=== PATIENT | male | born 1950 | race Caucasian/White ===

== ENCOUNTER 2020-08-31 12:43 | Outpatient (RCR) | payer MEDICARE, SELFPAY ==
[2020-08-31] MEDS: COVID-19 VACC, MRNA(PFIZER)/PF 30 MCG/0.3 ML SYRINGE IM (10:48)
[2020-09-21] MEDS: COVID-19 VACC, MRNA(PFIZER)/PF 30 MCG/0.3 ML SYRINGE IM (10:29)
== END 2020-11-30 23:59 ==
LOC: IMMUN 12:43
PROVIDERS: Visit Provider Family Medicine
DX: Z23 Encounter for immunization (principal)
CPT/HCPCS: 0001A; 0002A; 91300

== ENCOUNTER → 2020-12-10 09:59 | Outpatient (CLI) | payer MEDICARE, SELFPAY ==
[2020-12-10 10:38] LABS: PSA,Total- Diagnostic 8.35 ng/mL (0.0-4.0)
== END ==
PROVIDERS: Visit Provider Nurse Practitioner Adult Health
DX: R97.20 Elevated prostate specific antigen [PSA] (principal)
CPT/HCPCS: 36415; 84153

== ENCOUNTER → 2021-05-30 14:35 | Outpatient (CLI) | payer MEDICARE, SELFPAY ==
--- NOTE | 2021-05-30 14:38 | US_ITS ---
STUDY: RENAL ULTRASOUND - COMPLETE REASON FOR EXAM: Male, 71 years old. ARF TECHNIQUE: Ultrasound evaluation of the kidneys was performed with real-time and static montague-scale imaging. COMPARISON: None. FINDINGS: RIGHT KIDNEY: Normal location of the right kidney, which is normal in size. The right kidney measures 9 cm x 4.2 cm x 4.7 cm. There is a normal cortex of the right kidney. The renal cortex measures 1.5 cm. There is no right renal mass or cyst. There are no right renal calculi. There is no right hydronephrosis. DISTAL RIGHT URETER: There is non-visualization of the distal right ureter. There is no demonstrated right ureterovesical junction calculus. There is a visualized right ureteral jet. LEFT KIDNEY: Normal location of the left kidney, which is normal in size. The left kidney measures 9.6 cm x 4.9 cm x 4.9 cm. There is a normal cortex of the left kidney. The renal cortex measures 1.7 cm. There is no left renal mass or cyst. There are no left renal calculi. There is no left hydronephrosis. DISTAL LEFT URETER: There is non-visualization of the distal left ureter. There is no demonstrated left ureterovesical junction calculus. There is a visualized left ureteral jet. BLADDER: The distended urinary bladder has a volume of 174 ml. There is a normal wall thickness of the distended urinary bladder. There is no demonstrated mass within the urinary bladder. There are no demonstrated bladder calculi. There is enlargement of the prostate. It measures 6.1 cm x 5.5 cm x 4.4 cm. This causes indentation at the bladder base. US/Kidney and Bladder IMPRESSION: Normal ultrasound of the kidneys and urinary bladder. Prostatic enlargement with indentation at the bladder base. Electronically Signed: Roni Murillo MD at 10:01 EST , Service support ,
== END ==
PROVIDERS: Referring Provider Internal Medicine; Visit Provider Internal Medicine
DX: N17.9 Acute kidney failure, unspecified (principal)
CPT/HCPCS: 76770

== ENCOUNTER 2021-11-20 07:38 | Emergency (ER) | payer MEDICARE, SELFPAY ==
[2021-11-20 07:39] VITALS: BP 176/80; PULSE 80; RESP 18; TEMP 36.6; O2SAT 99; BMI 24.6
--- NOTE | 2021-11-20 07:56 | EDS_ITS ---
HPI History of Present Illness Chief Complaint: Lower Extremity Injury Detail of Chief Complaint: Right foot pain Informant: patient Onset/Context/Timing Onset: Weeks Timing: Waxes and wanes Current Severity: Mild Maximum Severity: Moderate Narrative Narrative: Patient presents due to concerns for recurrent gout. He has been fighting gout in his right MTP joint since July. He was recently on medication approximately 2 weeks ago. He states symptoms get better when he is on the medication but then recur when the medication is stopped. No fever or chills. [facility] Medical History (Updated 11/20/21 @ 09:[address] Sobeida Romero MD) Gout Hypertension Home Medications prednisone 40 mg PO DAILY #8 tab 11/20/21 [Rx Last Taken Unknown] Allergy/AdvReac Type Severity Reaction Status Date / Time No Known Allergies Allergy Verified 11/20/21 07:41 Family History no significant family his Surgical History no surgical history Social History Smoking Status: Never smoker ROS ROS ED Constitutional Constitutional ED: Denies chills or fever(s) Eyes Eyes: Denies change in vision ENT ENT ED: Denies ear pain Cardiovascular Cardiovascular: Denies chest pain or palpitations Respiratory/Chest Respiratory/Chest: Denies cough or dyspnea Gastrointestinal Gastrointestinal: Denies abdominal pain, diarrhea or vomiting Musculoskeletal Musculoskeletal: Reports arthralgias; Denies back pain or neck pain Neurologic Neurologic: Denies paresthesias Hematologic/Lymphatic Hematologic/Lymphatic: Denies easy bruising Allergic/Immunologic Allergic/Immunologic ED: Denies mouth swelling or urticaria EXAM Physical Exam Const Vital Signs: 11/20/21 07:39 Temperature 98 F Temperature Source Temporal Pulse Rate 80 Respiratory Rate 18 Blood Pressure 176/80 H Blood Pressure Mean 112 Pulse Ox 99 Oxygen Delivery Method Room Air Positive well nourished and well developed General Appearance ED: well developed HEENT normocephalic Eyes PERRL Neck full ROM Chest Wall inspection of chest normal and palpation of chest normal Resp normal respiratory effort and clear to auscultation bilaterally Cardio regular rate and regular rhythm GI non-tender and non-distended Palpation: soft Extremity Extremity Narrative: Erythema, mild edema, tenderness palpation of the right first MTP joint. No open skin wounds. Neuro oriented x3 Sensorium / Orientation: alert MDM MDM MDM Narrative Medical decision making narrative: Right foot x-rays obtained. Radiography Diagnostic Testing: Clinical Impression(s) from Imaging Studies Foot X-Ray 11/20/21 08:10 IMPRESSION: Suspect mild gout at the first metatarsophalangeal joint. Electronically Signed: Lyle Hong MD at 9:40 EDT , Treatment and Re-Evaluation Narrative: Right foot x-ray per my interpretation does reveal inflammation of the right first MTP joint. Radiology interpretation also reviewed. I did call the pharmacy. Patient was on prednisone 10 mg 3 times a day for 5 days earlier this month. He will be treated with another prednisone burst. I did encourage him to call his doctor to be started on a maintenance medication for gout once this acute flare is calm down. Discharge Plan Triage Chief Complaint: Lower Extremity Injury ED Provider: Sobeida Romero Dx/Rx/DC Orders Clinical Impression: Gout Instructions: ED Gout Prescriptions: New prednisone 20 mg tablet 40 mg PO DAILY Qty: 8 RF: 0 Primary Care Provider: Francesca Lopez Referrals: Francesca Lopez DO [Primary Care Provider] - 5-7 Days Disposition Disposition: Home, Self Care
--- NOTE | 2021-11-20 08:10 | RAD_ITS ---
STUDY: X-RAY - RIGHT FOOT CLINICAL: Male, 71 years old. pain TECHNIQUE: 3 view(s) of the foot. COMPARISON: None. FINDINGS: Normal talus, calcaneus, and tarsal bones. Tiny plantar calcaneal enthesophyte. Normal visualized subtalar, talonavicular, calcaneocuboid, tarsal and tarsometatarsal articulations. Normal metatarsi. Tiny erosions of the tibial aspect of the head of the first metatarsal bone with dense soft tissue swelling medial to the head of the first metatarsal bone. Findings may represent gout. Normal tibial and fibular sesamoid bones. Normal interphalangeal joint of the great toe. Normal phalanges of the great toe. Normal second through fifth metatarsophalangeal joints. Normal interphalangeal joints and phalanges of the lesser toes. The soft tissue structures are unremarkable. RAD/Foot min 3 Views IMPRESSION: Suspect mild gout at the first metatarsophalangeal joint. Electronically Signed: Lyle Hong MD at 9:40 EDT ,
[2021-11-20] MEDS: predniSONE 20 MG Tablet 40 MG PO (10:03)
== END 2021-11-20 10:04 | disposition home or self-care (01) ==
PROVIDERS: Emergency Provider Emergency Medicine; PCP Internal Medicine; Visit Provider Emergency Medicine
DX: M10.9 Gout, unspecified (principal)
CPT/HCPCS: 73630; 99283

== ENCOUNTER → 2022-01-12 | Outpatient (CLI) | payer MEDICARE, SELFPAY ==
--- NOTE | 2022-01-12 | IMM_PTH ---
PATIENT: RIRI MARTIN Jr. LOC: [facility] U#:[id number] AGE/SX: 71/M ROOM: RE01/12/[address]: Dr. Asael Pardo MD : 1950 BED: DIS: 01/12/2022 SPEC #: [id number] RECD: 01/16/22 12:27 STATUS: SHARON REQ #: [id number] PATITO: 01/12/22 00:[address]: Asael Pardo DEPT: IMMUNOHISTOCHEMISTRY RECD BY: Meg Joya ENTERED: 01/16/22 12:28 SP TYPE: IMMUNO OTHR DR: Dr. Francesca Lopez, DO Tissues: D - PROSTATE LEFT Procedures: P40 (add) 34BE12 (initial) PHYSICIAN & INSTITUTION [place] [id number] SPECIMEN INFORMATION: Tissue Source: Clinical Info: Elevated PSA Specimen Number: [id number] CPT code: 35595, 30159 METHODOLOGY: Deparaffinized sections of prefer/formalin-fixed tissue or PAP/DQ stained slides are incubated with monoclonal/polyclonal antibodies/oligonucleotide probes. Localization is made via biotin free immunoperoxidase method. Appropriate controls are performed and reacted as expected. Results on target cell population are indicated in the following table: RESULTS: ANTIBODY / CLONE RESULT Block D P40 (BC28) negative 34BE12 (34BE12) negative These tests were developed and their performance characteristics determined by [facility]. They may not have been cleared or approved by the U.S. Food and Drug Administration. The FDA has determined that such clearance or approval is not necessary. The above immunohistochemical/dualISH markers are ordered and reviewed by the Pathologist. INTERPRETATION: D. Left prostate, apex, core biopsy: A minute focus of adenocarcinoma. This case has been reviewed in consultation with Dr. Butt who concurs with the above diagnosis. SJ:angélica 01/17/2022
--- NOTE | 2022-01-12 08:00 | PROSBIL_PTH ---
PATIENT: RIRI MARTIN Jr. LOC: [facility] U#:[id number] AGE/SX: 71/M ROOM: RE01/12/[address]: Dr. Asael Pardo MD : 1950 BED: DIS: 01/12/2022 SPEC #: [id number] RECD: 01/12/22 17:39 STATUS: SHARON REQ #: [id number] PATITO: 01/12/22 08:[address]: Asael Pardo DEPT: SURGICAL PATHOLOGY RECD BY: Trish Kaplan ENTERED: 01/13/22 08:06 SP TYPE: PROST BX DINA DR: Dr. Francesca Lopez DO Tissues: A - PROSTATE RIGHT B - PROSTATE RIGHT C - PROSTATE RIGHT D - PROSTATE LEFT E - PROSTATE LEFT F - PROSTATE LEFT Procedures: PROSTATE BX HEADER OPERATION: Prostate biopsies PRE-OP DIAGNOSIS: Elevated PSA TISSUE SUBMITTED: A - Right apex, B - Right mid, C - Right base, D - Left apex, E - Left mid, F - Left base MICROSCOPIC DIAGNOSIS A. Right prostate, apex, core biopsy: Prostatic tissue, negative for malignancy. B. Right prostate, mid, core biopsy: Focal high-grade prostatic intraepithelial neoplasia (HGPIN). Focal atrophy. C. Right prostate, base, core biopsy: Prostatic adenocarcinoma. Jay grade: 3+3=6 Number of cores involved: 1/2 Proportion of tissue involved: ~15% Perineural invasion: Not identified. Greatest tumor length: 0.3 cm Focal high-grade prostatic intraepithelial neoplasia (HGPIN). D. Left prostate, apex, core biopsy: A minute focus of prostatic adenocarcinoma. Ananda grade: 3+3=6 Number of cores involved: 1/2 Proportion of tissue involved: <5% Perineural invasion: Not identified. Greatest tumor length: <0.1 cm See comment. E. Left prostate, mid, core biopsy: Focal high-grade prostatic intraepithelial neoplasia (HGPIN). F. Left prostate, base, core biopsy: Focal high-grade prostatic intraepithelial neoplasia (HGPIN). SJ:angélica 01/16/2022 COMMENT D. Immunohistochemistry ([id number]) supports the above diagnosis. Case has been reviewed in consultation with Dr. Butt who concurs with the above diagnosis. IDC:AM MICROSCOPIC DESCRIPTION Slides are reviewed. GROSS DESCRIPTION A - Received is one container designated prostate, right apex. The specimen consists of two elongated fragments of light kerns-white soft tissue each measuring 1.5 cm in length and 0.1 cm in diameter. The specimen is totally submitted in one cassette. B - Received is one container designated prostate, right mid. The specimen consists of two elongated fragments of light kerns-white soft tissue each measuring 2 cm in length and 0.1 cm in diameter. The specimen is totally submitted in one cassette. C - Received is one container designated prostate, right base. The specimen consists of two elongated fragments of light kerns-white soft tissue each measuring 1.5 cm in length and 0.1 cm in diameter. The specimen is totally submitted in one cassette. D - Received is one container designated prostate, left apex. The specimen consists of two elongated fragments of light kerns-white soft tissue each measuring 1.5 cm in length and 0.1 cm in diameter. The specimen is totally submitted in one cassette. E - Received is one container designated prostate, left mid. The specimen consists of two elongated fragments of light kerns-white soft tissue each measuring 2 cm in length and 0.1 cm in diameter. The specimen is totally submitted in one cassette. F - Received is one container designated prostate, left base. The specimen consists of one elongated fragment of light kerns-white soft tissue measuring 2 cm in length and 0.1 cm in diameter. The specimen is totally submitted in one cassette. / AM:angélica 01/13/2022 TC:0 CPT: G0146 ADDENDUM ADDENDUM ADDENDUM ADDENDUM ADDENDUM ADDENDUM ADDENDUM ADDENDUM 02/15/2022 09:21 ADDENDUM 02/15/2022 09:21 ADDENDUM 02/15/2022 09:21 ADDENDUM 02/15/2022 09:21 ADDENDUM 02/15/2022 09:21 An order for Oncotype testing was received from Dr. Pardo. This necessitated case review, block and slide selection by pathologist at [facility]. Genomic Prostate Score = 56 Results of the complete Oncotype testing ([employer] report) are viewable in EMR under: Reports - Pathology - Lab Pathology Report, Scanned.
== END | disposition home or self-care (01) ==
LOC: LABSPEC 14:42
PROVIDERS: PCP Internal Medicine; Visit Provider Urology
DX: C61 Malignant neoplasm of prostate (principal)
CPT/HCPCS: 88305; 88341; 88342; G0416

== ENCOUNTER 2022-06-26 06:41 | Emergency (ER) | payer MEDICARE, SELFPAY ==
[2022-06-26 06:43] VITALS: BP 162/77; PULSE 101; RESP 22; TEMP 36.5; O2SAT 96; BMI 22.6
--- NOTE | 2022-06-26 07:08 | RAD_ITS ---
HISTORY: cough. TECHNIQUE: XR Chest 2 Views. COMPARISON: 05/25/2020. FINDINGS: CARDIOMEDIASTINAL BORDERS: Cardiac silhouette within normal limits in size. Mediastinal contour unchanged with tortuosity of the aorta. LUNGS: Radiographically clear. Chronic elevation of the right hemidiaphragm. PLEURA: No pleural effusion or pneumothorax seen. OSSEOUS STRUCTURES: Degenerative changes. OTHER: Dilated air fluid levels in the small bowel of the upper abdomen. RAD/Chest PA and Lateral IMPRESSION: No acute cardiopulmonary process identified. Dilated small bowel in the upper abdomen, which may represent ileus or bowel obstruction. Electronically Signed: Hailee Paiz MD at 8:11 EST ,
--- NOTE | 2022-06-26 07:08 | EKG12_ITS ---
Test Reason : Blood Pressure : / mmHG Vent. Rate : 089 BPM Atrial Rate : 089 BPM P-R Int : 164 ms QRS Dur : 096 ms QT Int : 362 ms P-R-T Axes : 033 -29 026 degrees QTc Int : 440 ms Normal sinus rhythm Moderate voltage criteria for LVH, may be normal variant ( R in aVL , Bruno product ) Poor R wave progression Nonspecific ST and T wave abnormality Confirmed by KAY HOYOS, RAMONA ([id number]), continuity editor PAWEL RM ([id number]) on 06/27/2022 1:06:52 PM Referred By: Confirmed By:RAMONA VILLANUEVA MD
--- NOTE | 2022-06-26 07:10 | EDS_ITS ---
HPI History of Present Illness Chief Complaint: Cold Sx Informant: patient and spouse/S.O. Narrative Narrative: Patient presents with a cold. He states his symptoms started almost a week ago. He is not sure what day. He has had some coughing but that seems to be almost gone. He has never been short of breath. He never had sputum production. He had some runny nose off and on throughout this. No sore throat. No real headache. He does have myalgias. No chest pain or palpitations. He has had some mild abdominal cramping but this is just before vomiting. He had nausea vomiting early on. He had a couple soft bowel movements but no watery diarrhea. He has not vomited since yesterday morning or the day before. He ate yesterday and did not vomit. His states he just does not feel like eating or drinking and she is afraid he is dehydrated. Nothing really makes his symptoms better or worse. He has been trying NyQuil and Tylenol which does help for his subjective fevers. He has not checked his temperature. No known sick contacts. [facility] Medical History Gout Hypertension Home Medications amlodipine 5 mg tablet 5 mg PO DAILY 06/26/22 [History Last Taken Unknown] metoprolol tartrate 50 mg-hydrochlorothiazide 25 mg tablet 1 tab PO DAILY 06/26/22 [History Last Taken Unknown] ondansetron 4 mg disintegrating tablet 4 mg PO Q8H PRN nausea and vomiting #10 tabs 06/26/22 [Rx Last Taken Unknown] Allergy/AdvReac Type Severity Reaction Status Date / Time No Known Allergies Allergy Verified 11/20/21 07:41 Social History Smoking Status: Never smoker ROS [facility] ED Constitutional Constitutional ED: Reports subjective Eyes Eyes: Denies change in vision ENT ENT ED: Reports rhinorrhea; Denies sore throat Cardiovascular Cardiovascular: Denies chest pain, palpitations or racing heartbeat Respiratory/Chest Respiratory/Chest: Reports cough; Denies dyspnea Gastrointestinal Gastrointestinal: Reports diarrhea, nausea and vomiting Genitourinary Genitourinary ED: Denies dysuria Musculoskeletal Musculoskeletal: Reports myalgias Integumentary Denies rash Neurologic Neurologic: Denies headache(s) Endocrine Endocrinology: Denies polydipsia or polyuria Hematologic/Lymphatic Hematologic/Lymphatic: Denies easy bleeding or easy bruising Allergic/Immunologic Allergic/Immunologic ED: Denies urticaria EXAM Physical Exam Const Vital Signs: 06/26/22 06:43 06/26/22 06:51 Temperature 97.7 F L Temperature Source Oral Pulse Rate 101 H Respiratory Rate 22 H Respiratory Effort Normal Respiratory Pattern Normal Blood Pressure 162/77 H Blood Pressure Mean 105 Pulse Ox 96 Oxygen Delivery Method Room Air Positive well nourished and well developed General Appearance ED: well developed and NAD; Negative for cyanotic, diaphoretic or pallor HEENT Reports dry mucous membranes Mouth ED: Yes dry mucous membranes Mouth: dry mucous membranes Eyes General Eye ED: Negative for scleral icterus Neck no lymphadenopathy Chest Wall inspection of chest normal Resp normal respiratory effort and clear to auscultation bilaterally Cardio regular rate and regular rhythm Rate: Negative for tachycardic GI normal to inspection, nondistended, normoactive bowel sounds, non-tender and non-distended Auscultation: normoactive bowel sounds; Negative for hyperactive bowel sounds or hypoactive bowel sounds Palpation: soft; Negative for tender, guarding or mass Back/Spine no CVA tenderness Extremity normal to inspection Neuro Sensorium / Orientation: alert Psych mental status grossly normal Skin no rashes or lesions noted General Skin Exam: Negative for jaundice or pallor MDM MDM MDM Narrative Medical decision making narrative: X-ray showed some dilated bowel loops but no intrathoracic process. But the patient has normal bowel sounds. He is not distended. He is not having pain. He has no nausea now. He took potassium without difficulty. He drank water. I do not think this represents obstruction or ileus clinically. I do not think he needs CAT scan of the abdomen. Blood work showed mildly low hemoglobin 11.8. But he also has low indices that show this is likely chronic. Electrolytes showed mild dehydration with elevated BUN to creatinine. I do not have old labs to compare. His potassium was a bit low at 3.0. The was replaced orally. Patient will go home. He is feeling well. COVID and influenza are negative. I will write for some Zofran if he needs it. We discussed reasons to return. Both myself and his family encouraged him to eat or drink even though he does not have a great appetite. Lab Data Attestation: I reviewed the patient's lab results. Labs: Laboratory Results - last 24 hr 06/26/22 06/26/22 07:45 07:45 WBC 10.7 RBC 4.47 L Hgb 11.8 L Hct 38.4 L MCV 85.9 MCH 26.4 L MCHC 30.7 L RDW Std Deviation 49.8 H RDW Coeff of [place] 15.9 H Plt Count 376 MPV 9.7 Immature Gran % (Auto) 0.300 Neut % (Auto) 75.3 H Lymph % (Auto) 9.2 L [place]ack[place] % (Auto) 15.0 H Eos % (Auto) 0.1 Baso % (Auto) 0.1 Absolute Neuts (auto) 8.1 H Absolute Lymphs (auto) 0.98 Nucleated RBC % 0 Differential Comment SCANNED Sodium 137 Potassium 3.0 L Chloride 98 Carbon Dioxide 28.0 Anion Gap 11 BUN 42 H Creatinine 1.40 H Estim Creat Clear Calc 41.49 Est GFR (MDRD) Af Amer 64 Est GFR (MDRD) Non-Af 53 L BUN/Creatinine Ratio 30.0 H Glucose 118 H Calcium 8.9 Radiography Diagnostic Testing: Clinical Impression(s) from Imaging Studies Chest X-Ray 06/26/22 07:08 IMPRESSION: No acute cardiopulmonary process identified. Dilated small bowel in the upper abdomen, which may represent ileus or bowel obstruction. Electronically Signed: Hailee Paiz MD at 8:11 EST Reading Location ID and State: [address] [place] [address] Tel , Service support , 2 view chest x-ray looked at by me and read by radiology shows no acute pulmonary process. There were some dilated bowel loops. EKG Initial EKG: Comments: EKG done for cough and generalized ill feeling in an elderly. EKG read by me shows normal sinus rhythm with overall rate of 89. No ectopy. Suspicion of mild LVH. Nonspecific ST and T wave changes. No convincing evidence of infarct or ischemia. ND interval, QRS duration and QTc normal. No old for comparison. Discharge Plan Triage Chief Complaint: Cold Sx ED Provider: Binh Dunn Dx/Rx/DC Orders Clinical Impression: Influenza-like illness, Dehydration Instructions: Dehydration Prescriptions: New ondansetron 4 mg tablet,disintegrating 4 mg PO Q8H PRN (Reason: nausea and vomiting) Qty: 10 0RF No Action amlodipine 5 mg Tablet 5 mg PO DAILY metoprolol ta-hydrochlorothiaz 50-25 mg tablet 1 tab PO DAILY Label Comments: Take 1 tablet by mouth as directed Primary Care Provider: Francesca Lopez Referrals: Francesca Lopez DO [Primary Care Provider] - 3-5 Days if not improving Disposition Disposition: Home, Self Care
--- NOTE | 2022-06-26 07:27 | NURSING ---
NO OLD EKGS
[2022-06-26] MEDS: 0.9% Normal Saline 1,000 ML 999 ML IV (07:51)
[2022-06-26] MEDS: Ondansetron 4 MG/2 ML Vial IV (07:52)
[2022-06-26 07:55] LABS: Absolute Lymphocyte Count 0.98 X10^3/uL (0.83-4.51); Absolute Neutrophil Count 8.1 X10^3/uL (2.0-7.7); Basophil# 0.01 X10^3/uL; Basophil% 0.1 % (0-1); Eosinophil# 0.01 X10^3/uL; Eosinophils% 0.1 % (0-5); Hematocrit 38.4 % (40-54); Hemoglobin 11.8 g/dL (13.0-16.5); Lymphocyte # 0.98 X10^3/ul (0.83-4.51); Lymphocyte % 9.2 % (19-41); Mean Corp Hgb Conc 30.7 g/dL (32-36); Mean Corpuscular Hgb 26.4 pg (27.0-32.0); Mean Corpuscular Volume 85.9 fL (80-94); Mean Platelet Vol. 9.7 fl (6.2-12.0); Monocyte# 1.61 X10^3/uL; NRBC Flagged by Analyzer 0 % (0-5); Neutrophil # 8.06 X10^3/uL (2.7-7.7); Neutrophil % 75.3 % (47-70); POSITIVE DIFFERENTIAL YES; Platelet Count 376 K/mm3 (150-450); RBC Distribution Width CV 15.9 % (11.6-14.6); RBC Distribution Width SD 49.8 fl (35.1-43.9); Red Blood Count 4.47 M/mm3 (4.6-6.2); White Blood Count 10.7 K/mm3 (4.4-11.0)
[2022-06-26 07:57] LABS: Differential Indicated SCAN CRITERIA MET
[2022-06-26 08:13] LABS: Anion Gap 11 (5-15); BUN 42 mg/dL (7-18); Calcium,Total 8.9 mg/dL (8.5-10.1); Chloride 98 mmol/L (98-107); EST Glomerular Filtration Rate 53 mL/min (>60); Est Glom Filt Rate - Afr Amer 64 mL/min (>60); Estimated Creatinine Clearance 41.49 ml/min; Glucose 118 mg/dL (74-106); Sodium Level 137 mmol/L (136-145)
[2022-06-26 08:25] LABS: Differential Comment SCANNED
[2022-06-26] MEDS: Potassium Chloride Oral Tablet 20 MEQ PO (08:34)
[2022-06-26 09:56] VITALS: BP 136/60; PULSE 80; RESP 16; O2SAT 100
== END 2022-06-26 09:58 | disposition home or self-care (01) ==
LOC: ED 07:21
PROVIDERS: Emergency Provider Emergency Medicine; PCP Internal Medicine; Visit Provider Emergency Medicine
DX: E86.0 Dehydration (principal); I10 Essential (primary) hypertension; Z79.899 Other long term (current) drug therapy
CPT/HCPCS: 71046; 80048; 85025; 87428; 93005; 96361; 96374; 99284; J7030; A4216; J2405

== ENCOUNTER 2022-07-04 18:56 | Inpatient (IN) | payer MEDICARE, SELFPAY ==
[2022-07-04 18:57] VITALS: BP 127/71; PULSE 80; RESP 16; TEMP 36.8; O2SAT 98; BMI 23.2
[2022-07-04] MEDS: 0.9% Normal Saline 1,000 ML 999 ML IV ×2 (19:38→21:09)
[2022-07-04 19:46] LABS: Absolute Lymphocyte Count 2.58 X10^3/uL (0.83-4.51); Absolute Neutrophil Count 7.2 X10^3/uL (2.0-7.7); Basophil# 0.03 X10^3/uL; Basophil% 0.3 % (0-1); Eosinophil# 0.11 X10^3/uL; Hematocrit 36.4 % (40-54); Hemoglobin 11.4 g/dL (13.0-16.5); Lymphocyte # 2.58 X10^3/ul (0.83-4.51); Mean Corp Hgb Conc 31.3 g/dL (32-36); Mean Corpuscular Hgb 26.4 pg (27.0-32.0); Mean Corpuscular Volume 84.3 fL (80-94); Mean Platelet Vol. 9.2 fl (6.2-12.0); Monocyte# 1.26 X10^3/uL; Monocyte% 11.2 % (0-10); NRBC Flagged by Analyzer 0 % (0-5); Neutrophil # 7.21 X10^3/uL (2.7-7.7); Neutrophil % 64.1 % (47-70); Platelet Count 437 K/mm3 (150-450); RBC Distribution Width CV 15.5 % (11.6-14.6); RBC Distribution Width SD 47.9 fl (35.1-43.9); Red Blood Count 4.32 M/mm3 (4.6-6.2); White Blood Count 11.2 K/mm3 (4.4-11.0)
[2022-07-04 20:17] LABS: ALB/GLOB Ratio 0.8 RATIO (0.9-2.4); AST(SGOT) 20 U/L (15-37); Alanine Aminotransfer ALT/SGPT 27 U/L (16-61); Alkaline Phosphatase 65 U/L (45-117); Anion Gap 10 (5-15); BUN 23 mg/dL (7-18); BUN/Creat Ratio 14.9 RATIO (10-20); Calcium,Total 8.4 mg/dL (8.5-10.1); Chloride 91 mmol/L (98-107); Creatinine, Serum 1.54 mg/dL (0.70-1.30); EST Glomerular Filtration Rate 47 mL/min (>60); Est Glom Filt Rate - Afr Amer 57 mL/min (>60); Estimated Creatinine Clearance 39.13 ml/min; Globulin 3.9 g/dL (2.2-4.2); Glucose 94 mg/dL (74-106); Lipase 142 U/L (73-393); Potassium 2.7 mmol/L (3.5-5.1); Protein, Total 6.9 g/dL (6.4-8.2); Sodium Level 132 mmol/L (136-145)
[2022-07-04 20:17] LABS: Bacteria 0 SEEN /hpf (None Seen); Mucous, Urine 0 SEEN /hpf (<or=2+); Red Blood Cells-Urine 0 SEEN /hpf (0-5); Squamous Epithelial Cells - UA 0 SEEN /hpf (0-5)
[2022-07-04 20:20] LABS: Color, Urine Yellow (Yellow); Glucose, Dipstick Normal (Normal); Ketone-Dipstick 5 mg/dl (Negative); Leukocyte Esterase-Dipstick 25 /ul (Negative); Nitrite-Dipstick Negative (Negative); Occult Blood-Urine Negative /ul (Negative); Protein-Dipstick Negative (Negative); Specific Gravity, Urine 1.005 (1.002-1.030); Urine Bilirubin Dipstick Negative (Negative); Urine Clarity Clear (Clear); Urine Urobilinogen Normal (Normal)
[2022-07-04 20:26] VITALS: BP 116/78; PULSE 77; RESP 16; TEMP 36.6; O2SAT 97
[2022-07-04 20:36] LABS: White Blood Cells 0-5 SEEN /hpf (0-5)
--- NOTE | 2022-07-04 20:41 | ED.RN ---
[facility] NOTIFIED OF HOSPITAL ADMISSION.
[2022-07-04 20:49] LABS: Magnesium 1.4 mg/dL (1.6-2.6)
[2022-07-04] MEDS: Potassium Chloride 10mEq/100mL 10 MEQ/100 ML IV.SOLN. 100 MEQ IV BOLUS ×2 (20:55→22:53)
--- NOTE | 2022-07-04 20:55 | EDS_ITS ---
HPI HPI - GI History of Present Illness Chief Complaint: Abd Pain Narrative Narrative: 72-year-old male presenting with large bowel obstruction found on outpatient CT today. He does report that he has had nausea and vomiting but it is resolved. He states he still having loose stools that are black or bloody. He describes his pain as not very bad. He does not have any urinary complaints. He states he has no history of cancer that looks like the cause of this may be malignancy. He is not had a fever at home. Apparently the pain has been ongoing for about 3 weeks. He followed up with his PCP to have this CT performed. He previously had blood work in the emergency room. [facility] Medical History Gout Hypertension Home Medications amlodipine 5 mg tablet 5 mg PO DAILY 06/26/22 [History Last Taken Unknown] metoprolol tartrate 50 mg-hydrochlorothiazide 25 mg tablet 1 tab PO DAILY 06/26/22 [History Last Taken Unknown] ondansetron 4 mg disintegrating tablet 4 mg PO Q8H PRN nausea and vomiting #10 tabs 06/26/22 [Rx Last Taken Unknown] Allergy/AdvReac Type Severity Reaction Status Date / Time No Known Allergies Allergy Verified 07/04/22 19:00 Social History Smoking Status: Never smoker ROS ROS ED Constitutional Constitutional ED: Denies chills or fever(s) ENT ENT ED: Denies rhinorrhea or sore throat Cardiovascular Cardiovascular: Denies chest pain or palpitations Respiratory/Chest Respiratory/Chest: Denies cough or dyspnea Gastrointestinal Gastrointestinal: Reports abdominal pain, diarrhea, nausea and vomiting Genitourinary Genitourinary ED: Denies dysuria or hematuria Musculoskeletal Musculoskeletal: Denies arthralgias or back pain Integumentary Denies abscess Neurologic Neurologic: Denies headache(s) or paresthesias Psychiatric Psychiatric: Denies anxiety or depression Endocrine Endocrinology: Denies polydipsia or polyphagia EXAM Physical Exam Const Vital Signs: 07/04/22 18:57 07/04/22 20:26 Temperature 98.2 F 97.8 F Temperature Source Temporal Temporal Pulse Rate 80 77 Respiratory Rate 16 16 Blood Pressure 127/71 H 116/78 Blood Pressure Mean 89 90 Pulse Ox 98 97 Oxygen Delivery Method Room Air Room Air Positive well nourished General Appearance ED: NAD; Negative for pallor HEENT Reports TM's clear and moist mucous membranes normocephalic and atraumatic Tympanic Membrane ED: Yes TM's clear Eyes PERRL and EOMs intact bilaterally General Eye ED: Negative for pale conjunctiva or scleral icterus Neck no lymphadenopathy Resp normal respiratory effort and clear to auscultation bilaterally Auscultation: Negative for rales, rhonchi or wheezes Cardio regular rate and regular rhythm GI GI Narrative: Slightly distended. Minimal tenderness to palpation. No rebound or guarding Back/Spine no CVA tenderness Neuro CN's II-XII intact bilaterally, moves all extremities and no sensory deficits noted Sensorium / Orientation: alert Motor Exam: strength 5/5 throughout Psych mental status grossly normal Skin General Skin Exam: Negative for jaundice or pallor MDM MDM MDM Narrative Medical decision making narrative: Patient presenting with outpatient CT which showed a large bowel at the splenic flexure likely malignancy. Patient presented with no known history of any cancer but has documentation showing he has prostate cancer in the medical record. Patient reporting minimal pain. He states he had loose stools. Has not had a fever. His vomiting is resolved. He reports that he can eat. He has no family in the room. Since I had the CT read already I spoke with Dr. Wesley and she stated that if he still having bowel movements that are loose to talk to Dr. Burk about possibly getting a stent placed so we can optimize his renal function and electrolytes and planning for surgery. I spoke with Dr. Burk who stated that he would give in an attempt and was amenable to being on consult. Patient had blood work done today which shows slight leukocytosis at 11.2. Hemoglobin and hematocrit are stable. Platelets are normal. Creatinine slightly elevated at 1.54 so I did order him some IV fluids. His potassium is 2.7 today and his magnesium was checked because of this it is 1.4. So I did order 4 rounds of IV magnesium. Dr. Wesley ordered him 40 of p.o. potassium and [address] Burk did request an INR be drawn and this was performed and is 2.0. urinalysis was negative for infection today. Patient was admitted to surgery in stable condition. Impression: 1. Partial large bowel obstruction 2. Hypokalemia 3. Hypomagnesemia 4. Dehydration Lab Data Attestation: I reviewed the patient's lab results. Labs: Laboratory Results - last 24 hr 07/04/22 07/04/22 07/04/22 19:35 19:35 19:35 WBC 11.2 H RBC 4.32 L Hgb 11.4 L Hct 36.4 L MCV 84.3 MCH 26.4 L MCHC 31.3 L RDW Std Deviation 47.9 H RDW Coeff of [place] 15.5 H Plt Count 437 MPV 9.2 Immature Gran % (Auto) 0.400 Neut % (Auto) 64.1 Lymph % (Auto) 23.0 [place] % (Auto) 11.2 H Eos % (Auto) 1.0 Baso % (Auto) 0.3 Absolute Neuts (auto) 7.2 Absolute Lymphs (auto) 2.58 Nucleated RBC % 0 PT INR Sodium 132 L Potassium 2.7 L* Chloride 91 L Carbon Dioxide 31.0 Anion Gap 10 BUN 23 H Creatinine 1.54 H Estim Creat Clear Calc 39.13 Est GFR (MDRD) Af Amer 57 L Est GFR (MDRD) Non-Af 47 L BUN/Creatinine Ratio 14.9 Glucose 94 Calcium 8.4 L Magnesium 1.4 L Total Bilirubin 0.30 AST 20 ALT 27 Alkaline Phosphatase 65 Total Protein 6.9 Albumin 3.0 L Globulin 3.9 Albumin/Globulin Ratio 0.8 L Lipase 142 Urine Color Urine Clarity Urine pH Ur Specific [place] Urine Protein Urine Glucose (UA) Urine Ketones Urine Occult Blood Urine Nitrite Urine Bilirubin Urine Urobilinogen Ur Leukocyte Esterase Urine RBC Urine WBC Ur Squamous Epith Cells Urine Bacteria Urine Mucus 07/04/22 07/04/22 20:10 20:20 WBC RBC Hgb Hct MCV MCH MCHC RDW Std Deviation RDW Coeff of [place] Plt Count MPV Immature Gran % (Auto) Neut % (Auto) Lymph % (Auto) [place] % (Auto) Eos % (Auto) Baso % (Auto) Absolute Neuts (auto) Absolute Lymphs (auto) Nucleated RBC % PT 22.0 H INR 2.0 Sodium Potassium Chloride Carbon Dioxide Anion Gap BUN Creatinine Estim Creat Clear Calc Est GFR (MDRD) Af Amer Est GFR (MDRD) Non-Af BUN/Creatinine Ratio Glucose Calcium Magnesium Total Bilirubin AST ALT Alkaline Phosphatase Total Protein Albumin Globulin Albumin/Globulin Ratio Lipase Urine Color Yellow Urine Clarity Clear Urine pH 5.0 Ur Specific [place] 1.005 Urine Protein Negative Urine Glucose (UA) Normal Urine Ketones 5 H Urine Occult Blood Negative Urine Nitrite Negative Urine Bilirubin Negative Urine Urobilinogen Normal Ur Leukocyte Esterase 25 H Urine RBC 0 SEEN Urine WBC 0-5 SEEN Ur Squamous Epith Cells 0 SEEN Urine Bacteria 0 SEEN Urine Mucus 0 SEEN Discharge Plan Disposition Disposition: Acute Care Hospital [facility] Discharge Date/Time: 07/04/22 21:59
--- NOTE | 2022-07-04 21:08 | PCM.HP.STD ---
HPI - General General Date of Admission: 07/04/22 HPI Narrative RIRI MARTIN, is a 72 M who presents due to the ER due to abnormal CT abdomen pelvis done as an outpatient. Patient states he has been having some abdominal pain points to the epigastric/right upper quadrant area. Patient states since June 21 it seems to have gotten worse. Patient states he has been taking less p.o. during this time however patient did state he had a normal [employer] breakfast yesterday but only had a cup of chili for dinner. patient may not be the best historian; however, patient's does confirm he has not really been eating much since Terrie and also not drinking as much. Patient states that he has been having liquid bowel movements and still continues to have those. Rates the pain about a 5/10. Patient never had a previous colonoscopy and denies any family history of colon cancer. Patient never had any previous abdominal surgery states he did have a bladder tumor removed from a cystoscopy in the . [facility] Medical History Gout Hypertension Home Medications amlodipine 5 mg tablet 5 mg PO DAILY 06/26/22 [History Last Taken Unknown] metoprolol tartrate 50 mg-hydrochlorothiazide 25 mg tablet 1 tab PO DAILY 06/26/22 [History Last Taken Unknown] ondansetron 4 mg disintegrating tablet 4 mg PO Q8H PRN nausea and vomiting #10 tabs 06/26/22 [Rx Last Taken Unknown] Allergy/AdvReac Type Severity Reaction Status Date / Time No Known Allergies Allergy Verified 07/04/22 19:00 Social History Smoking Status: Never smoker ROS Constitutional Constitutional: Reports anorexia Eyes Eyes: Denies blurry vision ENT HEENT: Denies dysphagia Cardiovascular Cardiovascular: Denies chest pain Respiratory/Chest Respiratory/Chest: Denies cough Gastrointestinal Gastrointestinal: Reports abdominal pain and diarrhea; Denies constipation or vomiting Integumentary Integumentary: Denies jaundice Neurologic Neurologic: Denies dizziness Psychiatric Psychiatric: Denies depression Hematologic/Lymphatic Hematologic/Lymphatic: Denies easy bruising Vital Signs Vital Signs Vital Signs: 07/04/22 18:57 07/04/22 20:26 Temperature 98.2 F 97.8 F Temperature Source Temporal Temporal Pulse Rate 80 77 Respiratory Rate 16 16 Blood Pressure 127/71 H 116/78 Blood Pressure Mean 89 90 Pulse Ox 98 97 Oxygen Delivery Method Room Air Room Air Weight Weight: 144 lb Body Mass Index (BMI) 23.2 Physical Exam Const alert, oriented x3 and no apparent distress HEENT normocephalic and head/scalp atraumatic Resp normal respiratory effort Cardio regular rate GI soft to palpation; Negative for non-distended Palpation: tender epigastric and RUQ; Negative for guarding Extremity no clubbing, cyanosis or edema Neuro CN's II-XII intact bilaterally Psych mental status grossly normal Results Lab / Micro Data Result Diagrams: 07/05/22 04:17 07/05/22 04:17 Labs: Laboratory Results - last 24 hr 07/04/22 19:35: WBC 11.2 H, RBC 4.32 L, Hgb 11.4 L, Hct 36.4 L, MCV 84.3, MCH 26.4 L, MCHC 31.3 L, RDW Std Deviation 47.9 H, RDW Coeff of [place] 15.5 H, Plt Count 437, MPV 9.2, Immature Gran % (Auto) 0.400, Neut % (Auto) 64.1, Lymph % (Auto) 23.0, [place] % (Auto) 11.2 H, Eos % (Auto) 1.0, Baso % (Auto) 0.3, Absolute Neuts (auto) 7.2, Absolute Lymphs (auto) 2.58, Nucleated RBC % 0 07/04/22 19:35: Sodium 132 L, Potassium 2.7 L*, Chloride 91 L, Carbon Dioxide 31.0, Anion Gap 10, BUN 23 H, Creatinine 1.54 H, Estim Creat Clear Calc 39.13, Est GFR (MDRD) Af Amer 57 L, Est GFR (MDRD) Non-Af 47 L, BUN/Creatinine Ratio 14.9, Glucose 94, Calcium 8.4 L, Total Bilirubin 0.30, AST 20, ALT 27, Alkaline Phosphatase 65, Total Protein 6.9, Albumin 3.0 L, Globulin 3.9, Albumin/Globulin Ratio 0.8 L, Lipase 142 07/04/22 19:35: Magnesium 1.4 L 07/04/22 20:10: Urine Color Yellow, Urine Clarity Clear, Urine pH 5.0, Ur Specific [place] 1.005, Urine Protein Negative, Urine Glucose (UA) Normal, Urine Ketones 5 H, Urine Occult Blood Negative, Urine Nitrite Negative, Urine Bilirubin Negative, Urine Urobilinogen Normal, Ur Leukocyte Esterase 25 H, Urine RBC 0 SEEN, Urine WBC 0-5 SEEN, Ur Squamous Epith Cells 0 SEEN, Urine Bacteria 0 SEEN, Urine Mucus 0 SEEN Assessment & Plan Assessment/Plan (1) Partial obstruction of colon: (2) Hypokalemia: (3) Acute kidney injury: (4) Hyponatremia: PLAN: Plan We will keep patient n.p.o. except for meds hydrate with normal saline due to the hyponatremia Hypokalemia replace, hypomagnesemia also replace prior to potassium. Acute kidney injury hydrate and recheck in the morning. Question whether a stent would help depending on when we would be able to do a colectomy. Discussed the procedure left colectomy likely laparoscopic converted to open due to the obstruction and visualization. Did discuss with the patient as well as his the plan. Both had no further questions this time. We will plan for 3 tap water enemas tonight in case a stent may be beneficial. Yoli Wesley M.D. Pager: [phone] [facility] [address] [place] [address], [address] [place] [address] Office: [phone]
[2022-07-04] MEDS: Magnesium Sulfate 4gm/100mL 4 GM/100 ML IV.SOLN. IV (21:16)
[2022-07-04 21:30] VITALS: BP 141/81; PULSE 79; RESP 14; O2SAT 96
[2022-07-04 22:11] VITALS: BMI 21.9
[2022-07-04 22:13] VITALS: BP 116/52; PULSE 69; RESP 18; TEMP 36.9; O2SAT 96
[2022-07-04] MEDS: 0.9% Normal Saline 1,000 ML 150 ML IV (22:53)
[2022-07-04 23:27] LABS: Prothrombin Time (Protime)PT. 13.6 SECONDS (11.7-14.9)
[2022-07-04 23:28] LABS: International Normalized Ratio 1.1
[2022-07-05] MEDS: Potassium Chloride Oral Tablet 20 MEQ 40 MEQ PO ×2 (00:13→23:11)
[2022-07-05] MEDS: Potassium Chloride 10mEq/100mL 10 MEQ/100 ML IV.SOLN. 100 MEQ IV BOLUS ×6 (00:14→10:58)
[2022-07-05] MEDS: 0.9% Normal Saline 1,000 ML 150 ML IV ×3 (01:27→17:23)
[2022-07-05 05:32] VITALS: BP 117/60; PULSE 72; RESP 16; TEMP 36.6; O2SAT 97
[2022-07-05 06:05] LABS: Absolute Lymphocyte Count 1.97 X10^3/uL (0.83-4.51); Absolute Neutrophil Count 8.7 X10^3/uL (2.0-7.7); Basophil# 0.03 X10^3/uL; Basophil% 0.3 % (0-1); Eosinophil# 0.11 X10^3/uL; Eosinophils% 0.9 % (0-5); Hematocrit 34.5 % (40-54); Hemoglobin 11.3 g/dL (13.0-16.5); Lymphocyte # 1.97 X10^3/ul (0.83-4.51); Lymphocyte % 16.7 % (19-41); Mean Corp Hgb Conc 32.8 g/dL (32-36); Mean Corpuscular Hgb 27.8 pg (27.0-32.0); Mean Corpuscular Volume 84.8 fL (80-94); Mean Platelet Vol. 9.8 fl (6.2-12.0); Monocyte# 0.95 X10^3/uL; Monocyte% 8.1 % (0-10); NRBC Flagged by Analyzer 0 % (0-5); Neutrophil # 8.68 X10^3/uL (2.7-7.7); Neutrophil % 73.7 % (47-70); Platelet Count 425 K/mm3 (150-450); RBC Distribution Width CV 15.8 % (11.6-14.6); RBC Distribution Width SD 48.8 fl (35.1-43.9); Red Blood Count 4.07 M/mm3 (4.6-6.2); White Blood Count 11.8 K/mm3 (4.4-11.0)
[2022-07-05 06:15] LABS: International Normalized Ratio 1.1; Prothrombin Time (Protime)PT. 14.2 SECONDS (11.7-14.9)
[2022-07-05 06:47] LABS: AST(SGOT) 20 U/L (15-37); Alanine Aminotransfer ALT/SGPT 27 U/L (16-61); Albumin, Serum 2.7 g/dL (3.2-5.0); Alkaline Phosphatase 59 U/L (45-117); Anion Gap 16 (5-15); BUN 23 mg/dL (7-18); BUN/Creat Ratio 19.3 RATIO (10-20); Bilirubin, Direct 0.13 mg/dL (0.00-0.30); Calcium,Total 7.9 mg/dL (8.5-10.1); Chloride 96 mmol/L (98-107); Creatinine, Serum 1.19 mg/dL (0.70-1.30); EST Glomerular Filtration Rate 64 mL/min (>60); Est Glom Filt Rate - Afr Amer 77 mL/min (>60); Estimated Creatinine Clearance 48.97 ml/min; Globulin 3.5 g/dL (2.2-4.2); Glucose 74 mg/dL (74-106); Magnesium 2.8 mg/dL (1.6-2.6); Potassium 3.3 mmol/L (3.5-5.1); Protein, Total 6.2 g/dL (6.4-8.2); Sodium Level 134 mmol/L (136-145)
--- NOTE | 2022-07-05 07:22 | RAD_ITS ---
INDICATION: bowel obstruction -- portable EXAMINATION/TECHNIQUE: X-RAY - XR Abdomen 2 View COMPARISON: July 04, 2022 CT of the abdomen and pelvis FINDINGS: BOWEL GAS PATTERN: There are dilated loops of small bowel associated with circumferential wall thickening. There is gas visualized within the colon. No bowel or stomach distention. FREE AIR: Not assessed on a single supine view. LOWER CHEST: No acute pathology. BONES AND SOFT TISSUES: There are degenerative changes of the visualized thoracic and lumbar spine and hips. RAD/Abdomen Single View (Portable) IMPRESSION: Findings concerning for a partial small bowel obstruction or ileus associated bowel wall thickening, may be secondary to enteritis. Electronically Signed: Lina Renee MD at 8:03 EST ,
[2022-07-05 08:08] VITALS: BP 128/68; PULSE 73; RESP 16; TEMP 36.4; O2SAT 98
--- NOTE | 2022-07-05 09:15 | PN.SURG_ITS ---
Documented by User: Maria C ANDERSON PA-C 07/05/22 14:29 Subjective Subjective Patient evaluated during morning rounds. Patient notes he has had multiple enemas with success of liquidy bowel movements. Patient notes his abdominal pain has improved since admission. He denies nausea, vomiting. Objective Data Objective Data Vital Signs: Vital Signs Temp Pulse Resp BP Pulse Ox O2 Del Method 97.5 F L 73 16 128/68 H 98 Room Air 07/05/22 08:08 07/05/22 08:08 07/05/22 08:08 07/05/22 08:08 07/05/22 08:08 07/05/22 08:08 Oxygen Delivery Method Room Air Weight: 136 lb 0.403 oz Body Mass Index (BMI) 21.9 Intake & Output: Intake and Output for Last 24 Hours 07/03/22 07/04/22 07/05/22 23:59 23:59 23:59 Intake Total 2200 / 2200 1680 / 1680 Balance 2200 / 2200 1680 / 1680 Lab / Micro Data Result Diagrams: 07/05/22 04:17 07/05/22 04:17 Labs: Laboratory Results - last 24 hr 07/04/22 19:35: WBC 11.2 H, RBC 4.32 L, Hgb 11.4 L, Hct 36.4 L, MCV 84.3, MCH 26.4 L, MCHC 31.3 L, RDW Std Deviation 47.9 H, RDW Coeff of [place] 15.5 H, Plt Co unt 437, MPV 9.2, Immature Gran % (Auto) 0.400, Neut % (Auto) 64.1, Lymph % (Auto) 23.0, [place] % (Auto) 11.2 H, Eos % (Auto) 1.0, Baso % (Auto) 0.3, Absolute Neuts (auto) 7.2, Absolute Lymphs (auto) 2.58, Nucleated RBC % 0 07/04/22 19:35: Sodium 132 L, Potassium 2.7 L*, Chloride 91 L, Carbon Dioxide 31.0, Anion Gap 10, BUN 23 H, Creatinine 1.54 H, Estim Creat Clear Calc 39.13, Est GFR (MDRD) Af Amer 57 L, Est GFR (MDRD) Non-Af 47 L, BUN/Creatinine Ratio 14.9, Glucose 94, Calcium 8.4 L, Total Bilirubin 0.30, AST 20, ALT 27, Alkaline Phosphatase 65, Total Protein 6.9, Albumin 3.0 L, Globulin 3.9, Albumin/Globulin Ratio 0.8 L, Lipase 142 07/04/22 19:35: Magnesium 1.4 L 07/04/22 20:10: Urine Color Yellow, Urine Clarity Clear, Urine pH 5.0, Ur Specific [place] 1.005, Urine Protein Negative, Urine Glucose (UA) Normal, Urine Ketones 5 H, Urine Occult Blood Negative, Urine Nitrite Negative, Urine Bilirubin Negative, Urine Urobilinogen Normal, Ur Leukocyte Esterase 25 H, Urine RBC 0 SEEN, Urine WBC 0-5 SEEN, Ur Squamous Epith Cells 0 SEEN, Urine Bacteria 0 SEEN, Urine Mucus 0 SEEN 07/04/22 20:20: PT 13.6, INR 1.1 07/05/22 04:17: WBC 11.8 H, RBC 4.07 L, Hgb 11.3 L, Hct 34.5 L, MCV 84.8, MCH 27.8, MCHC 32.8, RDW Std Deviation 48.8 H, RDW Coeff of [place] 15.8 H, Plt Count 425, MPV 9.8, Immature Gran % (Auto) 0.300, Neut % (Auto) 73.7 H, Lymph % (Auto) 16.7 L, [place] % (Auto) 8.1, Eos % (Auto) 0.9, Baso % (Auto) 0.3, Absolute Neuts (auto) 8.7 H, Absolute Lymphs (auto) 1.97, Nucleated RBC % 0 07/05/22 04:17: PT 14.2, INR 1.1 07/05/22 04:17: Sodium 134 L, Potassium 3.3 L, Chloride 96 L, Carbon Dioxide 22.0, Anion Gap 16 H, BUN 23 H, Creatinine 1.19, Estim Creat Clear Calc 48.97, Est GFR (MDRD) Af Amer 77, Est GFR (MDRD) Non-Af 64, BUN/Creatinine Ratio 19.3, Glucose 74, Calcium 7.9 L, Magnesium 2.8 H, Total Bilirubin 0.30, Direct Bilirubin 0.13, AST 20, ALT 27, Alkaline Phosphatase 59, Total Protein 6.2 L, Albumin 2.7 L, Globulin 3.5 Radiography Diagnostic Testing: Radiology Impression KUB X-Ray 07/05/22 07:22 IMPRESSION: Findings concerning for a partial small bowel obstruction or ileus associated bowel wall thickening, may be secondary to enteritis. Electronically Signed: Lina Renee MD at 8:03 EST Reading Location ID and State: [facility] / [place] Tel , Service support , Physical Exam GI soft to palpation and non-tender Auscultation: hypoactive bowel sounds Assessment & Plan Assessment/Plan (1) Partial obstruction of colon: PLAN: Discussed patient with Dr. Wesley. Patient is scheduled for a laparoscopic left colectomy, possible open tomorrow morning. Patient denies any questions or concerns at this time. No bowel prep will be completed. We will continue to monitor this patient. Charges/Coding Visit Charges Inpatient E&M: 48451 Subs Hosp L1 Documented by User: Dr. Yoli Wesley MD 07/05/22 12:15 Objective Data Lab / Micro Data Result Diagrams: 07/05/22 04:17 07/05/22 04:17 Physical Exam Resp normal respiratory effort Cardio regular rate Assessment & Plan Assessment/Plan (1) Partial obstruction of colon: PLAN: Plan Patient seen and examined. Discussed with the patient and her laparoscopic left colectomy, possible open including risk but not limited to injury to another organ, bleeding, infection, possible need for further colon surgery depending on the future colonoscopy and anesthesia. Patient and his expressed understanding had no further questions this time. Did review CT abdomen pelvis with both of them. Yoli Wesley M.D. Pager: [phone] [facility] [address] [place] [address], [facility], [address] [place] [address] Office: [phone]
--- NOTE | 2022-07-05 09:55 | CASEMGMT ---
JOSÉ VERAS Assessment: Face to Face with pt for initial transition planning/care coordination assessment. RN EDA introduced self and role at [facility], pt voices understanding and consents to assessment. Pt is A/O x4 and answers all questions appropriately at this time. Pt lying in bed in no distress. Care providers, pharmacy, and demographics verified/updated. Admitting Dx: colon obstruction/mass PCP:Jessica Specialists:Pt denies. Preferred [facility]acy: [facility] Insurance: [facility] Prescription Benefit: yes LNOK: [place], Living Arrangements: Pt lives with in a single story house with 1-2 steps to enter. Pt reports he is I in ADL's and denies concerns at home. Transportation: Pt drives self and denies concerns with transportation. DME/HHC/SNF: Pt has DME at home but does not use. Pt denies hx of HHC or SNF stays. Pt states no concerns with going home at time of dc. Pt states no further concerns/needs. CM to follow. Advised pt to ask CM if any further question/concerns/needs arise, voices understanding. Pt Goal: Home Plan: Home
[2022-07-05 15:30] VITALS: BP 137/55; PULSE 81; RESP 17; TEMP 36.6; O2SAT 98
[2022-07-05 20:45] VITALS: BP 138/67; PULSE 82; RESP 16; TEMP 36.6; O2SAT 98
[2022-07-05 22:21] LABS: Potassium 3.3 mmol/L (3.5-5.1)
--- NOTE | 2022-07-05 22:44 | NURSING ---
spoke to dr. Wesley states she ordered potassium lab draw tonight. states to give 40 meq po potassium if pts potassium level is less than 3.4.
[2022-07-06] VITALS (17 sets, daily range): BP systolic 101–136; BP diastolic 51–71; PULSE 70–106; RESP 16–18; TEMP 36.2–37.4; O2SAT 92–98; BMI 21.9
--- NOTE | 2022-07-06 | IMM_PTH ---
PATIENT: RIRI MARTIN Jr. LOC: MS3 U#:[id number] AGE/SX: 72/M RO[facility] [place]04/[address]: Dr. Yoli Wesley MD : [id number] BED: 1 DIS: 07/21/2022 SPEC #: [id number] RECD: 07/10/22 14:17 STATUS: SOUT REQ #: [id number] PATITO: 07/06/22 00:[address]: Yoli Wesley DEPT: IMMUNOHISTOCHEMISTRY RECD BY: Meg Joya ENTERED: 07/10/22 14:18 SP TYPE: IMMUNO OTHR DR: MD Dr. Francesca George DO Dr. Nana Yaa Koram, MD Dr. Nicholas F Kotsonis, MD Tissues: Left colon Procedures: MLH-1 (add) MSH6 (add) Anti-PMS2 (add) MSH2 (initial) PHYSICIAN & [address] [address] SPECIMEN INFORMATION: Tissue Source: Splenic flexure of colon Clinical Info: Partial obstruction of colon Specimen Number: [id number] #4 CPT code: 25802, 48962 x3 METHODOLOGY: Deparaffinized sections of prefer/formalin-fixed tissue or PAP/DQ stained slides are incubated with monoclonal/polyclonal antibodies/oligonucleotide probes. Localization is made via biotin free immunoperoxidase method. Appropriate controls are performed and reacted as expected. Results on target cell population are indicated in the following table: RESULTS: ANTIBODY / CLONE RESULT Block 4 MLH-1 (M1) positive MSH2 (25D12) positive MSH6 (44) positive PMS2 ([id number]) positive These tests were developed and their performance characteristics determined by [facility]. They may not have been cleared or approved by the U.S. Food and Drug Administration. The FDA has determined that such clearance or approval is not necessary. The above immunohistochemical/dualISH markers are ordered and reviewed by the Pathologist. INTERPRETATION: Left colon, colectomy: Invasive adenocarcinoma. Result of Microsatellite Instability Study: Negative (no loss of mismatch protein; no microsatellite instability detected). AM:angélica 07/11/2022
[2022-07-06] MEDS: 0.9% Normal Saline 1,000 ML 150 ML IV ×3 (00:11→14:26)
--- NOTE | 2022-07-06 05:00 | EKG12_ITS ---
Test Reason : TACHYCARDIA Blood Pressure : / mmHG Vent. Rate : 156 BPM Atrial Rate : 156 BPM P-R Int : 130 ms QRS Dur : 086 ms QT Int : 250 ms P-R-T Axes : 035 -09 047 degrees QTc Int : 402 ms Sinus tachycardia Poor R wave progression Confirmed by KAY HOYOS, RAMONA ([id number]), newspaper photo editor PAWEL RM ([id number]) on 07/12/2022 10:06:14 AM Referred By: MARCOS Confirmed By:RAMONA VILLANUEVA MD
--- NOTE | 2022-07-06 05:38 | EKG12_ITS ---
Test Reason : TACHYCARDIA Blood Pressure : / mmHG Vent. Rate : 169 BPM Atrial Rate : 170 BPM P-R Int : 000 ms QRS Dur : 082 ms QT Int : 242 ms P-R-T Axes : 000 -01 051 degrees QTc Int : 405 ms Somatic/Motion Artifact Supraventricular tachycardia Poor R wave progression Abnormal ECG Confirmed by KAY HOYOS, RAMONA ([id number]), offline editor PAWEL RM ([id number]) on 07/12/2022 10:12:02 AM Referred By: Colleen Ferrer Confirmed By:RAMONA VILLANUEVA MD
[2022-07-06] MEDS: Lactated Ringers 1,000 ML 15 ML IV (05:55)
--- NOTE | 2022-07-06 07:30 | COL_PTH ---
PATIENT: RIRI MARTIN Jr. LOC: MS3 U#:[id number] AGE/SX: 72/M ROOM: [facility] RE07/04/[address]: Dr. Yoli Wesley MD : 1950 BED: 1 DIS: 07/21/2022 SPEC #: [id number] RECD: 07/06/22 11:25 STATUS: SHARON REQ #: [id number] PATITO: 07/06/22 07:[address]: Yoli Wesley DEPT: SURGICAL PATHOLOGY RECD BY: Trish Kaplan ENTERED: 07/06/22 13:18 SP TYPE: COLON OTHR DR: Dr. Francesca Lopez, DO Tissues: Colon, NOS Procedures: Surgery Specimen Level HEADER OPERATION: Laparoscopic converted to open left colectomy PRE-OP DIAGNOSIS: Partial obstruction of colon TISSUE SUBMITTED: Splenic flexure of colon, stitch light distal descending colon MICROSCOPIC DIAGNOSIS Left colon, colectomy: Invasive adenocarcinoma. See cancer synoptic report below. AM:angélica 07/10/2022 COMMENT COLON CANCER SUMMARY Procedure: Left colectomy Tumor site: Left colon Tumor size: 5 x 4 x 1 cm Macroscopic tumor perforation: Not identified Histologic type: Adenocarcinoma Histologic grade: G2 (moderately differentiated) Tumor extension: Tumor invades pericolic fatty tissue. Margins: All margins are uninvolved by invasive carcinoma, high grade dysplasia/carcinoma in situ or adenoma. Margins examined: Proximal, distal and serosal Treatment effect: Unknown Lymphvascular invasion: Not identified Perineural invasion: Present Tumor deposits: Not identified Regional lymph nodes: 2 out of 17 lymph nodes positive for metastatic carcinoma. Ancillary studies: See microsatellite instability study by IHC ([id number]) for complete details. Negative (no loss of mismatch protein; no microsatellite instability detected). Additional pathologic findings: None PATHOLOGIC STAGE: T3 N1 Mx The above summary is in compliance with [employer] [place] [employer] (CAP) Cancer Protocols Checklist and [place] Joint Committee on Cancer (AJCC), Staging Manual, 8th Ed. Case has been reviewed in consultation with Dr. Omalley who concurs with the above diagnosis. IDC:[email or web address] MICROSCOPIC DESCRIPTION Slides are reviewed. GROSS DESCRIPTION Received in fixative is one container labeled with the patient's name and designated splenic flexure colon. The specimen consists of a 27 cm segment of oriented bowel surrounded by kerns-yellow fibrofatty tissue and attached fragment of omentum measuring 60 x 15 x 2 cm. No gross perforation is identified. Present free in the container are two irregular fragments of kerns mucosal tissue ranging in size from 1 to 5 cm. These mucosal fragments do not contain mass lesions. The omentum does not reveal mass lesions. Located 7.2 cm from the distal margin of resection and 21 cm from the proximal margin of resection is a kerns-white apple core lesion measuring 5 x 4 x 1 cm. The lesion totally occludes the bowel at this juncture. The remainder of the bowel mucosa is pink-kerns and free of mass lesions. More dictation to follow after additional fixation. Senior Engineer sections are submitted as follows: 1 - fragments of mucosa free in container, 2 - proximal and distal mucosal margins (distal inked in black). / AM:angélica 07/06/2022 Sections of the tumor reveal it involves full thickness of the bowel wall. Sections of pericolonic adipose tissue reveal multiple lymph nodes. The largest lymph node measures 1.5 cm. More sections are submitted as follows: 3-7 - tumor, 8 - insurance verification representative sections of uninvolved bowel, 9 - omentum and one bisected lymph node, 10 - one bisected lymph node, 11 - one serially sectioned lymph node, 12 - one bisected lymph node, 13 - one bisected lymph node, 14 - one serially sectioned lymph node, 15 - one bisected lymph node, 16 & 17 - each cassette containing multiple lymph nodes. / SJ:angélica 07/07/2022 TC:0 CPT: 71095
[2022-07-06] MEDS: BUPIVACAINE LIPOSOME/PF 20 ML VIAL OPERA.SITE (07:58)
[2022-07-06] MEDS: 0.9% Normal Saline (Pres. free 10 ML Vial (07:58)
--- NOTE | 2022-07-06 10:59 | PCM.OPRPT ---
Report of Operation Date of Procedure: 07/06/22 Surgery/Procedure Performed:: laparoscopic left colectomy converted to open Surgeon: Yoli Wesley Type of Anesthesia: General/Supplemental Anesthesiologist: Saurav Short Special Medications: cefotetan 2 grams IV x 1 Specimen's removed: 1. Splenic flexure Estimated Blood Loss (mL): 50 cc Description of Procedure: Element Response Options Operation performed with curative intent. Yes Tumor location splenic flexure Extent of colon and vascular resection Splenic flexure resection -left branch middle and ascending left colic Description of procedure The patient was brought into the operating placed spine on the operating table. Timeout was completed verifying correct patient, procedure, site, positioning, special equipment prior to procedure. General anesthesia was induced and Vazquez catheter was placed. Abdomen was prepped draped usual sterile fashion with chlorhexidine. General anesthesia was induced. Vazquez catheter was placed. After was prepped draped in usual sterile fashion with chlorhexidine. Supraumbilical incision was made with a 15 blade scalpel the fascia was elevated and incised under direct visualization. Entry of the abdomen was confirmed visually. Meza trocar was placed. Abdomen was insufflated with air to 12 to 15 mmHg. Patient tolerated insufflation well. There is no injury upon entering the abdomen. Additional 5 mm trocar was placed in the epigastric midline, and 1 more in the left mid abdomen under direct visualization. The transverse colon was noted to be distended with air along with diffuse small bowel dilatation. The descending colon was decompressed. No lesions were noted on the liver. Enseal was used to the right lateral to medial the white line of Toldt of the left colon. Continue up to the splenic flexure with good mobilization. Due to the diffuse distended small bowel midline incision was made connecting the 2 previous port sites. Large wound protector was placed. Additional mobilization of the proximal transverse colon is also done and there is adhesions to the gallbladder/liver. Once we had adequate mobilization. The BISI 75 cm stapler was used to divide the distal descending colon as well as the mid transverse colon. The left colic artery and vein were identified and taken at the takeoff with hemoclips x2. The left branch of the middle colic artery was also divided using the Enseal. Remaining mesentery was divided using the Enseal. The transverse colon and sigmoid were brought together without tension. Tinea was aligned with the antimesenteric border ensuring there is no twisting. Enterotomies were made to accommodate the stapler. 75 BISI stapler was used to create the anastomosis. A TX 60 was used to close the enterotomy. 3-0 silk was used for crotch stitch. Good blood supply to the anastomosis was confirmed. The suture line was oversewn partially with sutures of 3-0 silk. The anastomosis was palpated and felt to be patent. Abdomen was irrigated with saline and suction. Wound protector was removed gowns and gloves were changed. The midline incision was closed with a running 1 PDS. Skin was closed with running 4-0 Monocryl and Steri-Strips. OpSite was placed. Patient was extubated and tolerated procedure well and taken to the postanesthesia care unit in stable condition. Complications none
[2022-07-06 13:28] LABS: Anion Gap 15 (5-15); BUN 12 mg/dL (7-18); BUN/Creat Ratio 8.8 RATIO (10-20); Calcium,Total 7.9 mg/dL (8.5-10.1); Chloride 110 mmol/L (98-107); Creatinine, Serum 1.36 mg/dL (0.70-1.30); EST Glomerular Filtration Rate 55 mL/min (>60); Est Glom Filt Rate - Afr Amer 66 mL/min (>60); Estimated Creatinine Clearance 42.84 ml/min; Glucose 91 mg/dL (74-106); Potassium 4.4 mmol/L (3.5-5.1); Sodium Level 142 mmol/L (136-145)
[2022-07-06] MEDS: 0.9% Saline Lock 10 ML Syringe IV (15:55)
[2022-07-06] MEDS: Morphine 4 MG/ML Syringe IV ×2 (15:55→20:55)
[2022-07-06] MEDS: Lactated Ringers 1,000 ML 100 ML IV (16:24)
[2022-07-07] VITALS (8 sets, daily range): BP systolic 103–148; BP diastolic 52–73; PULSE 84–112; RESP 16–18; TEMP 36.7–37.1; O2SAT 93–95
[2022-07-07] MEDS: Morphine 4 MG/ML Syringe IV (00:46)
[2022-07-07] MEDS: 0.9% Saline Lock 10 ML Syringe IV (00:47)
[2022-07-07] MEDS: oxyCODONE 5 MG Tablet PO ×4 (04:37→23:39)
[2022-07-07] MEDS: Lactated Ringers 1,000 ML 100 ML IV ×3 (04:37→23:41)
[2022-07-07] MEDS: Morphine 2 MG/ML Syringe IV (06:24)
[2022-07-07 06:29] LABS: Absolute Lymphocyte Count 1.41 X10^3/uL (0.83-4.51); Absolute Neutrophil Count 14.8 X10^3/uL (2.0-7.7); Basophil# 0.03 X10^3/uL; Basophil% 0.2 % (0-1); Hematocrit 36.8 % (40-54); Hemoglobin 11.5 g/dL (13.0-16.5); Lymphocyte # 1.41 X10^3/ul (0.83-4.51); Lymphocyte % 7.9 % (19-41); Mean Corp Hgb Conc 31.3 g/dL (32-36); Mean Corpuscular Hgb 27.2 pg (27.0-32.0); Mean Platelet Vol. 9.2 fl (6.2-12.0); Monocyte# 1.51 X10^3/uL; Monocyte% 8.5 % (0-10); NRBC Flagged by Analyzer 0 % (0-5); Neutrophil % 83.1 % (47-70); POSITIVE DIFFERENTIAL YES; Platelet Count 373 K/mm3 (150-450); RBC Distribution Width CV 17.2 % (11.6-14.6); RBC Distribution Width SD 54.6 fl (35.1-43.9); Red Blood Count 4.23 M/mm3 (4.6-6.2); White Blood Count 17.8 K/mm3 (4.4-11.0)
[2022-07-07 06:31] LABS: Differential Indicated SCAN CRITERIA MET
[2022-07-07 06:52] LABS: Anisocytosis 1+
[2022-07-07 06:57] LABS: Anion Gap 15 (5-15); BUN 10 mg/dL (7-18); BUN/Creat Ratio 7.8 RATIO (10-20); Calcium,Total 8.3 mg/dL (8.5-10.1); Chloride 107 mmol/L (98-107); Creatinine, Serum 1.28 mg/dL (0.70-1.30); EST Glomerular Filtration Rate 59 mL/min (>60); Est Glom Filt Rate - Afr Amer 71 mL/min (>60); Estimated Creatinine Clearance 45.52 ml/min; Glucose 93 mg/dL (74-106); Potassium 4.1 mmol/L (3.5-5.1); Sodium Level 141 mmol/L (136-145)
--- NOTE | 2022-07-07 08:26 | PCM.PN.SRG ---
Subjective Subjective Patient has had some pain meds for abdominal pain yesterday/overnight. Patient's pain mostly near incision. Patient denies any flatus has had some burping. Denies any nausea or vomiting. Objective Data Objective Data Vital Signs: Vital Signs Temp Pulse Resp BP Pulse Ox O2 Del Method O2 Flow Rate 98.8 F 108 H 18 128/71 H 95 Room Air 4 07/07/22 05:53 07/07/22 05:53 07/07/22 05:53 07/07/22 05:53 07/07/22 05:53 07/07/22 05:53 07/06/22 13:45 Oxygen Flow Rate (L/min) 4 Oxygen Delivery Method Room Air Weight: 136 lb Body Mass Index (BMI) 21.9 Intake & Output: Intake and Output for Last 24 Hours 07/05/22 07/06/22 07/07/22 23:59 23:59 23:59 Intake Total 3048.33 / 3048.33 3682.5 / 3682.5 1000 / 1000 Output Total 1350 / 1350 1125 / 1125 Balance 3048.33 / 3048.33 2332.5 / 2332.5 -125 / -125 Lab / Micro Data Result Diagrams: 07/07/22 06:10 07/07/22 06:10 Labs: Laboratory Results - last 24 hr 07/06/22 12:45: Sodium 142, Potassium 4.4, Chloride 110 H, Carbon Dioxide 17.0 L, Anion Gap 15, BUN 12, Creatinine 1.36 H, Estim Creat Clear Calc 42.84, Est GFR (MDRD) Af Amer 66, Est GFR (MDRD) Non-Af 55 L, BUN/Creatinine Ratio 8.8 L, Glucose 91, Calcium 7.9 L 07/07/22 06:10: WBC 17.8 H, RBC 4.23 L, Hgb 11.5 L, Hct 36.8 L, MCV 87.0, MCH 27.2, MCHC 31.3 L, RDW Std Deviation 54.6 H, RDW Coeff of [place] 17.2 H, Plt Count 373, MPV 9.2, Immature Gran % (Auto) 0.300, Neut % (Auto) 83.1 H, Lymph % (Auto) 7.9 L, [place] % (Auto) 8.5, Eos % (Auto) 0.0, Baso % (Auto) 0.2, Absolute Neuts (auto) 14.8 H, Absolute Lymphs (auto) 1.41, Nucleated RBC % 0, Diff Path Review May foll, Anisocytosis 1+ 07/07/22 06:10: Sodium 141, Potassium 4.1, Chloride 107, Carbon Dioxide 19.0 L, Anion Gap 15, BUN 10, Creatinine 1.28, Estim Creat Clear Calc 45.52, Est GFR (MDRD) Af Amer 71, Est GFR (MDRD) Non-Af 59 L, BUN/Creatinine Ratio 7.8 L, Glucose 93, Calcium 8.3 L Physical Exam Resp normal respiratory effort Cardio regular rate GI GI Narrative: Abdomen: Soft, nondistended, tender near incision's dressed clean dry and intact, no peritoneal signs Assessment & Plan Assessment/Plan (1) S/P left colectomy: PLAN: Plan Continue for mouth swabs/sips only until positive flatus. Encourage ambulation/up to chair. Continue pain control Lovenox for DVT prophylaxis. Yoli Wesley M.D. Pager: [phone] [facility] [address] [place] [address], [facility], [address] [place] [address] Office: [phone]
[2022-07-07] MEDS: Enoxaparin 40 MG/0.4 ML Syringe SC (09:07)
[2022-07-07] MEDS: hydroCHLOROthiazide 25 MG Tablet PO (09:07)
[2022-07-07] MEDS: amLODIPine 5 MG Tablet PO (09:08)
[2022-07-07] MEDS: Metoprolol Tartrate 50 MG Tablet PO (09:08)
[2022-07-07] MEDS: Acetaminophen 325 MG Tablet 650 MG PO ×3 (09:14→23:39)
[2022-07-07 16:12] LABS: Carcinoembryonic Antigen 1.8 ng/mL (0.0-4.7)
[2022-07-08 05:45] VITALS: BP 126/56; PULSE 80; RESP 16; TEMP 36.8; O2SAT 97
[2022-07-08] MEDS: Acetaminophen 325 MG Tablet 650 MG PO (06:23)
[2022-07-08] MEDS: oxyCODONE 5 MG Tablet PO ×2 (06:23→10:20)
--- NOTE | 2022-07-08 07:15 | DS.PCM_ITS ---
Providers Date of Admission: 07/04/22 Primary Care Physician: Dr. Francesca Loepz, Consultations 07/04/22 21:26 Consult: Gastroenterology Routine Consulting Provider: Bob Gastroenterology Reason for Consult: eval for possible stent--contacted by ER doc EMERGENT Consult: No MD Notified: Yes Date Notified: 07/04/22 Time Notified: 21:27 Method of Notification: Verbal Reason For Visit: COLON OBSTRUCTION/MASS Diagnosis Discharge Diagnosis (1) S/P left colectomy: Status: Acute Code(s): Z90.49 - Acquired absence of other specified parts of digestive tract (2) Partial obstruction of colon: Status: Acute Code(s): K56.600 - Partial intestinal obstruction, unspecified as to cause Plan await pathology +BM will advance diet Continue pain control on home BP meds lovenox DVT prophy. Yoli Wesley M.D. Pager: [phone] [facility] [address] [place] [address], [facility], [address] [place] [address] Office: [phone] Medications at Discharge Home Medications amlodipine 5 mg tablet 5 mg PO DAILY 06/26/22 metoprolol tartrate 50 mg-hydrochlorothiazide 25 mg tablet 1 tab PO DAILY 06/26/22 ondansetron 4 mg disintegrating tablet 4 mg PO Q8H PRN nausea and vomiting #10 tabs 06/26/22 oxycodone-acetaminophen 5 mg-325 mg tablet 1 - 2 tab PO Q6H PRN pain 3 days #16 tabs 07/08/22 Hospital Course Operations colectomy (left (splenic flexure) colectomy 07/06/2022) Procedures None Summary of Care Provided Minutes Spent on Discharge: 15 Hospital Course: Pt came for outpt CT a/p which showed a partial obstructing colon mass in area of the splenic flexure and he was sent to ER. Pt hadn't been really eatting wel l since Terrie and did have nausea and abd pain in RUQ/epigastric mostly. Pt was hydrated and electrolytes were replaced and on 07/06/2022 pt underwent lap to open left colectomy due to the obstruction. Post op pt was able to advance diet once he had a flatus/BM. Weight / BMI Weight Weight: 136 lb Body Mass Index (BMI) 21.9 ABG / Lab / Microbiology Data Result Diagrams: 07/08/22 06:47 07/07/22 06:10 Laboratory: Laboratory Results - last 24 hr 07/06/22 12:45: Carcinoembryonic Ag 1.8 D/C Instructions Discharge Diet: - (transitional diet/low fiber --avoid raw fruits and vegetable (& remove skin peels)) Discharge Activity: May Not Drive (if taking pain meds or too much pain and can't slam on the brakes if needed) and May Shower Lifting Restricted to (Lbs): 20 Lifting Restrictions: no lifting >20 lb x 2 weeks then up to 40 and no strenuous exercise 4 wks Additional Activity Instructions: no riding in any bumpy machinery for 4 weeks--towmotor etc, as it will cause you to contract your abdomen the whole time which would be the same as exercise. Call your doctor if your incision/area has: Continuous Slow Oozing, Sudden Increased Bleeding, Increased Pain/ Swelling and Increased Redness Call your doctor if you observe: Fever of 101 or Higher Remove Dressing in: 1 day (steri strips will fall off around 7 days if not OK to remove after 10 days.) Cleanse incision/area with: Soap & Water (water can run over- do not scrub) Please Follow Up With: Yoli Wesley MD When: call office for f/u appt in 1-2 weeks; call [phone] if any concerns after 5PM and on weekends. Meaningful Use Info Meaningful Use Diagnoses (Choose all that apply): None applicable Discharge Plan Admission Admit Date/Time: 07/04/22 20:28 Attending Provider: Yoli Wesley Primary Care Provider: rFancesca Lopez Instructions Additional Instructions / Restrictions: OK to take ibuprofen 400-600mg PO q6h PRN for pain along with the percocet--caution with tylenol as there is already tylenol in the percocet. Discharge Orders/Prescriptions Prescriptions: New oxycodone-acetaminophen 5-325 mg tablet 1 - 2 tab PO Q6H PRN (Reason: pain) 3 Days Qty: 16 0RF Continued amlodipine 5 mg Tablet 5 mg PO DAILY metoprolol ta-hydrochlorothiaz 50-25 mg tablet 1 tab PO DAILY Label Comments: Take 1 tablet by mouth as directed ondansetron 4 mg tablet,disintegrating 4 mg PO Q8H PRN (Reason: nausea and vomiting) Qty: 10 0RF Referrals / Follow Up: Francesca Lopez DO [Primary Care Provider] -
[2022-07-08 07:20] LABS: Absolute Lymphocyte Count 1.75 X10^3/uL (0.83-4.51); Absolute Neutrophil Count 12.4 X10^3/uL (2.0-7.7); Basophil# 0.03 X10^3/uL; Basophil% 0.2 % (0-1); Eosinophil# 0.13 X10^3/uL; Eosinophils% 0.8 % (0-5); Hematocrit 31.6 % (40-54); Hemoglobin 9.9 g/dL (13.0-16.5); Lymphocyte # 1.75 X10^3/ul (0.83-4.51); Lymphocyte % 11.3 % (19-41); Mean Corp Hgb Conc 31.3 g/dL (32-36); Mean Corpuscular Volume 86.3 fL (80-94); Mean Platelet Vol. 9.4 fl (6.2-12.0); Monocyte# 1.05 X10^3/uL; Monocyte% 6.8 % (0-10); NRBC Flagged by Analyzer 0 % (0-5); Neutrophil # 12.42 X10^3/uL (2.7-7.7); Neutrophil % 80.4 % (47-70); Platelet Count 313 K/mm3 (150-450); RBC Distribution Width CV 17.2 % (11.6-14.6); RBC Distribution Width SD 54.3 fl (35.1-43.9); Red Blood Count 3.66 M/mm3 (4.6-6.2); White Blood Count 15.5 K/mm3 (4.4-11.0)
--- NOTE | 2022-07-08 07:27 | DCINST_ITS ---
Discharge Instructions Diet Discharge Diet: Light diet - advance as tolerated Activity Discharge Activity: May Not Drive (while taking narcotic pain medications.) May shower in (days): 1 Lifting Restrictions: no lifting >20 lbs x 2 wks, no strenuous exercise for 4 wks Dressing / Incision Call your doctor if your incision/area has: Continuous Slow Oozing, Sudden Increased Bleeding, Increased Pain/ Swelling, Increased Redness, Foul Smelling Discharge and Swelling at the incision site Call your doctor if you observe: Fever of 101 or Higher Remove Dressing in: 2 days Cleanse incision/area with: Soap & Water Additional Dressing/Incision Instructions:: Steri-Strips will fall off in 7 to 10 days, if they do not fall off okay to remove after 10 days. Follow Up Care Please Follow Up With: Yoli Wesley MD When: Call the office for a follow-up appointment 2 weeks; after 5 PM and on the weekends call [phone] with any concerns. Test Results: Test results from this visit will be discussed in further detail at your follow- up appointment, if applicable. Discharge Plan Admission Admit Date/Time: 07/04/22 20:28 Attending Provider: Yoli Wesley Primary Care Provider: Francesca Loepz Instructions Additional Instructions / Restrictions: OK to take ibuprofen 400-600mg PO q6h PRN for pain along with the percocet--caution with tylenol as there is already tylenol in the percocet. Discharge Orders/Prescriptions Prescriptions: New oxycodone-acetaminophen 5-325 mg tablet 1 - 2 tab PO Q6H PRN (Reason: pain) 3 Days Qty: 16 0RF Continued amlodipine 5 mg Tablet 5 mg PO DAILY metoprolol ta-hydrochlorothiaz 50-25 mg tablet 1 tab PO DAILY Label Comments: Take 1 tablet by mouth as directed ondansetron 4 mg tablet,disintegrating 4 mg PO Q8H PRN (Reason: nausea and vomiting) Qty: 10 0RF Referrals / Follow Up: Francesca Lopez DO [Primary Care Provider] -
[2022-07-08 08:41] LABS: Anion Gap 8 (5-15); BUN 13 mg/dL (7-18); BUN/Creat Ratio 12.1 RATIO (10-20); Calcium,Total 7.8 mg/dL (8.5-10.1); Chloride 103 mmol/L (98-107); Creatinine, Serum 1.07 mg/dL (0.70-1.30); EST Glomerular Filtration Rate 72 mL/min (>60); Est Glom Filt Rate - Afr Amer 87 mL/min (>60); Estimated Creatinine Clearance 54.45 ml/min; Glucose 86 mg/dL (74-106); Potassium 3.6 mmol/L (3.5-5.1); Sodium Level 139 mmol/L (136-145)
[2022-07-08 08:46] VITALS: BP 127/55; PULSE 85; RESP 16; TEMP 36.6; O2SAT 98
[2022-07-08 09:07] VITALS: PULSE 85
[2022-07-08] MEDS: Metoprolol Tartrate 50 MG Tablet PO (09:07)
[2022-07-08] MEDS: Enoxaparin 40 MG/0.4 ML Syringe SC (09:07)
[2022-07-08] MEDS: amLODIPine 5 MG Tablet PO (09:07)
[2022-07-08] MEDS: hydroCHLOROthiazide 25 MG Tablet PO (09:07)
[2022-07-08] MEDS: Lactated Ringers 1,000 ML 100 ML IV ×2 (09:39→19:49)
--- NOTE | 2022-07-08 10:09 | PN.SURG_ITS ---
Subjective Subjective patient with some upper left quadrant abdominal pain, but otherwise feels well, tolerating liquids Objective Data Objective Data Vital Signs: Vital Signs Temp Pulse Resp BP Pulse Ox O2 Del Method O2 Flow Rate 97.9 F 85 16 127/55 H 98 Room Air 2 07/08/22 08:46 07/08/22 09:07 07/08/22 08:46 07/08/22 08:46 07/08/22 08:46 07/08/22 08:46 07/07/22 18:11 Oxygen Flow Rate (L/min) 2 Oxygen Delivery Method Room Air Weight: 61.689 kg Body Mass Index (BMI) 21.9 Intake & Output: Intake and Output for Last 24 Hours 07/06/22 07/07/22 07/08/22 23:59 23:59 23:59 Intake Total 3682.5 / 3682.5 2906.67 / 2906.67 996.67 / 996.67 Output Total 1350 / 1350 1650 / 1650 700 / 700 Balance 2332.5 / 2332.5 1256.67 / 1256.67 296.67 / 296.67 Lab / Micro Data Attestation: I reviewed the patient's lab results. Result Diagrams: 07/08/22 06:47 07/08/22 06:47 Labs: Laboratory Results - last 24 hr 07/06/22 12:45: Carcinoembryonic Ag 1.8 07/08/22 06:47: WBC 15.5 H, RBC 3.66 L, Hgb 9.9 L, Hct 31.6 L, MCV 86.3, MCH 27.0, MCHC 31.3 L, RDW Std Deviation 54.3 H, RDW Coeff of [place] 17.2 H, Plt Count 313, MPV 9.4, Immature Gran % (Auto) 0.500, Neut % (Auto) 80.4 H, Lymph % (Auto) 11.3 L, [place] % (Auto) 6.8, Eos % (Auto) 0.8, Baso % (Auto) 0.2, Absolute Neuts (auto) 12.4 H, Absolute Lymphs (auto) 1.75, Nucleated RBC % 0 07/08/22 06:47: Sodium 139, Potassium 3.6, Chloride 103, Carbon Dioxide 28.0, Anion Gap 8, BUN 13, Creatinine 1.07, Estim Creat Clear Calc 54.45, Est GFR (MDRD) Af Amer 87, Est GFR (MDRD) Non-Af 72, BUN/Creatinine Ratio 12.1, Glucose 86, Calcium 7.8 L Physical Exam Const alert and oriented x3 General Appearance: cooperative Neck supple Resp normal respiratory effort Effort and Inspection: able to speak in complete sentences GI GI Narrative: abdomen is soft, incisional tenderness is appropriate, dressings intact Assessment & Plan Assessment/Plan (1) S/P left colectomy: PLAN: continue present therapy ambulation encouraged
[2022-07-08 14:58] VITALS: BP 158/64; PULSE 89; RESP 16; TEMP 37.2; O2SAT 95
[2022-07-08 19:44] VITALS: BP 134/64; PULSE 82; RESP 18; TEMP 37.2; O2SAT 94
[2022-07-08] MEDS: Ondansetron 4 MG/2 ML Vial IV (19:49)
[2022-07-08] MEDS: Ketorolac 15 MG/ML Vial IM (19:50)
[2022-07-08] MEDS: Tamsulosin HCl 0.4 MG Capsule PO (21:18)
[2022-07-08] MEDS: Morphine 4 MG/ML Syringe IV (23:51)
[2022-07-09] VITALS (26 sets, daily range): BP systolic 87–151; BP diastolic 42–92; PULSE 79–158; RESP 14–96; TEMP 37–39; O2SAT 89–99
[2022-07-09] MEDS: LORazepam 2 MG/ML Syringe 0.5 MG IV (00:11)
--- NOTE | 2022-07-09 00:30 | EKG12_ITS ---
Test Reason : AM Blood Pressure : / mmHG Vent. Rate : 086 BPM Atrial Rate : 086 BPM P-R Int : 166 ms QRS Dur : 084 ms QT Int : 366 ms P-R-T Axes : 044 -27 021 degrees QTc Int : 437 ms Normal sinus rhythm Poor R wave progression Confirmed by KAY HOYOS, RAMONA ([id number]), electronic news gathering editor PAWEL RM ([id number]) on 07/12/2022 10:09:22 AM Referred By: MARCOS Confirmed By:RAMONA VILLANUEVA MD
--- NOTE | 2022-07-09 00:45 | CT_ITS ---
STUDY: CTA CHEST REASON FOR EXAM: Male, 72 years old with shortness of breath, tachycardia, postop hemicolectomy 07/06/2022. TECHNIQUE: CT angiogram of chest was performed with the intravenous administration of 100 ml Isovue-370. Post-processing of the angiographic images was performed, with MIP and MPR reconstructions. Individualized dose optimization techniques were used for this CT. COMPARISON: CT abdomen and pelvis from 07/04/2022 FINDINGS: PULMONARY ARTERIES: No pulmonary arterial filling defects identified. AORTA AND VISUALIZED GREAT VESSELS: No thoracic aortic aneurysm or dissection. Great vessels are patent. Mild atherosclerosis. HEART AND PERICARDIUM: Heart size within normal limits. Coronary arterial calcifications noted. No significant pericardial effusion. MEDIASTINUM AND AYDEN: No mediastinal or hilar adenopathy. Esophagus is unremarkable. LUNGS, PLEURA AND LARGE AIRWAYS: Low lung volumes with partial consolidation and volume loss bilateral lower lobes and anterior lung bases. Small bilateral pleural effusions. No pneumothorax. BONES: Intact with no suspicious osseous lesion. CHEST WALL: No chest wall mass or acute findings. VISUALIZED ABDOMEN: Abdominal free air and free fluid demonstrated. CT/CTA Chest W/WO Contrast IMPRESSION: 1. Abdominal free air and free fluid likely secondary to recent abdominal surgery. Follow-up as clinically warranted. 2. Hypoventilatory changes with bibasilar atelectatic changes and small bilateral pleural effusions. 3. No pulmonary embolus identified. Electronically Signed: Rhys Maldonado MD at 3:38 EST ,
--- NOTE | 2022-07-09 00:58 | CON.PCM.HO_ITS ---
Assessment & Plan Assessment/Plan (1) SVT (supraventricular tachycardia): PLAN: Plan #Supraventricular tachycardia * transfer patient from med surg to ICU * Herat rate was in the 150s at time of my review. * HR didnt respond to IV adenosine 6mg x 1 or a repeat 12mg x 1 dose * EKG showed SVT * transfer patient to ICU emergently * IV cardizem 25mg x 1 bolus; then continue with cardizem drip * CTA chest to be done to rule out a PE once patient is more stable * check BMp and magnesium * consult cardiology * check TSH * 2D echo ordered for Sunday * #Left splenic flexure colonic mass * s/p laparoscopic converted to open laparotomy and hemicolectomy * management as per general surgery * #Hypertension; on metoprolol and HCTZ as well as amlodipine. Hold amlodipine as he is being started on cardizem drip #DVT prophylaxis: lovenox Code status; reported to be full code Plan discussed with Dr Wesley primary attending HPI Consult Data Date of Consult: 07/09/22 HPI Narrative Reason for Consultation: tachycardia, altered mental status HPI Narrative: RIRI MARTIN, is a 72 M with a PMH as outlined who was admitted to the general surgery service on account of abnormal CT of the abdomen pelvis done on outpatient basis. He had been having abdominal pain mainly in the epigastric and right upper quadrant area which had worsened since June 21. He had had decreased oral intake as well. CT abdomen and pelvis showed a partial obstructing colonic mass in the area of the splenic flexure and he was sent to the ER. He had a laparoscopic to open left colectomy done on 07/06/2022. Hospitalist service Was consulted in the early hours of 07/09/2022 after patient was noted to be tachycardic and confused. He had been given a dose of IV Ativan as there was concern he was having a panic attack but patient still remains very tachycardic. At time of my review, patient was alert but not really talking and just kept on moaning and clutching his head. Unable to do review of systems. At the time of my review heart rate was up in the 150s. EKG done has shown SVT with a repeat EKG showed questionable sinus tachycardia. Patient was given a dose of IV adenosine 6 mg x 1 but still remained tachycardic. He was given a second dose of IV adenosine 12 mg x 1 but still remained tachycardic even though he came down briefly into the 40s and 50s. His heart rate subsequently went right back up into the 150s and 160s. Decision made to emergently transfer patient to the ICU. Upon further inquiry, patient has been receiving Lovenox for DVT pro phylaxis. According to his nurse he had not complained of any chest pain but rather complained of some abdominal pain while he was noted to be clutching both his chest and his abdomen. He does not have any history of PE. [facility]LY [facility] Medical History Gout Hypertension Home Medications amlodipine 5 mg tablet 5 mg PO DAILY 06/26/22 [History Last Taken Unknown] metoprolol tartrate 50 mg-hydrochlorothiazide 25 mg tablet 1 tab PO DAILY 06/26/22 [History Last Taken Unknown] ondansetron 4 mg disintegrating tablet 4 mg PO Q8H PRN nausea and vomiting #10 tabs 06/26/22 [Rx Last Taken Unknown] oxycodone-acetaminophen 5 mg-325 mg tablet 1 - 2 tab PO Q6H PRN pain 3 days #16 tabs 07/08/22 [Rx Last Taken Unknown] Allergy/AdvReac Type Severity Reaction Status Date / Time No Known Allergies Allergy Verified 07/04/22 19:00 Social History Smoking Status: Never smoker ROS Review of Systems ROS Unobtainable: due to encephalopathy Physical Exam Const Constitutional Narrative: confused, agitated Orientation / Consciousness: confused HEENT normocephalic, head/scalp atraumatic, hearing grossly normal bilaterally and moist oral mucous membranes Mouth: oral and palatal mucosa normal Eyes PERRL, EOMs intact bilaterally and conjunctivae normal Neck no lymphadenopathy and supple Resp normal respiratory effort, no retractions and no use of accessory muscles Cardio S1 normal heart sound, S2 normal heart sound and no murmurs Cardio Narrative: sinus tachycardia, GI normal to inspection, nondistended, normoactive bowel sounds GI Narrative: intact dressing over laparotomy site Extremity normal to inspection, full ROM and no clubbing, cyanosis or edema Neuro moves all extremities Neuro Narrative: confused, agitated Lab / Micro Data Result Diagrams: 07/08/22 06:47 07/08/22 06:47 Labs: Laboratory Results - last 24 hr 07/08/22 06:47: WBC 15.5 H, RBC 3.66 L, Hgb 9.9 L, Hct 31.6 L, MCV 86.3, MCH 27.0, MCHC 31.3 L, RDW Std Deviation 54.3 H, RDW Coeff of [place] 17.2 H, Plt Count 313, MPV 9.4, Immature Gran % (Auto) 0.500, Neut % (Auto) 80.4 H, Lymph % (Auto) 11.3 L, [place] % (Auto) 6.8, Eos % (Auto) 0.8, Baso % (Auto) 0.2, Absolute Neuts ( auto) 12.4 H, Absolute Lymphs (auto) 1.75, Nucleated RBC % 0 07/08/22 06:47: Sodium 139, Potassium 3.6, Chloride 103, Carbon Dioxide 28.0, Anion Gap 8, BUN 13, Creatinine 1.07, Estim Creat Clear Calc 54.45, Est GFR (MDRD) Af Amer 87, Est GFR (MDRD) Non-Af 72, BUN/Creatinine Ratio 12.1, Glucose 86, Calcium 7.8 L Charges/Coding Visit Charges Office Visits / Consults: 17912 IP Consult L5
[2022-07-09] MEDS: Adenosine 6 MG/2 ML Syringe IV (01:02)
[2022-07-09] MEDS: Adenosine 6 MG/2 ML Syringe 12 MG IV (01:12)
[2022-07-09] MEDS: dilTIAZem 25 MG/5 ML Vial IV BOLUS (01:15)
--- NOTE | 2022-07-09 01:23 | NURSING ---
Attempted to notify pt's of transfer to ICU. No answer, message left.
[2022-07-09 02:02] LABS: Absolute Lymphocyte Count 0.64 X10^3/uL (0.83-4.51); Absolute Neutrophil Count 1.4 X10^3/uL (2.0-7.7); Hematocrit 33.7 % (40-54); Hemoglobin 10.4 g/dL (13.0-16.5); Lymphocyte # 0.64 X10^3/ul (0.83-4.51); Lymphocyte % 29.6 % (19-41); Mean Corp Hgb Conc 30.9 g/dL (32-36); Mean Corpuscular Hgb 26.5 pg (27.0-32.0); Monocyte# 0.14 X10^3/uL; Monocyte% 6.5 % (0-10); NRBC Flagged by Analyzer 0 % (0-5); Neutrophil # 1.36 X10^3/uL (2.7-7.7); POSITIVE MORPHOLOGY YES; Platelet Count 365 K/mm3 (150-450); RBC Distribution Width CV 17.2 % (11.6-14.6); RBC Distribution Width SD 54.1 fl (35.1-43.9); Red Blood Count 3.92 M/mm3 (4.6-6.2); White Blood Count 2.2 K/mm3 (4.4-11.0)
[2022-07-09 02:03] LABS: Anion Gap 12 (5-15); BUN 12 mg/dL (7-18); BUN/Creat Ratio 10.2 RATIO (10-20); Calcium,Total 7.7 mg/dL (8.5-10.1); Chloride 101 mmol/L (98-107); Creatinine, Serum 1.18 mg/dL (0.70-1.30); EST Glomerular Filtration Rate 65 mL/min (>60); Est Glom Filt Rate - Afr Amer 78 mL/min (>60); Estimated Creatinine Clearance 49.37 ml/min; Glucose 103 mg/dL (74-106); Magnesium 1.1 mg/dL (1.6-2.6); Potassium 3.4 mmol/L (3.5-5.1); Sodium Level 138 mmol/L (136-145); Thyroid Stim Hormone (TSH) 0.77 uIU/mL (0.358-3.74)
[2022-07-09 02:08] LABS: International Normalized Ratio 1.6; Prothrombin Time (Protime)PT. 18.7 SECONDS (11.7-14.9)
[2022-07-09 02:11] LABS: Partial Thromboplast Time 33.4 Seconds (24.1-36.2)
[2022-07-09 02:13] LABS: Differential Indicated SCAN CRITERIA MET
[2022-07-09 02:16] LABS: Anisocytosis 1+
[2022-07-09] MEDS: Haloperidol Lactate 5 MG/ML Vial 1 MG IV (02:38)
[2022-07-09 04:04] LABS: Color, Urine Yellow (Yellow); Glucose, Dipstick Normal (Normal); Ketone-Dipstick 50 mg/dl (Negative); Leukocyte Esterase-Dipstick 25 /ul (Negative); Nitrite-Dipstick Negative (Negative); Occult Blood-Urine 150 /ul (Negative); Protein-Dipstick 30 mg/dl (Negative); Specific Gravity, Urine 1.015 (1.002-1.030); Urine Bilirubin Dipstick Negative (Negative); Urine Clarity Clear (Clear); Urine Urobilinogen Normal (Normal)
--- NOTE | 2022-07-09 04:18 | CT_ITS ---
INDICATION: fever, acute MS change EXAMINATION: CT ABDOMEN AND PELVIS WITHOUT CONTRAST - CT Abdomen And Pelvis W/O Contrast Injection TECHNIQUE: Helically acquired images were obtained of the abdomen and pelvis without oral or IV contrast. A radiation dose optimization technique was used for this scan. IV Contrast dosage and agent: None. Oral contrast: None. COMPARISON: CT chest 2 hours earlier, [address] abdomen and pelvis 07/04/2022. FINDINGS: LOWER CHEST: Small bilateral pleural effusions and consolidation in the lower lobes. Coronary artery calcifications. LIVER: Grossly unremarkable. GALLBLADDER AND BILIARY TREE: Grossly unremarkable. PANCREAS: Grossly unremarkable. SPLEEN: Grossly unremarkable. ADRENAL GLANDS: Grossly unremarkable. KIDNEYS AND URETERS: There is contrast in renal collecting systems from earlier IV contrast. No hydronephrosis. PERITONEUM: Free air and moderate amount throughout the upper abdomen and lower abdomen. Moderate free fluid in the abdomen and pelvis. BOWEL: Surgical clips in the upper abdomen region of the transverse colon, new compared to the recent CT abdomen and pelvis. Mild stranding in the adjacent mesentery is likely postsurgical. There is colonic wall thickening from the ascending through transverse colon, to the suture line with moderate luminal narrowing possibly exaggerated by suboptimal distention. The small bowel is moderately dilated. Distal small bowel is relatively decreased caliber. No definite transition zone identified. The stomach is moderately distended with large amount of air and fluid.. APPENDIX: Visualized and unremarkable. No evidence of acute appendicitis. VESSELS: Abdominal aorta is normal caliber. REPRODUCTIVE ORGANS: Prostate mildly enlarged URINARY BLADDER: Decompressed with Vazquez catheter in place. Air in the bladder presumably related to the catheter. Contrast in the bladder from earlier contrast administration. ABDOMINAL WALL: Mild stranding subcutaneous anterior abdominal wall with small foci of air likely related to incision site. BONES: No acute abnormalities. CT/Abdomen/Pelvis without Cont IMPRESSION: 1. Pneumoperitoneum likely postsurgical with recent surgery since prior CT 07/04/2022. Acute bowel perforation however cannot be completely excluded. 2. Moderate free fluid also likely postsurgical. 3. Colonic wall thickening ascending through transverse colon to the surgical anastomotic site, may be related to recent surgery, postsurgical change versus colitis and/or nondistention. 4. Moderately dilated small bowel likely ileus. Early or partial small bowel obstruction less likely. 5. Small bilateral pleural effusions and consolidation in the lower lobes atelectasis versus pneumonia. Electronically Signed: Mansi Rich MD at 5:43 EST ,
[2022-07-09 04:31] LABS: Lactic Acid 1.5 mmol/L (0.4-1.9)
--- NOTE | 2022-07-09 04:46 | PN.SURG_ITS ---
Subjective Subjective Patient was at a last night did give 0.5 of Ativan however that may have made him more agitated-hospitalist was consulted got adenosine, now on cardizem gtt and hadol- [id number] now 101.5-got when pt was going down for CTA chest (neg for PE), wbc 2.2 pt not alert enough to give much answers- ask if abd has pain he sa ys I don't know. Objective Data Objective Data Vital Signs: Vital Signs Temp Pulse Resp BP Pulse Ox O2 Del Method O2 Flow Rate 99.0 F 82 18 134/64 H 94 Nasal Cannula 3 07/08/22 19:44 07/08/22 19:44 07/08/22 19:44 07/08/22 19:44 07/08/22 19:44 07/08/22 20:00 07/08/22 20:00 Oxygen Flow Rate (L/min) 3 Oxygen Delivery Method Nasal Cannula Weight: 136 lb Body Mass Index (BMI) 21.9 Intake & Output: Intake and Output for Last 24 Hours 07/07/22 07/08/22 07/09/22 23:59 23:59 23:59 Intake Total 2906.67 / 2906.67 1996.67 / 2296.67 818.33 / 818.33 Output Total 1650 / 1650 1175 / 1175 Balance 1256.67 / 1256.67 821.67 / 1121.67 818.33 / 818.33 Lab / Micro Data Result Diagrams: 07/09/22 01:30 07/09/22 01:30 Labs: Laboratory Results - last 24 hr 07/08/22 06:47: WBC 15.5 H, RBC 3.66 L, Hgb 9.9 L, Hct 31.6 L, MCV 86.3, MCH 27.0, MCHC 31.3 L, RDW Std Deviation 54.3 H, RDW Coeff of [place] 17.2 H, Plt Count 313, MPV 9.4, Immature Gran % (Auto) 0.500, Neut % (Auto) 80.4 H, Lymph % (Auto) 11.3 L, [place] % (Auto) 6.8, Eos % (Auto) 0.8, Baso % (Auto) 0.2, Absolute Neuts (auto) 12.4 H, Absolute Lymphs (auto) 1.75, Nucleated RBC % 0 07/08/22 06:47: Sodium 139, Potassium 3.6, Chloride 103, Carbon Dioxide 28.0, Anion Gap 8, BUN 13, Creatinine 1.07, Estim Creat Clear Calc 54.45, Est GFR (MDRD) Af Amer 87, Est GFR (MDRD) Non-Af 72, BUN/Creatinine Ratio 12.1, Glucose 86, Calcium 7.8 L 07/09/22 01:30: WBC 2.2 L, RBC 3.92 L, Hgb 10.4 L, Hct 33.7 L, MCV 86.0, MCH 26.5 L, MCHC 30.9 L, RDW Std Deviation 54.1 H, RDW Coeff of [place] 17.2 H, Plt Count 365, MPV 10.0, Immature Gran % (Auto) 0.900, Neut % (Auto) 63.0, Lymph % (Auto) 29.6, [place] % (Auto) 6.5, Eos % (Auto) 0.0, Baso % (Auto) 0.0, Absolute Neuts (auto) 1.4 L, Absolute Lymphs (auto) 0.64 L, Nucleated RBC % 0, Anisocytosis 1+ 07/09/22 01:30: Sodium Cancelled, Potassium Cancelled, Chloride Cancelled, Carbon Dioxide Cancelled, Anion Gap Cancelled, BUN Cancelled, Creatinine Cancelled, Estim Creat Clear Calc Cancelled, Est GFR (MDRD) Af Amer Cancelled, Est GFR (MDRD) Non-Af Cancelled, BUN/Creatinine Ratio Cancelled, Glucose Cancelled, Calcium Cancelled 07/09/22 01:30: Sodium 138, Potassium 3.4 L, Chloride 101, Carbon Dioxide 25.0, Anion Gap 12, BUN 12, Creatinine 1.18, Estim Creat Clear Calc 49.37, Est GFR (MDRD) Af Amer 78, Est GFR (MDRD) Non-Af 65, BUN/Creatinine Ratio 10.2, Glucose 103, Calcium 7.7 L, Magnesium 1.1 L, TSH 0.77 07/09/22 01:30: PT 18.7 H, INR 1.6, APTT 33.4 07/09/22 03:45: Lactic Acid 1.5 07/09/22 03:45: Urine Color Yellow, Urine Clarity Clear, Urine pH 5.0, Ur Specific [place] 1.015, Urine Protein 30 H, Urine Glucose (UA) Normal, Urine Ketones 50 H, Urine Occult Blood 150 H, Urine Nitrite Negative, Urine Bilirubin Negative, Urine Urobilinogen Normal, Ur Leukocyte Esterase 25 H Micro: Microbiology 07/09/22 03:45 Urine Catheter - Montgomery Legionella Antigen - Final 07/09/22 03:45 Urine Catheter - Montgomery Streptococcus pneumoniae Antigen (M - Final Radiography Diagnostic Testing: Radiology Impression Chest CTA 07/09/22 00:45 IMPRESSION: 1. Abdominal free air and free fluid likely secondary to recent abdominal surgery. Follow-up as clinically warranted. 2. Hypoventilatory changes with bibasilar atelectatic changes and small bilateral pleural effusions. 3. No pulmonary embolus identified. Electronically Signed: Rhys Maldonado MD at 3:38 EST , Physical Exam Const Constitutional Narrative: Agitated Cardio Rate: tachycardic GI GI Narrative: Incision clean dry and intact with Steri-Strips, abdomen soft tender palpation near incision Assessment & Plan Assessment/Plan (1) S/P left colectomy: (2) SVT (supraventricular tachycardia): (3) Febrile: PLAN: Plan CT abdomen pelvis as patient has been febrile also white blood cell count down to 2.2 --concern for a possible leak. CT of the chest was negative for PE. hypomagnesemia-- 1.1 mag-- ordered Addendum: My read of CT abdomen pelvis shows contrast within the lumen at the a nastomosis from previous rest of the contrast is in the descending colon and rectum- patient had bowel movements yesterday. No extravasation of the contrast is seen-- does have free air in the abdomen as well as some fluid which can both be postoperatively. Patient's free air is near anastomosis and right upper quadrant; however anastomosis is anteriorly placed in the abdomen and there is contained air within. Continue to monitor closely. discussed with , Karina on the phone. Pt montgomery core temp is 101 but temporal was 97 will have them recheck temp/oral and maybe discontinue the montgomery temp if it doesn't correlate. Patient seems more alert, denies abdominal pain but does go right back to sleep. Pt got morphine at 12am and belly breathing and not acting painful--pt has a difficult exam at baseline due to baseline mental status, which is somewhat delayed on my previous exams. Yoli Wesley M.D. Pager: [phone] [facility] [address] [place] [address], [facility], [address] [place] [address] Office: [phone]
--- NOTE | 2022-07-09 05:35 | RAD_ITS ---
STUDY: X-RAY - ABDOMEN/PELVIS REASON FOR EXAM: Male, 72 years old. NG PLACEMENT TECHNIQUE: Single AP view of the abdomen / pelvis. COMPARISON: 07/05/2022 FINDINGS: Nasogastric tube with the tip in the left upper quadrant likely in the fundus the stomach. A single moderately dilated air-filled loop of the bowel in the middle the abdomen. Structures The visualized liver, spleen and kidneys are grossly normal in size and morphology. Normal soft tissue structures. Normal visualized osseous structures. RAD/Abdomen Single View IMPRESSION: Nasogastric tube with the tip in the left upper quadrant, likely in the fundus of the stomach. Electronically Signed: Lyle Hong MD at 15:05 EST ,
[2022-07-09] MEDS: Lactated Ringers 1,000 ML 100 ML IV ×3 (06:07→20:08)
[2022-07-09] MEDS: Magnesium Sulfate 4gm/100mL 4 GM/100 ML IV.SOLN. IV (06:07)
[2022-07-09] MEDS: 0.9% Normal Saline 1,000 ML 100 ML IV (06:30)
[2022-07-09] MEDS: Potassium Chloride Oral Soln 20 MEQ/15 ML UDC 40 MEQ NG (07:08)
--- NOTE | 2022-07-09 07:16 | PN.HOSP_ITS ---
Subjective Subjective Follow-up for atrial dysrhythmia Objective Data Objective Data Vital Signs: Vital Signs Temp Pulse Resp BP Pulse Ox O2 Del Method O2 Flow Rate 99.0 F 82 18 134/64 H 94 Nasal Cannula 3 07/08/22 19:44 07/08/22 19:44 07/08/22 19:44 07/08/22 19:44 07/08/22 19:44 07/08/22 20:00 07/08/22 20:00 Oxygen Flow Rate (L/min) 3 Oxygen Delivery Method Nasal Cannula Weight: 136 lb Body Mass Index (BMI) 21.9 Intake & Output: Intake and Output for Last 24 Hours 07/07/22 07/08/22 07/09/22 23:59 23:59 23:59 Intake Total 2906.67 / 2906.67 1996.67 / 2296.67 856.66 / 856.66 Output Total 1650 / 1650 1175 / 1175 Balance 1256.67 / 1256.67 821.67 / 1121.67 856.66 / 856.66 Lab / Micro Data Result Diagrams: 07/09/22 08:05 07/09/22 01:30 Labs: Laboratory Results - last 24 hr 07/08/22 06:47: WBC 15.5 H, RBC 3.66 L, Hgb 9.9 L, Hct 31.6 L, MCV 86.3, MCH 27.0, MCHC 31.3 L, RDW Std Deviation 54.3 H, RDW Coeff of [place] 17.2 H, Plt Count 313, MPV 9.4, Immature Gran % (Auto) 0.500, Neut % (Auto) 80.4 H, Lymph % (Auto) 11.3 L, [place] % (Auto) 6.8, Eos % (Auto) 0.8, Baso % (Auto) 0.2, Absolute Neuts (auto) 12.4 H, Absolute Lymphs (auto) 1.75, Nucleated RBC % 0 07/08/22 06:47: Sodium 139, Potassium 3.6, Chloride 103, Carbon Dioxide 28.0, Anion Gap 8, BUN 13, Creatinine 1.07, Estim Creat Clear Calc 54.45, Est GFR (MDRD) Af Amer 87, Est GFR (MDRD) Non-Af 72, BUN/Creatinine Ratio 12.1, Glucose 86, Calcium 7.8 L 07/09/22 01:30: WBC 2.2 L, RBC 3.92 L, Hgb 10.4 L, Hct 33.7 L, MCV 86.0, MCH 26.5 L, MCHC 30.9 L, RDW Std Deviation 54.1 H, RDW Coeff of [place] 17.2 H, Plt Count 365, MPV 10.0, Immature Gran % (Auto) 0.900, Neut % (Auto) 63.0, Lymph % (Auto) 29.6, [place] % (Auto) 6.5, Eos % (Auto) 0.0, Baso % (Auto) 0.0, Absolute Neuts (auto) 1.4 L, Absolute Lymphs (auto) 0.64 L, Nucleated RBC % 0, Anisocytosis 1+ 07/09/22 01:30: Sodium Cancelled, Potassium Cancelled, Chloride Cancelled, Carbon Dioxide Cancelled, Anion Gap Cancelled, BUN Cancelled, Creatinine Cancelled, Estim Creat Clear Calc Cancelled, Est GFR (MDRD) Af Amer Cancelled, Est GFR (MDRD) Non-Af Cancelled, BUN/Creatinine Ratio Cancelled, Glucose Cancelled, Calcium Cancelled 07/09/22 01:30: Sodium 138, Potassium 3.4 L, Chloride 101, Carbon Dioxide 25.0, Anion Gap 12, BUN 12, Creatinine 1.18, Estim Creat Clear Calc 49.37, Est GFR (MDRD) Af Amer 78, Est GFR (MDRD) Non-Af 65, BUN/Creatinine Ratio 10.2, Glucose 103, Calcium 7.7 L, Magnesium 1.1 L, TSH 0.77 07/09/22 01:30: PT 18.7 H, INR 1.6, APTT 33.4 07/09/22 03:45: Lactic Acid 1.5 07/09/22 03:45: Urine Color Yellow, Urine Clarity Clear, Urine pH 5.0, Ur Specific [place] 1.015, Urine Protein 30 H, Urine Glucose (UA) Normal, Urine Ketones 50 H, Urine Occult Blood 150 H, Urine Nitrite Negative, Urine Bilirubin Negative, Urine Urobilinogen Normal, Ur Leukocyte Esterase 25 H Micro: Microbiology 07/09/22 03:45 Urine Catheter - Vazquez Legionella Antigen - Final 07/09/22 03:45 Urine Catheter - Vazquez Streptococcus pneumoniae Antigen (M - Final Radiography Diagnostic Testing: Radiology Impression Chest CTA 07/09/22 00:45 IMPRESSION: 1. Abdominal free air and free fluid likely secondary to recent abdominal surgery. Follow-up as clinically warranted. 2. Hypoventilatory changes with bibasilar atelectatic changes and small bilateral pleural effusions. 3. No pulmonary embolus identified. Electronically Signed: Rhys Maldonado MD at 3:38 EST , Abdomen/Pelvis CT 07/09/22 04:18 IMPRESSION: 1. Pneumoperitoneum likely postsurgical with recent surgery since prior CT 07/04/2022. Acute bowel perforation however cannot be completely excluded. 2. Moderate free fluid also likely postsurgical. 3. Colonic wall thickening ascending through transverse colon to the surgical anastomotic site, may be related to recent surgery, postsurgical change versus colitis and/or nondistention. 4. Moderately dilated small bowel likely ileus. Early or partial small bowel obstruction less likely. 5. Small bilateral pleural effusions and consolidation in the lower lobes atelectasis versus pneumonia. Electronically Signed: Mansi Rich MD at 5:43 EST , Physical Exam Narrative Physical exam Patient is confused, disoriented. Low pitched voice General: Confused, disoriented, irritable HEENT: Atraumatic, PERRLA, EOMI, Normocephalic Oral: Oral mucosa dry. No Gingival or Mucosal Lesions/ Ulcerations Neck: Supple, No JVD, Negative Carotid Bruits Lungs: Air entry diminished in bilateral lung bases. No crepitation/rhonchi Cardiovascular: Sinus tachycardia, normal S1, Normal S2, No murmurs Abdomen: Surgical dressing is dry. Bowel sounds sluggish to absent. Soft, Non Tender, Non-Distended : No renal angle tenderness. No suprapubic tenderness. Extremities: No edema, Capillary Refill Less than 3 Seconds Skin: No rashes, No breakdown Musculoskeletal: No Tenderness to Palpation of Joints or Extremities, ROM muscle strength could not be checked as patient does not follow commands Neurological: Cranial nerves II-XII grossly intact, DTR 2+/4 Psych/Mental Status: Flat affect, confused Assessment & Plan Assessment/Plan (1) SVT (supraventricular tachycardia): PLAN: Plan 72-year-old gentleman being admitted to general surgery service for CT abdomen finding of partial obstructing colonic mass in the area of his splenic flexure with abdominal pain since June 21. Had laparoscopic converted to open left colectomy on 07/06/2022. Hospital service was consulted for tachycardia and confusion. #Supraventricular tachycardia: Patient was transferred to ICU. * transfer patient from med surg to ICU * Twelve-lead EKG shows SVT. transient response to IV adenosine 12 mg but back to 150s to 160s. After that patient had Cardizem 25 mg IV bolus and then started on Cardizem drip. CTA chest once patient is more hemodynamically stable to rule out PE. Most recent heart rate is 82/min, pulse ox 94 on 3-4 oxygen no tachypnea. * Mild hypokalemia K3.4, hypomagnesemia magnesium 1.1. Serum phosphorus ordered. Magnesium and phosphorus getting replaced. TSH normal 0.07 although seems in low normal * Discussed with the integration aide Dr. Tran. Since patient had sinus tachycardia. IV Cardizem drip is getting discontinued. Twelve-lead EKG reviewed myself. First EKG seems SVT [address] Vásquez thinks it might be artifact with sinus tachycardia. Second EKG sinus tachycardia 156 and 31 normal sinus. Sinus tachycardia, reactive due to electrolyte abnormality/abdominal surgery and pain. Management of underlying condition. Replacement of electrolytes. #Left splenic flexure colonic mass * s/p laparoscopic converted to open laparotomy and hemicolectomy * management as per general surgery Acute encephalopathy probably metabolic due to surgery: Treat underlying disorder. #Hypertension; on metoprolol and HCTZ as well as amlodipine. Hold amlodipine as he is being started on cardizem drip #DVT prophylaxis: lovenox Code status; reported to be full code Plan discussed with Dr Wesley primary attending Charges/Coding Visit Charges Inpatient E&M: 97949 Subs Hosp L2
[2022-07-09 08:18] LABS: Absolute Lymphocyte Count 0.55 X10^3/uL (0.83-4.51); Absolute Neutrophil Count 6.4 X10^3/uL (2.0-7.7); Basophil# 0.05 X10^3/uL; Basophil% 0.6 % (0-1); Hematocrit 33.3 % (40-54); Hemoglobin 10.1 g/dL (13.0-16.5); Lymphocyte # 0.55 X10^3/ul (0.83-4.51); Lymphocyte % 7.1 % (19-41); Mean Corp Hgb Conc 30.3 g/dL (32-36); Mean Corpuscular Hgb 26.3 pg (27.0-32.0); Mean Corpuscular Volume 86.7 fL (80-94); Mean Platelet Vol. 9.6 fl (6.2-12.0); Monocyte# 0.75 X10^3/uL; Monocyte% 9.7 % (0-10); NRBC Flagged by Analyzer 0 % (0-5); Neutrophil # 6.37 X10^3/uL (2.7-7.7); Neutrophil % 82.3 % (47-70); POSITIVE DIFFERENTIAL YES; POSITIVE MORPHOLOGY YES; Platelet Count 344 K/mm3 (150-450); RBC Distribution Width CV 17.2 % (11.6-14.6); RBC Distribution Width SD 54.9 fl (35.1-43.9); Red Blood Count 3.84 M/mm3 (4.6-6.2); White Blood Count 7.7 K/mm3 (4.4-11.0)
[2022-07-09 08:20] LABS: Differential Indicated SCAN CRITERIA MET
[2022-07-09 09:00] LABS: Phosphorus 1.9 mg/dL (2.5-4.9)
--- NOTE | 2022-07-09 09:00 | PCM.PN.BLA ---
Progress Note Repeat white blood count 7.7 with a slight shift which he has had. Patient is much more awake and alert currently. Patient has minimal out of the NG currently. Montgomery catheter in place-- patient still does have his soft restraints on and the NG. Patient's heart rate still in the 120s-130s patient denies pain in his abdomen, states it is still sore when palpating. Abdomen: Soft, nondistended, tender near incision no peritoneal signs. We will continue to monitor patient closely. Continue NG for now. Lower suspicion for leak as patient is not having any fevers currently did not receive any medication that would mask fevers?unsure source of initial fever-- agitation/drug reaction/false montgomery temp read. Patient's fever had resolved prior to starting any antibiotics-zosyn started due to concern for leak initially. Patient's abdominal exam is also soft appropriately tender no obvious guarding that I would expect with a leak. Appreciate hospitalist/cardiology assistance with heart rate. Hypomagnesemia and hypokalemia replaced. Yoli Wesley M.D. Pager: [phone] [facility] [address] [place] [address], [facility], [address] [place] [address] Office: [phone]
--- NOTE | 2022-07-09 09:04 | CON.PCM.CA_ITS ---
Assessment & Plan Assessment/Plan (1) Sinus tachycardia by electrocardiogram: PLAN: The patient appears to have sinus tachycardia by electrocardiography. I do not see distinct evidence of supraventricular tachyarrhythmia and I think the above is reactive. I would recommend that we discontinue the diltiazem at this point and treat his underlying issues. * Echocardiogram should be performed to assess his ventricular function * Fluid resuscitation is encouraged * Will continue to follow. HPI Consult Data Date of Consult: 07/09/22 HPI Narrative HPI Narrative: RIRI MARTIN, is a 72 M who was admitted to the general surgery service on account of abnormal CT of the abdomen pelvis done on outpatient basis.? He had been having abdominal pain mainly in the epigastric and right upper quadrant area which had worsened since June 21.? He had had decreased oral intake as well.? CT abdomen and pelvis showed a partial obstructing colonic mass in the area of the splenic flexure and he was sent to the ER.? He had a laparoscopic to open left colectomy done on 07/06/2022.? Hospitalist service Was consulted in the early hours of 07/09/2022 after patient was noted to be tachycardic and conf used.? He was given some Ativan and then it was thought that he may have supraventricular tachyarrhythmia so he was given adenosine 6 mg and 12 mg with brief response with a heart rate down into the 40s and 50s. Patient was transferred to the intensive care unit cardiology was called for further ev aluation and management. At this particular time he appears to be mildly confused he is on intravenous diltiazem at 5 mg per/hour [facility] Medical History Gout Hypertension Home Medications amlodipine 5 mg tablet 5 mg PO DAILY 06/26/22 [History Last Taken Unknown] metoprolol tartrate 50 mg-hydrochlorothiazide 25 mg tablet 1 tab PO DAILY [History Last Taken Unknown] ondansetron 4 mg disintegrating tablet 4 mg PO Q8H PRN nausea and vomiting #10 tabs 06/26/22 [Rx Last Taken Unknown] oxycodone-acetaminophen 5 mg-325 mg tablet 1 - 2 tab PO Q6H PRN pain 3 days #16 tabs 07/08/22 [Rx Last Taken Unknown] Allergy/AdvReac Type Severity Reaction Status Date / Time No Known Allergies Allergy Verified 07/04/22 19:00 Social History Smoking Status: Never smoker ROS ROS Narrative Difficult to obtain history as patient appears to be mildly confused Constitutional Constitutional: Denies fever(s) or weight loss Eyes Eyes: Reports systems reviewed and no addt'l complaints, except as documented ENT HEENT: Reports systems reviewed and no addt'l complaints, except as documented Cardiovascular Cardiovascular: Denies chest pain at rest, chest pain with activity, dyspnea at rest, dyspnea on exertion, edema, palpitations or paroxysmal nocturnal dyspnea Respiratory/Chest Respiratory/Chest: Denies dyspnea on exertion, productive cough, shortness of breath at rest or shortness of breath with exertion Gastrointestinal Gastrointestinal: Denies change in bowel habits, nausea, vomiting or weight changes Genitourinary Genitourinary: Denies difficulty urinating Musculoskeletal Musculoskeletal: Denies joint stiffness or muscle weakness Integumentary Integumentary: Denies lesions Neurologic Neurologic: Denies dizziness or syncope Psychiatric Psychiatric: Denies anxiety Endocrine Endocrinology: Denies excessive sweating or fatigue Hematologic/Lymphatic Hematologic/Lymphatic: Denies anemia Allergic/Immunologic Allergic/Immunologic: Denies seasonal rhinorrhea Physical Exam Const alert, oriented x3 and no apparent distress General Appearance: cooperative HEENT hearing grossly normal bilaterally Head and Scalp: atraumatic Eyes EOMs intact bilaterally Neck General: normal visual inspection Chest inspection of chest normal and palpation of chest normal Resp normal respiratory effort Auscultation: clear to auscultation bilaterally Cardio regular rate, regular rhythm, S1 normal heart sound and S2 normal heart sound Jugular Venous Distention: JVD GI normal to inspection, nondistended, normoactive bowel sounds Extremity normal capillary refill and no pedal edema Peripheral Pulses: Yes pulses 2+ throughout and femoral pulses present Skin no rashes or lesions noted Neuro oriented x3 and CN's II-XII intact bilaterally Psych Appearance: grossly normal and appropriate Risk Stratification Risk Stratification Applicable: No Objective Data Vital Signs: Vital Signs Temp Pulse Resp BP Pulse Ox O2 Del Method O2 Flow Rate 98.9 F 115 H 17 98/63 97 Nasal Cannula 2 07/09/22 08:00 07/09/22 08:00 07/09/22 08:00 07/09/22 08:00 07/09/22 08:00 07/09/22 08:00 07/09/22 08:00 Oxygen Flow Rate (L/min) 2 Oxygen Delivery Method Nasal Cannula Weight: 136 lb 8 oz Body Mass Index (BMI) 21.9 Intake & Output: Intake and Output for Last 24 Hours 07/07/22 07/08/22 07/09/22 23:59 23:59 23:59 Intake Total 2906.67 / 2906.67 1996.67 / 2296.67 949.41 / 949.41 Output Total 1650 / 1650 1175 / 1175 Balance 1256.67 / 1256.67 821.67 / 1121.67 949.41 / 949.41 Lab / Micro Data Result Diagrams: 07/09/22 08:05 07/09/22 01:30 Labs: Laboratory Results - last 24 hr 07/09/22 01:30: WBC 2.2 L, RBC 3.92 L, Hgb 10.4 L, Hct 33.7 L, MCV 86.0, MCH 26.5 L, MCHC 30.9 L, RDW Std Deviation 54.1 H, RDW Coeff of [place] 17.2 H, Plt Count 365, MPV 10.0, Immature Gran % (Auto) 0.900, Neut % (Auto) 63.0, Lymph % (Auto) 29.6, [place] % (Auto) 6.5, Eos % (Auto) 0.0, Baso % (Auto) 0.0, Absolute Neuts (auto) 1.4 L, Absolute Lymphs (auto) 0.64 L, Nucleated RBC % 0, Anisocytosis 1+ 07/09/22 01:30: Sodium Cancelled, Potassium Cancelled, Chloride Cancelled, Carbon Dioxide Cancelled, Anion Gap Cancelled, BUN Cancelled, Creatinine Cancelled, Estim Creat Clear Calc Cancelled, Est GFR (MDRD) Af Amer Cancelled, Est GFR (MDRD) Non-Af Cancelled, BUN/Creatinine Ratio Cancelled, Glucose Cancelled, Calcium Cancelled 07/09/22 01:30: Sodium 138, Potassium 3.4 L, Chloride 101, Carbon Dioxide 25.0, Anion Gap 12, BUN 12, Creatinine 1.18, Estim Creat Clear Calc 49.37, Est GFR (MDRD) Af Amer 78, Est GFR (MDRD) Non-Af 65, BUN/Creatinine Ratio 10.2, Glucose 103, Calcium 7.7 L, Magnesium 1.1 L, TSH 0.77 07/09/22 01:30: PT 18.7 H, INR 1.6, APTT 33.4 07/09/22 01:30: Phosphorus 1.9 L 07/09/22 03:45: Lactic Acid 1.5 07/09/22 03:45: Urine Color Yellow, Urine Clarity Clear, Urine pH 5.0, Ur Specific [place] 1.015, Urine Protein 30 H, Urine Glucose (UA) Normal, Urine Ketones 50 H, Urine Occult Blood 150 H, Urine Nitrite Negative, Urine Bilirubin Negative, Urine Urobilinogen Normal, Ur Leukocyte Esterase 25 H 07/09/22 08:05: WBC 7.7, RBC 3.84 L, Hgb 10.1 L, Hct 33.3 L, MCV 86.7, MCH 26.3 L, MCHC 30.3 L, RDW Std Deviation 54.9 H, RDW Coeff of [place] 17.2 H, Plt Count 344, MPV 9.6, Immature Gran % (Auto) 0.300, Neut % (Auto) 82.3 H, Lymph % (Auto) 7.1 L, [place] % (Auto) 9.7, Eos % (Auto) 0.0, Baso % (Auto) 0.6, Absolute Neuts (auto) 6.4, Absolute Lymphs (auto) 0.55 L, Nucleated RBC % 0 Micro: Microbiology 07/09/22 03:45 Urine Catheter - Vazquez Legionella Antigen - Final 07/09/22 03:45 Urine Catheter - Vazquez Streptococcus pneumoniae Antigen (M - Final Cardiology Labs/Tests 07/09/22 01:30: WBC 2.2 L, RBC 3.92 L, Hgb 10.4 L, Hct 33.7 L, MCV 86.0, MCH 26.5 L, MCHC 30.9 L, Plt Count 365, MPV 10.0, Immature Gran % (Auto) 0.900, Neut % (Auto) 63.0, Lymph % (Auto) 29.6, [place] % (Auto) 6.5, Eos % (Auto) 0.0, Baso % (Auto) 0.0, Absolute Neuts (auto) 1.4 L, Nucleated RBC % 0 07/09/22 01:30: Sodium Cancelled, Potassium Cancelled, Chloride Cancelled, Carbon Dioxide Cancelled, Anion Gap Cancelled, BUN Cancelled, Creatinine Cancelled, Est GFR (MDRD) Af Amer Cancelled, Est GFR (MDRD) Non-Af Cancelled, BUN/Creatinine Ratio Cancelled, Glucose Cancelled, Calcium Cancelled 07/09/22 01:30: Sodium 138, Potassium 3.4 L, Chloride 101, Carbon Dioxide 25.0, Anion Gap 12, BUN 12, Creatinine 1.18, Est GFR (MDRD) Af Amer 78, Est GFR (MDRD) Non-Af 65, BUN/Creatinine Ratio 10.2, Glucose 103, Calcium 7.7 L, Magnesium 1.1 L 07/09/22 01:30: PT 18.7 H, INR 1.6, APTT 33.4 07/09/22 01:30: Phosphorus 1.9 L 07/09/22 03:45: Lactic Acid 1.5 07/09/22 03:45: Urine Color Yellow, Urine Clarity Clear, Urine pH 5.0, Ur Specific [place] 1.015, Urine Protein 30 H, Urine Glucose (UA) Normal, Urine Ketones 50 H, Urine Occult Blood 150 H, Urine Nitrite Negative, Urine Bilirubin Negative, Urine Urobilinogen Normal, Ur Leukocyte Esterase 25 H 07/09/22 08:05: WBC 7.7, RBC 3.84 L, Hgb 10.1 L, Hct 33.3 L, MCV 86.7, MCH 26.3 L, MCHC 30.3 L, Plt Count 344, MPV 9.6, Immature Gran % (Auto) 0.300, Neut % (Auto) 82.3 H, Lymph % (Auto) 7.1 L, [place] % (Auto) 9.7, Eos % (Auto) 0.0, Baso % (Auto) 0.6, Absolute Neuts (auto) 6.4, Nucleated RBC % 0 Rhythm: EKG: ECHO: Stress Test: Cardiac Cath: PCI: CT Surgery: Holter monitor: EPS: PPM: CXR: Chest CT Scan: Radiography Diagnostic Testing: Radiology Impression Chest CTA 07/09/22 00:45 IMPRESSION: 1. Abdominal free air and free fluid likely secondary to recent abdominal surgery. Follow-up as clinically warranted. 2. Hypoventilatory changes with bibasilar atelectatic changes and small bilateral pleural effusions. 3. No pulmonary embolus identified. Electronically Signed: Rhys Maldonado MD at 3:38 EST , Abdomen/Pelvis CT 07/09/22 04:18 IMPRESSION: 1. Pneumoperitoneum likely postsurgical with recent surgery since prior CT 07/04/2022. Acute bowel perforation however cannot be completely excluded. 2. Moderate free fluid also likely postsurgical. 3. Colonic wall thickening ascending through transverse colon to the surgical anastomotic site, may be related to recent surgery, postsurgical change versus colitis and/or nondistention. 4. Moderately dilated small bowel likely ileus. Early or partial small bowel obstruction less likely. 5. Small bilateral pleural effusions and consolidation in the lower lobes atelectasis versus pneumonia. Electronically Signed: Mansi Rich MD at 5:43 EST ,
[2022-07-09 09:08] LABS: Differential Comment SCANNED; Toxic Granulation 1+
[2022-07-09] MEDS: Enoxaparin 40 MG/0.4 ML Syringe SC (10:26)
[2022-07-09] MEDS: Acetaminophen 325 MG Tablet 650 MG PO ×2 (12:29→21:33)
[2022-07-09] MEDS: Metoprolol Tartrate 25 MG Tablet GT (12:35)
[2022-07-09 13:30] LABS: Anion Gap 9 (5-15); BUN 16 mg/dL (7-18); BUN/Creat Ratio 14.2 RATIO (10-20); Calcium,Total 7.6 mg/dL (8.5-10.1); Chloride 105 mmol/L (98-107); Creatinine, Serum 1.13 mg/dL (0.70-1.30); EST Glomerular Filtration Rate 68 mL/min (>60); Est Glom Filt Rate - Afr Amer 82 mL/min (>60); Estimated Creatinine Clearance 51.75 ml/min; Glucose 86 mg/dL (74-106); Magnesium 2.5 mg/dL (1.6-2.6); Potassium 3.8 mmol/L (3.5-5.1); Sodium Level 140 mmol/L (136-145)
[2022-07-10] VITALS (25 sets, daily range): BP systolic 96–155; BP diastolic 49–95; PULSE 106–140; RESP 12–28; TEMP 37.5–39.1; O2SAT 90–98; BMI 21.9
[2022-07-10] MEDS: oxyCODONE 5 MG Tablet PO (03:01)
[2022-07-10 03:24] LABS: Absolute Lymphocyte Count 1.03 X10^3/uL (0.83-4.51); Absolute Neutrophil Count 12.7 X10^3/uL (2.0-7.7); Basophil# 0.06 X10^3/uL; Basophil% 0.4 % (0-1); Hematocrit 31.3 % (40-54); Hemoglobin 9.9 g/dL (13.0-16.5); Lymphocyte # 1.03 X10^3/ul (0.83-4.51); Mean Corp Hgb Conc 31.6 g/dL (32-36); Mean Corpuscular Hgb 26.9 pg (27.0-32.0); Mean Corpuscular Volume 85.1 fL (80-94); Mean Platelet Vol. 9.5 fl (6.2-12.0); Monocyte# 0.88 X10^3/uL; NRBC Flagged by Analyzer 0 % (0-5); Neutrophil # 12.67 X10^3/uL (2.7-7.7); Neutrophil % 86.3 % (47-70); POSITIVE MORPHOLOGY YES; Platelet Count 363 K/mm3 (150-450); RBC Distribution Width CV 17.6 % (11.6-14.6); RBC Distribution Width SD 55.1 fl (35.1-43.9); Red Blood Count 3.68 M/mm3 (4.6-6.2); White Blood Count 14.7 K/mm3 (4.4-11.0)
[2022-07-10 04:14] LABS: Anion Gap 14 (5-15); BUN 19 mg/dL (7-18); BUN/Creat Ratio 16.2 RATIO (10-20); Calcium,Total 7.5 mg/dL (8.5-10.1); Chloride 104 mmol/L (98-107); Creatinine, Serum 1.17 mg/dL (0.70-1.30); EST Glomerular Filtration Rate 65 mL/min (>60); Est Glom Filt Rate - Afr Amer 79 mL/min (>60); Estimated Creatinine Clearance 49.98 ml/min; Glucose 88 mg/dL (74-106); Magnesium 2.2 mg/dL (1.6-2.6); Phosphorus 4.5 mg/dL (2.5-4.9); Potassium 3.7 mmol/L (3.5-5.1); Sodium Level 143 mmol/L (136-145)
[2022-07-10 04:28] LABS: Differential Indicated SCAN CRITERIA MET
[2022-07-10 05:20] LABS: Anisocytosis 1+
--- NOTE | 2022-07-10 07:00 | ECHOD_ITS ---
Reason For Study: ARRHYTHMIA Procedure This was a 2D Doppler, Color Flow transthoracic echocardiogram. The study was technically difficult. Exam performed portable in ICU/CCU. Left Ventricle Normal LV size. Left ventricular systolic function is normal. The estimated ejection fraction is 60 %. Stage 1 diastolic dysfunction. No regional wall motion abnormalities noted. Right Ventricle Normal RV size. Normal systolic function. Atria Normal left atrium. Normal right atrium. Mitral Valve Normal mitral valve. Tricuspid Valve Normal tricuspid valve. Mild (1+) tricuspid valve insufficiency. Pulmonary artery systolic pressure is 34 mmHg. Aortic Valve Trisinus/trileaflet aortic valve. Pulmonic Valve Normal pulmonic valve. Great Vessels Normal aortic root. The pulmonary artery is normal size. Normal inferior vena cava. Pericardium/Pleural Trivial pericardial effusion. MMode/2D Measurements & Calculations LVIDd: 4.1 cm IVSd: 1.0 cm Ao root diam: 3.3 cm LVIDs: 2.8 cm LVPWd: 0.93 cm RVDd: 2.6 cm FS: 32.8 % LAV(MOD-bp): 17.5 ml LVAd ap4: 27.6 cm2 SV(MOD-sp4): 51.3 ml LAV(MOD-bp) Indexed: 10.3 ml/m2 LVLd ap4: 7.7 cm LAV(MOD-sp2): 21.8 ml EDV(MOD-sp4): 83.6 ml LAV(MOD-sp4): 14.2 ml EDV(sp4-el): 84.1 ml LVAs ap4: 15.6 cm2 LVLs ap4: 6.4 cm ESV(MOD-sp4): 32.3 ml ESV(sp4-el): 32.4 ml EF(MOD-sp4): 61.3 % EF(sp4-el): 61.5 % SV(sp4-el): 51.7 ml LA A4 area: 8.6 cm2 LA dimension(2D): 2.9 cm RA A4 area: 6.2 cm2 Time Measurements MV dec time: 0.14 sec Doppler Measurements & Calculations MV E max flako: 66.6 cm/sec Lat Peak E' Flako: 13.1 cm/sec Med Peak E' Flako: 8.0 cm/sec MV A max flako: 109.5 cm/sec E/E' lat: 5.1 E/E' med: 8.4 MV E/A: 0.61 Ao V2 max: 119.3 cm/sec LV V1 max: 109.9 cm/sec PA V2 max: 111.6 cm/sec Ao max P.7 mmHg LV V1 max P.8 mmHg TR max flako: 266.6 cm/sec TR max P.4 mmHg ECHO/Echo Complete Interpretation Summary Normal LV size. Left ventricular systolic function is normal. The estimated ejection fraction is 60 %. Stage 1 diastolic dysfunction. Pulmonary artery systolic pressure is 34 mmHg. Trivial pericardial effusion. Ordering Physician: Yulia Navarro Referring Physician: DARIAN ZELAYA Performed By: Mihaela Alexander RDCS
--- NOTE | 2022-07-10 07:30 | PN.SURG_ITS ---
Subjective Subjective Patient white blood count is 14.7 on Zosyn, temp is 100.5, NG did put out about 950cc patient also had a bowel movement. Blood pressure has been stable pulse is in the 110s currently. Patient denies abdominal pain and states he thinks it is getting a little bit better rates it, a 5/10. Objective Data Objective Data Vital Signs: Vital Signs Temp Pulse Resp BP Pulse Ox O2 Del Method O2 Flow Rate 100.5 F H 113 H 22 H 135/77 H 92 Nasal Cannula 1 07/10/22 07:00 07/10/22 07:00 07/10/22 07:00 07/10/22 07:00 07/10/22 07:00 07/10/22 07:00 07/10/22 07:00 Oxygen Flow Rate (L/min) 1 Oxygen Delivery Method Nasal Cannula Weight: 134 lb 11.239 oz Body Mass Index (BMI) 21.9 Intake & Output: Intake and Output for Last 24 Hours 07/08/22 07/09/22 07/10/22 23:59 23:59 23:59 Intake Total 1996.67 / 2296.67 3108.2433 / 3218.2433 1266.67 / 1266.67 Output Total 1175 / 1175 1650 / 2000 1600 / 1600 Balance 821.67 / 1121.67 1458.2433 / 1218.2433 -333.33 / -333.33 Lab / Micro Data Result Diagrams: 07/10/22 03:10 07/10/22 03:10 Labs: Laboratory Results - last 24 hr 07/09/22 01:30: Phosphorus 1.9 L 07/09/22 08:05: WBC 7.7, RBC 3.84 L, Hgb 10.1 L, Hct 33.3 L, MCV 86.7, MCH 26.3 L, MCHC 30.3 L, RDW Std Deviation 54.9 H, RDW Coeff of [place] 17.2 H, Plt Count 344, MPV 9.6, Immature Gran % (Auto) 0.300, Neut % (Auto) 82.3 H, Lymph % (Auto) 7.1 L, [place] % (Auto) 9.7, Eos % (Auto) 0.0, Baso % (Auto) 0.6, Absolute Neuts (auto) 6.4, Absolute Lymphs (auto) 0.55 L, Nucleated RBC % 0, Differential Comment SCANNED, Toxic Granulation 1+ 07/09/22 13:10: Sodium 140, Potassium 3.8, Chloride 105, Carbon Dioxide 26.0, A nion Gap 9, BUN 16, Creatinine 1.13, Estim Creat Clear Calc 51.75, Est GFR (MDRD) Af Amer 82, Est GFR (MDRD) Non-Af 68, BUN/Creatinine Ratio 14.2, Glucose 86, Calcium 7.6 L, Magnesium 2.5 07/10/22 03:10: WBC 14.7 H, RBC 3.68 L, Hgb 9.9 L, Hct 31.3 L, MCV 85.1, MCH 26.9 L, MCHC 31.6 L, RDW Std Deviation 55.1 H, RDW Coeff of [place] 17.6 H, Plt Count 363, MPV 9.5, Immature Gran % (Auto) 0.300, Neut % (Auto) 86.3 H, Lymph % (Auto) 7.0 L, [place] % (Auto) 6.0, Eos % (Auto) 0.0, Baso % (Auto) 0.4, Absolute Neuts (auto) 12.7 H, Absolute Lymphs (auto) 1.03, Nucleated RBC % 0, Anisocytosis 1+ 07/10/22 03:10: Sodium 143, Potassium 3.7, Chloride 104, Carbon Dioxide 25.0, Anion Gap 14, BUN 19 H, Creatinine 1.17, Estim Creat Clear Calc 49.98, Est GFR (MDRD) Af Amer 79, Est GFR (MDRD) Non-Af 65, BUN/Creatinine Ratio 16.2, Glucose 88, Calcium 7.5 L, Phosphorus 4.5, Magnesium 2.2 Micro: Microbiology 07/09/22 03:45 Urine Catheter - Vazquez Legionella Antigen - Final 07/09/22 03:45 Urine Catheter - Vazquez Streptococcus pneumoniae Antigen (M - Final Radiography Diagnostic Testing: Radiology Impression KUB X-Ray 07/09/22 05:35 IMPRESSION: Nasogastric tube with the tip in the left upper quadrant, likely in the fundus of the stomach. Electronically Signed: Lyle Hong MD at 15:05 EST , Physical Exam Const oriented x3 and no apparent distress Constitutional Narrative: Patient appears comfortable Resp normal respiratory effort Cardio Rate: tachycardic GI GI Narrative: Incision clean dry and intact with Steri-Strips, abdomen soft tender palpation near incision no guarding Assessment & Plan Assessment/Plan (1) S/P left colectomy: (2) SVT (supraventricular tachycardia): (3) Febrile: PLAN: Plan Patient only requested pain meds once yesterday does only have mild pain near incision. Pain meds once yesterday due to pressure. Patient does have a high amount of his NG is concerning. Patient also has a white blood cell count of 14.7 he is on Zosyn. Patient's vital signs have been stable. But still does have a low-grade temp. Patient has been unable to be weaned off of 1 L nasal cannula. We will continue to monitor closely. Addendum: Patient still does not complain of much pain on recheck. We will plan to check white blood cell count if it seems to be going up we will plan to take him back surgery for exploratory laparotomy, possible bowel resection, possible ostomy. Did discuss this over the phone with the patient's as well as his niece. Patient has enough signs on exam to make me concerned that there more going on that will be taken care of with antibiotics. Even though he did just have 2 large bowel movements. Yoli Wesley M.D. Pager: [phone] [facility] [address] [place] [address], [facility], [address] [place] [address] Office: [phone]
--- NOTE | 2022-07-10 07:48 | PCM.PN.CARD ---
Subjective Subjective The patient was seen and evaluated. Appears to be doing better than yesterday. Objective Data Vital Signs: Vital Signs Temp Pulse Resp BP Pulse Ox O2 Del Method O2 Flow Rate 100.5 F H 113 H 22 H 135/77 H 92 Nasal Cannula 1 07/10/22 07:00 07/10/22 07:00 07/10/22 07:00 07/10/22 07:00 07/10/22 07:00 07/10/22 07:00 07/10/22 07:00 Oxygen Flow Rate (L/min) 1 Oxygen Delivery Method Nasal Cannula Weight: 134 lb 11.239 oz Body Mass Index (BMI) 21.9 Intake & Output: Intake and Output for Last 24 Hours 07/08/22 07/09/22 07/10/22 23:59 23:59 23:59 Intake Total 1996.67 / 2296.67 3108.2433 / 3218.2433 1266.67 / 1266.67 Output Total 1175 / 1175 1650 / 2000 1600 / 1600 Balance 821.67 / 1121.67 1458.2433 / 1218.2433 -333.33 / -333.33 Lab / Micro Data Result Diagrams: 07/10/22 03:10 07/10/22 03:10 Labs: Laboratory Results - last 24 hr 07/09/22 01:30: Phosphorus 1.9 L 07/09/22 08:05: WBC 7.7, RBC 3.84 L, Hgb 10.1 L, Hct 33.3 L, MCV 86.7, MCH 26.3 L, MCHC 30.3 L, RDW Std Deviation 54.9 H, RDW Coeff of [place] 17.2 H, Plt Count 344, MPV 9.6, Immature Gran % (Auto) 0.300, Neut % (Auto) 82.3 H, Lymph % (Auto) 7.1 L, [place] % (Auto) 9.7, Eos % (Auto) 0.0, Baso % (Auto) 0.6, Absolute Neuts (auto) 6.4, Absolute Lymphs (auto) 0.55 L, Nucleated RBC % 0, Differential Comment SCANNED, Toxic Granulation 1+ 07/09/22 13:10: Sodium 140, Potassium 3.8, Chloride 105, Carbon Dioxide 26.0, Anion Gap 9, BUN 16, Creatinine 1.13, Estim Creat Clear Calc 51.75, Est GFR (MDRD) Af Amer 82, Est GFR (MDRD) Non-Af 68, BUN/Creatinine Ratio 14.2, Glucose 86, Calcium 7.6 L, Magnesium 2.5 07/10/22 03:10: WBC 14.7 H, RBC 3.68 L, Hgb 9.9 L, Hct 31.3 L, MCV 85.1, MCH 26.9 L, MCHC 31.6 L, RDW Std Deviation 55.1 H, RDW Coeff of [place] 17.6 H, Plt Count 363, MPV 9.5, Immature Gran % (Auto) 0.300, Neut % (Auto) 86.3 H, Lymph % (Auto) 7.0 L, [place] % (Auto) 6.0, Eos % (Auto) 0.0, Baso % (Auto) 0.4, Absolute Neuts (auto) 12.7 H, Absolute Lymphs (auto) 1.03, Nucleated RBC % 0, Anisocytosis 1+ 07/10/22 03:10: Sodium 143, Potassium 3.7, Chloride 104, Carbon Dioxide 25.0, Anion Gap 14, BUN 19 H, Creatinine 1.17, Estim Creat Clear Calc 49.98, Est GFR (MDRD) Af Amer 79, Est GFR (MDRD) Non-Af 65, BUN/Creatinine Ratio 16.2, Glucose 88, Calcium 7.5 L, Phosphorus 4.5, Magnesium 2.2 Micro: Microbiology 07/09/22 03:45 Urine Catheter - Vazquez Legionella Antigen - Final 07/09/22 03:45 Urine Catheter - Vazquez Streptococcus pneumoniae Antigen (M - Final Cardiology Labs/Tests 07/09/22 01:30: Phosphorus 1.9 L 07/09/22 08:05: WBC 7.7, RBC 3.84 L, Hgb 10.1 L, Hct 33.3 L, MCV 86.7, MCH 26.3 L, MCHC 30.3 L, Plt Count 344, MPV 9.6, Immature Gran % (Auto) 0.300, Neut % (Auto) 82.3 H, Lymph % (Auto) 7.1 L, [place] % (Auto) 9.7, Eos % (Auto) 0.0, Baso % (Auto) 0.6, Absolute Neuts (auto) 6.4, Nucleated RBC % 0 07/09/22 13:10: Sodium 140, Potassium 3.8, Chloride 105, Carbon Dioxide 26.0, Anion Gap 9, BUN 16, Creatinine 1.13, Est GFR (MDRD) Af Amer 82, Est GFR (MDRD) Non-Af 68, BUN/Creatinine Ratio 14.2, Glucose 86, Calcium 7.6 L, Magnesium 2.5 07/10/22 03:10: WBC 14.7 H, RBC 3.68 L, Hgb 9.9 L, Hct 31.3 L, MCV 85.1, MCH 26.9 L, MCHC 31.6 L, Plt Count 363, MPV 9.5, Immature Gran % (Auto) 0.300, Neut % (Auto) 86.3 H, Lymph % (Auto) 7.0 L, [place] % (Auto) 6.0, Eos % (Auto) 0.0, Baso % (Auto) 0.4, Absolute Neuts (auto) 12.7 H, Nucleated RBC % 0 07/10/22 03:10: Sodium 143, Potassium 3.7, Chloride 104, Carbon Dioxide 25.0, Anion Gap 14, BUN 19 H, Creatinine 1.17, Est GFR (MDRD) Af Amer 79, Est GFR (MDRD) Non-Af 65, BUN/Creatinine Ratio 16.2, Glucose 88, Calcium 7.5 L, Phosphorus 4.5, Magnesium 2.2 Rhythm: EKG: ECHO: Stress Test: Cardiac Cath: PCI: CT Surgery: Holter monitor: EPS: PPM: CXR: Chest CT Scan: Radiography Diagnostic Testing: Radiology Impression KUB X-Ray 07/09/22 05:35 IMPRESSION: Nasogastric tube with the tip in the left upper quadrant, likely in the fundus of the stomach. Electronically Signed: Lyle Hong MD at 15:05 EST , Physical Exam Const alert, oriented x3 and no apparent distress General Appearance: cooperative HEENT hearing grossly normal bilaterally Head and Scalp: atraumatic Eyes EOMs intact bilaterally Neck General: normal visual inspection Chest inspection of chest normal and palpation of chest normal Resp normal respiratory effort Auscultation: clear to auscultation bilaterally Cardio regular rate, regular rhythm, S1 normal heart sound and S2 normal heart sound Jugular Venous Distention: JVD GI normal to inspection, nondistended, normoactive bowel sounds Extremity normal capillary refill and no pedal edema Peripheral Pulses: Yes pulses 2+ throughout and femoral pulses present Skin no rashes or lesions noted Neuro oriented x3 and CN's II-XII intact bilaterally Psych Appearance: grossly normal and appropriate Assessment & Plan Assessment/Plan (1) Sinus tachycardia by electrocardiogram: PLAN: The patient appears to have sinus tachycardia by electrocardiography. I do not see distinct evidence of supraventricular tachyarrhythmia and I think the above is reactive. Continue current dose of low-dose beta-lele Echocardiogram should be performed to assess his ventricular function Fluid resuscitation is encouraged Will continue to follow.
[2022-07-10] MEDS: 0.9% Normal Saline 1,000 ML 75 ML IV (08:28)
[2022-07-10] MEDS: Metoprolol Tartrate 25 MG Tablet GT (10:01)
[2022-07-10] MEDS: Enoxaparin 40 MG/0.4 ML Syringe SC (10:01)
[2022-07-10 12:15] LABS: Absolute Neutrophil Count 12.6 X10^3/uL (2.0-7.7); Basophil# 0.03 X10^3/uL; Basophil% 0.2 % (0-1); Hemoglobin 9.2 g/dL (13.0-16.5); Lymphocyte % 4.2 % (19-41); Mean Corp Hgb Conc 31.7 g/dL (32-36); Mean Corpuscular Hgb 27.1 pg (27.0-32.0); Mean Corpuscular Volume 85.3 fL (80-94); Mean Platelet Vol. 9.1 fl (6.2-12.0); Monocyte# 0.98 X10^3/uL; Monocyte% 6.9 % (0-10); NRBC Flagged by Analyzer 0 % (0-5); Neutrophil # 12.58 X10^3/uL (2.7-7.7); Neutrophil % 88.3 % (47-70); POSITIVE DIFFERENTIAL YES; POSITIVE MORPHOLOGY YES; Platelet Count 351 K/mm3 (150-450); RBC Distribution Width CV 17.6 % (11.6-14.6); RBC Distribution Width SD 54.4 fl (35.1-43.9); White Blood Count 14.2 K/mm3 (4.4-11.0)
[2022-07-10 12:20] LABS: Differential Indicated SCAN CRITERIA MET
[2022-07-10] MEDS: Morphine 2 MG/ML Syringe IV (13:18)
[2022-07-10 13:34] LABS: Pathologist Review Reviewed
[2022-07-10] MEDS: Acetaminophen 650 MG/20 ML UDC PO (15:05)
--- NOTE | 2022-07-10 15:27 | PCM.PN.BLA ---
Progress Note Patient did get up to the chair with therapy did have more pain and got morphine. Patient's core temperature from his Vazquez is reading 101 currently. Discussed with patient and his at bedside as well as their niece via the phone pathology was consistent with cancer with 2 out of 15 nodes were positive on preliminary pathology. Also would plan to take patient back for exploratory laparotomy, possible bowel resection, possible ostomy as there is concern for anastomotic leak as I would expect his pain to be improving and not getting worse currently along with the continued fevers. Will be scheduled for the OR tonight. Patient and family had no further questions at this time. Yoli Wesley M.D. Pager: [phone] [facility] [address] [place] [address], [facility], [address] [place] [address] Office: [phone]
[2022-07-10 16:18] LABS: Prealbumin 3.4 mg/dL (20.0-40.0)
--- NOTE | 2022-07-10 16:30 | COL_PTH ---
PATIENT: IRRI MARTIN Jr. LOC: MS3 U#:[id number] AGE/SX: 72/M [place] [facility] [place] [facility] [place]: Dr. Yoli Wesley MD : 1950 BED: 1 DIS: 07/21/2022 SPEC #: [id number] RECD: 07/10/22 19:53 STATUS: SHARON REQ #: [id number] PATITO: 07/10/22 16:[address]: Yoli Wesley DEPT: SURGICAL PATHOLOGY RECD BY: Trish Kaplan ENTERED: 07/11/22 10:09 SP TYPE: COLON OTHR DR: MD Dr. Francesca George DO Dr. Nana Yaa Koram, MD Dr. Nicholas F Kotsonis, MD Tissues: Colon, NOS Procedures: Surgery Specimen Level V HEADER OPERATION: Exploratory laparotomy, excision of previous anastomosis PRE-OP DIAGNOSIS: Colon obstruction/mass TISSUE SUBMITTED: Anastomosis (suture light proximal anastomosis) MICROSCOPIC DIAGNOSIS Colon, segmental resection: Colonic perforation at site of previous anastomosis with associated microabscess formation and acute serositis. Diverticular disease of colon. Proximal margin with no significant pathologic change. Distal mucosal margin with tubular adenoma. One out of one benign lymph node. AM:angélica 07/13/2022 COMMENT Case has been reviewed in consultation with Dr. Omalley who concurs with the above diagnosis. IDC:LEE MICROSCOPIC DESCRIPTION Slides are reviewed. GROSS DESCRIPTION Received in fixative is one container labeled with the patient's name and designated anastomosis, suture light proximal anastomosis. The specimen consists of segment of colon with attached pericolonic adipose tissue measuring 11 cm in length. The serosal surface is covered with yoon, purulent exudate. The proximal margin is identified by a suture. Both resection margins are stapled. 5 cm away from the distal margin and 5.5 cm away from the proximal margin an anastomotic area is noted and adjacent to the anastomosis, a focal area of defect is also noted. The serosal surface on this area is covered with yoon, purulent exudate. The mucosa is edematous. No mass lesion is identified. The lumen is filled with fecal material. Sections will be submitted after fixation. / LEE:angélica 07/11/2022 Section of the area adjacent to the anastomosis also shows multiple diverticula. No obviously ruptured diverticula are noted. Warehouse Delivery Driver sections are submitted in eight cassettes as follows: 1 ? proximal and distal resection margins, proximal resection marked inked black, 2-4 ? area adjacent to the anastomosis and area of defect, 5 & 6 ? diverticular, 7 ? more sections of uninvolved colon and pericolonic adipose tissue, 8 - pericolonic adipose tissue. / LEE:angélica 07/12/2022 TC:2 CPT: 90092
--- NOTE | 2022-07-10 16:54 | NURSING ---
Patient taken to Surgery at 16:39.
--- NOTE | 2022-07-10 16:56 | PN.HOSP_ITS ---
Subjective Subjective No issues overnight, he does remain tachycardic but states that pain is improving Objective Data Objective Data Vital Signs: Vital Signs Temp Pulse Resp BP Pulse Ox O2 Del Method O2 Flow Rate 102.4 F H 130 H 27 H 153/94 H 96 Nasal Cannula 2 07/10/22 16:00 07/10/22 16:00 07/10/22 16:00 07/10/22 16:00 07/10/22 16:00 07/10/22 16:00 07/10/22 16:00 Oxygen Flow Rate (L/min) 2 Oxygen Delivery Method Nasal Cannula Weight: 134 lb 11.239 oz Body Mass Index (BMI) 21.9 Intake & Output: Intake and Output for Last 24 Hours 07/09/22 07/10/22 07/11/22 03:59 03:59 03:59 Intake Total 2822.75 / 2887.75 2442.1633 / 2502.1633 1999. / 1999.00 Output Total 775 / 775 1999 1800 / 1800 Balance 2047.75 / 2112.75 442.1633 / 502.1633 200.00 / 200.00 Medical Nutrition Assessment Dietitian: Malnutrition Criteria Met Start: 07/10/22 09:43 Freq: Status: Active Protocol: Document 07/10/22 09:43 ISELA (Rec: 07/10/22 09:43 SLA [id number]) Nutrition Malnutrition Evidence of Malnutrition Exists Yes Malnutrition (moderate): Acute Illness/Injury Evidenced By Suboptimal Energy Intake ( Severe),Physical Changes (Mild ) Intake Problem Inadequate Oral Intake Status Inactive Problem Clinical Problem Acute Disease or Injury Related Malnutrition Etiology related to recent surgery and inability to consume adequate nutrition to meet est nutritional needs Signs/Symptoms as evidenced by pt meeting <75 % of est nutritional needs x past 6-10 days and mild fat/ muscle loss to pt orbitals/ temporals. Status Active Problem Recommendation Dietitian Recommendations/Changes Rec transitional diet w/ goal of regular no added salt when medically able. Rec 120mL Ensure Clear TID on Clear Liquid diet, then 120mL EPHP TID when diet advances to manage medical conditions. Lab / Micro Data Result Diagrams: 07/11/22 04:13 07/11/22 04:13 Labs: Laboratory Results - last 24 hr 07/07/22 06:10: Diff Path Review Reviewed 07/10/22 03:10: WBC 14.7 H, RBC 3.68 L, Hgb 9.9 L, Hct 31.3 L, MCV 85.1, MCH 26.9 L, MCHC 31.6 L, RDW Std Deviation 55.1 H, RDW Coeff of [place] 17.6 H, Plt Count 363, MPV 9.5, Immature Gran % (Auto) 0.300, Neut % (Auto) 86.3 H, Lymph % (Auto) 7.0 L, [place] % (Auto) 6.0, Eos % (Auto) 0.0, Baso % (Auto) 0.4, Absolute Neuts (auto) 12.7 H, Absolute Lymphs (auto) 1.03, Nucleated RBC % 0, Anisocytosis 1+ 07/10/22 03:10: Sodium 143, Potassium 3.7, Chloride 104, Carbon Dioxide 25.0, Anion Gap 14, BUN 19 H, Creatinine 1.17, Estim Creat Clear Calc 49.98, Est GFR (MDRD) Af Amer 79, Est GFR (MDRD) Non-Af 65, BUN/Creatinine Ratio 16.2, Glucose 88, Calcium 7.5 L, Phosphorus 4.5, Magnesium 2.2 07/10/22 03:10: Prealbumin 3.4 L 07/10/22 12:07: WBC 14.2 H, RBC 3.40 L, Hgb 9.2 L, Hct 29.0 L, MCV 85.3, MCH 27.1, MCHC 31.7 L, RDW Std Deviation 54.4 H, RDW Coeff of [place] 17.6 H, Plt Count 351, MPV 9.1, Immature Gran % (Auto) 0.400, Neut % (Auto) 88.3 H, Lymph % (Auto) 4.2 L, [place] % (Auto) 6.9, Eos % (Auto) 0.0, Baso % (Auto) 0.2, Absolute Neuts (auto) 12.6 H, Absolute Lymphs (auto) 0.60 L, Nucleated RBC % 0, Differential Comment COMMENT Micro: Microbiology 07/09/22 03:45 Urine Catheter - Vazquez Urine Culture - Final Culture exhibits no growth. 07/09/22 03:45 Urine Catheter - Vazquez Legionella Antigen - Final 07/09/22 03:45 Urine Catheter - Vazquez Streptococcus pneumoniae Antigen (M - Final Radiography Diagnostic Testing: Radiology Impression Echocardiogram 07/10/22 07:00 Interpretation Summary Normal LV size. Left ventricular systolic function is normal. The estimated ejection fraction is 60 %. Stage 1 diastolic dysfunction. Pulmonary artery systolic pressure is 34 mmHg. Trivial pericardial effusion. Ordering Physician: Yulia Navarro Referring Physician: DARIAN ZELAYA Performed By: Mihaela Alexander RDCS Physical Exam Narrative General: Alert, Oriented x3, Cooperative, No apparent distress HEENT: Atraumatic, PERRLA, EOMI, Normocephalic Oral: Moist Mucosa Neck: Supple, No JVD Lungs: Diminished, Normal air movement, No rhonchi, No wheeze, No rales Cardiovascular: Tachycardic, Regular Rhythm, Normal S1, Normal S2, No murmurs Abdomen: Soft, tender around the abdominal incisions, Non-Distended, No Hepato- splenomegaly Extremities: No edema, Capillary Refill Less than 3 Seconds Skin: No rashes, No breakdown Musculoskeletal: No Tenderness to Palpation of Joints or Extremities Neurological: Cranial nerves II-XII grossly intact, Motor Exam 5/5 strength throughout, Sensory exam intact to light touch and pain Psych/Mental Status: Normal Affect, Appropriate Assessment & Plan Assessment/Plan (1) SVT (supraventricular tachycardia): PLAN: Plan #Sinus versus supraventricular tachycardia: Patient was transferred to ICU. * Twelve-lead EKG shows SVT. transient response to IV adenosine 12 mg but back to 150s to 160s. After that patient had Cardizem 25 mg IV bolus and then started on Cardizem drip. CTA chest once patient is more hemodynamically stable to rule out PE. Most recent heart rate is 82/min, pulse ox 94 on 3-4 oxygen no tachypnea. * His electrolytes have all normalized, we will start him on some IV fluids as he may be a little bit dry * Per cardiology is likely sinus tach versus a supraventricular tachycardia, cardiology does recommend an echo for further evaluation #Left splenic flexure colonic mass * s/p laparoscopic converted to open laparotomy and hemicolectomy * management as per general surgery * Has been having continued fevers periodically and his white count is worse today though this could just be reactive * We will continue with Zosyn #Hypertension; on metoprolol and HCTZ as well as amlodipine. Will hold Norvasc and HCTZ DVT: lovenox Charges/Coding Visit Charges Inpatient E&M: 07593 Subs Hosp L2
[2022-07-10] MEDS: Lactated Ringers 1,000 ML 50 ML IV (17:36)
[2022-07-10] MEDS: Bupivacaine Mpf 0.5% 30 ML VIAL (19:00)
--- NOTE | 2022-07-10 19:21 | PCM.OPRPT ---
Report of Operation Date of Procedure: 07/10/22 Pre-Operative Diagnosis: Pneumoperitoneum, leukocytosis, febrile Post-Operative Diagnosis: Same, postoperative anastomotic leak Surgery/Procedure Performed:: Exploratory laparotomy excision of anastomosis and reanastomosis of transverse colon to sigmoid colon, placement of DEBBIE and retention sutures. Surgeon: Yoli Wesley marketing sales consultant: Rivera Pitts marketing sales consultant: Karyn Magdaleno Type of Anesthesia: General/Supplemental Anesthesiologist: Saurav Short Special Medications: Zosyn 3.375 g IV every 8 hours on the floor Specimen's removed: Previous anastomosis, suture light proximal colon Drains: Left lower quadrant DEBBIE drain 15 Haitian round placed Estimated Blood Loss (mL): 50 cc Fluids Replaced: Per anesthesia Description of Procedure: Patient was brought to the operating placed spine on operating table. Timeout was completed verifying correct patient, procedure, site and positioning, special, prior to beginning procedure. General see anesthesia was induced. The abdomen was prepped and draped in usual sterile fashion with Betadine. Previous midline incision was reincised with a 10 blade scalpel and fascial sutures removed with scissors. Extra-large wound protector was placed. There is noted to be gross contamination throughout the abdomen this was suctioned. The anastomosis had a necrotic hole. Hepatic flexure and right colon were further mobilized along the white line of [place]. 75 BISI stapler was used to excise that previous anastomosis site. 75 BISI stapler was used for a side to side colorectal anastomosis along the tinea of the sigmoid colon and transverse colon after enterotomies were made. 3-0 silk sutures used as a crotch stitch. [place] 60 was used to close the enterotomy. This was oversewed with Lembert sutures of 3-0 silk sutures. The anastomosis was patent and free from tension. Abdomen was copiously irrigated with 4 L of warm saline. This was suctioned. 15 Haitian round DEBBIE was placed in the left lower quadrant along the left paracolic gutter. Wound protector was removed and gloves were changed. 2 Ethibond sutures with bumpers were used for retention sutures along the midline incision. The fascia of the midline incision was closed with 1 PDS suture. Local anesthesia of 0.25% Marcaine 3 cc were used. The skin was left open and a Betadine soaked Kerlix was placed. Patient was extubated. Patient tolerated procedure well was taken to the ICU in stable condition. Complications none
--- NOTE | 2022-07-10 21:00 | NURSING ---
Pt came back from surgery around 1999. was in room with him until around 2029. After left, this RN checked on pt and finished initial assessment as well as getting the pt settled. Pt was then seen moving around, and when this RN went back into room, pt had removed his surgical dressings and pulled out DEBBIE drain. Dr. Carmona notified and orders were given to leave drain out and redress site with 4x4 and abd dressings. Dr. Carmona also wanted pt restrained for safety, so restraint orders were signed by Dr. Lopez after notifying him of Dr. Carmona's orders.
[2022-07-11] VITALS (28 sets, daily range): BP systolic 88–145; BP diastolic 56–88; PULSE 97–138; RESP 16–28; TEMP 37.6–38.4; O2SAT 90–100
[2022-07-11] MEDS: 0.9% Normal Saline 1,000 ML 75 ML IV (01:04)
[2022-07-11] MEDS: Acetaminophen 650 MG/20 ML UDC PO ×2 (01:45→10:17)
[2022-07-11] MEDS: Morphine 2 MG/ML Syringe IV (01:45)
[2022-07-11 04:23] LABS: Absolute Lymphocyte Count 0.52 X10^3/uL (0.83-4.51); Basophil# 0.08 X10^3/uL; Basophil% 1.2 % (0-1); Differential Indicated SCAN CRITERIA MET; Eosinophil# 0.06 X10^3/uL; Eosinophils% 0.9 % (0-5); Hematocrit 35.4 % (40-54); Hemoglobin 10.7 g/dL (13.0-16.5); Lymphocyte # 0.52 X10^3/ul (0.83-4.51); Lymphocyte % 8.1 % (19-41); Mean Corp Hgb Conc 30.2 g/dL (32-36); Mean Corpuscular Hgb 26.4 pg (27.0-32.0); Mean Corpuscular Volume 87.2 fL (80-94); Mean Platelet Vol. 10.1 fl (6.2-12.0); Monocyte# 0.71 X10^3/uL; Monocyte% 11.1 % (0-10); NRBC Flagged by Analyzer 0 % (0-5); Neutrophil # 5.02 X10^3/uL (2.7-7.7); Neutrophil % 78.4 % (47-70); POSITIVE COUNT YES; POSITIVE DIFFERENTIAL YES; POSITIVE MORPHOLOGY YES; Platelet Count 296 K/mm3 (150-450); RBC Distribution Width CV 17.7 % (11.6-14.6); RBC Distribution Width SD 56.7 fl (35.1-43.9); Red Blood Count 4.06 M/mm3 (4.6-6.2); White Blood Count 6.4 K/mm3 (4.4-11.0)
[2022-07-11 04:37] LABS: Anion Gap 11 (5-15); BUN 23 mg/dL (7-18); BUN/Creat Ratio 20.5 RATIO (10-20); Calcium,Total 7.3 mg/dL (8.5-10.1); Chloride 108 mmol/L (98-107); Creatinine, Serum 1.12 mg/dL (0.70-1.30); Differential Comment SCANNED; EST Glomerular Filtration Rate 69 mL/min (>60); Est Glom Filt Rate - Afr Amer 83 mL/min (>60); Estimated Creatinine Clearance 51.52 ml/min; Glucose 152 mg/dL (74-106); Magnesium 2.2 mg/dL (1.6-2.6); Phosphorus 3.1 mg/dL (2.5-4.9); Platelet Estimate ADEQUATE (ADEQ); Potassium 4.1 mmol/L (3.5-5.1); Sodium Level 143 mmol/L (136-145)
--- NOTE | 2022-07-11 08:16 | PCM.PN.CARD ---
Subjective Subjective Patient seen and evaluated. Events of yesterday noted. Objective Data Vital Signs: Vital Signs Temp Pulse Resp BP Pulse Ox O2 Del Method O2 Flow Rate 99.6 F H 115 H 16 106/73 98 Nasal Cannula 2 07/11/22 08:00 07/11/22 08:00 07/11/22 08:00 07/11/22 08:00 07/11/22 08:00 07/11/22 08:00 07/11/22 08:00 Oxygen Flow Rate (L/min) 2 Oxygen Delivery Method Nasal Cannula Weight: 136 lb 10.986 oz Body Mass Index (BMI) 21.9 Intake & Output: Intake and Output for Last 24 Hours 07/09/22 07/10/22 07/11/22 23:59 23:59 23:59 Intake Total 3108.2433 / 3218.2433 2160.00 / 2160.00 355 / 355 Output Total 1650 / 1999 2395 / 2445 200 / 200 Balance 1458.2433 / 1218.2433 -235.00 / -285.00 155 / 155 Lab / Micro Data Result Diagrams: 07/11/22 04:13 07/11/22 04:13 Labs: Laboratory Results - last 24 hr 07/07/22 06:10: Diff Path Review Reviewed 07/10/22 03:10: Prealbumin 3.4 L 07/10/22 12:07: WBC 14.2 H, RBC 3.40 L, Hgb 9.2 L, Hct 29.0 L, MCV 85.3, MCH 27.1, MCHC 31.7 L, RDW Std Deviation 54.4 H, RDW Coeff of [place] 17.6 H, Plt Count 351, MPV 9.1, Immature Gran % (Auto) 0.400, Neut % (Auto) 88.3 H, Lymph % (Auto) 4.2 L, [place] % (Auto) 6.9, Eos % (Auto) 0.0, Baso % (Auto) 0.2, Absolute Neuts (auto) 12.6 H, Absolute Lymphs (auto) 0.60 L, Nucleated RBC % 0, Differential Comment COMMENT 07/11/22 04:13: WBC 6.4, RBC 4.06 L, Hgb 10.7 L, Hct 35.4 L, MCV 87.2, MCH 26.4 L, MCHC 30.2 L, RDW Std Deviation 56.7 H, RDW Coeff of [place] 17.7 H, Plt Count 296, MPV 10.1, Immature Gran % (Auto) 0.300, Neut % (Auto) 78.4 H, Lymph % (Auto) 8.1 L, [place] % (Auto) 11.1 H, Eos % (Auto) 0.9, Baso % (Auto) 1.2 H, Absolute Neuts (auto) 5.0, Absolute Lymphs (auto) 0.52 L, Nucleated RBC % 0, Differential Comment SCANNED, Platelet Estimate ADEQUATE 07/11/22 04:13: Sodium 143, Potassium 4.1, Chloride 108 H, Carbon Dioxide 24.0, Anion Gap 11, BUN 23 H, Creatinine 1.12, Estim Creat Clear Calc 51.52, Est GFR (MDRD) Af Amer 83, Est GFR (MDRD) Non-Af 69, BUN/Creatinine Ratio 20.5 H, Glucose 152 H, Calcium 7.3 L, Phosphorus 3.1, Magnesium 2.2 Micro: Microbiology 07/09/22 04:11 Blood Culture (Wb) - Anticubital Right Blood Culture - Preliminary No growth in 48 hours. 07/09/22 03:50 Blood Culture (Wb) - Anticubital Right Blood Culture - Preliminary No growth in 48 hours. 07/09/22 03:45 Urine Catheter - Vazquez Urine Culture - Final Culture exhibits no growth. 07/09/22 03:45 Urine Catheter - Vazquez Legionella Antigen - Final 07/09/22 03:45 Urine Catheter - Vazquez Streptococcus pneumoniae Antigen (M - Final Cardiology Labs/Tests 07/10/22 12:07: WBC 14.2 H, RBC 3.40 L, Hgb 9.2 L, Hct 29.0 L, MCV 85.3, MCH 27.1, MCHC 31.7 L, Plt Count 351, MPV 9.1, Immature Gran % (Auto) 0.400, Neut % (Auto) 88.3 H, Lymph % (Auto) 4.2 L, [place] % (Auto) 6.9, Eos % (Auto) 0.0, Baso % (Auto) 0.2, Absolute Neuts (auto) 12.6 H, Nucleated RBC % 0 07/11/22 04:13: WBC 6.4, RBC 4.06 L, Hgb 10.7 L, Hct 35.4 L, MCV 87.2, MCH 26.4 L, MCHC 30.2 L, Plt Count 296, MPV 10.1, Immature Gran % (Auto) 0.300, Neut % (Auto) 78.4 H, Lymph % (Auto) 8.1 L, [place] % (Auto) 11.1 H, Eos % (Auto) 0.9, Baso % (Auto) 1.2 H, Absolute Neuts (auto) 5.0, Nucleated RBC % 0 07/11/22 04:13: Sodium 143, Potassium 4.1, Chloride 108 H, Carbon Dioxide 24.0, Anion Gap 11, BUN 23 H, Creatinine 1.12, Est GFR (MDRD) Af Amer 83, Est GFR (MDRD) Non-Af 69, BUN/Creatinine Ratio 20.5 H, Glucose 152 H, Calcium 7.3 L, Phosphorus 3.1, Magnesium 2.2 Rhythm: EKG: ECHO: Stress Test: Cardiac Cath: PCI: CT Surgery: Holter monitor: EPS: PPM: CXR: Chest CT Scan: Radiography Diagnostic Testing: Radiology Impression Echocardiogram 07/10/22 07:00 Interpretation Summary Normal LV size. Left ventricular systolic function is normal. The estimated ejection fraction is 60 %. Stage 1 diastolic dysfunction. Pulmonary artery systolic pressure is 34 mmHg. Trivial pericardial effusion. Ordering Physician: Yulia Navarro Referring Physician: DARIAN ZELAYA Performed By: Mihaela Alexander RDCS Physical Exam Const alert, oriented x3 and no apparent distress General Appearance: cooperative HEENT hearing grossly normal bilaterally Head and Scalp: atraumatic Eyes EOMs intact bilaterally Neck General: normal visual inspection Chest inspection of chest normal and palpation of chest normal Resp normal respiratory effort Auscultation: clear to auscultation bilaterally Cardio regular rate, regular rhythm, S1 normal heart sound and S2 normal heart sound Jugular Venous Distention: JVD GI normal to inspection, nondistended, normoactive bowel sounds Extremity normal capillary refill and no pedal edema Peripheral Pulses: Yes pulses 2+ throughout and femoral pulses present Skin no rashes or lesions noted Neuro oriented x3 and CN's II-XII intact bilaterally Psych Appearance: grossly normal and appropriate Assessment & Plan Assessment/Plan (1) Sinus tachycardia by electrocardiogram: PLAN: The patient appears to have sinus tachycardia by electrocardiography. Echocardiogram demonstrated preserved left ventricular systolic function. Resume oral medications as tolerated but will continue low-dose beta-lele through G-tube Continued fluid resuscitation. Thank you for allowing me to participate in the care of your patient. Please don't hesitate to call if any issues arise.
--- NOTE | 2022-07-11 08:36 | PN.SURG_ITS ---
Subjective Subjective Patient does state abdomen is sore. Patient did accidentally pull out his DEBBIE last night after surgery once he got to the ICU. Objective Data Objective Data Vital Signs: Vital Signs Temp Pulse Resp BP Pulse Ox O2 Del Method O2 Flow Rate 99.6 F H 115 H 16 106/73 98 Nasal Cannula 2 07/11/22 08:00 07/11/22 08:00 07/11/22 08:00 07/11/22 08:00 07/11/22 08:00 07/11/22 08:00 07/11/22 08:00 Oxygen Flow Rate (L/min) 2 Oxygen Delivery Method Nasal Cannula Weight: 136 lb 10.986 oz Body Mass Index (BMI) 21.9 Intake & Output: Intake and Output for Last 24 Hours 07/09/22 07/10/22 07/11/22 23:59 23:59 23:59 Intake Total 3108.2433 / 3218.2433 2160.00 / 2160.00 1096.67 / 1096.67 Output Total 1650 / 2000 2395 / 2445 200 / 200 Balance 1458.2433 / 1218.2433 -235.00 / -285.00 896.67 / 896.67 Medical Nutrition Assessment Dietitian: Malnutrition Criteria Met Start: 07/10/22 09:43 Freq: Status: Active Protocol: Document 07/10/22 09:43 ISELA (Rec: 07/10/22 09:43 ISELA [id number]) Nutrition Malnutrition Evidence of Malnutrition Exists Yes Malnutrition (moderate): Acute Illness/Injury Evidenced By Suboptimal Energy Intake ( Severe),Physical Changes (Mild ) Intake Problem Inadequate Oral Intake Status Inactive Problem Clinical Problem Acute Disease or Injury Related Malnutrition Etiology related to recent surgery and inability to consume adequate nutrition to meet est nutritional needs Signs/Symptoms as evidenced by pt meeting <75 % of est nutritional needs x past 6-10 days and mild fat/ muscle loss to pt orbitals/ temporals. Status Active Problem Recommendation Dietitian Recommendations/Changes Rec transitional diet w/ goal of regular no added salt when medically able. Rec 120mL Ensure Clear TID on Clear Liquid diet, then 120mL EPHP TID when diet advances to manage medical conditions. Lab / Micro Data Result Diagrams: 07/11/22 04:13 07/11/22 04:13 Labs: Laboratory Results - last 24 hr 07/07/22 06:10: Diff Path Review Reviewed 07/10/22 03:10: Prealbumin 3.4 L 07/10/22 12:07: WBC 14.2 H, RBC 3.40 L, Hgb 9.2 L, Hct 29.0 L, MCV 85.3, MCH 27.1, MCHC 31.7 L, RDW Std Deviation 54.4 H, RDW Coeff of [place] 17.6 H, Plt Count 351, MPV 9.1, Immature Gran % (Auto) 0.400, Neut % (Auto) 88.3 H, Lymph % (Auto) 4.2 L, [place] % (Auto) 6.9, Eos % (Auto) 0.0, Baso % (Auto) 0.2, Absolute Neuts (auto) 12.6 H, Absolute Lymphs (auto) 0.60 L, Nucleated RBC % 0, Differential Comment COMMENT 07/11/22 04:13: WBC 6.4, RBC 4.06 L, Hgb 10.7 L, Hct 35.4 L, MCV 87.2, MCH 26.4 L, MCHC 30.2 L, RDW Std Deviation 56.7 H, RDW Coeff of [place] 17.7 H, Plt Count 296, MPV 10.1, Immature Gran % (Auto) 0.300, Neut % (Auto) 78.4 H, Lymph % (Auto) 8.1 L, [place] % (Auto) 11.1 H, Eos % (Auto) 0.9, Baso % (Auto) 1.2 H, Absolute Neuts (auto) 5.0, Absolute Lymphs (auto) 0.52 L, Nucleated RBC % 0, Differential Comment SCANNED, Platelet Estimate ADEQUATE 07/11/22 04:13: Sodium 143, Potassium 4.1, Chloride 108 H, Carbon Dioxide 24.0, Anion Gap 11, BUN 23 H, Creatinine 1.12, Estim Creat Clear Calc 51.52, Est GFR (MDRD) Af Amer 83, Est GFR (MDRD) Non-Af 69, BUN/Creatinine Ratio 20.5 H, Glu cose 152 H, Calcium 7.3 L, Phosphorus 3.1, Magnesium 2.2 Micro: Microbiology 07/09/22 04:11 Blood Culture (Wb) - Anticubital Right Blood Culture - Preliminary No growth in 48 hours. 07/09/22 03:50 Blood Culture (Wb) - Anticubital Right Blood Culture - Preliminary No growth in 48 hours. 07/09/22 03:45 Urine Catheter - Vazquez Urine Culture - Final Culture exhibits no growth. 07/09/22 03:45 Urine Catheter - Vazquez Legionella Antigen - Final 07/09/22 03:45 Urine Catheter - Vazquez Streptococcus pneumoniae Antigen (M - Final Radiography Diagnostic Testing: Radiology Impression Echocardiogram 07/10/22 07:00 Interpretation Summary Normal LV size. Left ventricular systolic function is normal. The estimated ejection fraction is 60 %. Stage 1 diastolic dysfunction. Pulmonary artery systolic pressure is 34 mmHg. Trivial pericardial effusion. Ordering Physician: Yulia Navarro Referring Physician: DARIAN ZELAYA Performed By: Mihaela Alexander RDCS Physical Exam Const oriented x3 and no apparent distress Cardio Rate: tachycardic GI GI Narrative: Appropriately tender. Incision dressed clean dry and intact. With abdominal binder in place Assessment & Plan Assessment/Plan (1) Anastomotic leak of intestine: (2) S/P left colectomy: PLAN: Plan We will continue NG/n.p.o./IV fluids until patient has bowel function. Continue IV Zosyn Continue Lovenox IV and PPI Patient's tachycardia?reactive?continue pain control Yoli Wesley M.D. Pager: [phone] [facility] [address] [place] [address], [address] [place] [address] Office: [phone]
[2022-07-11] MEDS: BENZOCAINE/MENTHOL 1 LOZENGE MUCOUS MEM (08:53)
[2022-07-11] MEDS: Enoxaparin 40 MG/0.4 ML Syringe SC (10:17)
[2022-07-11] MEDS: Metoprolol Tartrate 25 MG Tablet GT (10:17)
--- NOTE | 2022-07-11 11:29 | CASEMGMT ---
Social Work As per initial nursing assessment, pt has living will but cannot bring it in. Pt does not have HCPOA. SAMANTHA Duvall
--- NOTE | 2022-07-11 11:56 | PN.HOSP_ITS ---
Subjective Subjective With his elevated white count and his temperature spiking yesterday he also developed increasing abdominal pain she was taken back to the OR. He had to have the anastomosis redone he did have abdominal contamination with a necrotic anastomosis. Unfortunately overnight he accidentally pulled out his DEBBIE drain Objective Data Objective Data Vital Signs: Vital Signs Temp Pulse Resp BP Pulse Ox O2 Del Method O2 Flow Rate 99.9 F H 112 H 24 H 122/71 H 99 Nasal Cannula 2 07/11/22 11:00 07/11/22 11:00 07/11/22 11:00 07/11/22 11:00 07/11/22 11:00 07/11/22 11:00 07/11/22 11:00 Oxygen Flow Rate (L/min) 2 Oxygen Delivery Method Nasal Cannula Weight: 136 lb 10.986 oz Body Mass Index (BMI) 21.9 Intake & Output: Intake and Output for Last 24 Hours 07/10/22 07/11/22 07/12/22 03:59 03:59 03:59 Intake Total 2442.1633 / 2502.1633 2355.00 / 2355.00 791.67 / 791.67 Output Total 1999 / 2094 150 / 150 Balance 442.1633 / 502.1633 260.00 / 260.00 641.67 / 641.67 Medical Nutrition Assessment Dietitian: Malnutrition Criteria Met Start: 07/10/22 09:43 Freq: Status: Active Protocol: Document 07/11/22 11:05 (Rec: 07/11/22 11:05 [id number]) Nutrition Malnutrition Evidence of Malnutrition Exists Yes Malnutrition (severe): Acute Illness/Injury Evidenced By Suboptimal Energy Intake ( Severe),Weight Loss (Severe) Intake Problem Inadequate Oral Intake Etiology related to suboptimal appetite and colon obstruction Signs/Symptoms as evidenced by pt report of < 50% PO intake of meals for 1 week 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 If unable to advance PO diet in next 24-48 hours, recommend TPN. Consult RDN for TPN management as indicated. Lab / Micro Data Result Diagrams: 07/11/22 04:13 07/11/22 04:13 Labs: Laboratory Results - last 24 hr 07/07/22 06:10: Diff Path Review Reviewed 07/10/22 03:10: Prealbumin 3.4 L 07/10/22 12:07: WBC 14.2 H, RBC 3.40 L, Hgb 9.2 L, Hct 29.0 L, MCV 85.3, MCH 27.1, MCHC 31.7 L, RDW Std Deviation 54.4 H, RDW Coeff of [place] 17.6 H, Plt Count 351, MPV 9.1, Immature Gran % (Auto) 0.400, Neut % (Auto) 88.3 H, Lymph % (Auto) 4.2 L, [place] % (Auto) 6.9, Eos % (Auto) 0.0, Baso % (Auto) 0.2, Absolute Neuts (auto) 12.6 H, Absolute Lymphs (auto) 0.60 L, Nucleated RBC % 0, Differential Comment COMMENT 07/11/22 04:13: WBC 6.4, RBC 4.06 L, Hgb 10.7 L, Hct 35.4 L, MCV 87.2, MCH 26.4 L, MCHC 30.2 L, RDW Std Deviation 56.7 H, RDW Coeff of [place] 17.7 H, Plt Count 296, MPV 10.1, Immature Gran % (Auto) 0.300, Neut % (Auto) 78.4 H, Lymph % (Auto) 8.1 L, [place] % (Auto) 11.1 H, Eos % (Auto) 0.9, Baso % (Auto) 1.2 H, Absolute Neuts (auto) 5.0, Absolute Lymphs (auto) 0.52 L, Nucleated RBC % 0, Differential Comment SCANNED, Platelet Estimate ADEQUATE 07/11/22 04:13: Sodium 143, Potassium 4.1, Chloride 108 H, Carbon Dioxide 24.0, Anion Gap 11, BUN 23 H, Creatinine 1.12, Estim Creat Clear Calc 51.52, Est GFR (MDRD) Af Amer 83, Est GFR (MDRD) Non-Af 69, BUN/Creatinine Ratio 20.5 H, Glucose 152 H, Calcium 7.3 L, Phosphorus 3.1, Magnesium 2.2 Micro: Microbiology 07/09/22 04:11 Blood Culture (Wb) - Anticubital Right Blood Culture - Preliminary No growth in 48 hours. 07/09/22 03:50 Blood Culture (Wb) - Anticubital Right Blood Culture - Preliminary No growth in 48 hours. 07/09/22 03:45 Urine Catheter - Vazquez Urine Culture - Final Culture exhibits no growth. 07/09/22 03:45 Urine Catheter - Vazquez Legionella Antigen - Final 07/09/22 03:45 Urine Catheter - Vazquez Streptococcus pneumoniae Antigen (M - Final Radiography Diagnostic Testing: Radiology Impression Echocardiogram 07/10/22 07:00 Interpretation Summary Normal LV size. Left ventricular systolic function is normal. The estimated ejection fraction is 60 %. Stage 1 diastolic dysfunction. Pulmonary artery systolic pressure is 34 mmHg. Trivial pericardial effusion. Ordering Physician: Yulia Navarro Referring Physician: DARIAN ZELAYA Performed By: Mihaela [place] RDCS Physical Exam Narrative General: Alert, Oriented x3, Cooperative, No apparent distress HEENT: Atraumatic, PERRLA, EOMI, Normocephalic, NG tube in place Oral: Moist Mucosa Neck: Supple, No JVD Lungs: Diminished, Normal air movement, No rhonchi, No wheeze, No rales Cardiovascular: Tachycardic, Regular Rhythm, Normal S1, Normal S2, No murmurs Abdomen: Soft, tender around the abdominal incisions, Non-Distended, No Hepato- splenomegaly Extremities: No edema, Capillary Refill Less than 3 Seconds Skin: Dressing intact Musculoskeletal: No Tenderness to Palpation of Joints or Extremities Neurological: Cranial nerves II-XII grossly intact, Motor Exam 5/5 strength throughout, Sensory exam intact to light touch and pain Psych/Mental Status: Normal Affect, Appropriate Assessment & Plan Assessment/Plan (1) SVT (supraventricular tachycardia): PLAN: Plan #Sinus versus supraventricular tachycardia: Patient was transferred to ICU. * Twelve-lead EKG shows SVT. transient response to IV adenosine 12 mg but back to 150s to 160s. After that patient had Cardizem 25 mg IV bolus and then started on Cardizem drip. CTA chest once patient is more hemodynamically stable to rule out PE. Most recent heart rate is 82/min, pulse ox 94 on 3-4 oxygen no tachypnea. 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 Will hold Norvasc and HCTZ DVT: lovenox Charges/Coding Visit Charges Inpatient E&M: 84624 Subs Hosp L2
[2022-07-11] MEDS: 0.9% Normal Saline 1,000 ML 100 ML IV ×2 (13:15→22:02)
--- NOTE | 2022-07-11 18:57 | NURSING ---
Patient dropped his O2 saturation down to 85% was increased from 2L to 4L NC and is doing better at this time.
[2022-07-12] VITALS (28 sets, daily range): BP systolic 105–141; BP diastolic 49–100; PULSE 85–122; RESP 16–26; TEMP 37.2–37.7; O2SAT 90–100
[2022-07-12 05:49] LABS: Absolute Lymphocyte Count 0.77 X10^3/uL (0.83-4.51); Absolute Neutrophil Count 9.9 X10^3/uL (2.0-7.7); Basophil# 0.04 X10^3/uL; Basophil% 0.3 % (0-1); Eosinophil# 0.01 X10^3/uL; Eosinophils% 0.1 % (0-5); Hematocrit 28.7 % (40-54); Hemoglobin 8.7 g/dL (13.0-16.5); Lymphocyte # 0.77 X10^3/ul (0.83-4.51); Lymphocyte % 6.4 % (19-41); Mean Corp Hgb Conc 30.3 g/dL (32-36); Mean Corpuscular Hgb 26.3 pg (27.0-32.0); Mean Corpuscular Volume 86.7 fL (80-94); Mean Platelet Vol. 9.8 fl (6.2-12.0); Monocyte# 1.18 X10^3/uL; Monocyte% 9.8 % (0-10); NRBC Flagged by Analyzer 0.6 % (0-5); Neutrophil # 9.91 X10^3/uL (2.7-7.7); Neutrophil % 82.7 % (47-70); POSITIVE MORPHOLOGY YES; Platelet Count 348 K/mm3 (150-450); RBC Distribution Width CV 17.7 % (11.6-14.6); RBC Distribution Width SD 56.8 fl (35.1-43.9); Red Blood Count 3.31 M/mm3 (4.6-6.2)
[2022-07-12 06:04] LABS: Anion Gap 9 (5-15); BUN 23 mg/dL (7-18); BUN/Creat Ratio 22.1 RATIO (10-20); Calcium,Total 7.4 mg/dL (8.5-10.1); Chloride 112 mmol/L (98-107); Creatinine, Serum 1.04 mg/dL (0.70-1.30); EST Glomerular Filtration Rate 75 mL/min (>60); Est Glom Filt Rate - Afr Amer 90 mL/min (>60); Estimated Creatinine Clearance 57.76 ml/min; Glucose 101 mg/dL (74-106); Potassium 3.7 mmol/L (3.5-5.1); Sodium Level 148 mmol/L (136-145)
[2022-07-12 06:18] LABS: Differential Indicated SCAN CRITERIA MET
[2022-07-12 06:38] LABS: Differential Comment SCANNED
[2022-07-12] MEDS: 0.9% Normal Saline 1,000 ML 100 ML IV (07:54)
--- NOTE | 2022-07-12 08:22 | PN.SURG_ITS ---
Subjective Subjective Patient denies any flatus NG still put out 500 overnight. Patient only really complains of pain with movement. Objective Data Objective Data Vital Signs: Vital Signs Temp Pulse Resp BP Pulse Ox O2 Del Method O2 Flow Rate 99.3 F H 105 H 19 H 123/100 H 99 Nasal Cannula 1 07/12/22 08:00 07/12/22 08:00 07/12/22 08:00 07/12/22 08:00 07/12/22 08:00 07/12/22 08:00 07/12/22 08:00 FiO2 4 07/11/22 19:00 Oxygen Flow Rate (L/min) 1 Oxygen Delivery Method Nasal Cannula Weight: 140 lb 3.424 oz Body Mass Index (BMI) 21.9 Intake & Output: Intake and Output for Last 24 Hours 07/10/22 07/11/22 07/12/22 23:59 23:59 23:59 Intake Total 2160.00 / 2160.00 3513.75 / 3513.75 1036.67 / 1036.67 Output Total 2395 / 2445 940 / 940 200 / 200 Balance -235.00 / -285.00 2573.75 / 2573.75 836.67 / 836.67 Medical Nutrition Assessment Dietitian: Malnutrition Criteria Met Start: 07/10/22 09:43 Freq: Status: Active Protocol: Document 07/11/22 11:05 (Rec: 07/11/22 11:05 [id number]) Nutrition Malnutrition Evidence of Malnutrition Exists Yes Malnutrition (severe): Acute Illness/Injury Evidenced By Suboptimal Energy Intake ( Severe),Weight Loss (Severe) Intake Problem Inadequate Oral Intake Etiology related to suboptimal appetite and colon obstruction Signs/Symptoms as evidenced by pt report of < 50% PO intake of meals for 1 week 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 If unable to advance PO diet in next 24-48 hours, recommend TPN. Consult RDN for TPN management as indicated. Lab / Micro Data Result Diagrams: 07/12/22 05:25 07/12/22 05:25 Labs: Laboratory Results - last 24 hr 07/12/22 05:25: WBC 12.0 H, RBC 3.31 L, Hgb 8.7 L, Hct 28.7 L, MCV 86.7, MCH 26.3 L, MCHC 30.3 L, RDW Std Deviation 56.8 H, RDW Coeff of [place] 17.7 H, Plt Count 348, MPV 9.8, Immature Gran % (Auto) 0.700, Neut % (Auto) 82.7 H, Lymph % (Auto) 6.4 L, [place] % (Auto) 9.8, Eos % (Auto) 0.1, Baso % (Auto) 0.3, Absolute Neuts (auto) 9.9 H, Absolute Lymphs (auto) 0.77 L, Nucleated RBC % 0.6, Differential Comment SCANNED 07/12/22 05:25: Sodium 148 H, Potassium 3.7, Chloride 112 H, Carbon Dioxide 27.0, Anion Gap 9, BUN 23 H, Creatinine 1.04, Estim Creat Clear Calc 57.76, Est GFR (MDRD) Af Amer 90, Est GFR (MDRD) Non-Af 75, BUN/Creatinine Ratio 22.1 H, Glucose 101, Calcium 7.4 L Micro: Microbiology 07/09/22 04:11 Blood Culture (Wb) - Anticubital Right Blood Culture - Preliminary No growth in 48 hours. 07/09/22 03:50 Blood Culture (Wb) - Anticubital Right Blood Culture - Preliminary No growth in 48 hours. 07/09/22 03:45 Urine Catheter - Vazquez Urine Culture - Final Culture exhibits no growth. 07/09/22 03:45 Urine Catheter - Vazquez Legionella Antigen - Final 07/09/22 03:45 Urine Catheter - Vazquez Streptococcus pneumoniae Antigen (M - Final Physical Exam Const oriented x3 and no apparent distress Resp normal respiratory effort Cardio Rate: tachycardic GI GI Narrative: Soft, appropriately tender, retention sutures in place Betadine soaked Kerlix and wound, previous DEBBIE site no issues Extremity normal to inspection Assessment & Plan Assessment/Plan (1) Anastomotic leak of intestine: (2) S/P left colectomy: PLAN: Plan We will continue NG/n.p.o./IV fluids until patient has bowel function. Continue IV Zosyn, white blood cell count 12 continue to monitor Severe malnutrition patient prealbumin was 3 had been eating less than 50% of meals probably since Ter[place] prior to coming in along with weight loss. Considering TPN however usually it is beneficial for TPN to be on for 5 days unsure if patient would need 5 days of TPN. We will continue to monitor closely and look at this daily. Holding off on TPN today. Continue Lovenox IV and PPI Patient's tachycardia?reactive?continue pain control Yoli Wesley M.D. Pager: [phone] [facility] [address] [place] [address], [facility], [address] [place] [address] Office: [phone]
--- NOTE | 2022-07-12 08:43 | PN.HOSP_ITS ---
Subjective Subjective Has little bit of a sore throat from the NG tube, but he is feeling better no significant abdominal pain Objective Data Objective Data Vital Signs: Vital Signs Temp Pulse Resp BP Pulse Ox O2 Del Method O2 Flow Rate 99.3 F H 105 H 19 H 123/100 H 99 Nasal Cannula 1 07/12/22 08:00 07/12/22 08:00 07/12/22 08:00 07/12/22 08:00 07/12/22 08:00 07/12/22 08:00 07/12/22 08:00 FiO2 4 07/11/22 19:00 Oxygen Flow Rate (L/min) 1 Oxygen Delivery Method Nasal Cannula Weight: 140 lb 3.424 oz Body Mass Index (BMI) 21.9 Intake & Output: Intake and Output for Last 24 Hours 07/11/22 07/12/22 07/13/22 03:59 03:59 03:59 Intake Total 2355.00 / 2355.00 3208.75 / 3208.75 986.67 / 986.67 Output Total 2095 / 2095 890 / 890 200 / 200 Balance 260.00 / 260.00 2318.75 / 2318.75 786.67 / 786.67 Medical Nutrition Assessment Dietitian: Malnutrition Criteria Met Start: 07/10/22 09:43 Freq: Status: Active Protocol: Document 07/11/22 11:05 (Rec: 07/11/22 11:05 [id number]) Nutrition Malnutrition Evidence of Malnutrition Exists Yes Malnutrition (severe): Acute Illness/Injury Evidenced By Suboptimal Energy Intake ( Severe),Weight Loss (Severe) Intake Problem Inadequate Oral Intake Etiology related to suboptimal appetite and colon obstruction Signs/Symptoms as evidenced by pt report of < 50% PO intake of meals for 1 week 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 If unable to advance PO diet in next 24-48 hours, recommend TPN. Consult RDN for TPN management as indicated. Lab / Micro Data Result Diagrams: 07/12/22 05:25 07/12/22 05:25 Labs: Laboratory Results - last 24 hr 07/12/22 05:25: WBC 12.0 H, RBC 3.31 L, Hgb 8.7 L, Hct 28.7 L, MCV 86.7, MCH 26.3 L, MCHC 30.3 L, RDW Std Deviation 56.8 H, RDW Coeff of [place] 17.7 H, Plt Count 348, MPV 9.8, Immature Gran % (Auto) 0.700, Neut % (Auto) 82.7 H, Lymph % (Auto) 6.4 L, [place] % (Auto) 9.8, Eos % (Auto) 0.1, Baso % (Auto) 0.3, Absolute Neuts (auto) 9.9 H, Absolute Lymphs (auto) 0.77 L, Nucleated RBC % 0.6, Differential Comment SCANNED 07/12/22 05:25: Sodium 148 H, Potassium 3.7, Chloride 112 H, Carbon Dioxide 27.0, Anion Gap 9, BUN 23 H, Creatinine 1.04, Estim Creat Clear Calc 57.76, Est GFR (MDRD) Af Amer 90, Est GFR (MDRD) Non-Af 75, BUN/Creatinine Ratio 22.1 H, Glucose 101, Calcium 7.4 L Micro: Microbiology 07/09/22 04:11 Blood Culture (Wb) - Anticubital Right Blood Culture - Preliminary No growth in 48 hours. 07/09/22 03:50 Blood Culture (Wb) - Anticubital Right Blood Culture - Preliminary No growth in 48 hours. 07/09/22 03:45 Urine Catheter - Vazquez Urine Culture - Final Culture exhibits no growth. 07/09/22 03:45 Urine Catheter - Vazquez Legionella Antigen - Final 07/09/22 03:45 Urine Catheter - Vazquez Streptococcus pneumoniae Antigen (M - Final Physical Exam Narrative General: Alert, Oriented x3, Cooperative, No apparent distress HEENT: Atraumatic, PERRLA, EOMI, Normocephalic, NG tube in place Oral: Moist Mucosa Neck: Supple, No JVD Lungs: Diminished, Normal air movement, No rhonchi, No wheeze, No rales Cardiovascular: Tachycardic, Regular Rhythm, Normal S1, Normal S2, No murmurs Abdomen: Soft, tender around the abdominal incisions, Non-Distended, No Hepato- splenomegaly Extremities: No edema, Capillary Refill Less than 3 Seconds Skin: Dressing intact Musculoskeletal: No Tenderness to Palpation of Joints or Extremities Neurological: Cranial nerves II-XII grossly intact, Motor Exam 5/5 strength throughout, Sensory exam intact to light touch and pain Psych/Mental Status: Normal Affect, Appropriate Assessment & Plan Assessment/Plan (1) SVT (supraventricular tachycardia): PLAN: Plan #Sinus versus supraventricular tachycardia: Patient was transferred to ICU. * Twelve-lead EKG shows SVT. transient response to IV adenosine 12 mg but back to 150s to 160s. After that patient had Cardizem 25 mg IV bolus and then started on Cardizem drip. CTA chest once patient is more hemodynamically stable to rule out PE. Most recent heart rate is 82/min, pulse ox 94 on 3-4 oxygen no tachypnea. 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 Will hold Norvasc and HCTZ Will sign off please call with questions DVT: lovenox Charges/Coding Visit Charges Inpatient E&M: 72527 Subs Hosp L2
[2022-07-12] MEDS: Metoprolol Tartrate 25 MG Tablet GT (09:38)
[2022-07-12] MEDS: Enoxaparin 40 MG/0.4 ML Syringe SC (09:39)
[2022-07-12] MEDS: BENZOCAINE/MENTHOL 1 LOZENGE MUCOUS MEM ×3 (10:01→18:52)
--- NOTE | 2022-07-12 11:30 | WOUNDNOTE ---
wound photo: abdomen
[2022-07-12] MEDS: KCL 20MEQ in 0.45%NS 20 MEQ/1,000 ML IV.SOLN. 100 MEQ IV (16:11)
[2022-07-12] MEDS: Tamsulosin HCl 0.4 MG Capsule PO (16:11)
[2022-07-12] MEDS: Acetaminophen 650 MG/20 ML UDC PO (19:57)
[2022-07-12] MEDS: Haloperidol Lactate 5 MG/ML Vial 1 MG IV (19:57)
[2022-07-13] VITALS (17 sets, daily range): BP systolic 108–151; BP diastolic 48–77; PULSE 80–118; RESP 16–26; TEMP 36.6–37.6; O2SAT 91–98
[2022-07-13] MEDS: KCL 20MEQ in 0.45%NS 20 MEQ/1,000 ML IV.SOLN. 100 MEQ IV (02:45)
[2022-07-13 08:41] LABS: Absolute Lymphocyte Count 1.46 X10^3/uL (0.83-4.51); Absolute Neutrophil Count 13.5 X10^3/uL (2.0-7.7); Basophil# 0.04 X10^3/uL; Basophil% 0.2 % (0-1); Eosinophil# 0.02 X10^3/uL; Eosinophils% 0.1 % (0-5); Hematocrit 29.8 % (40-54); Hemoglobin 8.6 g/dL (13.0-16.5); Lymphocyte # 1.46 X10^3/ul (0.83-4.51); Mean Corp Hgb Conc 28.9 g/dL (32-36); Mean Corpuscular Hgb 26.1 pg (27.0-32.0); Mean Corpuscular Volume 90.3 fL (80-94); Mean Platelet Vol. 9.7 fl (6.2-12.0); Monocyte# 1.13 X10^3/uL; NRBC Flagged by Analyzer 0.1 % (0-5); Neutrophil # 13.48 X10^3/uL (2.7-7.7); Neutrophil % 83.2 % (47-70); POSITIVE MORPHOLOGY YES; Platelet Count 398 K/mm3 (150-450); RBC Distribution Width CV 18.5 % (11.6-14.6); White Blood Count 16.2 K/mm3 (4.4-11.0)
[2022-07-13 08:52] LABS: Anion Gap 10 (5-15); BUN 22 mg/dL (7-18); BUN/Creat Ratio 22.1 RATIO (10-20); Calcium,Total 7.9 mg/dL (8.5-10.1); Chloride 114 mmol/L (98-107); Creatinine, Serum 0.99 mg/dL (0.70-1.30); EST Glomerular Filtration Rate 79 mL/min (>60); Est Glom Filt Rate - Afr Amer 95 mL/min (>60); Estimated Creatinine Clearance 60.86 ml/min; Glucose 111 mg/dL (74-106); Potassium 3.6 mmol/L (3.5-5.1); Sodium Level 148 mmol/L (136-145)
--- NOTE | 2022-07-13 08:59 | PN.SURG_ITS ---
Subjective Subjective Heart rate improved to the 80s currently. Patient denies any flatus. Did have some liquid bowel movement yesterday per nursing. Clamping trial of NG last night still had quite a bit in. We will continue to monitor and NG output. Vazquez was able to be removed yesterday and patient is voiding well. Objective Data Objective Data Vital Signs: Vital Signs Temp Pulse Resp BP Pulse Ox O2 Del Method O2 Flow Rate 99.6 F H 95 20 H 134/73 H 95 Nasal Cannula 2 07/13/22 04:00 07/13/22 07:00 07/13/22 07:00 07/13/22 07:00 07/13/22 07:00 07/13/22 07:00 07/13/22 07:00 FiO2 4 07/11/22 19:00 Oxygen Flow Rate (L/min) 2 Oxygen Delivery Method Nasal Cannula Weight: 142 lb 3.17 oz Body Mass Index (BMI) 21.9 Intake & Output: Intake and Output for Last 24 Hours 07/11/22 07/12/22 07/13/22 23:59 23:59 23:59 Intake Total 3513.75 / 3513.75 2331.67 / 2361.67 1060 / 1060 Output Total 940 / 940 1000 / 1000 350 / 350 Balance 2573.75 / 2573.75 1331.67 / 1361.67 710 / 710 Medical Nutrition Assessment Dietitian: Malnutrition Criteria Met Start: 07/10/22 09:43 Freq: Status: Active Protocol: Document 07/11/22 11:05 (Rec: 07/11/22 11:05 [id number]) Nutrition Malnutrition Evidence of Malnutrition Exists Yes Malnutrition (severe): Acute Illness/Injury Evidenced By Suboptimal Energy Intake ( Severe),Weight Loss (Severe) Intake Problem Inadequate Oral Intake Etiology related to suboptimal appetite and colon obstruction Signs/Symptoms as evidenced by pt report of < 50% PO intake of meals for 1 week 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 If unable to advance PO diet in next 24-48 hours, recommend TPN. Consult RDN for TPN management as indicated. Lab / Micro Data Result Diagrams: 07/14/22 03:32 07/14/22 03:32 Labs: Laboratory Results - last 24 hr 07/13/22 06:45: Sodium 148 H, Potassium 3.6, Chloride 114 H, Carbon Dioxide 24.0, Anion Gap 10, BUN 22 H, Creatinine 0.99, Estim Creat Clear Calc 60.86, Est GFR (MDRD) Af Amer 95, Est GFR (MDRD) Non-Af 79, BUN/Creatinine Ratio 22.1 H, Glucose 111 H, Calcium 7.9 L Micro: Microbiology 07/09/22 04:11 Blood Culture (Wb) - Anticubital Right Blood Culture - Preliminary No growth in 48 hours. 07/09/22 03:50 Blood Culture (Wb) - Anticubital Right Blood Culture - Preliminary No growth in 48 hours. 07/09/22 03:45 Urine Catheter - Vazquez Urine Culture - Final Culture exhibits no growth. 07/09/22 03:45 Urine Catheter - Vazquez Legionella Antigen - Final 07/09/22 03:45 Urine Catheter - Vazquez Streptococcus pneumoniae Antigen (M - Final Physical Exam Const oriented x3 and no apparent distress Resp normal respiratory effort Cardio regular rate GI GI Narrative: Soft, nondistended, incision dressed?wet-to-dry's and retention sutures x2 in place Assessment & Plan Assessment/Plan (1) Anastomotic leak of intestine: (2) S/P left colectomy: PLAN: Plan We will continue NG/n.p.o./IV fluids until patient has regular bowel function. Continue out of bed to chair and PT Continue IV Zosyn, labs pending Will decide about TPN today see how much the NG put out as I think he is fairly close to being able to have NG out and start clears. Continue Lovenox IV and PPI Addendum: White blood count up to [address] abdomen pelvis no contrast did show some postoperative fluid no obvious signs of any abscess. Patient did have an additional bowel movement and did have a clamp trial for 3 hours of the NG and only had 50 cc. Did discuss and update patient's niece Rosalva over the phone. Yoli Wesley M.D. Pager: [phone] [facility] [address] [place] [address], [address] [place] [address] Office: [phone]
[2022-07-13 09:00] LABS: Differential Indicated SCAN CRITERIA MET
--- NOTE | 2022-07-13 09:15 | RAD_ITS ---
STUDY: X-RAY - ABDOMEN/PELVIS REASON FOR EXAM: Male, 72 years old. Ileus -- portable TECHNIQUE: Single AP view of the abdomen / pelvis. COMPARISON: Comparison is made with prior study dated 07/09/2022. FINDINGS: A nasogastric tube is seen within the body of the stomach. Mucosal thickening of the transverse colon. No evidence of bowel obstruction. The visualized liver, spleen and kidneys are grossly normal in size and morphology. Normal soft tissue structures. There are diffuse degenerative changes of the visualized lumbar spine. RAD/Abdomen Single View (Portable) IMPRESSION: Mucosal thickening of the transverse colon. Electronically Signed: Roni Murillo MD at 14:32 EST ,
--- NOTE | 2022-07-13 09:29 | CT_ITS ---
STUDY: CT ABDOMEN AND PELVIS WITH CONTRAST REASON FOR EXAM: Male, 72 years old. Abdominal pain. Recent abdominal surgery. RADIATION DOSAGE (If Supplied By Facility): CTDIvol = ( 15.28 ) mGy, DLP = ( 936.54 ) mGycm TECHNIQUE: Transaxial images were obtained from the dome of the diaphragm to the symphysis pubis without oral contrast. IV 100mL Isovue-300 was administered. Sagittal and coronal images were reconstructed. Individualized dose optimization techniques were used for this CT. COMPARISON: Comparison is made with prior study dated 07/09/2022. FINDINGS: Persistent small bilateral pleural effusions with bibasilar infiltrates. The visualized portions of the heart are within normal limits. Diffuse ascites. Fluid is seen in the paracolic gutters. Persistent free intraperitoneal air. Normal gallbladder and extrahepatic biliary system. Normal spleen. Normal pancreas. Normal bilateral adrenal glands. Normal right kidney. Normal left kidney. A nasogastric tube is seen within the stomach. The gastric wall is diffusely thickened. There is evidence of a fluid surrounding the stomach. Diffuse mural thickening of the distal ileum and terminal ileum with increased markings in the surrounding peritoneal fat. There is diffuse thickening of the region of the hepatic flexure with the thumb printing. Anastomosis is seen in the proximal transverse colon. The appendix is visualized and appears normal. Normal abdominal aorta. Normal inferior vena cava. Normal retroperitoneum. Air is seen within the urinary bladder most likely secondary to FU catheter. Prostatic enlargement. This is stable. Midline incision in the anterior abdomen. There are degenerative changes of the visualized lumbar spine. Loss of the normal lumbar lordosis. CT/Abdomen/Pelvis W IV Cont ONLY IMPRESSION: Diffuse thickening and thumbprinting of the hepatic flexure to the level of the proximal transverse colon at the level of the anastomosis. Diffuse edematous thickening of the distal ileum. Abnormal appearance of the stomach with diffuse gastric wall thickening and air-fluid surrounding the stomach. An orogastric tube is seen within the body of the stomach. Ascites. Small amount of free intraperitoneal air most likely secondary to prior surgical procedure. Persistent small bilateral pleural effusions with bibasilar atelectasis and/or infiltrate. Electronically Signed: Roni Murillo MD at 12:17 EST ,
[2022-07-13 09:49] LABS: Atypical Lymphocyte RARE %; Differential Comment SCANNED
[2022-07-13] MEDS: Metoprolol Tartrate 25 MG Tablet GT (10:23)
[2022-07-13] MEDS: Enoxaparin 40 MG/0.4 ML Syringe SC (10:23)
[2022-07-13] MEDS: Potassium Chloride 20 MEQ in Dext 5%-0.45% NS 1,000 ML 80 MEQ IV (15:35)
[2022-07-13] MEDS: Tamsulosin HCl 0.4 MG Capsule PO (17:25)
[2022-07-13] MEDS: QUEtiapine 25 MG Tablet GT (18:32)
--- NOTE | 2022-07-13 20:32 | NURSING ---
Pt 85% on room air, placed on 2 L NC.
[2022-07-13] MEDS: QUEtiapine 25 MG Tablet 50 MG PO (22:30)
[2022-07-14] VITALS (14 sets, daily range): BP systolic 120–156; BP diastolic 59–104; PULSE 99–127; RESP 18–26; TEMP 36.5–37.8; O2SAT 92–100
[2022-07-14] MEDS: Haloperidol Lactate 5 MG/ML Vial 4 MG IV (02:54)
[2022-07-14 03:39] LABS: Absolute Lymphocyte Count 1.12 X10^3/uL (0.83-4.51); Absolute Neutrophil Count 9.2 X10^3/uL (2.0-7.7); Basophil# 0.01 X10^3/uL; Basophil% 0.1 % (0-1); Eosinophil# 0.01 X10^3/uL; Eosinophils% 0.1 % (0-5); Hematocrit 27.5 % (40-54); Hemoglobin 8.1 g/dL (13.0-16.5); Lymphocyte # 1.12 X10^3/ul (0.83-4.51); Lymphocyte % 9.9 % (19-41); Mean Corp Hgb Conc 29.5 g/dL (32-36); Mean Corpuscular Hgb 25.9 pg (27.0-32.0); Mean Corpuscular Volume 87.9 fL (80-94); Mean Platelet Vol. 9.6 fl (6.2-12.0); Monocyte# 0.86 X10^3/uL; Monocyte% 7.6 % (0-10); NRBC Flagged by Analyzer 0 % (0-5); Neutrophil # 9.15 X10^3/uL (2.7-7.7); Neutrophil % 80.8 % (47-70); POSITIVE MORPHOLOGY YES; Platelet Count 376 K/mm3 (150-450); RBC Distribution Width SD 58.5 fl (35.1-43.9); Red Blood Count 3.13 M/mm3 (4.6-6.2); White Blood Count 11.3 K/mm3 (4.4-11.0)
[2022-07-14 03:42] LABS: Differential Indicated SCAN CRITERIA MET
[2022-07-14 03:56] LABS: Anion Gap 8 (5-15); BUN 15 mg/dL (7-18); BUN/Creat Ratio 15.1 RATIO (10-20); Calcium,Total 7.5 mg/dL (8.5-10.1); Chloride 113 mmol/L (98-107); Creatinine, Serum 0.99 mg/dL (0.70-1.30); EST Glomerular Filtration Rate 79 mL/min (>60); Est Glom Filt Rate - Afr Amer 95 mL/min (>60); Estimated Creatinine Clearance 60.86 ml/min; Glucose 141 mg/dL (74-106); Magnesium 1.8 mg/dL (1.6-2.6); Phosphorus 1.3 mg/dL (2.5-4.9); Potassium 2.8 mmol/L (3.5-5.1); Sodium Level 148 mmol/L (136-145)
[2022-07-14 04:03] LABS: Atypical Lymphocyte RARE %; Differential Comment SCANNED; Hypochromasia 2+
--- NOTE | 2022-07-14 04:30 | NURSING ---
Pt extremely restless and attempting to pull at abdominal binder, montgomery catheter, IV tubings, and wires. IV meds given with no success. Bilateral soft wrist restraints applied.
[2022-07-14] MEDS: Potassium Chloride 40 MEQ in Dext 5%-0.45% NS 1,000 ML 80 MEQ IV ×2 (05:36→18:49)
[2022-07-14] MEDS: 0.9% Saline Lock 10 ML Syringe IV ×2 (05:36→18:21)
--- NOTE | 2022-07-14 07:59 | PN.SURG_ITS ---
Subjective Subjective Patient was more agitated overnight. Heart rate has been elevated likely due to agitation currently is 109. Patient did have urinary retention and Vazquez catheter was replaced. NG put out about 250 out overnight. Objective Data Objective Data Vital Signs: Vital Signs Temp Pulse Resp BP Pulse Ox O2 Del Method O2 Flow Rate 99.2 F H 109 H 24 H 144/68 H 92 Nasal Cannula 2 07/14/22 07:00 07/14/22 07:00 07/14/22 07:00 07/14/22 07:00 07/14/22 07:00 07/14/22 07:00 07/14/22 07:00 FiO2 4 07/11/22 19:00 Oxygen Flow Rate (L/min) 2 Oxygen Delivery Method Nasal Cannula Weight: 139 lb 15.896 oz Body Mass Index (BMI) 21.9 Intake & Output: Intake and Output for Last 24 Hours 07/12/22 07/13/22 07/14/22 23:59 23:59 23:59 Intake Total 2331.67 / 2361.67 2570 / 2600 1040 / 1040 Output Total 1000 / 1000 1200 / 1550 1050 / 1050 Balance 1331.67 / 1361.67 1370 / 1050 -10 / -10 Medical Nutrition Assessment Dietitian: Malnutrition Criteria Met Start: 07/10/22 09:43 Freq: Status: Active Protocol: Document 07/11/22 11:05 (Rec: 07/11/22 11:05 [id number]) Nutrition Malnutrition Evidence of Malnutrition Exists Yes Malnutrition (severe): Acute Illness/Injury Evidenced By Suboptimal Energy Intake ( Severe),Weight Loss (Severe) Intake Problem Inadequate Oral Intake Etiology related to suboptimal appetite and colon obstruction Signs/Symptoms as evidenced by pt report of < 50% PO intake of 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 If unable to advance PO diet in next 24-48 hours, recommend TPN. Consult RDN for TPN management as indicated. Lab / Micro Data Result Diagrams: 07/14/22 03:32 07/14/22 03:32 Labs: Laboratory Results - last 24 hr 07/13/22 06:45: WBC 16.2 H, RBC 3.30 L, Hgb 8.6 L, Hct 29.8 L, MCV 90.3, MCH 26.1 L, MCHC 28.9 L, RDW Std Deviation 61.0 H, RDW Coeff of [place] 18.5 H, Plt Count 398, MPV 9.7, Immature Gran % (Auto) 0.500, Neut % (Auto) 83.2 H, Lymph % (Auto) 9.0 L, [place] % (Auto) 7.0, Eos % (Auto) 0.1, Baso % (Auto) 0.2, Absolute Neuts (auto) 13.5 H, Absolute Lymphs (auto) 1.46, Nucleated RBC % 0.1, Differential Comment SCANNED, Atypical Lymphocytes RARE 07/13/22 06:45: Sodium 148 H, Potassium 3.6, Chloride 114 H, Carbon Dioxide 24.0, Anion Gap 10, BUN 22 H, Creatinine 0.99, Estim Creat Clear Calc 60.86, Est GFR (MDRD) Af Amer 95, Est GFR (MDRD) Non-Af 79, BUN/Creatinine Ratio 22.1 H, Glucose 111 H, Calcium 7.9 L 07/14/22 03:32: WBC 11.3 H, RBC 3.13 L, Hgb 8.1 L, Hct 27.5 L, MCV 87.9, MCH 25.9 L, MCHC 29.5 L, RDW Std Deviation 58.5 H, RDW Coeff of [place] 18.0 H, Plt Count 376, MPV 9.6, Immature Gran % (Auto) 1.500 H, Neut % (Auto) 80.8 H, Lymph % (Auto) 9.9 L, [place] % (Auto) 7.6, Eos % (Auto) 0.1, Baso % (Auto) 0.1, Absolute Neuts (auto) 9.2 H, Absolute Lymphs (auto) 1.12, Nucleated RBC % 0, Differential Comment SCANNED, Atypical Lymphocytes RARE, Hypochromasia 2+ 07/14/22 03:32: Sodium 148 H, Potassium 2.8 L, Chloride 113 H, Carbon Dioxide 27.0, Anion Gap 8, BUN 15, Creatinine 0.99, Estim Creat Clear Calc 60.86, Est GFR (MDRD) Af Amer 95, Est GFR (MDRD) Non-Af 79, BUN/Creatinine Ratio 15.1, Glucose 141 H, Calcium 7.5 L, Phosphorus 1.3 L, Magnesium 1.8 Micro: Microbiology 07/09/22 04:11 Blood Culture (Wb) - Anticubital Right Blood Culture - Final No growth in 5 days. 07/09/22 03:50 Blood Culture (Wb) - Anticubital Right Blood Culture - Final No growth in 5 days. 07/09/22 03:45 Urine Catheter - Vazquez Urine Culture - Final Culture exhibits no growth. 07/09/22 03:45 Urine Catheter - Vazquez Legionella Antigen - Final 07/09/22 03:45 Urine Catheter - Vazquez Streptococcus pneumoniae Antigen (M - Final Radiography Diagnostic Testing: Radiology Impression KUB X-Ray 07/13/22 09:15 IMPRESSION: Mucosal thickening of the transverse colon. Electronically Signed: Roni Murillo MD at 14:32 EST , Abdomen/Pelvis CT 07/13/22 09:29 IMPRESSION: Diffuse thickening and thumbprinting of the hepatic flexure to the level of the proximal transverse colon at the level of the anastomosis. Diffuse edematous thickening of the distal ileum. Abnormal appearance of the stomach with diffuse gastric wall thickening and air-fluid surrounding the stomach. An orogastric tube is seen within the body of the stomach. Ascites. Small amount of free intraperitoneal air most likely secondary to prior surgical procedure. Persistent small bilateral pleural effusions with bibasilar atelectasis and/or infiltrate. Electronically Signed: Roni Murillo MD at 12:17 EST , Physical Exam Const Constitutional Narrative: Agitated Resp normal respiratory effort Cardio Rate: tachycardic GI GI Narrative: Soft, nondistended, incision dressed?wet-to-dry's and retention sutures x2 in place Assessment & Plan Assessment/Plan (1) Anastomotic leak of intestine: (2) S/P left colectomy: PLAN: Plan Due to patient's agitation and also NG output Patient we will start diet today. Will place PICC line and start TPN. Also keep patient in ICU was planned to possibly transfer yesterday evening. Continue out of bed to chair and PT Continue IV meropenem, white blood cell count improving down to 11 from 16 Continue Lovenox IV and PPI Did discuss and update patient's niece Rosalva over the phone. Yoli Wesley M.D. Pager: [phone] [facility] [address] [place] [address], [address] [place] [id number] Office: [phone]
[2022-07-14] MEDS: Metoprolol Tartrate 25 MG Tablet GT (10:42)
[2022-07-14] MEDS: Enoxaparin 40 MG/0.4 ML Syringe SC (10:42)
[2022-07-14 11:26] LABS: Triglycerides 196 mg/dL
--- NOTE | 2022-07-14 16:38 | PN.HOSP_ITS ---
Subjective Subjective Agitated overnight and had to be started on Seroquel and was also given a dose of Haldol Objective Data Objective Data Vital Signs: Vital Signs Temp Pulse Resp BP Pulse Ox O2 Del Method O2 Flow Rate 97.8 F 104 H 18 156/81 H 93 Room Air 2 07/14/22 16:25 07/14/22 16:25 07/14/22 16:25 07/14/22 16:25 07/14/22 16:25 07/14/22 16:25 07/14/22 13:00 FiO2 4 07/11/22 19:00 Oxygen Flow Rate (L/min) 2 Oxygen Delivery Method Room Air Weight: 139 lb 15.896 oz Body Mass Index (BMI) 21.9 Intake & Output: Intake and Output for Last 24 Hours 07/13/22 07/14/22 07/15/22 03:59 03:59 03:59 Intake Total 3311.67 / 3341.67 1570 / 1570 2118.6633 / 2118.6633 Output Total 1000 / 1000 1550 / 1550 1400 / 1400 Balance 2311.67 / 2341.67 718.6633 / 718.6633 Medical Nutrition Assessment Dietitian: Malnutrition Criteria Met Start: 07/10/22 09:43 Freq: Status: Active Protocol: Document 07/14/22 11:24 AG (Rec: 07/14/22 11:24 AG [id number]) Nutrition Malnutrition Evidence of Malnutrition Exists Yes Malnutrition (severe): Acute Illness/Injury Evidenced By Suboptimal Energy Intake ( Severe),Weight Loss (Severe) Intake Problem Inadequate Oral Intake Etiology related to suboptimal appetite and colon obstruction Signs/Symptoms as evidenced by pt report of < 50% PO intake of meals for 1 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 No insulin or famotidine per provider order. 2) NPO per Dr. Wesley, recommend advance diet as tolerated to transitional; ensure w/ medpass when diet advanced. 3) Daily wts. Close monitoring of electrolytes given length of NPO. Lab / Micro Data Result Diagrams: 07/15/22 09:19 07/15/22 07:17 Labs: Laboratory Results - last 24 hr 07/14/22 03:32: WBC 11.3 H, RBC 3.13 L, Hgb 8.1 L, Hct 27.5 L, MCV 87.9, MCH 25.9 L, MCHC 29.5 L, RDW Std Deviation 58.5 H, RDW Coeff of [place] 18.0 H, Plt Count 376, MPV 9.6, Immature Gran % (Auto) 1.500 H, Neut % (Auto) 80.8 H, Lymph % (Auto) 9.9 L, [place] % (Auto) 7.6, Eos % (Auto) 0.1, Baso % (Auto) 0.1, Absolute Neuts (auto) 9.2 H, Absolute Lymphs (auto) 1.12, Nucleated RBC % 0, Differential Comment SCANNED, Atypical Lymphocytes RARE, Hypochromasia 2+ 07/14/22 03:32: Sodium 148 H, Potassium 2.8 L, Chloride 113 H, Carbon Dioxide 27.0, Anion Gap 8, BUN 15, Creatinine 0.99, Estim Creat Clear Calc 60.86, Est GFR (MDRD) Af Amer 95, Est GFR (MDRD) Non-Af 79, BUN/Creatinine Ratio 15.1, Glucose 141 H, Calcium 7.5 L, Phosphorus 1.3 L, Magnesium 1.8 07/14/22 03:32: Triglycerides 196 Micro: Microbiology 07/09/22 04:11 Blood Culture (Wb) - Anticubital Right Blood Culture - Final No growth in 5 days. 07/09/22 03:50 Blood Culture (Wb) - Anticubital Right Blood Culture - Final No growth in 5 days. 07/09/22 03:45 Urine Catheter - Vazquez Urine Culture - Final Culture exhibits no growth. 07/09/22 03:45 Urine Catheter - Vazquez Legionella Antigen - Final 07/09/22 03:45 Urine Catheter - Vazquez Streptococcus pneumoniae Antigen (M - Final Physical Exam Narrative General: Alert, confused and disoriented, No apparent distress HEENT: Atraumatic, PERRLA, EOMI, Normocephalic, NG tube in place Oral: Moist Mucosa Neck: Supple, No JVD Lungs: Diminished, Normal air movement, No rhonchi, No wheeze, No rales Cardiovascular: Tachycardic, Regular Rhythm, Normal S1, Normal S2, No murmurs Abdomen: Soft, tender around the abdominal incisions, Non-Distended, No Hepato- splenomegaly Extremities: No edema, Capillary Refill Less than 3 Seconds Skin: Dressing intact with abdominal binder Musculoskeletal: No Tenderness to Palpation of Joints or Extremities Neurological: Moves all 4 extremities but cannot cooperate with more intensive exam Psych/Mental Status: Agitated and restless Assessment & Plan Assessment/Plan (1) SVT (supraventricular tachycardia): PLAN: Plan #Sinus versus supraventricular tachycardia: Patient was transferred to ICU. * Twelve-lead EKG shows SVT. transient response to IV adenosine 12 mg but back to 150s to 160s. After that patient had Cardizem 25 mg IV bolus and then started on Cardizem drip. CTA chest once patient is more hemodynamically stable to rule out PE. Most recent heart rate is 82/min, pulse ox 94 on 3-4 oxygen no tachypnea. 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 We will get LFTs and an ammonia * Will continue with Seroquel #Hypertension; on metoprolol and HCTZ as well as amlodipine. Will hold Norvasc and HCTZ DVT: lovenox Charges/Coding Visit Charges Inpatient E&M: 37638 Subs Hosp L2
[2022-07-14] MEDS: QUEtiapine 25 MG Tablet 50 MG PO (17:58)
[2022-07-14] MEDS: Tamsulosin HCl 0.4 MG Capsule PO (17:58)
[2022-07-14 18:20] LABS: Bedside Glucose 122 mg/dL (74-106)
[2022-07-14] MEDS: TPN - Clinimix E 8%-14% Soln 2,000 ML with Multivitamins 10 ML, Trace Elements 1 ML, Fo... 42 ML IV (18:22)
[2022-07-14 23:31] LABS: Bedside Glucose 148 mg/dL (74-106)
[2022-07-14] MEDS: Morphine 2 MG/ML Syringe IV (23:33)
[2022-07-15] VITALS (11 sets, daily range): BP systolic 99–147; BP diastolic 56–75; PULSE 75–99; RESP 14–18; TEMP 36.4–37.2; O2SAT 93–99
[2022-07-15] MEDS: Potassium Chloride 40 MEQ in Dext 5%-0.45% NS 1,000 ML 80 MEQ IV (05:56)
[2022-07-15 06:26] LABS: Bedside Glucose 152 mg/dL (74-106)
[2022-07-15 07:28] LABS: Absolute Lymphocyte Count 1.47 X10^3/uL (0.83-4.51); Absolute Neutrophil Count 8.4 X10^3/uL (2.0-7.7); Basophil# 0.02 X10^3/uL; Basophil% 0.2 % (0-1); Eosinophils% 0.9 % (0-5); Hematocrit 24.4 % (40-54); Hemoglobin 7.2 g/dL (13.0-16.5); Lymphocyte # 1.47 X10^3/ul (0.83-4.51); Lymphocyte % 13.2 % (19-41); Mean Corp Hgb Conc 29.5 g/dL (32-36); Mean Corpuscular Hgb 26.2 pg (27.0-32.0); Mean Corpuscular Volume 88.7 fL (80-94); Mean Platelet Vol. 10.1 fl (6.2-12.0); Monocyte# 0.94 X10^3/uL; Monocyte% 8.5 % (0-10); NRBC Flagged by Analyzer 0.2 % (0-5); Neutrophil # 8.35 X10^3/uL (2.7-7.7); Neutrophil % 75.2 % (47-70); POSITIVE MORPHOLOGY YES; Platelet Count 295 K/mm3 (150-450); RBC Distribution Width CV 17.9 % (11.6-14.6); RBC Distribution Width SD 58.2 fl (35.1-43.9); Red Blood Count 2.75 M/mm3 (4.6-6.2); White Blood Count 11.1 K/mm3 (4.4-11.0)
[2022-07-15 07:33] LABS: Differential Indicated SCAN CRITERIA MET
--- NOTE | 2022-07-15 08:03 | PN.SURG_ITS ---
Subjective Subjective Patient alert this morning, denies any abdominal pain and denies flatus. Had 200 out of the NG overnight. Patient's heart rate is improved. Objective Data Objective Data Vital Signs: Vital Signs Temp Pulse Resp BP Pulse Ox O2 Del Method O2 Flow Rate 98.6 F 75 18 125/58 H 99 Nasal Cannula 2 07/15/22 06:03 07/15/22 06:03 07/15/22 06:03 07/15/22 06:03 07/15/22 06:03 07/15/22 06:03 07/15/22 05:03 FiO2 4 07/11/22 19:00 Oxygen Flow Rate (L/min) 2 Oxygen Delivery Method Nasal Cannula Weight: 139 lb 12.369 oz Body Mass Index (BMI) 21.9 Intake & Output: Intake and Output for Last 24 Hours 07/13/22 07/14/22 07/15/22 23:59 23:59 23:59 Intake Total 2570 / 2600 3087.3333 / 3087.3333 1049.33 / 1049.33 Output Total 1200 / 1550 1750 / 2800 1600 / 1600 Balance 1370 / 1050 1337.3333 / 287.3333 -550.67 / -550.67 Medical Nutrition Assessment Dietitian: Malnutrition Criteria Met Start: 07/10/22 09:43 Freq: Status: Active Protocol: Document 07/14/22 11:24 AG (Rec: 07/14/22 11:24 AG [id number]) Nutrition Malnutrition Evidence of Malnutrition Exists Yes Malnutrition (severe): Acute Illness/Injury Evidenced By Suboptimal Energy Intake ( Severe),Weight Loss (Severe) Intake Problem Inadequate Oral Intake Etiology related to suboptimal appetite and colon obstruction Signs/Symptoms as evidenced by pt report of < 50% PO intake of meals for 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 No insulin or famotidine per provider order. 2) NPO per Dr. Weslye, recommend advance diet as tolerated to transitional; ensure w/ medpass when diet advanced. 3) Daily wts. Close monitoring of electrolytes given length of NPO. Lab / Micro Data Result Diagrams: 07/15/22 07:17 07/14/22 03:32 Labs: Laboratory Results - last 24 hr 07/14/22 03:32: Triglycerides 196 07/14/22 17:57: POC Glucose 122 H 07/14/22 18:00: Ammonia 18.0 07/14/22 23:10: POC Glucose 148 H 07/15/22 06:00: POC Glucose 152 H 07/15/22 07:17: WBC 11.1 H, RBC 2.75 L, Hgb 7.2 L, Hct 24.4 L, MCV 88.7, MCH 26.2 L, MCHC 29.5 L, RDW Std Deviation 58.2 H, RDW Coeff of [place] 17.9 H, Plt Count 295, MPV 10.1, Immature Gran % (Auto) 2.000 H, Neut % (Auto) 75.2 H, Lymph % (Auto) 13.2 L, [place] % (Auto) 8.5, Eos % (Auto) 0.9, Baso % (Auto) 0.2, Absolute Neuts (auto) 8.4 H, Absolute Lymphs (auto) 1.47, Nucleated RBC % 0.2 Micro: Microbiology 07/14/22 09:30 Stool C. difficile DNA Amplification - Final 07/09/22 04:11 Blood Culture (Wb) - Anticubital Right Blood Culture - Final No growth in 5 days. 07/09/22 03:50 Blood Culture (Wb) - Anticubital Right Blood Culture - Final No growth in 5 days. 07/09/22 03:45 Urine Catheter - Vazquez Urine Culture - Final Culture exhibits no growth. 07/09/22 03:45 Urine Catheter - Vazquez Legionella Antigen - Final 07/09/22 03:45 Urine Catheter - Vazquez Streptococcus pneumoniae Antigen (M - Final Physical Exam Const oriented x3 and no apparent distress Resp normal respiratory effort Cardio Rate: tachycardic GI GI Narrative: Soft, nondistended, incision dressed?wet-to-dry's and retention sutures x2 in place Assessment & Plan Assessment/Plan (1) Anastomotic leak of intestine: (2) S/P left colectomy: PLAN: Plan NG/sips/TPN. Await for increased bowel function/decrease NG output. We will clamp NG tube for 6 hours and see what the output is. Continue out of bed to chair/PT. Continue IV meropenem, labs pending Continue Lovenox IV and PPI Yoli Wesley M.D. Pager: [phone] [facility] [address] [place] [address], [facility], [address] [place] [address] Office: [phone]
[2022-07-15 08:05] LABS: ALB/GLOB Ratio 0.4 RATIO (0.9-2.4); AST(SGOT) 20 U/L (15-37); Alanine Aminotransfer ALT/SGPT 18 U/L (16-61); Albumin, Serum 1.2 g/dL (3.2-5.0); Alkaline Phosphatase 51 U/L (45-117); Anion Gap 3 (5-15); BUN 13 mg/dL (7-18); BUN/Creat Ratio 16.2 RATIO (10-20); Calcium,Total 7.2 mg/dL (8.5-10.1); Chloride 116 mmol/L (98-107); EST Glomerular Filtration Rate 100 mL/min (>60); Est Glom Filt Rate - Afr Amer 121 mL/min (>60); Estimated Creatinine Clearance 74.85 ml/min; Globulin 3.4 g/dL (2.2-4.2); Glucose 164 mg/dL (74-106); Magnesium 2.1 mg/dL (1.6-2.6); Phosphorus 1.8 mg/dL (2.5-4.9); Potassium 3.2 mmol/L (3.5-5.1); Protein, Total 4.6 g/dL (6.4-8.2); Sodium Level 147 mmol/L (136-145)
[2022-07-15 08:38] LABS: Atypical Lymphocyte 1+ %
[2022-07-15 09:26] LABS: Hemoglobin 7.6 g/dL (13.0-16.5)
--- NOTE | 2022-07-15 10:02 | PN.HOSP_ITS ---
Subjective Subjective Calmer this morning and his Eliquis was given earlier in the evening yesterday which seems to have helped overnight with agitation Objective Data Objective Data Vital Signs: Vital Signs Temp Pulse Resp BP Pulse Ox O2 Del Method O2 Flow Rate 98.5 F 80 18 129/61 H 99 Nasal Cannula 2 07/15/22 08:00 07/15/22 08:00 07/15/22 08:00 07/15/22 08:00 07/15/22 08:00 07/15/22 09:12 07/15/22 09:12 FiO2 4 07/11/22 19:00 Oxygen Flow Rate (L/min) 2 Oxygen Delivery Method Nasal Cannula Weight: 139 lb 12.369 oz Body Mass Index (BMI) 21.9 Intake & Output: Intake and Output for Last 24 Hours 07/14/22 07/15/22 07/16/22 03:59 03:59 03:59 Intake Total 1570 / 1570 3217.3333 / 3217.3333 989.33 / 989.33 Output Total 1550 / 1550 2450 / 2450 550 / 550 Balance 767.3333 / 767.3333 439.33 / 439.33 Medical Nutrition Assessment Dietitian: Malnutrition Criteria Met Start: 07/10/22 09:43 Freq: Status: Active Protocol: Document 07/14/22 11:24 AG (Rec: 07/14/22 11:24 [id number]) Nutrition Malnutrition Evidence of Malnutrition Exists Yes Malnutrition (severe): Acute Illness/Injury Evidenced By Suboptimal Energy Intake ( Severe),Weight Loss (Severe) Intake Problem Inadequate Oral Intake Etiology related to suboptimal appetite and colon obstruction Signs/Symptoms as evidenced by pt report of < 50% PO intake of meals for 1 week 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 No insulin or famotidine per provider order. 2) NPO per Dr. Wesley, recommend advance diet as tolerated to transitional; ensure w/ medpass when diet advanced. 3) Daily wts. Close monitoring of electrolytes given length of NPO. Lab / Micro Data Result Diagrams: 07/15/22 09:19 07/15/22 07:17 Labs: Laboratory Results - last 24 hr 07/14/22 03:32: Triglycerides 196 07/14/22 17:57: POC Glucose 122 H 07/14/22 18:00: Ammonia 18.0 07/14/22 23:10: POC Glucose 148 H 07/15/22 06:00: POC Glucose 152 H 07/15/22 07:17: Sodium 147 H, Potassium 3.2 L, Chloride 116 H, Carbon Dioxide 28.0, Anion Gap 3 L, BUN 13, Creatinine 0.80, Estim Creat Clear Calc 74.85, Est GFR (MDRD) Af Amer 121, Est GFR (MDRD) Non-Af 100, BUN/Creatinine Ratio 16.2, Glucose 164 H, Calcium 7.2 L, Magnesium 2.1, Total Bilirubin 0.40, AST 20, ALT 18, Alkaline Phosphatase 51, Total Protein 4.6 L, Albumin 1.2 L, Globulin 3.4, Albumin/Globulin Ratio 0.4 L 07/15/22 07:17: WBC 11.1 H, RBC 2.75 L, Hgb 7.2 L, Hct 24.4 L, MCV 88.7, MCH 26.2 L, MCHC 29.5 L, RDW Std Deviation 58.2 H, RDW Coeff of [place] 17.9 H, Plt Count 295, MPV 10.1, Immature Gran % (Auto) 2.000 H, Neut % (Auto) 75.2 H, Lymph % (Auto) 13.2 L, [place] % (Auto) 8.5, Eos % (Auto) 0.9, Baso % (Auto) 0.2, Absolute Neuts (auto) 8.4 H, Absolute Lymphs (auto) 1.47, Nucleated RBC % 0.2, Atypical Lymphocytes 1+ 07/15/22 07:17: Phosphorus 1.8 L 07/15/22 09:19: Hgb 7.6 L, Hct 25.0 L Micro: Microbiology 07/14/22 09:30 Stool C. difficile DNA Amplification - Final 07/09/22 04:11 Blood Culture (Wb) - Anticubital Right Blood Culture - Final No growth in 5 days. 07/09/22 03:50 Blood Culture (Wb) - Anticubital Right Blood Culture - Final No growth in 5 days. 07/09/22 03:45 Urine Catheter - Vazquez Urine Culture - Final Culture exhibits no growth. 07/09/22 03:45 Urine Catheter - Vazquez Legionella Antigen - Final 07/09/22 03:45 Urine Catheter - Vazquez Streptococcus pneumoniae Antigen (M - Final Physical Exam Narrative General: Alert, confused and disoriented, No apparent distress HEENT: Atraumatic, PERRLA, EOMI, Normocephalic, NG tube in place Oral: Moist Mucosa Neck: Supple, No JVD Lungs: Diminished, Normal air movement, No rhonchi, No wheeze, No rales Cardiovascular: Regular rate, Regular Rhythm, Normal S1, Normal S2, No murmurs Abdomen: Soft, tender around the abdominal incisions, Non-Distended, No Hepato-splenomegaly Extremities: No edema, Capillary Refill Less than 3 Seconds Skin: Dressing intact with abdominal binder Musculoskeletal: No Tenderness to Palpation of Joints or Extremities Neurological: Moves all 4 extremities but cannot cooperate with more intensive exam Psych/Mental Status: Flat affect Assessment & Plan Assessment/Plan (1) SVT (supraventricular tachycardia): PLAN: Plan #Sinus versus supraventricular tachycardia: Patient was transferred to ICU. * Twelve-lead EKG shows SVT. transient response to IV adenosine 12 mg but back to 150s to 160s. After that patient had Cardizem 25 mg IV bolus and then started on Cardizem drip. CTA chest once patient is more hemodynamically stable to rule out PE. Most recent heart rate is 82/min, pulse ox 94 on 3-4 oxygen no tachypnea. 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 with hemicolectomy on 07/06/2022, anastomotic leak with repair on 07/10/2022/metabolic encephalopathy * s/p laparoscopic converted to open laparotomy and hemicolectomy * management as per general surgery * White count does appear improved and he is currently afebrile * We will continue with meropenem * Will need to follow-up with oncology as an outpatient based on pathology results * Ammonia is normal and LFTs are unremarkable continue with replacing his phosphorus * Will continue with Seroquel, will recommend to nursing to give his Seroquel between 5 and 6 PM every night to try to help with any ing that may be going on * Continue with TPN his albumin is low #Hypertension; on metoprolol and HCTZ as well as amlodipine. Will hold Norvasc and HCTZ DVT: lovenox Charges/Coding Visit Charges Inpatient E&M: 97660 Subs Hosp L2
[2022-07-15] MEDS: Metoprolol Tartrate 25 MG Tablet GT (10:12)
[2022-07-15] MEDS: Enoxaparin 40 MG/0.4 ML Syringe SC (10:12)
[2022-07-15] MEDS: Acetaminophen 650 MG/20 ML UDC PO (10:12)
--- NOTE | 2022-07-15 10:19 | NURSING ---
iv protonix missing
--- NOTE | 2022-07-15 11:35 | NURSING ---
pt given 1 small pill with a sip of water and tolerated well (after oral care), family here and updated-pt is more alert today and cooperative but is [place]
[2022-07-15 12:15] LABS: Bedside Glucose 144 mg/dL (74-106)
--- NOTE | 2022-07-15 13:10 | CASEMGMT ---
Social Work Note SW met with patient and patient's and introduced herself and role as [facility] Contact Acid Plant Operator. Patient was seated in the chair sleeping. Patient's was agreeable to speak with SW. SW provided patient with a list of local in network SNFs and assisted patient's in reviewing the list. Patient's selected [facility]CU as first choice, [facility] as second choice and [facility] as third choice. SW provided patient's with emotional support. SW also explored referral process. Patient's also reported being interested in patient completing AD paperwork. SW explained if patient was alert and oriented today, SW could assist patient in completing it, otherwise SW would follow up on Sunday. Patient's voiced an understanding and voiced no other concerns or needs at this time. SW contacted Amanda via email to have her review patient for TCU. Plan: SNF pending acceptance and precert Dia Cowart MSW, CHARLY
[2022-07-15] MEDS: TPN - Clinimix E 8%-14% Soln 2,000 ML with Multivitamins 10 ML, Trace Elements 1 ML, Fo... 63 ML IV (15:59)
[2022-07-15] MEDS: QUEtiapine 25 MG Tablet 50 MG PO (16:02)
--- NOTE | 2022-07-15 16:19 | NURSING ---
abdominal dressing changed-surgical bumpers in place and there is open and closing areas in between bumpers-old drsg has minimal amount of serous drainage mixed w/some dark red/brown pt spent numerous hours in chair today and tolerated well while napping periodically but would waken to touch pt has had n/g clamped entire day and tolerated well-with one 5 minute period to drain at LIWS for scant amount of green mouth care given numerous times and has swallowed pills w/ sips of water after mouth care and tolerated well without no visible coughing
[2022-07-15 17:56] LABS: Bedside Glucose 142 mg/dL (74-106)
[2022-07-15] MEDS: Tamsulosin HCl 0.4 MG Capsule PO (18:49)
[2022-07-15] MEDS: 0.9% Saline Lock 10 ML Syringe IV (21:09)
[2022-07-15] MEDS: Morphine 2 MG/ML Syringe IV (21:09)
[2022-07-16] MEDS: Menthol/Lanolin/Calamine/Znox 113 GM Tube 1 APPLIC TOPICAL ×3 (00:11→19:58)
[2022-07-16] MEDS: 0.9% Saline Lock 10 ML Syringe IV ×3 (00:12→11:50)
[2022-07-16] MEDS: Morphine 2 MG/ML Syringe IV ×2 (00:12→04:58)
[2022-07-16 00:15] LABS: Bedside Glucose 152 mg/dL (74-106)
[2022-07-16] MEDS: Potassium Chloride 40 MEQ in Dext 5%-0.45% NS 1,000 ML 80 MEQ IV ×2 (01:54→09:56)
[2022-07-16 01:59] VITALS: BP 127/83; PULSE 94; RESP 18; TEMP 36.9; O2SAT 95
[2022-07-16 06:16] LABS: Absolute Lymphocyte Count 1.99 X10^3/uL (0.83-4.51); Absolute Neutrophil Count 10.9 X10^3/uL (2.0-7.7); Basophil# 0.02 X10^3/uL; Basophil% 0.1 % (0-1); Eosinophil# 0.11 X10^3/uL; Eosinophils% 0.8 % (0-5); Hematocrit 25.6 % (40-54); Hemoglobin 7.6 g/dL (13.0-16.5); Lymphocyte # 1.99 X10^3/ul (0.83-4.51); Lymphocyte % 13.8 % (19-41); Mean Corp Hgb Conc 29.7 g/dL (32-36); Mean Corpuscular Hgb 26.4 pg (27.0-32.0); Mean Corpuscular Volume 88.9 fL (80-94); Mean Platelet Vol. 10.9 fl (6.2-12.0); Monocyte% 8.3 % (0-10); NRBC Flagged by Analyzer 0.1 % (0-5); Neutrophil % 75.3 % (47-70); POSITIVE MORPHOLOGY YES; Platelet Count 384 K/mm3 (150-450); RBC Distribution Width CV 18.1 % (11.6-14.6); RBC Distribution Width SD 58.7 fl (35.1-43.9); Red Blood Count 2.88 M/mm3 (4.6-6.2); White Blood Count 14.5 K/mm3 (4.4-11.0)
[2022-07-16 06:35] LABS: Differential Indicated SCAN CRITERIA MET
[2022-07-16 06:40] LABS: Bedside Glucose 144 mg/dL (74-106)
[2022-07-16 06:53] LABS: ALB/GLOB Ratio 0.3 RATIO (0.9-2.4); AST(SGOT) 26 U/L (15-37); Alanine Aminotransfer ALT/SGPT 23 U/L (16-61); Albumin, Serum 1.2 g/dL (3.2-5.0); Alkaline Phosphatase 62 U/L (45-117); Anion Gap 7 (5-15); BUN 23 mg/dL (7-18); BUN/Creat Ratio 27.3 RATIO (10-20); Calcium,Total 7.4 mg/dL (8.5-10.1); Chloride 114 mmol/L (98-107); Creatinine, Serum 0.84 mg/dL (0.70-1.30); EST Glomerular Filtration Rate 95 mL/min (>60); Est Glom Filt Rate - Afr Amer 115 mL/min (>60); Estimated Creatinine Clearance 71.73 ml/min; Glucose 138 mg/dL (74-106); Magnesium 1.8 mg/dL (1.6-2.6); Phosphorus 2.3 mg/dL (2.5-4.9); Potassium 3.6 mmol/L (3.5-5.1); Protein, Total 5.2 g/dL (6.4-8.2); Sodium Level 144 mmol/L (136-145)
[2022-07-16 07:00] LABS: Differential Comment SCANNED
[2022-07-16 08:00] VITALS: BP 138/81; PULSE 98; RESP 18; TEMP 37.1; O2SAT 95
--- NOTE | 2022-07-16 08:26 | NURSING ---
supplemental bag not on unit for adminstration
[2022-07-16] MEDS: Ensure Plus High Protein 120 ML LIQUID PO ×4 (08:27→19:58)
--- NOTE | 2022-07-16 09:20 | PCM.PN.SRG ---
Subjective Subjective Pt had NG removed yesterday and ibrahima clears, on fulls now and took ensure high protein, Pt still having issues with agitation/disorientation in evenings/night and better during the day. Objective Data Objective Data Vital Signs: Vital Signs Temp Pulse Resp BP Pulse Ox O2 Del Method O2 Flow Rate 98.8 F 98 18 138/81 H 95 Room Air 2 07/16/22 08:00 07/16/22 08:00 07/16/22 08:00 07/16/22 08:00 07/16/22 08:00 07/16/22 08:00 07/15/22 09:12 FiO2 4 07/11/22 19:00 Oxygen Flow Rate (L/min) 2 Oxygen Delivery Method Room Air Weight: 144 lb 2.917 oz Body Mass Index (BMI) 21.9 Intake & Output: Intake and Output for Last 24 Hours 07/14/22 07/15/22 07/16/22 23:59 23:59 23:59 Intake Total 3087.3333 / 3087.3333 4552.8633 / 4602.8633 150 / 150 Output Total 1750 / 2800 2300 / 2750 950 / 950 Balance 1337.3333 / 287.3333 2252.8633 / 1852.8633 -800 / -800 Medical Nutrition Assessment Dietitian: Malnutrition Criteria Met Start: 07/10/22 09:43 Freq: Status: Active Protocol: Document 07/15/22 10:56 (Rec: 07/15/22 10:56 [id number]) Nutrition Malnutrition Evidence of Malnutrition Exists Yes Malnutrition (severe): Acute Illness/Injury Evidenced By Suboptimal Energy Intake ( Severe),Weight Loss (Severe) Intake Problem Inadequate Oral Intake Etiology related to suboptimal appetite and colon obstruction Signs/Symptoms as evidenced by pt report of < 50% PO intake of meals for 1 week 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 No insulin or famotidine per provider order. 2) NPO per Dr. Wesley, recommend advance diet as tolerated to transitional; ensure w/ medpass when diet advanced. 3) Daily wts. Close monitoring of electrolytes given length of NPO. Lab / Micro Data Result Diagrams: 07/16/22 03:20 07/16/22 03:20 Labs: Laboratory Results - last 24 hr 07/15/22 09:19: Hgb 7.6 L, Hct 25.0 L 07/15/22 11:50: POC Glucose 144 H 07/15/22 17:31: POC Glucose 142 H 07/15/22 23:56: POC Glucose 152 H 07/16/22 03:20: Sodium 144, Potassium 3.6, Chloride 114 H, Carbon Dioxide 23.0, Anion Gap 7, BUN 23 H, Creatinine 0.84, Estim Creat Clear Calc 71.73, Est GFR (MDRD) Af Amer 115, Est GFR (MDRD) Non-Af 95, BUN/Creatinine Ratio 27.3 H, Glucose 138 H, Calcium 7.4 L, Phosphorus 2.3 L, Magnesium 1.8, Total Bilirubin 0.30, AST 26, ALT 23, Alkaline Phosphatase 62, Total Protein 5.2 L, Albumin 1.2 L, Globulin 4.0, Albumin/Globulin Ratio 0.3 L 07/16/22 03:20: WBC 14.5 H, RBC 2.88 L, Hgb 7.6 L, Hct 25.6 L, MCV 88.9, MCH 26.4 L, MCHC 29.7 L, RDW Std Deviation 58.7 H, RDW Coeff of [place] 18.1 H, Plt Count 384, MPV 10.9, Immature Gran % (Auto) 1.700 H, Neut % (Auto) 75.3 H, Lymph % (Auto) 13.8 L, [place] % (Auto) 8.3, Eos % (Auto) 0.8, Baso % (Auto) 0.1, Absolute Neuts (auto) 10.9 H, Absolute Lymphs (auto) 1.99, Nucleated RBC % 0.1, Differential Comment SCANNED 07/16/22 06:23: POC Glucose 144 H Micro: Microbiology 07/14/22 09:30 Stool C. difficile DNA Amplification - Final 07/09/22 04:11 Blood Culture (Wb) - Anticubital Right Blood Culture - Final No growth in 5 days. 07/09/22 03:50 Blood Culture (Wb) - Anticubital Right Blood Culture - Final No growth in 5 days. 07/09/22 03:45 Urine Catheter - Vazquez Urine Culture - Final Culture exhibits no growth. 07/09/22 03:45 Urine Catheter - Vazquez Legionella Antigen - Final 07/09/22 03:45 Urine Catheter - Vazquez Streptococcus pneumoniae Antigen (M - Final Physical Exam Const oriented x3 and no apparent distress Resp normal respiratory effort Cardio Rate: tachycardic GI GI Narrative: Soft, nondistended, incision dressed?wet-to-dry's and retention sutures x2 in place Assessment & Plan Assessment/Plan (1) Anastomotic leak of intestine: (2) S/P left colectomy: PLAN: Plan on fulls if ibrahima will advance, will stop TPN after this bag. continue wound care--may close the skin at beside in 1-2 days if wbc improves. Continue out of bed to chair/PT. Continue IV meropenem, wbc 14.5 unsure of cause will continue to monitor- afebrile Anemia- chronic and acute blood loss with 2 surgeries--7.6 will continue to monitor. Continue Lovenox IV and PPI discussed with Pt and neice via phone as well. Yoli Wesley M.D. Pager: [phone] [facility] [address] [place] [address], [facility], [address] [place] [address] Office: [phone]
--- NOTE | 2022-07-16 09:46 | PN.HOSP_ITS ---
Subjective Subjective No issues overnight, he did have a little bit of agitation. NG has been removed Objective Data Objective Data Vital Signs: Vital Signs Temp Pulse Resp BP Pulse Ox O2 Del Method O2 Flow Rate 98.8 F 98 18 138/81 H 95 Room Air 2 07/16/22 08:00 07/16/22 08:00 07/16/22 08:00 07/16/22 08:00 07/16/22 08:00 07/16/22 08:00 07/15/22 09:12 FiO2 4 07/11/22 19:00 Oxygen Flow Rate (L/min) 2 Oxygen Delivery Method Room Air Weight: 144 lb 2.917 oz Body Mass Index (BMI) 21.9 Intake & Output: Intake and Output for Last 24 Hours 07/15/22 07/16/22 07/17/22 03:59 03:59 03:59 Intake Total 3217.3333 / 3217.3333 4542.8633 / 4542.8633 0 / 0 Output Total 2450 / 2450 1700 / 1700 500 / 500 Balance 767.3333 / 767.3333 2842.8633 / 2842.8633 -500 / -500 Medical Nutrition Assessment Dietitian: Malnutrition Criteria Met Start: 07/10/22 09:43 Freq: Status: Active Protocol: Document 07/15/22 10:56 (Rec: 07/15/22 10:56 [id number]) Nutrition Malnutrition Evidence of Malnutrition Exists Yes Malnutrition (severe): Acute Illness/Injury Evidenced By Suboptimal Energy Intake ( Severe),Weight Loss (Severe) Intake Problem Inadequate Oral Intake Etiology related to suboptimal appetite and colon obstruction Signs/Symptoms as evidenced by pt report of < 50% PO intake of meals for 1 week 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 No insulin or famotidine per provider order. 2) NPO per Dr. Wesley, recommend advance diet as tolerated to transitional; ensure w/ medpass when diet advanced. 3) Daily wts. Close monitoring of electrolytes given length of NPO. Lab / Micro Data Result Diagrams: 07/16/22 03:20 07/16/22 03:20 Labs: Laboratory Results - last 24 hr 07/15/22 11:50: POC Glucose 144 H 07/15/22 17:31: POC Glucose 142 H 07/15/22 23:56: POC Glucose 152 H 07/16/22 03:20: Sodium 144, Potassium 3.6, Chloride 114 H, Carbon Dioxide 23.0, Anion Gap 7, BUN 23 H, Creatinine 0.84, Estim Creat Clear Calc 71.73, Est GFR (MDRD) Af Amer 115, Est GFR (MDRD) Non-Af 95, BUN/Creatinine Ratio 27.3 H, Glucose 138 H, Calcium 7.4 L, Phosphorus 2.3 L, Magnesium 1.8, Total Bilirubin 0.30, AST 26, ALT 23, Alkaline Phosphatase 62, Total Protein 5.2 L, Albumin 1.2 L, Globulin 4.0, Albumin/Globulin Ratio 0.3 L 07/16/22 03:20: WBC 14.5 H, RBC 2.88 L, Hgb 7.6 L, Hct 25.6 L, MCV 88.9, MCH 26.4 L, MCHC 29.7 L, RDW Std Deviation 58.7 H, RDW Coeff of [place] 18.1 H, Plt Count 384, MPV 10.9, Immature Gran % (Auto) 1.700 H, Neut % (Auto) 75.3 H, Lymph % (Auto) 13.8 L, [place] % (Auto) 8.3, Eos % (Auto) 0.8, Baso % (Auto) 0.1, Absolute Neuts (auto) 10.9 H, Absolute Lymphs (auto) 1.99, Nucleated RBC % 0.1, Differential Comment SCANNED 07/16/22 06:23: POC Glucose 144 H Micro: Microbiology 07/14/22 09:30 Stool C. difficile DNA Amplification - Final 07/09/22 04:11 Blood Culture (Wb) - Anticubital Right Blood Culture - Final No growth in 5 days. 07/09/22 03:50 Blood Culture (Wb) - Anticubital Right Blood Culture - Final No growth in 5 days. 07/09/22 03:45 Urine Catheter - Vazquez Urine Culture - Final Culture exhibits no growth. 07/09/22 03:45 Urine Catheter - Vazquez Legionella Antigen - Final 07/09/22 03:45 Urine Catheter - Vazquez Streptococcus pneumoniae Antigen (M - Final Physical Exam Narrative General: Alert, confused and disoriented, No apparent distress HEENT: Atraumatic, PERRLA, EOMI, Normocephalic Oral: Moist Mucosa Neck: Supple, No JVD Lungs: Diminished, Normal air movement, No rhonchi, No wheeze, No rales Cardiovascular: Regular rate, Regular Rhythm, Normal S1, Normal S2, No murmurs Abdomen: Soft, tender around the abdominal incisions, Non-Distended, No Hepato- splenomegaly Extremities: No edema, Capillary Refill Less than 3 Seconds Skin: Dressing intact with abdominal binder Musculoskeletal: No Tenderness to Palpation of Joints or Extremities Neurological: Moves all 4 extremities but cannot cooperate with more intensive exam Psych/Mental Status: Flat affect Assessment & Plan Assessment/Plan (1) SVT (supraventricular tachycardia): PLAN: Plan #Sinus versus supraventricular tachycardia: Patient was transferred to ICU. * Twelve-lead EKG shows SVT. transient response to IV adenosine 12 mg but back to 150s to 160s. After that patient had Cardizem 25 mg IV bolus and then started on Cardizem drip. CTA chest once patient is more hemodynamically stable to rule out PE. Most recent heart rate is 82/min, pulse ox 94 on 3-4 oxygen no tachypnea. 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 with hemicolectomy on 07/06/2022, anastomotic leak with repair on 07/10/2022/metabolic encephalopathy * s/p laparoscopic converted to open laparotomy and hemicolectomy * management as per general surgery * White count does appear improved and he is currently afebrile * We will continue with meropenem * Will need to follow-up with oncology as an outpatient based on pathology results * Ammonia is normal and LFTs are unremarkable continue with replacing his phosphorus * Will continue with Seroquel, will recommend to nursing to give his Seroquel between 5 and 6 PM every night to try to help with any owning that may be going on * There is some question as to whether or not he does have a baseline history of dementia, hopefully with the NG tube out he will be able to start eating soon and will be able to come out of his encephalopathy * Continue with TPN his albumin is low #Hypertension; on metoprolol and HCTZ as well as amlodipine. Will hold Norvasc and HCTZ DVT: lovenox Charges/Coding Visit Charges Inpatient E&M: 31886 Subs Hosp L2
[2022-07-16 09:57] VITALS: PULSE 80
[2022-07-16] MEDS: Metoprolol Tartrate 25 MG Tablet GT (09:57)
[2022-07-16] MEDS: Enoxaparin 40 MG/0.4 ML Syringe SC (09:57)
[2022-07-16] MEDS: Tamsulosin HCl 0.4 MG Capsule PO (11:50)
[2022-07-16] MEDS: Acetaminophen 650 MG/20 ML UDC PO ×2 (11:50→17:56)
[2022-07-16] MEDS: oxyCODONE 5 MG Tablet PO ×2 (11:51→17:56)
[2022-07-16 14:00] VITALS: BP 127/64; PULSE 88; RESP 18; TEMP 36.7; O2SAT 96
[2022-07-16 15:39] VITALS: PULSE 88
[2022-07-16 19:57] VITALS: BP 128/49; PULSE 95; RESP 17; TEMP 37.8; O2SAT 95
[2022-07-16] MEDS: QUEtiapine 25 MG Tablet 50 MG PO (20:00)
[2022-07-17] VITALS (14 sets, daily range): BP systolic 95–149; BP diastolic 47–81; PULSE 80–116; RESP 14–20; TEMP 36.4–37.2; O2SAT 93–100
[2022-07-17] MEDS: Acetaminophen 650 MG/20 ML UDC PO (03:59)
[2022-07-17] MEDS: oxyCODONE 5 MG Tablet PO (04:00)
[2022-07-17 05:34] LABS: Absolute Lymphocyte Count 1.82 X10^3/uL (0.83-4.51); Absolute Neutrophil Count 11.7 X10^3/uL (2.0-7.7); Basophil# 0.03 X10^3/uL; Basophil% 0.2 % (0-1); Eosinophil# 0.14 X10^3/uL; Eosinophils% 0.9 % (0-5); Hematocrit 28.6 % (40-54); Hemoglobin 8.6 g/dL (13.0-16.5); Lymphocyte # 1.82 X10^3/ul (0.83-4.51); Mean Corp Hgb Conc 30.1 g/dL (32-36); Mean Corpuscular Hgb 26.4 pg (27.0-32.0); Mean Corpuscular Volume 87.7 fL (80-94); Mean Platelet Vol. 10.6 fl (6.2-12.0); Monocyte# 1.37 X10^3/uL; NRBC Flagged by Analyzer 0 % (0-5); Neutrophil # 11.66 X10^3/uL (2.7-7.7); Neutrophil % 76.9 % (47-70); Platelet Count 461 K/mm3 (150-450); RBC Distribution Width CV 18.4 % (11.6-14.6); RBC Distribution Width SD 58.7 fl (35.1-43.9); Red Blood Count 3.26 M/mm3 (4.6-6.2); White Blood Count 15.2 K/mm3 (4.4-11.0)
[2022-07-17 06:07] LABS: ALB/GLOB Ratio 0.3 RATIO (0.9-2.4); AST(SGOT) 81 U/L (15-37); Alanine Aminotransfer ALT/SGPT 67 U/L (16-61); Albumin, Serum 1.4 g/dL (3.2-5.0); Alkaline Phosphatase 118 U/L (45-117); Anion Gap 7 (5-15); BUN 22 mg/dL (7-18); Calcium,Total 7.7 mg/dL (8.5-10.1); Chloride 112 mmol/L (98-107); Creatinine, Serum 0.82 mg/dL (0.70-1.30); EST Glomerular Filtration Rate 99 mL/min (>60); Est Glom Filt Rate - Afr Amer 119 mL/min (>60); Estimated Creatinine Clearance 73.48 ml/min; Globulin 4.3 g/dL (2.2-4.2); Glucose 106 mg/dL (74-106); Magnesium 1.7 mg/dL (1.6-2.6); Phosphorus 1.9 mg/dL (2.5-4.9); Potassium 3.8 mmol/L (3.5-5.1); Protein, Total 5.7 g/dL (6.4-8.2); Sodium Level 143 mmol/L (136-145)
--- NOTE | 2022-07-17 06:59 | CT_ITS ---
STUDY: CT ABDOMEN AND PELVIS WITH CONTRAST REASON FOR EXAM: Male, 72 years old. leukocyst osis, abd pain -- ? Need for drain for previous abd fluid RADIATION DOSAGE (If Supplied By Facility): CTDIvol = ( 11.10 ) mGy, DLP = ( 681.36 ) mGycm TECHNIQUE: Transaxial images were obtained from the dome of the diaphragm to the symphysis pubis with oral contrast. Oral and amp; IV Gastrografin and amp; 100mL Isovue-300 was administered. Sagittal and coronal images were reconstructed. Individualized dose optimization techniques were used for this CT. COMPARISON: Comparison is made with prior examination dated 07/13/2022. FINDINGS: Bilateral pleural effusions with bibasilar atelectasis and/or infiltrates. There is been essentially no change. Coronary artery calcification. Persistent small amount of free intraperitoneal air. There is evidence of perihepatic. Persistent pleural fluid collection in the Persistent fluid in the left upper quadrant. This has progressed since prior study. Small amount of fluid in the Comment gutter on the right side. Normal liver. Normal gallbladder and extrahepatic biliary system. Normal spleen. Normal pancreas. Normal bilateral adrenal glands. Normal right kidney. Normal left kidney. Normal visualized stomach. Persistent circumferential wall thickening of the distal ileum although this has improved as compared to prior study. Status post anastomosis in the mid transverse colon. Stable diffuse mucosal thickening of the hepatic flexure. The appendix is visualized and appears normal. There is scattered atherosclerotic calcification of the abdominal aorta, without a demonstrated aneurysm. Normal inferior vena cava. Normal retroperitoneum. Stable increased markings in the width of the mesentery suggestive of a postoperative change. Normal urinary bladder. Distended urinary bladder. Prostatic calcifications and enlargement. This is unchanged. Soft tissue gap in the anterior abdominal wall in keeping with the prior surgical intervention. There are diffuse degenerative changes of the visualized lumbar spine. CT/Abdomen/Pelvis WITH Contrast IMPRESSION: Slight increase in the amount of free fluid in the left paracolic gutter. Persistent circumferential wall thickening of the terminal ileum although this has improved. Persistent bilateral pleural effusions with bibasilar infiltrates. Persistent free intra-abdominal air. Electronically Signed: Roni Murillo MD at 11:06 EST ,
--- NOTE | 2022-07-17 07:02 | PCM.PN.SRG ---
Subjective Subjective Patient tolerating regular diet having bowel function George was DC'd yesterday. Patient white blood cell count is back up to 15. Objective Data Objective Data Vital Signs: Vital Signs Temp Pulse Resp BP Pulse Ox O2 Del Method O2 Flow Rate 99.0 F 90 18 149/80 H 96 Room Air 2 07/17/22 02:00 07/17/22 02:00 07/17/22 02:00 07/17/22 02:00 07/17/22 02:00 07/17/22 02:00 07/15/22 09:12 FiO2 4 07/11/22 19:00 Oxygen Flow Rate (L/min) 2 Oxygen Delivery Method Room Air Weight: 144 lb 2.917 oz Body Mass Index (BMI) 21.9 Intake & Output: Intake and Output for Last 24 Hours 07/15/22 07/16/22 07/17/22 23:59 23:59 23:59 Intake Total 4552.8633 / 4602.8633 2366.67 / 2486.67 3351.2 / 3351.2 Output Total 2300 / 2750 1250 / 1250 150 / 150 Balance 2252.8633 / 1852.8633 1116.67 / 1236.67 3201.2 / 3201.2 Medical Nutrition Assessment Dietitian: Malnutrition Criteria Met Start: 07/10/22 09:43 Freq: Status: Active Protocol: Document 07/16/22 10:31 RMA (Rec: 07/16/22 10:31 RMA [id number]) Nutrition Malnutrition Evidence of Malnutrition Exists Yes Malnutrition (severe): Acute Illness/Injury Evidenced By Suboptimal Energy Intake ( Severe),Weight Loss (Severe) Intake Problem Inadequate Oral Intake Etiology related to suboptimal appetite and colon obstruction Signs/Symptoms as evidenced by pt report of < 50% PO intake of meals for 1 week 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 No insulin or famotidine per provider order. Will not renew TPN per Dr. Wesley. 2) Recommend advance diet as tolerated to Transitional when ready for solid food. 3) Continue ensure plus high protein 4 times per day w/ medpass as tolerated. 4) Add both 120 ml ensure clear and ensure pudding TID to meal trays. 5) Pt likes fruited yogurt and hot cocoa---will add to meal trays. Lab / Micro Data Result Diagrams: 07/17/22 04:34 07/17/22 04:34 Labs: Laboratory Results - last 24 hr 07/17/22 04:34: Sodium 143, Potassium 3.8, Chloride 112 H, Carbon Dioxide 24.0, Anion Gap 7, BUN 22 H, Creatinine 0.82, Estim Creat Clear Calc 73.48, Est GFR (MDRD) Af Amer 119, Est GFR (MDRD) Non-Af 99, BUN/Creatinine Ratio 27.0 H, Glucose 106, Calcium 7.7 L, Phosphorus 1.9 L, Magnesium 1.7, Total Bilirubin 0.40, AST 81 H, ALT 67 H, Alkaline Phosphatase 118 H, Total Protein 5.7 L, Albumin 1.4 L, Globulin 4.3 H, Albumin/Globulin Ratio 0.3 L 07/17/22 04:34: WBC 15.2 H, RBC 3.26 L, Hgb 8.6 L, Hct 28.6 L, MCV 87.7, MCH 26.4 L, MCHC 30.1 L, RDW Std Deviation 58.7 H, RDW Coeff of [place] 18.4 H, Plt Count 461 H, MPV 10.6, Immature Gran % (Auto) 1.000 H, Neut % (Auto) 76.9 H, Lymph % (Auto) 12.0 L, [place] % (Auto) 9.0, Eos % (Auto) 0.9, Baso % (Auto) 0.2, Absolute Neuts (auto) 11.7 H, Absolute Lymphs (auto) 1.82, Nucleated RBC % 0 Micro: Microbiology 07/14/22 09:30 Stool C. difficile DNA Amplification - Final 07/09/22 04:11 Blood Culture (Wb) - Anticubital Right Blood Culture - Final No growth in 5 days. 07/09/22 03:50 Blood Culture (Wb) - Anticubital Right Blood Culture - Final No growth in 5 days. 07/09/22 03:45 Urine Catheter - Vazquez Urine Culture - Final Culture exhibits no growth. 07/09/22 03:45 Urine Catheter - Vazquez Legionella Antigen - Final 07/09/22 03:45 Urine Catheter - Vazquez Streptococcus pneumoniae Antigen (M - Final Physical Exam Const oriented x3 and no apparent distress Resp normal respiratory effort Cardio regular rate GI GI Narrative: Soft, nondistended, incision dressed?wet-to-dry's and retention sutures x2 in place Assessment & Plan Assessment/Plan (1) Anastomotic leak of intestine: (2) S/P left colectomy: (3) Leukocytosis: PLAN: Plan On regular diet continue wound care--may close the skin at beside in 1-2 days if wbc improves. Leukocytosis?we will check CT abdomen pelvis as previous fluid collection may need drained. Addendum: CT of the pelvis does show that fluid collection again no obvious sign of abscess however patient does have a very distended bladder we will plan to replace Vazquez and also have IR drain the fluid. Continue out of bed to chair/PT. Continue IV meropenem, wbc 15.2 unsure of cause will continue to monitor- afebrile Anemia- chronic and acute blood loss with 2 surgeries--8.6 Continue Lovenox IV and PPI Discussed with patient's niece Rosalva. Yoli Wesley M.D. Pager: [phone] [facility] [address] [place] [address], [facility], [address] [place] [address] Office: [phone]
--- NOTE | 2022-07-17 08:41 | PCM.PN.HOSP ---
Subjective Subjective Follow-up metabolic encephalopathy Patient is a 72-year-old gentleman recently diagnosed with left splenic flexure invasive adenocarcinoma for which he underwent open laparotomy with hemicolectomy on 07/06/2022. Procedure was closed placated by an anastomotic leak for which he underwent repair on 06/30/2022. Patient hospital stay complicated by metabolic encephalopathy Objective Data Objective Data Vital Signs: Vital Signs Temp Pulse Resp BP Pulse Ox O2 Del Method O2 Flow Rate 99.0 F 90 18 149/80 H 96 Room Air 2 07/17/22 02:00 07/17/22 02:00 07/17/22 02:00 07/17/22 02:00 07/17/22 02:00 07/17/22 08:20 07/15/22 09:12 FiO2 4 07/11/22 19:00 Oxygen Flow Rate (L/min) 2 Oxygen Delivery Method Room Air Weight: 65.4 kg Body Mass Index (BMI) 21.9 Intake & Output: Intake and Output for Last 24 Hours 07/15/22 07/16/22 07/17/22 23:59 23:59 23:59 Intake Total 4552.8633 / 4602.8633 2366.67 / 2486.67 3351.2 / 3351.2 Output Total 2300 / 2750 1250 / 1250 150 / 150 Balance 2252.8633 / 1852.8633 1116.67 / 1236.67 3201.2 / 3201.2 Medical Nutrition Assessment Dietitian: Malnutrition Criteria Met Start: 07/10/22 09:43 Freq: Status: Active Protocol: Document 07/16/22 10:31 RMA (Rec: 07/16/22 10:31 RMA [id number]) Nutrition Malnutrition Evidence of Malnutrition Exists Yes Malnutrition (severe): Acute Illness/Injury Evidenced By Suboptimal Energy Intake ( Severe),Weight Loss (Severe) Intake Problem Inadequate Oral Intake Etiology related to suboptimal appetite and colon obstruction Signs/Symptoms as evidenced by pt report of < 50% PO intake of meals for 1 week [employer] Status Active Problem Clinical Problem Acute Disease or Injury Related Malnutrition Etiology severe, acute malnutrition related to inadequate energy intake d/t GI dysfunction, decreased appetite/intake [employer] INS[employer]OR Signs/Symptoms as evidenced by unintentional wt loss of 5.3#/3.8% during acute hospitalization; estimated PO intake meeting < 50% of estimated energy needs > 5 days Status Active Problem Recommendation Dietitian Recommendations/Changes 1) Currently running, Day #2 TPN and will infuse until empty: 1500mL Clinimix E 8%AA/ 14% Dextrose at 63mL/hour to provide 1196 calories, 120 g protein/day. No insulin or famotidine per provider order. Will not renew TPN per Dr. Wesley. 2) Recommend advance diet as tolerated to Transitional when ready for solid food. 3) Continue ensure plus high protein 4 times per day w/ medpass as tolerated. 4) Add both 120 ml ensure clear and ensure pudding TID to meal trays. 5) Pt likes fruited yogurt and hot cocoa---will add to meal trays. Lab / Micro Data Result Diagrams: 07/17/22 04:34 07/17/22 04:34 Labs: Laboratory Results - last 24 hr 07/17/22 04:34: Sodium 143, Potassium 3.8, Chloride 112 H, Carbon Dioxide 24.0, Anion Gap 7, BUN 22 H, Creatinine 0.82, Estim Creat Clear Calc 73.48, Est GFR (MDRD) Af Amer 119, Est GFR (MDRD) Non-Af 99, BUN/Creatinine Ratio 27.0 H, Glucose 106, Calcium 7.7 L, Phosphorus 1.9 L, Magnesium 1.7, Total Bilirubin 0.40, AST 81 H, ALT 67 H, Alkaline Phosphatase 118 H, Total Protein 5.7 L, Albumin 1.4 L, Globulin 4.3 H, Albumin/Globulin Ratio 0.3 L 07/17/22 04:34: WBC 15.2 H, RBC 3.26 L, Hgb 8.6 L, Hct 28.6 L, MCV 87.7, MCH 26.4 L, MCHC 30.1 L, RDW Std Deviation 58.7 H, RDW Coeff of [place] 18.4 H, Plt Count 461 H, MPV 10.6, Immature Gran % (Auto) 1.000 H, Neut % (Auto) 76.9 H, Lymph % (Auto) 12.0 L, [place] % (Auto) 9.0, Eos % (Auto) 0.9, Baso % (Auto) 0.2, Absolute Neuts (auto) 11.7 H, Absolute Lymphs (auto) 1.82, Nucleated RBC % 0 Micro: Microbiology 07/14/22 09:30 Stool C. difficile DNA Amplification - Final 07/09/22 04:11 Blood Culture (Wb) - Anticubital Right Blood Culture - Final No growth in 5 days. 07/09/22 03:50 Blood Culture (Wb) - Anticubital Right Blood Culture - Final No growth in 5 days. 07/09/22 03:45 Urine Catheter - Vazquez Urine Culture - Final Culture exhibits no growth. 07/09/22 03:45 Urine Catheter - Vazquez Legionella Antigen - Final 07/09/22 03:45 Urine Catheter - Vazquez Streptococcus pneumoniae Antigen (M - Final Physical Exam Narrative GENERAL: Patient appears confused HEENT: Atraumatic; normocephalic EYES; Anicteric, Normal Conjunctiva NECK; supple, normal thyroid, RESPIRATORY: Diminished to auscultation CARDIOVASCULAR: Regular S1 S2, GI: soft, normoactive bowel sounds, : No Renal angle tenderness; EXTREMITIES: No edema, no clubbing, MUSCULOSKELETAL: no muscle wasting NEURO: Awake; no lateralizing signs. SKIN: No Rash PSYCH; confused Assessment & Plan Assessment/Plan (1) SVT (supraventricular tachycardia): PLAN: Plan Patient is a 72-year-old gentleman recently diagnosed with left splenic flexure invasive adenocarcinoma for which he underwent open laparotomy with hemicolectomy on 07/06/2022. Procedure was closed placated by an anastomotic leak for which he underwent repair on 06/30/2022. Patient hospital stay complicated by metabolic encephalopathy 1. Status post open laparotomy with hemicolectomy on 07/06/2022 on account of left splenic flexure invasive adenocarcinoma ? Patient postoperative management as per the Dr. Carmona with general surgery 2. Anastomotic leak following patient surgery ? Patient underwent repair on 07/10/2022. Repeat CT ordered for subsequent eval in view of patient persistent leukocytosis 3. Metabolic encephalopathy ? Suspected to be related to an underlying infection patient is on quetiapine at night 4. Essential hypertension ? Patient is on metoprolol HCTZ and amlodipine, amlodipine l and HCTZ held in view of relatively low blood pressure 5. Leukocytosis ? Repeat CT ordered for subsequent eval 6. DVT prophylaxis ? SC Lovenox Total time spent; 38-minute Charges/Coding Visit Charges Inpatient E&M: 54744 Subs Hosp L2
[2022-07-17] MEDS: 0.9% Saline Lock 10 ML Syringe IV ×3 (09:05→15:38)
[2022-07-17] MEDS: Enoxaparin 40 MG/0.4 ML Syringe SC (09:05)
[2022-07-17] MEDS: Metoprolol Tartrate 25 MG Tablet PO (09:09)
[2022-07-17] MEDS: Menthol/Lanolin/Calamine/Znox 113 GM Tube 1 APPLIC TOPICAL ×2 (09:12→21:07)
--- NOTE | 2022-07-17 09:50 | CASEMGMT ---
Social Work SW reached out to Amanda at TCU. Pt has been accepted. Precert will be paused until after pt has CT scan this day to determine further medical interventions needed. PLAN: TCU, pending precert JUNI Nuno
--- NOTE | 2022-07-17 11:28 | WOUNDNOTE ---
wound photo: abdomen
--- NOTE | 2022-07-17 11:47 | CASEMGMT ---
Social Work SW spoke w/pt and . SW explained to that pt isn't quite able yet to complete LW/POA forms, SW explained pt needs to be fully alert and oriented in order to complete them. states understanding. SW explained should pt become more fully alert and oriented, SW will work with pt at that time to complete the documents. states understanding. SAMANTHA Duvall
--- NOTE | 2022-07-17 12:24 | CT_ITS ---
PROCEDURE: CT DIRECTED ABSCESS DRAINAGE, PERITONEAL DATE OF EXAMINATION: 07/17/2022. INDICATION: Male, 72 years old. Left paracolic fluid collection. Individualized dose optimization techniques were utilized. PHYSICIAN: Roni Murillo M.D. CONSENT: Written informed consent was obtained having explained the risks, benefits and alternatives in detail with the patient who accepted the risks and agreed to proceed. Laboratory review and clinical assessment was performed. CONSCIOUS SEDATION PROTOCOL: The Drugs used were: 1 mg Versed, IV., and 25 mcg Fentanyl, IV. The sedation time was: 15 minutes. The conscious sedation protocol was independently monitored. RADIATION DOSAGE (If Supplied By Facility): CTDIvol = ( 10.13 ) mGy, DLP = ( 482.7 ) mGycm TECHNIQUE: CT sections were made through the abdomen and pelvis revealing an abscess in the left paracolic gutter. The skin surface was prepped and draped in a sterile fashion. Puncture of this collection was performed initially with a 5 Somal[place] catheter and fluid was aspirated. Drainage catheter was then inserted into the collection and formed into position. Additional fluid was aspirated for a total of approximately 40 cc of cloudy red fluid. The catheter was left in position to allow for continued drainage. Followup CT sections reveals good position of the catheter. CT/CT Guidance Abscess Drg w/Cath IMPRESSION: 1. CT directed drainage of a fluid collection using CT image guidance and image documentation as described. 2. Conscious Sedation protocol utilized with independent monitoring Electronically Signed: Roni Murillo MD at 15:05 EST ,
[2022-07-17] MEDS: Midazolam 2 MG/2 ML Syringe IV (14:34)
[2022-07-17] MEDS: fentaNYL 100 MCG/2 ML Ampul IV (14:34)
[2022-07-17] MEDS: Lidocaine 2% (20 ml mdv) 20 ML Vial INFILT (14:36)
[2022-07-18] VITALS (9 sets, daily range): BP systolic 117–144; BP diastolic 52–69; PULSE 87–102; RESP 16–18; TEMP 36.8–37.4; O2SAT 92–99
[2022-07-18 07:00] LABS: Absolute Lymphocyte Count 1.26 X10^3/uL (0.83-4.51); Absolute Neutrophil Count 12.3 X10^3/uL (2.0-7.7); Basophil# 0.03 X10^3/uL; Basophil% 0.2 % (0-1); Eosinophil# 0.16 X10^3/uL; Hematocrit 24.5 % (40-54); Hemoglobin 7.4 g/dL (13.0-16.5); Lymphocyte # 1.26 X10^3/ul (0.83-4.51); Lymphocyte % 8.3 % (19-41); Mean Corp Hgb Conc 30.2 g/dL (32-36); Mean Corpuscular Hgb 26.2 pg (27.0-32.0); Mean Corpuscular Volume 86.9 fL (80-94); Mean Platelet Vol. 10.6 fl (6.2-12.0); Monocyte# 1.34 X10^3/uL; Monocyte% 8.8 % (0-10); NRBC Flagged by Analyzer 0 % (0-5); Neutrophil # 12.28 X10^3/uL (2.7-7.7); Neutrophil % 80.6 % (47-70); Platelet Count 512 K/mm3 (150-450); RBC Distribution Width CV 18.4 % (11.6-14.6); RBC Distribution Width SD 58.5 fl (35.1-43.9); Red Blood Count 2.82 M/mm3 (4.6-6.2); White Blood Count 15.2 K/mm3 (4.4-11.0)
[2022-07-18 07:32] LABS: Magnesium 1.9 mg/dL (1.6-2.6)
--- NOTE | 2022-07-18 07:32 | PCM.PN.HOSP ---
Subjective Subjective Follow-up sepsis Patient seen much more awake and interactive compared to previous day. WBC count remains elevated hemoglobin down to 7.4 Objective Data Objective Data Vital Signs: Vital Signs Temp Pulse Resp BP Pulse Ox O2 Del Method O2 Flow Rate 99.4 F H 88 18 144/69 H 99 Room Air 2 07/18/22 05:12 07/18/22 05:12 07/18/22 05:12 07/18/22 05:12 07/18/22 05:12 07/18/22 05:12 07/15/22 09:12 FiO2 4 07/11/22 19:00 Oxygen Flow Rate (L/min) 2 Oxygen Delivery Method [3] Room Air Oxygen Delivery Method [2] Room Air Oxygen Delivery Method [1 ( Room Air Initial Baseline)] Oxygen Delivery Method Room Air Weight: 65.4 kg Body Mass Index (BMI) 21.9 Intake & Output: Intake and Output for Last 24 Hours 07/16/22 07/17/22 07/18/22 23:59 23:59 23:59 Intake Total 2366.67 / 2486.67 4774.5333 / 4774.5333 227.5 / 227.5 Output Total 1250 / 1250 1979 / 1979 565 / 565 Balance 1116.67 / 1236.67 2794.5333 / 2794.5333 -337.5 / -337.5 Medical Nutrition Assessment Dietitian: Malnutrition Criteria Met Start: 07/10/22 09:43 Freq: Status: Active Protocol: Document 07/16/22 10:31 RMA (Rec: 07/16/22 10:31 RMA [id number]) Nutrition Malnutrition Evidence of Malnutrition Exists Yes Malnutrition (severe): Acute Illness/Injury Evidenced By Suboptimal Energy Intake ( Severe),Weight Loss (Severe) Intake Problem Inadequate Oral Intake Etiology related to suboptimal appetite and colon obstruction Signs/Symptoms as evidenced by pt report of < 50% PO intake of meals for 1 week [employer]IT [employer]GER [employer]ORES Status Active Problem Clinical Problem Acute Disease or Injury Related Malnutrition Etiology severe, acute malnutrition related to inadequate energy intake d/t GI dysfunction, decreased appetite/intake [employer]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 No insulin or famotidine per provider order. Will not renew TPN per Dr. Wesley. 2) Recommend advance diet as tolerated to Transitional when ready for solid food. 3) Continue ensure plus high protein 4 times per day w/ medpass as tolerated. 4) Add both 120 ml ensure clear and ensure pudding TID to meal trays. 5) Pt likes fruited yogurt and hot cocoa---will add to meal trays. Lab / Micro Data Result Diagrams: 07/18/22 06:10 07/18/22 06:10 Labs: Laboratory Results - last 24 hr 07/18/22 06:10: Magnesium 1.9 07/18/22 06:10: WBC 15.2 H, RBC 2.82 L, Hgb 7.4 L, Hct 24.5 L, MCV 86.9, MCH 26.2 L, MCHC 30.2 L, RDW Std Deviation 58.5 H, RDW Coeff of [place] 18.4 H, Plt Count 512 H, MPV 10.6, Immature Gran % (Auto) 1.100 H, Neut % (Auto) 80.6 H, Lymph % (Auto) 8.3 L, [place] % (Auto) 8.8, Eos % (Auto) 1.0, Baso % (Auto) 0.2, Absolute Neuts (auto) 12.3 H, Absolute Lymphs (auto) 1.26, Nucleated RBC % 0 Micro: Microbiology 07/14/22 09:30 Stool C. difficile DNA Amplification - Final 07/09/22 04:11 Blood Culture (Wb) - Anticubital Right Blood Culture - Final No growth in 5 days. 07/09/22 03:50 Blood Culture (Wb) - Anticubital Right Blood Culture - Final No growth in 5 days. 07/09/22 03:45 Urine Catheter - Vazquez Urine Culture - Final Culture exhibits no growth. 07/09/22 03:45 Urine Catheter - Vazquez Legionella Antigen - Final 07/09/22 03:45 Urine Catheter - Vazquez Streptococcus pneumoniae Antigen (M - Final Radiography Diagnostic Testing: Radiology Impression Abdomen/Pelvis CT 07/17/22 06:59 IMPRESSION: Slight increase in the amount of free fluid in the left paracolic gutter. Persistent circumferential wall thickening of the terminal ileum although this has improved. Persistent bilateral pleural effusions with bibasilar infiltrates. Persistent free intra-abdominal air. Electronically Signed: Roni Murillo MD at 11:06 EST , Abscess Drainage CT 07/17/22 12:24 IMPRESSION: 1. CT directed drainage of a fluid collection using CT image guidance and image documentation as described. 2. Conscious Sedation protocol utilized with independent monitoring Electronically Signed: Roni Murillo MD at 15:05 EST , Physical Exam Narrative GENERAL: Cooperative HEENT: Atraumatic; normocephalic EYES; Anicteric, Normal Conjunctiva NECK; supple, normal thyroid, RESPIRATORY: Diminished to auscultation CARDIOVASCULAR: Regular S1 S2, GI: soft, normoactive bowel sounds, : No Renal angle tenderness; EXTREMITIES: No edema, no clubbing, MUSCULOSKELETAL: no muscle wasting NEURO: Awake; no lateralizing signs. SKIN: No Rash PSYCH; flat affect Assessment & Plan Assessment/Plan (1) SVT (supraventricular tachycardia): PLAN: Plan Patient is a 72-year-old gentleman recently diagnosed with left splenic flexure invasive adenocarcinoma for which he underwent open laparotomy with hemicolectomy on 07/06/2022. Procedure was closed placated by an anastomotic leak for which he underwent repair on 06/30/2022. Patient hospital stay complicated by metabolic encephalopathy 1. Status post open laparotomy with hemicolectomy on 07/06/2022 on account of left splenic flexure invasive adenocarcinoma ? Patient postoperative management as per the Dr. Carmona with general surgery 2. Anastomotic leak following patient surgery ? Patient underwent repair on 07/10/2022. Repeat CT ordered for subsequent eval in view of patient persistent leukocytosis 3. Metabolic encephalopathy ? Suspected to be related to an underlying infection patient is on quetiapine at night 4. Essential hypertension ? Patient is on metoprolol HCTZ and amlodipine, amlodipine l and HCTZ held in view of relatively low blood pressure 5. Leukocytosis secondary to pelvic and abdominal abscesses ? Repeat CT ordered for subsequent eval -07/18/2022; CT did show slight increase in the amount of free fluid in the left paracolic gutter. Persistent circumferential wall thickening of the terminal ileum although this has improved. Patient subsequently underwent CT directed drainage of a fluid collection using CT image guidance? 6. Anemia - Secondary to chronic disorder monitoring H&H and transfuse if patient becomes symptomatic or hemoglobin falls below 7 7. DVT prophylaxis ? SC Lovenox Time spent in the patient's overall evaluation,decision-making process, review of diagnostic data, adjustment of management, discussion with other providers, nursing nursing and ancillary staff involved in patient's care documentation, 40 Minutes Charges/Coding Visit Charges Inpatient E&M: 08155 Subs Hosp L2
[2022-07-18 07:45] LABS: AST(SGOT) 34 U/L (15-37); Alanine Aminotransfer ALT/SGPT 37 U/L (16-61); Albumin, Serum 1.2 g/dL (3.2-5.0); Alkaline Phosphatase 105 U/L (45-117); Anion Gap 7 (5-15); BUN 14 mg/dL (7-18); BUN/Creat Ratio 17.5 RATIO (10-20); Bilirubin, Direct 0.09 mg/dL (0.00-0.30); Calcium,Total 7.6 mg/dL (8.5-10.1); Chloride 113 mmol/L (98-107); EST Glomerular Filtration Rate 101 mL/min (>60); Est Glom Filt Rate - Afr Amer 122 mL/min (>60); Estimated Creatinine Clearance 75.32 ml/min; Globulin 3.9 g/dL (2.2-4.2); Glucose 65 mg/dL (74-106); Phosphorus 2.6 mg/dL (2.5-4.9); Potassium 4.1 mmol/L (3.5-5.1); Protein, Total 5.1 g/dL (6.4-8.2); Sodium Level 143 mmol/L (136-145)
[2022-07-18] MEDS: Menthol/Lanolin/Calamine/Znox 113 GM Tube 1 APPLIC TOPICAL ×2 (08:41→17:38)
[2022-07-18] MEDS: Metoprolol Tartrate 25 MG Tablet PO (08:42)
[2022-07-18] MEDS: Enoxaparin 40 MG/0.4 ML Syringe SC (08:43)
--- NOTE | 2022-07-18 10:12 | CASEMGMT ---
Social Work SW consulted with MD Wesley this morning regarding pt anticipated d/c date in order to collaborate on discharge planning and when to begin insurance auth for SNF. MD Wesley stated pt WBC is still concerning but it is possible pt will be ready to d/c later this week. ELY collaborated with Amanda from TCU and informed precert can be started Sunday afternoon. PLAN: TCU, pending being medically ready and precert Maryanne Hinojosa
--- NOTE | 2022-07-18 10:16 | PCM.PN.SRG ---
Subjective Subjective wbc 15; pt ibrahima PO and still having BF; DEBBIE placed by IR yesterday- serosang Objective Data Objective Data Vital Signs: Vital Signs Temp Pulse Resp BP Pulse Ox O2 Del Method O2 Flow Rate 98.2 F 87 18 117/64 96 Room Air 2 07/18/22 08:00 07/18/22 08:42 07/18/22 08:00 07/18/22 08:00 07/18/22 08:00 07/18/22 08:00 07/15/22 09:12 FiO2 4 07/11/22 19:00 Oxygen Flow Rate (L/min) 2 Oxygen Delivery Method [3] Room Air Oxygen Delivery Method [2] Room Air Oxygen Delivery Method [1 ( Room Air Initial Baseline)] Oxygen Delivery Method Room Air Weight: 144 lb 2.917 oz Body Mass Index (BMI) 21.9 Intake & Output: Intake and Output for Last 24 Hours 07/16/22 07/17/22 07/18/22 23:59 23:59 23:59 Intake Total 2366.67 / 2486.67 4774.5333 / 4774.5333 227.5 / 227.5 Output Total 1250 / 1250 1979 / 1979 565 / 565 Balance 1116.67 / 1236.67 2794.5333 / 2794.5333 -337.5 / -337.5 Medical Nutrition Assessment Dietitian: Malnutrition Criteria Met Start: 07/10/22 09:43 Freq: Status: Active Protocol: Document 07/16/22 10:31 RMA (Rec: 07/16/22 10:31 RMA [id number]) Nutrition Malnutrition Evidence of Malnutrition Exists Yes Malnutrition (severe): Acute Illness/Injury Evidenced By Suboptimal Energy Intake ( Severe),Weight Loss (Severe) Intake Problem Inadequate Oral Intake Etiology related to suboptimal appetite and colon obstruction Signs/Symptoms as evidenced by pt report of < 50% PO intake of meals for 1 week 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 Problem Clinical Problem Acute Disease or Injury Related Malnutrition Etiology severe, acute malnutrition related to inadequate energy intake d/t GI dysfunction, decreased appetite/intake 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 No insulin or famotidine per provider order. Will not renew TPN per Dr. Wesley. 2) Recommend advance diet as tolerated to Transitional when ready for solid food. 3) Continue ensure plus high protein 4 times per day w/ medpass as tolerated. 4) Add both 120 ml ensure clear and ensure pudding TID to meal trays. 5) Pt likes fruited yogurt and hot cocoa---will add to meal trays. Lab / Micro Data Result Diagrams: 07/18/22 06:10 07/18/22 06:10 Labs: Laboratory Results - last 24 hr 07/18/22 06:10: Magnesium 1.9 07/18/22 06:10: WBC 15.2 H, RBC 2.82 L, Hgb 7.4 L, Hct 24.5 L, MCV 86.9, MCH 26.2 L, MCHC 30.2 L, RDW Std Deviation 58.5 H, RDW Coeff of [place] 18.4 H, Plt Count 512 H, MPV 10.6, Immature Gran % (Auto) 1.100 H, Neut % (Auto) 80.6 H, Lymph % (Auto) 8.3 L, [place] % (Auto) 8.8, Eos % (Auto) 1.0, Baso % (Auto) 0.2, Absolute Neuts (auto) 12.3 H, Absolute Lymphs (auto) 1.26, Nucleated RBC % 0 07/18/22 06:10: Sodium 143, Potassium 4.1, Chloride 113 H, Carbon Dioxide 23.0, Anion Gap 7, BUN 14, Creatinine 0.80, Estim Creat Clear Calc 75.32, Est GFR (MDRD) Af Amer 122, Est GFR (MDRD) Non-Af 101, BUN/Creatinine Ratio 17.5, Glucose 65 L, Calcium 7.6 L, Phosphorus 2.6, Total Bilirubin 0.40, Direct Bilirubin 0.09, AST 34, ALT 37, Alkaline Phosphatase 105, Total Protein 5.1 L, Albumin 1.2 L, Globulin 3.9 Micro: Microbiology 07/17/22 14:35 Aspirate - Abdominal Wound Culture - Preliminary No growth-Final to follow 07/14/22 09:30 Stool C. difficile DNA Amplification - Final 07/09/22 04:11 Blood Culture (Wb) - Anticubital Right Blood Culture - Final No growth in 5 days. 07/09/22 03:50 Blood Culture (Wb) - Anticubital Right Blood Culture - Final No growth in 5 days. 07/09/22 03:45 Urine Catheter - [place] Urine Culture - Final Culture exhibits no growth. 07/09/22 03:45 Urine Catheter - [place] Legionella Antigen - Final 07/09/22 03:45 Urine Catheter - [place] Streptococcus pneumoniae Antigen (M - Final Radiography Diagnostic Testing: Radiology Impression Abdomen/Pelvis CT 07/17/22 06:59 IMPRESSION: Slight increase in the amount of free fluid in the left paracolic gutter. Persistent circumferential wall thickening of the terminal ileum although this has improved. Persistent bilateral pleural effusions with bibasilar infiltrates. Persistent free intra-abdominal air. Electronically Signed: Roni Murillo MD at 11:06 EST , Abscess Drainage CT 07/17/22 12:24 IMPRESSION: 1. CT directed drainage of a fluid collection using CT image guidance and image documentation as described. 2. Conscious Sedation protocol utilized with independent monitoring Electronically Signed: Roni Murillo MD at 15:05 EST , Physical Exam Const oriented x3 and no apparent distress Resp normal respiratory effort Cardio regular rate GI GI Narrative: Soft, nondistended, incision dressed?wet-to-dry's and retention sutures x2 in place, LUQ DEBBIE serosang. Assessment & Plan Assessment/Plan (1) Anastomotic leak of intestine: (2) S/P left colectomy: (3) Leukocytosis: (4) Adenocarcinoma of transverse colon: PLAN: Plan On low fiber diet with ensure continue wound care--may close the skin at beside in 1-2 days if wbc improves. Leukocytosis?still 15- DEBBIE placed in LUQ fluid collection-serosang- cx sent Continue out of bed to chair/PT/OT. Continue IV meropenem, wbc 15.2 -- continue to monitor- afebrile Anemia- chronic and acute blood loss with 2 surgeries--7.4 today has been between mid 7-8s Continue Lovenox IV and PPI Urinary retention- on flomax--continue montgomery- pt has failed multiple attempts at removal Yoli Wesley M.D. Pager: [phone] [facility] [address] [place] [address], [facility], [address] [place] [address] Office: [phone]
[2022-07-18] MEDS: 0.9% Saline Lock 10 ML Syringe IV ×2 (11:51→12:57)
--- NOTE | 2022-07-18 12:39 | NURSING ---
This RN is aware of Vital Signs taken by [facility] Nursing Studeten/David.
[2022-07-18] MEDS: Ondansetron 4 MG/2 ML Vial IV (12:57)
[2022-07-18] MEDS: Ensure Plus High Protein 120 ML LIQUID PO ×2 (13:43→17:38)
[2022-07-18] MEDS: QUEtiapine 25 MG Tablet 50 MG PO (17:38)
[2022-07-18] MEDS: Tamsulosin HCl 0.4 MG Capsule PO (17:38)
[2022-07-19] VITALS (13 sets, daily range): BP systolic 110–151; BP diastolic 56–73; PULSE 82–97; RESP 16–18; TEMP 36.5–37; O2SAT 94–97
[2022-07-19 07:12] LABS: Absolute Lymphocyte Count 1.26 X10^3/uL (0.83-4.51); Absolute Neutrophil Count 9.9 X10^3/uL (2.0-7.7); Basophil# 0.02 X10^3/uL; Basophil% 0.2 % (0-1); Eosinophil# 0.08 X10^3/uL; Eosinophils% 0.6 % (0-5); Hematocrit 23.6 % (40-54); Hemoglobin 7.1 g/dL (13.0-16.5); Lymphocyte # 1.26 X10^3/ul (0.83-4.51); Lymphocyte % 9.9 % (19-41); Mean Corp Hgb Conc 30.1 g/dL (32-36); Mean Corpuscular Hgb 26.1 pg (27.0-32.0); Mean Corpuscular Volume 86.8 fL (80-94); Mean Platelet Vol. 10.2 fl (6.2-12.0); Monocyte# 1.34 X10^3/uL; Monocyte% 10.5 % (0-10); NRBC Flagged by Analyzer 0 % (0-5); Neutrophil # 9.93 X10^3/uL (2.7-7.7); Neutrophil % 78.1 % (47-70); Platelet Count 565 K/mm3 (150-450); RBC Distribution Width CV 18.2 % (11.6-14.6); RBC Distribution Width SD 57.6 fl (35.1-43.9); Red Blood Count 2.72 M/mm3 (4.6-6.2); White Blood Count 12.7 K/mm3 (4.4-11.0)
--- NOTE | 2022-07-19 07:21 | PN.HOSP_ITS ---
Subjective Subjective Follow-up leukocytosis ? Patient WBC count trending down following drainage of his pelvic and abdominal abscess. Cultures so far negative to date Objective Data Objective Data Vital Signs: Vital Signs Temp Pulse Resp BP Pulse Ox O2 Del Method O2 Flow Rate 98.1 F 94 16 130/62 H 95 Room Air 2 07/19/22 02:23 07/19/22 02:23 07/19/22 02:23 07/19/22 02:23 07/19/22 02:23 07/19/22 02:23 07/15/22 09:12 FiO2 4 07/11/22 19:00 Oxygen Flow Rate (L/min) 2 Oxygen Delivery Method [3] Room Air Oxygen Delivery Method [2] Room Air Oxygen Delivery Method [1 ( Room Air Initial Baseline)] Oxygen Delivery Method Room Air Weight: 65.4 kg Body Mass Index (BMI) 21.9 Intake & Output: Intake and Output for Last 24 Hours 07/17/22 07/18/22 07/19/22 23:59 23:59 23:59 Intake Total 4774.5333 / 4774.5333 804.25 / 804.25 100 / 100 Output Total 1979 / 1979 1453 / 1453 150 / 150 Balance 2794.5333 / 2794.5333 -648.75 / -648.75 -50 / -50 Medical Nutrition Assessment Dietitian: Malnutrition Criteria Met Start: 07/10/22 09:43 Freq: Status: Active Protocol: Document 07/16/22 10:31 RMA (Rec: 07/16/22 10:31 RMA [id number]) Nutrition Malnutrition Evidence of Malnutrition Exists Yes Malnutrition (severe): Acute Illness/Injury Evidenced By Suboptimal Energy Intake ( Severe),Weight Loss (Severe) Intake Problem Inadequate Oral Intake Etiology related to suboptimal appetite and colon obstruction Signs/Symptoms as evidenced by pt report of < 50% PO intake of meals for 1 week 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 Problem Clinical Problem Acute Disease or Injury Related Malnutrition Etiology severe, acute malnutrition related to inadequate energy intake d/t GI dysfunction, decreased appetite/intake 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 No insulin or famotidine per provider order. Will not renew TPN per Dr. Wesley. 2) Recommend advance diet as tolerated to Transitional when ready for solid food. 3) Continue ensure plus high protein 4 times per day w/ medpass as tolerated. 4) Add both 120 ml ensure clear and ensure pudding TID to meal trays. 5) Pt likes fruited yogurt and hot cocoa---will add to meal trays. Lab / Micro Data Result Diagrams: 07/19/22 06:50 07/19/22 06:50 Labs: Laboratory Results - last 24 hr 07/18/22 06:10: Magnesium 1.9 07/18/22 06:10: Sodium 143, Potassium 4.1, Chloride 113 H, Carbon Dioxide 23.0, Anion Gap 7, BUN 14, Creatinine 0.80, Estim Creat Clear Calc 75.32, Est GFR (MDRD) Af Amer 122, Est GFR (MDRD) Non-Af 101, BUN/Creatinine Ratio 17.5, Glucose 65 L, Calcium 7.6 L, Phosphorus 2.6, Total Bilirubin 0.40, Direct Bilirubin 0.09, AST 34, ALT 37, Alkaline Phosphatase 105, Total Protein 5.1 L, Albumin 1.2 L, Globulin 3.9 07/19/22 06:50: WBC 12.7 H, RBC 2.72 L, Hgb 7.1 L, Hct 23.6 L, MCV 86.8, MCH 26. 1 L, MCHC 30.1 L, RDW Std Deviation 57.6 H, RDW Coeff of [place] 18.2 H, Plt Count 565 H, MPV 10.2, Immature Gran % (Auto) 0.700, Neut % (Auto) 78.1 H, Lymph % (Auto) 9.9 L, [place] % (Auto) 10.5 H, Eos % (Auto) 0.6, Baso % (Auto) 0.2, Absolute Neuts (auto) 9.9 H, Absolute Lymphs (auto) 1.26, Nucleated RBC % 0 Micro: Microbiology 07/17/22 14:35 Aspirate - Abdominal Gram Stain - Final 07/17/22 14:35 Aspirate - Abdominal Wound Culture - Preliminary No growth-Final to follow 07/14/22 09:30 Stool C. difficile DNA Amplification - Final 07/09/22 04:11 Blood Culture (Wb) - Anticubital Right Blood Culture - Final No growth in 5 days. 07/09/22 03:50 Blood Culture (Wb) - Anticubital Right Blood Culture - Final No growth in 5 days. 07/09/22 03:45 Urine Catheter - [place] Urine Culture - Final Culture exhibits no growth. 07/09/22 03:45 Urine Catheter - [place] Legionella Antigen - Final 07/09/22 03:45 Urine Catheter - [place] Streptococcus pneumoniae Antigen (M - Final Physical Exam Narrative GENERAL: Cooperative HEENT: Atraumatic; normocephalic EYES; Anicteric, Normal Conjunctiva NECK; supple, normal thyroid, RESPIRATORY: Diminished to auscultation CARDIOVASCULAR: Regular S1 S2, GI: soft, normoactive bowel sounds, : No Renal angle tenderness; EXTREMITIES: No edema, no clubbing, MUSCULOSKELETAL: no muscle wasting NEURO: Awake; no lateralizing signs. SKIN: No Rash PSYCH; flat affect Assessment & Plan Assessment/Plan (1) SVT (supraventricular tachycardia): PLAN: Plan Patient is a 72-year-old gentleman recently diagnosed with left splenic flexure invasive adenocarcinoma for which he underwent open laparotomy with hemicolectomy on 07/06/2022. Procedure was closed placated by an anastomotic leak for which he underwent repair on 06/30/2022. Patient hospital stay complicated by metabolic encephalopathy 1. Status post open laparotomy with hemicolectomy on 07/06/2022 on account of left splenic flexure invasive adenocarcinoma ? Patient postoperative management as per the Dr. Carmona with general surgery 2. Anastomotic leak following patient surgery ? Patient underwent repair on 07/10/2022. Repeat CT ordered for subsequent eval in view of patient persistent leukocytosis 3. Metabolic encephalopathy ? Suspected to be related to an underlying infection patient is on quetiapine at night 4. Essential hypertension ? Patient is on metoprolol HCTZ and amlodipine, amlodipine l and HCTZ held in view of relatively low blood pressure 5. Leukocytosis secondary to pelvic and abdominal abscesses ? Repeat CT ordered for subsequent eval -07/18/2022; CT did show slight increase in the amount of free fluid in the left paracolic gutter. Persistent circumferential wall thickening of the terminal ileum although this has improved. Patient subsequently underwent CT directed drainage of a fluid collection using CT image guidance? -07/19/2022; ? Patient WBC count trending down following drainage of his pelvic and abdominal abscess. Cultures so far negative to date 6. Anemia - Secondary to chronic disorder monitoring H&H and transfuse if patient becomes symptomatic or hemoglobin falls below 7 7. DVT prophylaxis ? SC Lovenox Time spent in the patient's overall evaluation,decision-making process, review of diagnostic data, adjustment of management, discussion with other providers, nursing nursing and ancillary staff involved in patient's care documentation,36 Minutes Charges/Coding Visit Charges Inpatient E&M: 33438 Subs Hosp L2
[2022-07-19 07:26] LABS: Anion Gap 8 (5-15); BUN 14 mg/dL (7-18); Calcium,Total 7.5 mg/dL (8.5-10.1); Chloride 112 mmol/L (98-107); Creatinine, Serum 0.88 mg/dL (0.70-1.30); EST Glomerular Filtration Rate 91 mL/min (>60); Est Glom Filt Rate - Afr Amer 110 mL/min (>60); Estimated Creatinine Clearance 68.47 ml/min; Glucose 113 mg/dL (74-106); Phosphorus 2.1 mg/dL (2.5-4.9); Potassium 3.3 mmol/L (3.5-5.1); Sodium Level 145 mmol/L (136-145)
[2022-07-19 07:27] LABS: Magnesium 1.9 mg/dL (1.6-2.6)
[2022-07-19] MEDS: Metoprolol Tartrate 25 MG Tablet PO (08:02)
[2022-07-19] MEDS: Enoxaparin 40 MG/0.4 ML Syringe SC (08:02)
[2022-07-19] MEDS: Ensure Plus High Protein 120 ML LIQUID PO ×3 (08:03→17:32)
[2022-07-19] MEDS: Menthol/Lanolin/Calamine/Znox 113 GM Tube 1 APPLIC TOPICAL ×2 (08:03→22:00)
--- NOTE | 2022-07-19 08:52 | PN.SURG_ITS ---
Subjective Subjective Patient is tolerating diet denies abdominal pain. Patient would like to improved to 12.7. Patient's hemoglobin down to 7.1. Objective Data Objective Data Vital Signs: Vital Signs Temp Pulse Resp BP Pulse Ox O2 Del Method O2 Flow Rate 97.7 F L 97 16 144/69 H 94 Room Air 2 07/19/22 07:50 07/19/22 08:02 07/19/22 07:50 07/19/22 07:50 07/19/22 07:50 07/19/22 02:23 07/15/22 09:12 FiO2 4 07/11/22 19:00 Oxygen Flow Rate (L/min) 2 Oxygen Delivery Method [3] Room Air Oxygen Delivery Method [2] Room Air Oxygen Delivery Method [1 ( Room Air Initial Baseline)] Oxygen Delivery Method Room Air Weight: 144 lb 2.917 oz Body Mass Index (BMI) 21.9 Intake & Output: Intake and Output for Last 24 Hours 07/17/22 07/18/22 07/19/22 23:59 23:59 23:59 Intake Total 4774.5333 / 4774.5333 804.25 / 804.25 100 / 100 Output Total 1979 / 1979 1453 / 1453 150 / 150 Balance 2794.5333 / 2794.5333 -648.75 / -648.75 -50 / -50 Medical Nutrition Assessment Dietitian: Malnutrition Criteria Met Start: 07/10/22 09:43 Freq: Status: Active Protocol: Document 07/16/22 10:31 RMA (Rec: 07/16/22 10:31 RMA [id number]) Nutrition Malnutrition Evidence of Malnutrition Exists Yes Malnutrition (severe): Acute Illness/Injury Evidenced By Suboptimal Energy Intake ( Severe),Weight Loss (Severe) Intake Problem Inadequate Oral Intake Etiology related to suboptimal appetite and colon obstruction Signs/Symptoms as evidenced by pt report of < 50% PO intake of meals for 1 week 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 Problem Clinical Problem Acute Disease or Injury Related Malnutrition Etiology severe, acute malnutrition related to inadequate energy intake d/t GI dysfunction, decreased appetite/intake 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 No insulin or famotidine per provider order. Will not renew TPN per Dr. Wesley. 2) Recommend advance diet as tolerated to Transitional when ready for solid food. 3) Continue ensure plus high protein 4 times per day w/ medpass as tolerated. 4) Add both 120 ml ensure clear and ensure pudding TID to meal trays. 5) Pt likes fruited yogurt and hot cocoa---will add to meal trays. Lab / Micro Data Result Diagrams: 07/19/22 06:50 07/19/22 06:50 Labs: Laboratory Results - last 24 hr 07/19/22 06:50: Magnesium 1.9 07/19/22 06:50: Sodium 145, Potassium 3.3 L, Chloride 112 H, Carbon Dioxide 25.0, Anion Gap 8, BUN 14, Creatinine 0.88, Estim Creat Clear Calc 68.47, Est GFR (MDRD) Af Amer 110, Est GFR (MDRD) Non-Af 91, BUN/Creatinine Ratio 16.0, Glucose 113 H, Calcium 7.5 L, Phosphorus 2.1 L 07/19/22 06:50: WBC 12.7 H, RBC 2.72 L, Hgb 7.1 L, Hct 23.6 L, MCV 86.8, MCH 26.1 L, MCHC 30.1 L, RDW Std Deviation 57.6 H, RDW Coeff of [place] 18.2 H, Plt Count 565 H, MPV 10.2, Immature Gran % (Auto) 0.700, Neut % (Auto) 78.1 H, Lymph % (Auto) 9.9 L, [place] % (Auto) 10.5 H, Eos % (Auto) 0.6, Baso % (Auto) 0.2, Absolute Neuts (auto) 9.9 H, Absolute Lymphs (auto) 1.26, Nucleated RBC % 0 Micro: Microbiology 07/17/22 14:35 Aspirate - Abdominal Gram Stain - Final 07/17/22 14:35 Aspirate - Abdominal Wound Culture - Final No growth aerobically. 07/14/22 09:30 Stool C. difficile DNA Amplification - Final 07/09/22 04:11 Blood Culture (Wb) - Anticubital Right Blood Culture - Final No growth in 5 days. 07/09/22 03:50 Blood Culture (Wb) - Anticubital Right Blood Culture - Final No growth in 5 days. 07/09/22 03:45 Urine Catheter - [place] Urine Culture - Final Culture exhibits no growth. 07/09/22 03:45 Urine Catheter - [place] Legionella Antigen - Final 07/09/22 03:45 Urine Catheter - [place] Streptococcus pneumoniae Antigen (M - Final Physical Exam Const oriented x3 and no apparent distress Resp normal respiratory effort Cardio regular rate GI GI Narrative: Soft, nondistended, incision dressed?wet-to-dry's and retention sutures x2 in place, LUQ DEBBIE serosang. Assessment & Plan Assessment/Plan (1) Adenocarcinoma of transverse colon: (2) S/P left colectomy: (3) Anastomotic leak of intestine: (4) S/P exploratory laparotomy: (5) Leukocytosis: (6) Severe malnutrition: PLAN: Plan On low fiber diet with ensure continue wound care--may close the skin at beside in 1-2 days if wbc improves. Leukocytosis-- improving- DEBBIE placed in LUQ fluid collection-serosang- cx sent Continue out of bed to chair/PT/OT. Continue IV meropenem, wbc 12.7-- continue to monitor- afebrile--addendum: will c/s ID Anemia- chronic and acute blood loss with 2 surgeries--7.1 we will transfuse 1 unit packed red blood cells Continue Lovenox IV and PPI Urinary retention- on flomax--continue montgomery- pt has failed multiple attempts at removal d/w pt Rosalva duncan. Yoli Wesley M.D. Pager: [phone] [facility] [address] [place] [address], [facility], [address] [place] [address] Office: [phone]
[2022-07-19] MEDS: 0.9% Saline Lock 10 ML Syringe IV ×2 (10:45→13:37)
[2022-07-19] MEDS: Na Biphos/Potassium Phosphate PACKET 1 PACKET PO ×2 (13:31→21:57)
--- NOTE | 2022-07-19 13:40 | NURSING ---
This RN stopped K phos flushed PICC line with 10cc Sterile Saline and then attached new tubing with NS at primary and Merrem as Secondary to be infused. Merrem to run over 3hrs. When that is finished with resume K phos IV.
--- NOTE | 2022-07-19 15:44 | CASEMGMT ---
Social Work SW conferred with pt bedside nurse, Karyn. Karyn informed that pt is still not completely oriented. AD will be deferred for today. JUNI Nuno
[2022-07-19] MEDS: Tamsulosin HCl 0.4 MG Capsule PO (17:32)
[2022-07-19] MEDS: QUEtiapine 25 MG Tablet 50 MG PO (17:32)
[2022-07-20 04:30] VITALS: BP 144/72; PULSE 86; RESP 18; TEMP 36.8; O2SAT 97
[2022-07-20] MEDS: Acetaminophen 650 MG/20 ML UDC PO ×2 (05:12→20:05)
[2022-07-20] MEDS: oxyCODONE 5 MG Tablet PO (05:12)
[2022-07-20 06:07] LABS: Absolute Lymphocyte Count 1.43 X10^3/uL (0.83-4.51); Absolute Neutrophil Count 8.7 X10^3/uL (2.0-7.7); Basophil# 0.02 X10^3/uL; Basophil% 0.2 % (0-1); Eosinophil# 0.04 X10^3/uL; Eosinophils% 0.3 % (0-5); Hematocrit 28.4 % (40-54); Hemoglobin 8.8 g/dL (13.0-16.5); Lymphocyte # 1.43 X10^3/ul (0.83-4.51); Lymphocyte % 12.4 % (19-41); Mean Corpuscular Hgb 27.4 pg (27.0-32.0); Mean Corpuscular Volume 88.5 fL (80-94); Mean Platelet Vol. 9.9 fl (6.2-12.0); Monocyte# 1.33 X10^3/uL; Monocyte% 11.5 % (0-10); NRBC Flagged by Analyzer 0 % (0-5); Neutrophil # 8.66 X10^3/uL (2.7-7.7); Neutrophil % 74.9 % (47-70); Platelet Count 604 K/mm3 (150-450); RBC Distribution Width CV 17.4 % (11.6-14.6); RBC Distribution Width SD 56.7 fl (35.1-43.9); Red Blood Count 3.21 M/mm3 (4.6-6.2); White Blood Count 11.6 K/mm3 (4.4-11.0)
[2022-07-20 06:53] LABS: Anion Gap 7 (5-15); BUN 11 mg/dL (7-18); Calcium,Total 7.3 mg/dL (8.5-10.1); Chloride 113 mmol/L (98-107); Creatinine, Serum 0.91 mg/dL (0.70-1.30); EST Glomerular Filtration Rate 87 mL/min (>60); Est Glom Filt Rate - Afr Amer 105 mL/min (>60); Estimated Creatinine Clearance 66.21 ml/min; Glucose 106 mg/dL (74-106); Magnesium 2.1 mg/dL (1.6-2.6); Phosphorus 2.7 mg/dL (2.5-4.9); Potassium 3.4 mmol/L (3.5-5.1); Sodium Level 145 mmol/L (136-145)
--- NOTE | 2022-07-20 07:50 | PN.HOSP_ITS ---
Subjective Subjective Follow-up leukocytosis ? Patient seen his overall clinical condition continues to improve. He remains deconditioned and is currently awaiting insurance precertification prior to transfer to [facility] facility Objective Data Objective Data Vital Signs: Vital Signs Temp Pulse Resp BP Pulse Ox O2 Del Method O2 Flow Rate 98.3 F 86 18 144/72 H 97 Room Air 2 07/20/22 04:30 07/20/22 04:30 07/20/22 04:30 07/20/22 04:30 07/20/22 04:30 07/20/22 07:41 07/15/22 09:12 FiO2 4 07/11/22 19:00 Oxygen Flow Rate (L/min) 2 Oxygen Delivery Method [3] Room Air Oxygen Delivery Method [2] Room Air Oxygen Delivery Method [1 ( Room Air Initial Baseline)] Oxygen Delivery Method Room Air Weight: 65.4 kg Body Mass Index (BMI) 21.9 Intake & Output: Intake and Output for Last 24 Hours 07/18/22 07/19/22 07/20/22 23:59 23:59 23:59 Intake Total 804.25 / 804.25 1219.0833 / 1219.0833 222 / 222 Output Total 1453 / 1453 928 / 928 250 / 250 Balance -648.75 / -648.75 291.0833 / 291.0833 -28 / -28 Medical Nutrition Assessment Dietitian: Malnutrition Criteria Met Start: 07/10/22 09:43 Freq: Status: Active Protocol: Document 07/19/22 09:52 RMA (Rec: 07/19/22 09:52 RMA [id number]) Nutrition Malnutrition Evidence of Malnutrition Exists Yes Malnutrition (severe): Acute Illness/Injury Evidenced By Suboptimal Energy Intake ( Severe),Weight Loss (Severe) Intake Problem Inadequate Oral Intake Etiology related to suboptimal appetite and colon obstruction Signs/Symptoms as evidenced by pt report of < 50% PO intake of meals for 1 week 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 Continue ensure plus high protein 4 times per day w/ medpass as tolerated. Lab / Micro Data Result Diagrams: 07/20/22 05:40 07/20/22 05:40 Labs: Laboratory Results - last 24 hr 07/19/22 09:25: Blood Type A POSITIVE, Antibody Screen NEGATIVE, Crossmatch See Detail 07/20/22 05:40: WBC 11.6 H, RBC 3.21 L, Hgb 8.8 L, Hct 28.4 L, MCV 88.5, MCH 27.4, MCHC 31.0 L, RDW Std Deviation 56.7 H, RDW Coeff of [place] 17.4 H, Plt Count 604 H, MPV 9.9, Immature Gran % (Auto) 0.700, Neut % (Auto) 74.9 H, Lymph % (Auto) 12.4 L, [place] % (Auto) 11.5 H, Eos % (Auto) 0.3, Baso % (Auto) 0.2, [place]ol [place] Neuts (auto) 8.7 H, Absolute Lymphs (auto) 1.43, Nucleated RBC % 0 07/20/22 05:40: Sodium 145, Potassium 3.4 L, Chloride 113 H, Carbon Dioxide 25.0, Anion Gap 7, BUN 11, Creatinine 0.91, Estim Creat Clear Calc 66.21, Est GFR (MDRD) Af Amer 105, Est GFR (MDRD) Non-Af 87, BUN/Creatinine Ratio 12.0, Glucose 106, Calcium 7.3 L, Phosphorus 2.7, Magnesium 2.1 Micro: Microbiology 07/17/22 14:35 Aspirate - Abdominal Gram Stain - Final 07/17/22 14:35 Aspirate - Abdominal Wound Culture - Final No growth aerobically. 07/17/22 14:35 Aspirate - Abdominal Anaerobic Culture - Preliminary 07/14/22 09:30 Stool C. difficile DNA Amplification - Final 07/09/22 04:11 Blood Culture (Wb) - Anticubital Right Blood Culture - Final No growth in 5 days. 07/09/22 03:50 Blood Culture (Wb) - Anticubital Right Blood Culture - Final No growth in 5 days. 07/09/22 03:45 Urine Catheter - Vazquez Urine Culture - Final Culture exhibits no growth. 07/09/22 03:45 Urine Catheter - Vazquez Legionella Antigen - Final 07/09/22 03:45 Urine Catheter - Vazquez Streptococcus pneumoniae Antigen (M - Final Physical Exam Narrative GENERAL: Cooperative HEENT: Atraumatic; normocephalic EYES; Anicteric, Normal Conjunctiva NECK; supple, normal thyroid, RESPIRATORY: Diminished to auscultation CARDIOVASCULAR: Regular S1 S2, GI: soft, normoactive bowel sounds, : No Renal angle tenderness; EXTREMITIES: No edema, no clubbing, MUSCULOSKELETAL: no muscle wasting NEURO: Awake; no lateralizing signs. SKIN: No Rash PSYCH; flat affect Assessment & Plan Assessment/Plan (1) SVT (supraventricular tachycardia): PLAN: Plan Patient is a 72-year-old gentleman recently diagnosed with left splenic flexure invasive adenocarcinoma for which he underwent open laparotomy with hemicolectomy on 07/06/2022. Procedure was closed placated by an anastomotic leak for which he underwent repair on 06/30/2022. Patient hospital stay complicated by metabolic encephalopathy 1. Status post open laparotomy with hemicolectomy on 07/06/2022 on account of left splenic flexure invasive adenocarcinoma ? Patient postoperative management as per the Dr. Carmona with general surgery 2. Anastomotic leak following patient surgery ? Patient underwent repair on 07/10/2022. Repeat CT ordered for subsequent eval in view of patient persistent leukocytosis 3. Metabolic encephalopathy ? Suspected to be related to an underlying infection patient is on quetiapine at night 4. Essential hypertension ? Patient is on metoprolol HCTZ and amlodipine, amlodipine l and HCTZ held in view of relatively low blood pressure 5. Leukocytosis secondary to pelvic and abdominal abscesses ? Repeat CT ordered for subsequent eval -07/18/2022; CT did show slight increase in the amount of free fluid in the left paracolic gutter. Persistent circumferential wall thickening of the terminal ileum although this has improved. Patient subsequently underwent CT directed drainage of a fluid collection using CT image guidance? -07/19/2022; ? Patient WBC count trending down following drainage of his pelvic and abdominal abscess. Cultures so far negative to date 6. Anemia - Secondary to chronic disorder monitoring H&H and transfuse if patient becomes symptomatic or hemoglobin falls below 7 7. DVT prophylaxis ? SC Lovenox 8. Physical deconditioning - Requested for PT OT eval and social work professor to assist with discharge planning Time spent in the patient's overall evaluation,decision-making process, review of diagnostic data, adjustment of management, discussion with other providers, nursing nursing and ancillary staff involved in patient's care documentation,36 Minutes Charges/Coding Visit Charges Inpatient E&M: 33842 Subs Hosp L2
[2022-07-20] MEDS: Enoxaparin 40 MG/0.4 ML Syringe SC (09:27)
[2022-07-20] MEDS: Potassium Chloride Oral Tablet 20 MEQ 40 MEQ PO ×2 (09:27→17:12)
[2022-07-20] MEDS: Menthol/Lanolin/Calamine/Znox 113 GM Tube 1 APPLIC TOPICAL ×2 (09:27→22:10)
[2022-07-20] MEDS: Ensure Plus High Protein 120 ML LIQUID PO ×3 (09:27→22:16)
[2022-07-20 09:28] VITALS: PULSE 102
[2022-07-20] MEDS: Na Biphos/Potassium Phosphate PACKET 1 PACKET PO ×2 (09:28→22:11)
[2022-07-20] MEDS: Metoprolol Tartrate 25 MG Tablet PO (09:28)
[2022-07-20 09:55] VITALS: BP 137/65; PULSE 102; RESP 18; TEMP 36.5; O2SAT 97
--- NOTE | 2022-07-20 10:01 | CON.PCM.ID_ITS ---
Assessment & Plan Assessment/Plan (1) Anastomotic leak of intestine: PLAN: Taken to OR 07/06/22 for L sided colectomy, then 07/10/[address] Wesley for anastamotic leak. Drain placed 07/17/22. Drain cx is neg. On meropenem. Eating solid food, fever resolved, wbc nearly normalized. Cont meropenem for now. Picc in place. Will follow, thank you (2) Adenocarcinoma of transverse colon: (3) S/P left colectomy: HPI Consult Data Date of Consult: 07/20/22 HPI Narrative Reason for Consultation: intra-abd infection HPI Narrative: RIRI MARTIN, is a 72 M who presented 07/04/22 with large bowel obstruction seen on outpt CT. Had been having progressive diffuse abd pain for 3 weeks prior, associated with n/v and bloody/black stool. No prior colonoscopy. Admitted, taken to OR 07/06/[address] Wesley for L sided colectomy. Path showed invasive adenocarcinoma. Taken back to OR 07/10/22 for anastamotic leak. Has been on grady. CT guided drain placed 07/17. Now feeling better, eating breakfast. Having loose stool, no fever. Full ROS performed and neg except as noted above. COUNT INCLUDES [facility] Medical History Gout Hypertension Home Medications amlodipine 5 mg tablet 5 mg PO DAILY 06/26/22 [History Last Taken Unknown] metoprolol tartrate 50 mg-hydrochlorothiazide 25 mg tablet 1 tab PO DAILY 06/26/22 [History Last Taken Unknown] ondansetron 4 mg disintegrating tablet 4 mg PO Q8H PRN nausea and vomiting #10 tabs 06/26/22 [Rx Last Taken Unknown] oxycodone-acetaminophen 5 mg-325 mg tablet 1 - 2 tab PO Q6H PRN pain 3 days #16 tabs 07/08/22 [Rx Last Taken Unknown] Allergy/AdvReac Type Severity Reaction Status Date / Time No Known Allergies Allergy Verified 07/04/22 19:00 Surgical History (Updated 07/19/22 @ 13:[address] Yoli Wesley MD) S/P exploratory laparotomy S/P left colectomy Social History Smoking Status: Never smoker Physical Exam Const alert, oriented x3 and no apparent distress General Appearance: cooperative HEENT normocephalic and head/scalp atraumatic Eyes PERRL and EOMs intact bilaterally Neck supple and No nodes Resp normal air movement and clear to auscultation bilaterally Cardio regular rate and regular rhythm GI soft to palpation, non-tender and non-distended GI Narrative: drain in place Extremity General Extremity: Negative for edema Skin no rashes or lesions noted Skin Narrative: reviewed wound photos Neuro CN's II-XII intact bilaterally Medical Records Data Medical Nutrition Assessment Dietitian: Malnutrition Criteria Met Start: 07/10/22 09:43 Freq: Status: Active Protocol: Document 07/19/22 09:52 RMA (Rec: 07/19/22 09:52 RMA [id number]) Nutrition Malnutrition Evidence of Malnutrition Exists Yes Malnutrition (severe): Acute Illness/Injury Evidenced By Suboptimal Energy Intake ( Severe),Weight Loss (Severe) Intake Problem Inadequate Oral Intake Etiology related to suboptimal appetite and colon obstruction Signs/Symptoms as evidenced by pt report of < 50% PO intake of meals for 1 week 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 Continue ensure plus high protein 4 times per day w/ medpass as tolerated. Lab / Micro Data Attestation: I reviewed the patient's lab results. Result Diagrams: 07/20/22 05:40 07/20/22 05:40 Labs: Laboratory Results - last 24 hr 07/19/22 09:25: Blood Type A POSITIVE, Antibody Screen NEGATIVE, Crossmatch See Detail 07/20/22 05:40: WBC 11.6 H, RBC 3.21 L, Hgb 8.8 L, Hct 28.4 L, MCV 88.5, MCH 27.4, MCHC 31.0 L, RDW Std Deviation 56.7 H, RDW Coeff of [place] 17.4 H, Plt Count 604 H, MPV 9.9, Immature Gran % (Auto) 0.700, Neut % (Auto) 74.9 H, Lymph % (Auto) 12.4 L, [place] % (Auto) 11.5 H, Eos % (Auto) 0.3, Baso % (Auto) 0.2, Absolute Neuts (auto) 8.7 H, Absolute Lymphs (auto) 1.43, Nucleated RBC % 0 07/20/22 05:40: Sodium 145, Potassium 3.4 L, Chloride 113 H, Carbon Dioxide 25.0, Anion Gap 7, BUN 11, Creatinine 0.91, Estim Creat Clear Calc 66.21, Est GFR (MDRD) Af Amer 105, Est GFR (MDRD) Non-Af 87, BUN/Creatinine Ratio 12.0, Glucose 106, Calcium 7.3 L, Phosphorus 2.7, Magnesium 2.1 Micro: Microbiology 07/17/22 14:35 Aspirate - Abdominal Gram Stain - Final 07/17/22 14:35 Aspirate - Abdominal Wound Culture - Final No growth aerobically. 07/17/22 14:35 Aspirate - Abdominal Anaerobic Culture - Preliminary
--- NOTE | 2022-07-20 11:31 | PN.SURG_ITS ---
Subjective Subjective Pt ibrahima PO, Hb 8.8 after 1 unit PRBC yesterday, WBC 11.6 still improving on meropenem Objective Data Objective Data Vital Signs: Vital Signs Temp Pulse Resp BP Pulse Ox O2 Del Method O2 Flow Rate 97.3 F L 71 16 126/59 H 99 Room Air 2 07/20/22 15:30 07/20/22 15:30 07/20/22 15:30 07/20/22 15:30 07/20/22 15:30 07/20/22 15:32 07/15/22 09:12 FiO2 4 07/11/22 19:00 Oxygen Flow Rate (L/min) 2 Oxygen Delivery Method [3] Room Air Oxygen Delivery Method [2] Room Air Oxygen Delivery Method [1 ( Room Air Initial Baseline)] Oxygen Delivery Method Room Air Weight: 144 lb 2.917 oz Body Mass Index (BMI) 21.9 Intake & Output: Intake and Output for Last 24 Hours 07/18/22 07/19/22 07/20/22 23:59 23:59 23:59 Intake Total 804.25 / 804.25 1219.0833 / 1219.0833 552 / 552 Output Total 1453 / 1453 928 / 928 250 / 250 Balance -648.75 / -648.75 291.0833 / 291.0833 302 / 302 Medical Nutrition Assessment Dietitian: Malnutrition Criteria Met Start: 07/10/22 09:43 Freq: Status: Active Protocol: Document 07/19/22 09:52 RMA (Rec: 07/19/22 09:52 RMA [id number]) Nutrition Malnutrition Evidence of Malnutrition Exists Yes Malnutrition (severe): Acute Illness/Injury Evidenced By Suboptimal Energy Intake ( Severe),Weight Loss (Severe) Intake Problem Inadequate Oral Intake Etiology related to suboptimal appetite and colon obstruction Signs/Symptoms as evidenced by pt report of < 50% PO intake of meals for 1 week 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 Continue ensure plus high protein 4 times per day w/ medpass as tolerated. Lab / Micro Data Result Diagrams: 07/20/22 05:40 07/20/22 05:40 Labs: Laboratory Results - last 24 hr 07/20/22 05:40: WBC 11.6 H, RBC 3.21 L, Hgb 8.8 L, Hct 28.4 L, MCV 88.5, MCH 27.4, MCHC 31.0 L, RDW Std Deviation 56.7 H, RDW Coeff of [place] 17.4 H, Plt Count 604 H, MPV 9.9, Immature Gran % (Auto) 0.700, Neut % (Auto) 74.9 H, Lymph % (Auto) 12.4 L, [place] % (Auto) 11.5 H, Eos % (Auto) 0.3, Baso % (Auto) 0.2, Absolute Neuts (auto) 8.7 H, Absolute Lymphs (auto) 1.43, Nucleated RBC % 0 07/20/22 05:40: Sodium 145, Potassium 3.4 L, Chloride 113 H, Carbon Dioxide 25.0, Anion Gap 7, BUN 11, Creatinine 0.91, Estim Creat Clear Calc 66.21, Est GFR (MDRD) Af Amer 105, Est GFR (MDRD) Non-Af 87, BUN/Creatinine Ratio 12.0, Glucose 106, Calcium 7.3 L, Phosphorus 2.7, Magnesium 2.1 Micro: Microbiology 07/17/22 14:35 Aspirate - Abdominal Gram Stain - Final 07/17/22 14:35 Aspirate - Abdominal Wound Culture - Final No growth aerobically. 07/17/22 14:35 Aspirate - Abdominal Anaerobic Culture - Preliminary 07/14/22 09:30 Stool C. difficile DNA Amplification - Final 07/09/22 04:11 Blood Culture (Wb) - Anticubital Right Blood Culture - Final No growth in 5 days. 07/09/22 03:50 Blood Culture (Wb) - Anticubital Right Blood Culture - Final No growth in 5 days. 07/09/22 03:45 Urine Catheter - [place] Urine Culture - Final Culture exhibits no growth. 07/09/22 03:45 Urine Catheter - [place] Legionella Antigen - Final 07/09/22 03:45 Urine Catheter - [place] Streptococcus pneumoniae Antigen (M - Final Physical Exam Const oriented x3 and no apparent distress Resp normal respiratory effort Cardio regular rate GI GI Narrative: Soft, nondistended, incision dressed?wet-to-dry's and retention sutures x2 in place--healing well, LUQ DEBBIE serosang. Assessment & Plan Assessment/Plan (1) Adenocarcinoma of transverse colon: (2) S/P left colectomy: (3) Anastomotic leak of intestine: (4) S/P exploratory laparotomy: (5) Leukocytosis: (6) Severe malnutrition: PLAN: Plan On low fiber diet with high protein ensure continue wound care--may close the skin at beside in 1-2 days if wbc improves. Leukocytosis-- improving- DEBBIE placed in LUQ fluid collection-serosang- cx pending Continue out of bed to chair/PT/OT--likely to TCU tomorrow if wbc continues to improve. Continue IV meropenem, wbc 11.6-- continue to monitor- afebrile--Appreciate ID input Anemia- chronic and acute blood loss with 2 surgeries--8.8 after 1 unit PRBC yesterday Continue Lovenox IV and PPI Urinary retention- on flomax--continue mont[place]- pt has failed multiple attempts at removal--will likely need outpt urology f/u Yoli Wesley M.D. Pager: [phone] [facility] [address] [place] [address], [facility], [address] [place] [address] Office: [phone]
--- NOTE | 2022-07-20 12:54 | CASEMGMT ---
Social Work Precert has been obtained for pt to go to TCU. Dr. Wesley updated and plans for discharge tomorrow. Phone call to Amanda in TCU and updated. Phone call to pt and notified of acceptance and planned d/c to TCU tomorrow. Pt agreeable. Plan: TCU, when medically ready JUNI Will
[2022-07-20 15:30] VITALS: BP 126/59; PULSE 71; RESP 16; TEMP 36.3; O2SAT 99
[2022-07-20] MEDS: QUEtiapine 25 MG Tablet 50 MG PO (17:12)
[2022-07-20] MEDS: Tamsulosin HCl 0.4 MG Capsule PO (17:12)
[2022-07-20 22:20] VITALS: BP 136/67; PULSE 102; RESP 20; TEMP 36.5; O2SAT 98
[2022-07-21 02:44] VITALS: BP 136/61; PULSE 88; RESP 18; TEMP 36.7; O2SAT 97
[2022-07-21] MEDS: 0.9% Saline Lock 10 ML Syringe IV (02:52)
[2022-07-21 08:13] LABS: Absolute Lymphocyte Count 1.54 X10^3/uL (0.83-4.51); Basophil# 0.03 X10^3/uL; Basophil% 0.3 % (0-1); Eosinophil# 0.05 X10^3/uL; Eosinophils% 0.4 % (0-5); Hematocrit 28.6 % (40-54); Hemoglobin 8.9 g/dL (13.0-16.5); Lymphocyte # 1.54 X10^3/ul (0.83-4.51); Lymphocyte % 12.9 % (19-41); Mean Corp Hgb Conc 31.1 g/dL (32-36); Mean Corpuscular Hgb 27.5 pg (27.0-32.0); Mean Corpuscular Volume 88.3 fL (80-94); Monocyte# 1.26 X10^3/uL; Monocyte% 10.5 % (0-10); NRBC Flagged by Analyzer 0 % (0-5); Neutrophil # 9.03 X10^3/uL (2.7-7.7); Neutrophil % 75.3 % (47-70); Platelet Count 672 K/mm3 (150-450); RBC Distribution Width CV 17.5 % (11.6-14.6); RBC Distribution Width SD 56.6 fl (35.1-43.9); Red Blood Count 3.24 M/mm3 (4.6-6.2)
--- NOTE | 2022-07-21 08:23 | PN.HOSP_ITS ---
Subjective Subjective Awaiting transfer to a fdc facility. WBC count continues to trend down Objective Data Objective Data Vital Signs: Vital Signs Temp Pulse Resp BP Pulse Ox O2 Del Method O2 Flow Rate 98.1 F 88 18 136/61 H 97 Room Air 2 07/21/22 02:44 07/21/22 02:44 07/21/22 02:44 07/21/22 02:44 07/21/22 02:44 07/21/22 02:44 07/15/22 09:12 FiO2 4 07/11/22 19:00 Oxygen Flow Rate (L/min) 2 Oxygen Delivery Method [3] Room Air Oxygen Delivery Method [2] Room Air Oxygen Delivery Method [1 ( Room Air Initial Baseline)] Oxygen Delivery Method Room Air Weight: 65.4 kg Body Mass Index (BMI) 21.9 Intake & Output: Intake and Output for Last 24 Hours 07/19/22 07/20/22 07/21/22 23:59 23:59 23:59 Intake Total 1219.0833 / 1219.0833 652 / 852 300 / 300 Output Total 928 / 928 545 / 545 350 / 350 Balance 291.0833 / 291.0833 107 / 307 -50 / -50 Medical Nutrition Assessment Dietitian: Malnutrition Criteria Met Start: 07/10/22 09:43 Freq: Status: Active Protocol: Document 07/19/22 09:52 RMA (Rec: 07/19/22 09:52 RMA [id number]) Nutrition Malnutrition Evidence of Malnutrition Exists Yes Malnutrition (severe): Acute Illness/Injury Evidenced By Suboptimal Energy Intake ( Severe),Weight Loss (Severe) Intake Problem Inadequate Oral Intake Etiology related to suboptimal appetite and colon obstruction Signs/Symptoms as evidenced by pt report of < 50% PO intake of meals for 1 week 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 Continue ensure plus high protein 4 times per day w/ medpass as tolerated. Lab / Micro Data Result Diagrams: 07/21/22 07:50 07/20/22 05:40 Labs: Laboratory Results - last 24 hr 07/21/22 07:50: WBC 12.0 H, RBC 3.24 L, Hgb 8.9 L, Hct 28.6 L, MCV 88.3, MCH 27.5, MCHC 31.1 L, RDW Std Deviation 56.6 H, RDW Coeff of [place] 17.5 H, Plt Count 672 H, MPV 10.0, Immature Gran % (Auto) 0.600, Neut % (Auto) 75.3 H, Lymph % (Auto) 12.9 L, [place] % (Auto) 10.5 H, Eos % (Auto) 0.4, Baso % (Auto) 0.3, Absolute Neuts (auto) 9.0 H, Absolute Lymphs (auto) 1.54, Nucleated RBC % 0 Micro: Microbiology 07/17/22 14:35 Aspirate - Abdominal Gram Stain - Final 07/17/22 14:35 Aspirate - Abdominal Wound Culture - Final No growth aerobically. 07/17/22 14:35 Aspirate - Abdominal Anaerobic Culture - Preliminary 07/14/22 09:30 Stool C. difficile DNA Amplification - Final 07/09/22 04:11 Blood Culture (Wb) - Anticubital Right Blood Culture - Final No growth in 5 days. 07/09/22 03:50 Blood Culture (Wb) - Anticubital Right Blood Culture - Final No growth in 5 days. 07/09/22 03:45 Urine Catheter - Vazquez Urine Culture - Final Culture exhibits no growth. 07/09/22 03:45 Urine Catheter - Vazquez Legionella Antigen - Final 07/09/22 03:45 Urine Catheter - Vazquez Streptococcus pneumoniae Antigen (M - Final Physical Exam Narrative GENERAL: Cooperative HEENT: Atraumatic; normocephalic EYES; Anicteric, Normal Conjunctiva NECK; supple, normal thyroid, RESPIRATORY: Diminished to auscultation CARDIOVASCULAR: Regular S1 S2, GI: soft, normoactive bowel sounds, : No Renal angle tenderness; EXTREMITIES: No edema, no clubbing, MUSCULOSKELETAL: no muscle wasting NEURO: Awake; no lateralizing signs. SKIN: No Rash PSYCH; flat affect Assessment & Plan Assessment/Plan (1) SVT (supraventricular tachycardia): PLAN: Plan Patient is a 72-year-old gentleman recently diagnosed with left splenic flexure invasive adenocarcinoma for which he underwent open laparotomy with yolanda colectomy on 07/06/2022. Procedure was closed placated by an anastomotic leak for which he underwent repair on 06/30/2022. Patient hospital stay complicated by metabolic encephalopathy 1. Status post open laparotomy with hemicolectomy on 07/06/2022 on account of left splenic flexure invasive adenocarcinoma ? Patient postoperative management as per the Dr. Carmona with general surgery 2. Anastomotic leak following patient surgery ? Patient underwent repair on 07/10/2022. Repeat CT ordered for subsequent eval in view of patient persistent leukocytosis 3. Metabolic encephalopathy ? Suspected to be related to an underlying infection patient is on quetiapine at night 4. Essential hypertension ? Patient is on metoprolol HCTZ and amlodipine, amlodipine l and HCTZ held in view of relatively low blood pressure 5. Leukocytosis secondary to pelvic and abdominal abscesses ? Repeat CT ordered for subsequent eval -07/18/2022; CT did show slight increase in the amount of free fluid in the left paracolic gutter. Persistent circumferential wall thickening of the terminal ileum although this has improved. Patient subsequently underwent CT directed drainage of a fluid collection using CT image guidance? -07/19/2022; ? Patient WBC count trending down following drainage of his pelvic and abdominal abscess. Cultures so far negative to date 6. Anemia - Secondary to chronic disorder monitoring H&H and transfuse if patient becomes symptomatic or hemoglobin falls below 7 7. DVT prophylaxis ? SC Lovenox 8. Physical deconditioning - Requested for PT OT eval and social service technician to assist with discharge planning Time spent in the patient's overall evaluation,decision-making process, review of diagnostic data, adjustment of management, discussion with other providers, nursing nursing and ancillary staff involved in patient's care documentation,30 Minutes Charges/Coding Visit Charges Inpatient E&M: 39102 [facility] L[facility]
[2022-07-21 08:27] LABS: Anion Gap 4 (5-15); BUN 10 mg/dL (7-18); BUN/Creat Ratio 11.5 RATIO (10-20); Calcium,Total 7.9 mg/dL (8.5-10.1); Chloride 114 mmol/L (98-107); Creatinine, Serum 0.87 mg/dL (0.70-1.30); EST Glomerular Filtration Rate 92 mL/min (>60); Est Glom Filt Rate - Afr Amer 111 mL/min (>60); Estimated Creatinine Clearance 69.26 ml/min; Glucose 121 mg/dL (74-106); Magnesium 1.7 mg/dL (1.6-2.6); Phosphorus 1.7 mg/dL (2.5-4.9); Potassium 3.9 mmol/L (3.5-5.1); Sodium Level 145 mmol/L (136-145)
--- NOTE | 2022-07-21 08:46 | TREXTCAR_ITS ---
Diet Diet Order/Speech Therapy: 07/18/22 11:03 Diet: Transitional Dietary Modifications:: Fiber Restricted Type of Dietary Supplement:: 120ml Ensure Clear TID Is pt able to select menu?: No Diet Comments: hot cocoa & ensure pud all trays, may have creamed soups & fruited yogurt Routine Orders/Code Status Code Status: Full Code Wound(s) ABD: Wound Type: surgical incision with retention sutures Dressing Change: Wet to Dry Dressing Therapies Physical Therapy: Eval and Treat Occupational Therapy: Eval and Treat Problem/Diagnosis (1) SVT (supraventricular tachycardia): Status: Acute Code(s): I47.1 - Supraventricular tachycardia Plan Patient is a 72-year-old gentleman recently diagnosed with left splenic flexure invasive adenocarcinoma for which he underwent open laparotomy with hemicolectomy on 07/06/2022. Procedure was closed placated by an anastomotic leak for which he underwent repair on 06/30/2022. Patient hospital stay complicated by metabolic encephalopathy 1. Status post open laparotomy with hemicolectomy on 07/06/2022 on account of left splenic flexure invasive adenocarcinoma ? Patient postoperative management as per the Dr. Carmona with general surgery 2. Anastomotic leak following patient surgery ? Patient underwent repair on 07/10/2022. Repeat CT ordered for subsequent eval in view of patient persistent leukocytosis 3. Metabolic encephalopathy ? Suspected to be related to an underlying infection patient is on quetiapine at night 4. Essential hypertension ? Patient is on metoprolol HCTZ and amlodipine, amlodipine l and HCTZ held in view of relatively low blood pressure 5. Leukocytosis secondary to pelvic and abdominal abscesses ? Repeat CT ordered for subsequent eval -07/18/2022; CT did show slight increase in the amount of free fluid in the left paracolic gutter. Persistent circumferential wall thickening of the terminal ileum although this has improved. Patient subsequently underwent CT directed drainage of a fluid collection using CT image guidance? -07/19/2022; ? Patient WBC count trending down following drainage of his pelvic and abdominal abscess. Cultures so far negative to date 6. Anemia - Secondary to chronic disorder monitoring H&H and transfuse if patient becomes symptomatic or hemoglobin falls below 7 7. DVT prophylaxis ? SC Lovenox 8. Physical deconditioning - Requested for PT OT eval and social sciences professor to assist with discharge planning Time spent in the patient's overall evaluation,decision-making process, review of diagnostic data, adjustment of management, discussion with other providers, nursing nursing and ancillary staff involved in patient's care documentation,30 Minutes Allergies/Procedures Done in Hospital Allergies No Known Allergies Allergy (Verified 07/04/22 19:00) Type of Care/Length of Stay Estimated LOS: Convalescent Care Less Than 30 days Type of Care Needed: Skilled Rehab Potential: Good Prognosis: Good Additional Orders/Day of Discharge Day of Discharge: 07/21/22 Dietary and Speech Recommendations Dietitian Recommendations/Changes: Continue Transitional diet with 120 ml ensure clear and ensure pudding TID to meal trays. Continue ensure plus high protein 4 times per day w/ medpass as tolerated. Follow Up Care Please Follow Up With: Yoli Wesley MD Discharge Plan Admission Admit Date/Time: 07/04/22 20:28 Attending Provider: Yoli Wesley Primary Care Provider: Francesca Lopez Consulting Providers: Yulia Navarro ; Kody Arizmendi ; Jacob Tran ; Daquan Odell ; Rivera Trejo Instructions Additional Instructions / Restrictions: OK to take ibuprofen 400-600mg PO q6h PRN for pain along with the percocet--caution with tylenol as there is already tylenol in the percocet. Discharge Orders/Prescriptions Prescriptions: New oxycodone-acetaminophen 5-325 mg tablet 1 - 2 tab PO Q6H PRN (Reason: pain) 3 Days Qty: 16 0RF quetiapine 25 mg Tablet 50 mg PO DAILY@1700 Qty: 0 0RF tamsulosin 0.4 mg Capsule 0.4 mg PO DAILY@1730 Qty: 0 0RF metoprolol tartrate 25 mg Tablet 25 mg PO DAILY Qty: 0 0RF potassium, sodium phosphates 280-160-250 mg Powder In Packet 1 packet PO BID Qty: 0 0RF enoxaparin 40 mg/0.4 mL Syringe 40 mg subcut DAILY Qty: 0 0RF Chloraseptic Sore Throat 6-10 mg Lozenge 1 vika mucous membrane Q2H PRN PRN (Reason: SORE THROAT) Qty: 0 0RF acetaminophen 650 mg/20.3 mL Solution 650 mg PO Q6H PRN PRN (Reason: PAIN 1-10) Qty: 0 0RF menthol-zinc oxide [Calmoseptine] 0.44-20.6 % Ointment 1 applic topical BID Qty: 0 0RF Protocol: *Topical Application Instructions APPLICATION INSTRUCTIONS: to buttocks and groin Ensure Plus High Protein 0.08 gram-1.5 kcal/mL Liquid 120 ml PO 4X/DAY Qty: 0 0RF Continued amlodipine 5 mg Tablet 5 mg PO DAILY ondansetron 4 mg tablet,disintegrating 4 mg PO Q8H PRN (Reason: nausea and vomiting) Qty: 10 0RF Discontinued metoprolol ta-hydrochlorothiaz 50-25 mg tablet 1 tab PO DAILY Label Comments: Take 1 tablet by mouth as directed Referrals / Follow Up: Francesca Lopez DO [Primary Care Provider] -
[2022-07-21 09:39] VITALS: BP 149/68; PULSE 114; RESP 16; TEMP 37.2; O2SAT 98
[2022-07-21 09:49] VITALS: PULSE 114
[2022-07-21] MEDS: Enoxaparin 40 MG/0.4 ML Syringe SC (09:49)
[2022-07-21] MEDS: Metoprolol Tartrate 25 MG Tablet PO (09:49)
[2022-07-21] MEDS: Na Biphos/Potassium Phosphate PACKET 1 PACKET PO (09:49)
[2022-07-21] MEDS: Menthol/Lanolin/Calamine/Znox 113 GM Tube 1 APPLIC TOPICAL (09:50)
[2022-07-21] MEDS: Ensure Plus High Protein 120 ML LIQUID PO ×2 (09:52→14:14)
--- NOTE | 2022-07-21 10:01 | TREXTCAR_ITS ---
Diet Diet Order/Speech Therapy: 07/18/22 11:03 Diet: Transitional Dietary Modifications:: Fiber Restricted Type of Dietary Supplement:: 120ml Ensure Clear TID Is pt able to select menu?: No Diet Comments: hot cocoa & ensure pud all trays, may have creamed soups & fruited yogurt Routine Orders/Code Status [place] Catheter Size: 16 Routine Lab Work: CBC and BMP (mag, phos) Code Status: Full Code Wound(s) ABD: Wound Type: IR DEBBIE LUQ drain (wet to dry BID, retention suture x [address]--empty DEBBIE when 1/2 full and strip drain Q6H) Dressing Change: Wet to Dry Dressing Suggestions for Active Care Times a day to sit in chair: 3 Therapies Weight Bearing: Full weight bearing Physical Therapy: Eval and Treat Occupational Therapy: Eval and Treat Problem/Diagnosis (1) Adenocarcinoma of transverse colon: Status: Acute Code(s): C18.4 - Malignant neoplasm of transverse colon Comment: splenic flexure 08/09 LN + (2) S/P left colectomy: Status: Acute Code(s): Z90.49 - Acquired absence of other specified parts of digestive tract Comment: splenic flexure 07/06/22 (3) Anastomotic leak of intestine: Status: Resolved Code(s): K91.89 - Other postprocedural complications and disorders of digestive system Comment: s/p ex lap and redo anastomosis- (4) S/P exploratory laparotomy: Status: Acute Code(s): Z98.890 - Other specified postprocedural states (5) Leukocytosis: Status: Acute Code(s): D72.829 - Elevated white blood cell count, unspecified (6) Severe malnutrition: Status: Acute Code(s): E43 - Unspecified severe protein-calorie malnutrition (7) Hypokalemia: Status: Acute Code(s): E87.6 - Hypokalemia Plan On low fiber diet with high protein ensure continue wound care--may close the skin at beside in 1-2 days if wbc improves. Leukocytosis-- improving- DEBBIE placed in LUQ fluid collection-serosang- cx pending Continue out of bed to chair/PT/OT--likely to TCU tomorrow if wbc continues to improve. Continue IV meropenem, wbc 11.6-- continue to monitor- afebrile--Appreciate ID input Anemia- chronic and acute blood loss with 2 surgeries--8.8 after 1 unit PRBC yesterday Continue Lovenox IV and PPI Urinary retention- on flomax--continue montgomery- pt has failed multiple attempts at removal--will likely need outpt urology f/u Yoli Wesley M.D. Pager: [phone] [facility] [address] [place] [address], [facility]patient [facility], [address] [place] [address] Office: [phone] Allergies/Procedures Done in Hospital Allergies No Known Allergies Allergy (Verified 07/04/22 19:00) Procedures: 2-D Echocardiogram (07/10/22), Blood transfusion (1 unit PRBC 07/19/22), Electroencephalogram, PICC line placement (07/14/22) and - (LUQ IR drain placement 07/17/22) Type of Care/Length of Stay Estimated LOS: Convalescent Care Less Than 30 days Type of Care Needed: Skilled Rehab Potential: Good Prognosis: Good Additional Orders/Day of Discharge Day of Discharge: 07/21/22 Dietary and Speech Recommendations Dietitian Recommendations/Changes: Continue Transitional diet with 120 ml ensure clear and ensure pudding TID to meal trays. Continue ensure plus high protein 4 times per day w/ medpass as tolerated. Follow Up Care Please Follow Up With: Yoli Wesley MD When: I will follow on TCU Discharge Plan Admission Admit Date/Time: 07/04/22 20:28 Attending Provider: Yoli Wesley Primary Care Provider: Francesca Lopez Consulting Providers: Yulia Navarro ; Kody Arizmendi ; Jacob Tran ; Daquan Odell ; Rivera Trejo Instructions Additional Instructions / Restrictions: OK to take ibuprofen 400-600mg PO q6h PRN for pain along with the percocet--caution with tylenol as there is already tylenol in the percocet. Discharge Orders/Prescriptions Prescriptions: New oxycodone-acetaminophen 5-325 mg tablet 1 - 2 tab PO Q6H PRN (Reason: pain) 3 Days Qty: 16 0RF quetiapine 25 mg Tablet 50 mg PO DAILY@1700 Qty: 0 0RF tamsulosin 0.4 mg Capsule 0.4 mg PO DAILY@1730 Qty: 0 0RF metoprolol tartrate 25 mg Tablet 25 mg PO DAILY Qty: 0 0RF potassium, sodium phosphates 280-160-250 mg Powder In Packet 1 packet PO BID Qty: 0 0RF enoxaparin 40 mg/0.4 mL Syringe 40 mg subcut DAILY Qty: 0 0RF Chloraseptic Sore Throat 6-10 mg Lozenge 1 vika mucous membrane Q2H PRN PRN (Reason: SORE THROAT) Qty: 0 0RF acetaminophen 650 mg/20.3 mL Solution 650 mg PO Q6H PRN PRN (Reason: PAIN 1-10) Qty: 0 0RF menthol-zinc oxide [Calmoseptine] 0.44-20.6 % Ointment 1 applic topical BID Qty: 0 0RF Protocol: *Topical Application Instructions APPLICATION INSTRUCTIONS: to buttocks and groin Ensure Plus High Protein 0.08 gram-1.5 kcal/mL Liquid 120 ml PO 4X/DAY Qty: 0 0RF meropenem 1 gram recon soln 1 g IV Q8H 7 Days Qty: 21 0RF Continued amlodipine 5 mg Tablet 5 mg PO DAILY ondansetron 4 mg tablet,disintegrating 4 mg PO Q8H PRN (Reason: nausea and vomiting) Qty: 10 0RF Discontinued metoprolol ta-hydrochlorothiaz 50-25 mg tablet 1 tab PO DAILY Label Comments: Take 1 tablet by mouth as directed Referrals / Follow Up: Francesca Lopez DO [Primary Care Provider] - Disposition Disposition (needs filled in before D/C Order can be placed): Intermediate Facility
--- NOTE | 2022-07-21 10:01 | PN.SURG_ITS ---
Subjective Subjective Patient tolerating diet having bowel function. Patient was seen by ID yesterday continuing meropenem IV currently. Patient white blood cell count 12 today from 11.6. Objective Data Objective Data Vital Signs: Vital Signs Temp Pulse Resp BP Pulse Ox O2 Del Method O2 Flow Rate 98.9 F 114 H 16 149/68 H 98 Room Air 2 07/21/22 09:39 07/21/22 09:49 07/21/22 09:39 07/21/22 09:39 07/21/22 09:39 07/21/22 09:39 07/15/22 09:12 FiO2 4 07/11/22 19:00 Oxygen Flow Rate (L/min) 2 Oxygen Delivery Method [3] Room Air Oxygen Delivery Method [2] Room Air Oxygen Delivery Method [1 ( Room Air Initial Baseline)] Oxygen Delivery Method Room Air Weight: 144 lb 2.917 oz Body Mass Index (BMI) 21.9 Intake & Output: Intake and Output for Last 24 Hours 07/19/22 07/20/22 07/21/22 23:59 23:59 23:59 Intake Total 1219.0833 / 1219.0833 652 / 852 400 / 400 Output Total 928 / 928 545 / 545 350 / 350 Balance 291.0833 / 291.0833 107 / 307 50 / 50 Medical Nutrition Assessment Dietitian: Malnutrition Criteria Met Start: 07/10/22 09:43 Freq: Status: Active Protocol: Document 07/19/22 09:52 RMA (Rec: 07/19/22 09:52 RMA [id number]) Nutrition Malnutrition Evidence of Malnutrition Exists Yes Malnutrition (severe): Acute Illness/Injury Evidenced By Suboptimal Energy Intake ( Severe),Weight Loss (Severe) Intake Problem Inadequate Oral Intake Etiology related to suboptimal appetite and colon obstruction Signs/Symptoms as evidenced by pt report of < 50% PO intake of meals for 1 week [employer] Status Active Problem Clinical Problem Acute Disease or Injury Related Malnutrition Etiology severe, acute malnutrition related to inadequate energy intake d/t GI dysfunction, decreased appetite/intake [employer] Signs/Symptoms as evidenced by unintentional wt loss of 5.3#/3.8% during acute hospitalization; estimated PO intake meeting < 50% of estimated energy needs > 5 days Status Active Problem Recommendation Dietitian Recommendations/Changes Continue Transitional diet with 120 ml ensure clear and ensure pudding TID to meal trays. Continue ensure plus high protein 4 times per day w/ medpass as tolerated. Lab / Micro Data Result Diagrams: 07/21/22 07:50 07/21/22 07:50 Labs: Laboratory Results - last 24 hr 07/21/22 07:50: Sodium 145, Potassium 3.9, Chloride 114 H, Carbon Dioxide 27.0, Anion Gap 4 L, BUN 10, Creatinine 0.87, Estim Creat Clear Calc 69.26, Est GFR (MDRD) Af Amer 111, Est GFR (MDRD) Non-Af 92, BUN/Creatinine Ratio 11.5, Glucose 121 H, Calcium 7.9 L, Phosphorus 1.7 L, Magnesium 1.7 07/21/22 07:50: WBC 12.0 H, RBC 3.24 L, Hgb 8.9 L, Hct 28.6 L, MCV 88.3, MCH 27.5, MCHC 31.1 L, RDW Std Deviation 56.6 H, RDW Coeff of [place] 17.5 H, Plt Count 672 H, MPV 10.0, Immature Gran % (Auto) 0.600, Neut % (Auto) 75.3 H, Lymph % (Auto) 12.9 L, Nash % (Auto) 10.5 H, Eos % (Auto) 0.4, Baso % (Auto) 0.3, Absolute Neuts (auto) 9.0 H, Absolute Lymphs (auto) 1.54, Nucleated RBC % 0 Micro: Microbiology 07/17/22 14:35 Aspirate - Abdominal Gram Stain - Final 07/17/22 14:35 Aspirate - Abdominal Wound Culture - Final No growth aerobically. 07/17/22 14:35 Aspirate - Abdominal Anaerobic Culture - Preliminary 07/14/22 09:30 Stool C. difficile DNA Amplification - Final 07/09/22 04:11 Blood Culture (Wb) - Anticubital Right Blood Culture - Final No growth in 5 days. 07/09/22 03:50 Blood Culture (Wb) - Anticubital Right Blood Culture - Final No growth in 5 days. 07/09/22 03:45 Urine Catheter - Montgomery Urine Culture - Final Culture exhibits no growth. 07/09/22 03:45 Urine Catheter - Montgomery Legionella Antigen - Final 07/09/22 03:45 Urine Catheter - Montgomery Streptococcus pneumoniae Antigen (M - Final Physical Exam Const oriented x3 and no apparent distress Resp normal respiratory effort Cardio regular rate GI GI Narrative: Soft, nondistended, incision dressed?wet-to-dry's and retention sutures x2 in place--healing well, LUQ DEBBIE serosang. Assessment & Plan Assessment/Plan (1) Adenocarcinoma of transverse colon: (2) S/P left colectomy: (3) Anastomotic leak of intestine: (4) S/P exploratory laparotomy: (5) Leukocytosis: (6) Severe malnutrition: PLAN: Plan On low fiber diet with high protein ensure 3 times daily continue wound care--may close the skin at beside when wbc is within normal limits Leukocytosis-- improving- DEBBIE placed in LUQ fluid collection-serosang- cx pending anaerobic Continue out of bed to chair/PT/OT--Plan for d/c to TCU if ok with ID Continue IV meropenem, wbc 12.0-- continue to monitor- afebrile--Appreciate ID input Anemia- chronic and acute blood loss with 2 surgeries--8.9 after 1 unit PRBC 07/19/22 Continue Lovenox IV and PPI Urinary retention- on flomax--continue montgomery- pt has failed multiple attempts at removal--will likely need outpt urology f/u Yoli Wesley M.D. Pager: [phone] [facility] [address] [place] [address], [facility], [address] [place] [address] Office: [phone]
--- NOTE | 2022-07-21 11:19 | DS.PCM_ITS ---
Providers Date of Admission: 07/04/22 Date of Discharge: 07/21/22 Primary Care Physician: Dr. Francesca Lopze, Consultations 07/04/22 21:26 Consult: Gastroenterology Routine Consulting Provider: Bob Gastroenterology Reason for Consult: eval for possible stent--contacted by ER anna EMERGENT Consult: No Notified: Yes Date Notified: 07/04/22 Time Notified: 21:27 Method of Notification: Verbal 07/09/22 00:55 Consult: Cardiology Routine Consulting Provider: Jacob Tran Reason for Consult: SVT EMERGENT Consult: No Notified: Yes Date Notified: 07/09/22 Time Notified: 00:56 Method of Notification: Text 07/12/22 09:43 Consult: Onc/Wound/kiln transfer operator Routine Comment: midline surgical incision 07/19/22 15:53 Consult: Infectious Disease Routine Consulting Provider: Rivera Trejo Reason for Consult: second opinion for Antibotics EMERGENT Consult: No Notified: Yes Date Notified: 07/20/22 Time Notified: 01:46 Method of Notification: Answering Service Reason For Visit: COLON OBSTRUCTION/MASS Diagnosis Discharge Diagnosis (1) Adenocarcinoma of transverse colon: Status: Acute Code(s): C18.4 - Malignant neoplasm of transverse colon (2) S/P left colectomy: Status: Acute Code(s): Z90.49 - Acquired absence of other specified parts of digestive tract (3) Anastomotic leak of intestine: Status: Resolved Code(s): K91.89 - Other postprocedural complications and disorders of digestive system (4) S/P exploratory laparotomy: Status: Acute Code(s): Z98.890 - Other specified postprocedural states (5) Leukocytosis: Status: Acute Code(s): D72.829 - Elevated white blood cell count, unspecified (6) Severe malnutrition: Status: Acute Code(s): E43 - Unspecified severe protein-calorie malnutrition (7) Hypokalemia: Status: Acute Code(s): E87.6 - Hypokalemia Plan On low fiber diet with high protein ensure continue wound care--may close the skin at beside in 1-2 days if wbc improves. Leukocytosis-- improving- DEBBIE placed in LUQ fluid collection-serosang- cx pending Continue out of bed to chair/PT/OT--likely to TCU tomorrow if wbc continues to improve. Continue IV meropenem, wbc 11.6-- continue to monitor- afebrile--Appreciate ID input Anemia- chronic and acute blood loss with 2 surgeries--8.8 after 1 unit PRBC yesterday Continue Lovenox IV and PPI Urinary retention- on flomax--continue montgomery- pt has failed multiple attempts at removal--will likely need outpt urology f/u Yoli Wesley M.D. Pager: [phone] [facility] [address] [place] [address], [facility], [address] [place] [address] Office: [phone] Medications at Discharge Home Medications amlodipine 5 mg tablet 5 mg PO DAILY 06/26/22 ondansetron 4 mg disintegrating tablet 4 mg PO Q8H PRN nausea and vomiting #10 tabs 06/26/22 oxycodone-acetaminophen 5 mg-325 mg tablet 1 - 2 tab PO Q6H PRN pain 3 days #16 tabs 07/08/22 acetaminophen 650 mg/20.3 mL oral solution 650 mg (20.3 mL) PO Q6H PRN PRN PAIN 1-10 #0 mL 07/21/22 benzocaine 6 mg-menthol 10 mg lozenges (Chloraseptic Sore Throat) 1 vika mucous membrane Q2H PRN PRN SORE THROAT #0 ea 07/21/22 enoxaparin 40 mg/0.4 mL subcutaneous syringe 40 mg (0.4 mL) subcut DAILY #0 mL 07/21/22 food supplemt, lactose-reduced 0.08 gram-1.5 kcal/mL oral liquid (Ensure Plus High Protein) 120 ml PO 4X/DAY #0 mL 07/21/22 menthol 0.44 %-zinc oxide 20.6 % topical ointment (Calmoseptine) 1 applic topical BID #0 grams 07/21/22 meropenem 1 gram intravenous solution 1 g IV Q8H 7 days #21 ea 07/21/22 metoprolol tartrate 25 mg tablet 25 mg PO DAILY #0 tabs 07/21/22 potassium, sodium phosphates 280 mg-160 mg-250 mg oral powder packet 1 packet PO BID #0 ea 07/21/22 quetiapine 25 mg tablet 50 mg PO DAILY@1700 #0 tabs 07/21/22 tamsulosin 0.4 mg capsule 0.4 mg PO DAILY@1730 #0 caps 07/21/22 Hospital Course Operations colectomy (07/07/2022-left colectomy due to obstructing colon cancer; exploratory laparotomy 07/11/2022 revision of anastomosis) Procedures 2-D Echocardiogram (07-10-2022), PICC line placement (07-14-2022) and - (07-17-2022 IR left upper quadrant drain placement) Summary of Care Provided Minutes Spent on Discharge: 30 Hospital Course: Patient was initially admitted on 07/05/2022 due to an obstructing colon mass. Patient was taken to surgery on 07/07/2022?an open left colectomy was done. Postoperatively patient did have some bowel movements however was starting to have some increased abdominal pain after a few days along with tachycardia and fever. Repeat CT abdomen pelvis did show increased fluid in the belly along with free air. Patient was taken back to the OR on 07/11/2022 for exploratory l aparotomy, revision of anastomosis due to anastomotic leak. Postoperatively patient continued to be n.p.o. did have severe malnutrition due to not really eating since [place] coming in as well as being n.p.o. after the surgery. Patient did get a PICC line on 07/14/2022 and started on TPN. Patient was able to start a diet on 07/16/2022 and TPN was able to be DC'd. Patient has been tolerating p.o. diet well. Patient has been having a leukocytosis which he has been on IV meropenem continuously since prior to the second operation. Repeat CT abdomen pelvis were done due to the increased leukocytosis which only showed the postoperative fluid collection. Patient's initial DEBBIE placed at the second operation was pulled out by the patient same day of surgery. Thus we had IR place an additional drain in that location as he continued to have a fluid collection there not appear to be outright abscess but he was having leukocytosis. Patient also failed at least 2 attempts to remove the Montgomery as he continued to have urinary retention. Patient is also continue to have hypokalemia and hypomagnesemia which have been monitored and replaced as needed. Patient has been working with PT OT. Patiently discharged to the TCU. Patient will also require an outpatient follow-up with oncology as the colon mass was adenocarcinoma with 2 out of 15 lymph nodes positive. Due to patient's age likely they will not recommend chemotherapy. Physical Exam Const oriented x3 and no apparent distress Resp normal respiratory effort Cardio regular rate GI GI Narrative: Soft, nondistended, incision dressed?wet-to-dry's and retention sutures x2 in place--healing well, LUQ DEBBIE serosang. 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 Continue ensure plus high protein 4 times per day w/ medpass as tolerated. Weight / BMI Weight Weight: 144 lb 2.917 oz Body Mass Index (BMI) 21.9 ABG / Lab / Microbiology Data Result Diagrams: 07/21/22 07:50 07/21/22 07:50 Laboratory: Laboratory Results - last 24 hr 07/21/22 07:50: Sodium 145, Potassium 3.9, Chloride 114 H, Carbon Dioxide 27.0, Anion Gap 4 L, BUN 10, Creatinine 0.87, Estim Creat Clear Calc 69.26, Est GFR (MDRD) Af Amer 111, Est GFR (MDRD) Non-Af 92, BUN/Creatinine Ratio 11.5, Glucose 121 H, Calcium 7.9 L, Phosphorus 1.7 L, Magnesium 1.7 07/21/22 07:50: WBC 12.0 H, RBC 3.24 L, Hgb 8.9 L, Hct 28.6 L, MCV 88.3, MCH 27.5, MCHC 31.1 L, RDW Std Deviation 56.6 H, RDW Coeff of [place] 17.5 H, Plt Count 672 H, MPV 10.0, Immature Gran % (Auto) 0.600, Neut % (Auto) 75.3 H, Lymph % (Auto) 12.9 L, Thomas % (Auto) 10.5 H, Eos % (Auto) 0.4, Baso % (Auto) 0.3, Absolute Neuts (auto) 9.0 H, Absolute Lymphs (auto) 1.54, Nucleated RBC % 0 Microbiology: Microbiology 07/17/22 14:35 Aspirate - Abdominal Gram Stain - Final 07/17/22 14:35 Aspirate - Abdominal Wound Culture - Final No growth aerobically. 07/17/22 14:35 Aspirate - Abdominal Anaerobic Culture - Preliminary 07/14/22 09:30 Stool C. difficile DNA Amplification - Final 07/09/22 04:11 Blood Culture (Wb) - Anticubital Right Blood Culture - Final No growth in 5 days. 07/09/22 03:50 Blood Culture (Wb) - Anticubital Right Blood Culture - Final No growth in 5 days. 07/09/22 03:45 Urine Catheter - Montgomery Urine Culture - Final Culture exhibits no growth. 07/09/22 03:45 Urine Catheter - Montgomery Legionella Antigen - Final 07/09/22 03:45 Urine Catheter - Montgomery Streptococcus pneumoniae Antigen (M - Final D/C Instructions Discharge Diet: - (transitional diet/low fiber --avoid raw fruits and vegetable (& remove skin peels)) May shower in (days): 1 Lifting Restricted to (Lbs): 20 Additional Activity Instructions: No strenuous exercise for 3 weeks. Call your doctor if your incision/area has: Continuous Slow Oozing, Sudden Increased Bleeding, Increased Pain/ Swelling and Increased Redness Call your doctor if you observe: Fever of 101 or Higher Cleanse incision/area with: Soap & Water (water can run over- do not scrub) Additional Dressing/Incision Instructions: Wet-to-dry dressing to the midline wound twice daily, continue retention sutures x2 Please Follow Up With: Yoli Wesley MD When: I will continue to follow patient in the TCU. Meaningful Use Info Meaningful Use Diagnoses (Choose all that apply): None applicable Discharge Plan Admission Admit Date/Time: 07/04/22 20:28 Attending Provider: Yoli Wesley Primary Care Provider: Francesca Lopez Consulting Providers: Yulia Navarro ; Kody Arizmendi ; Jacob Tran ; Daquan Odell ; Rivera Trejo Instructions Additional Instructions / Restrictions: OK to take ibuprofen 400-600mg PO q6h PRN for pain along with the percocet--caution with tylenol as there is already tylenol in the percocet. Discharge Orders/Prescriptions Prescriptions: New oxycodone-acetaminophen 5-325 mg tablet 1 - 2 tab PO Q6H PRN (Reason: pain) 3 Days Qty: 16 0RF quetiapine 25 mg Tablet 50 mg PO DAILY@1700 Qty: 0 0RF tamsulosin 0.4 mg Capsule 0.4 mg PO DAILY@1730 Qty: 0 0RF metoprolol tartrate 25 mg Tablet 25 mg PO DAILY Qty: 0 0RF potassium, sodium phosphates 280-160-250 mg Powder In Packet 1 packet PO BID Qty: 0 0RF enoxaparin 40 mg/0.4 mL Syringe 40 mg subcut DAILY Qty: 0 0RF Chloraseptic Sore Throat 6-10 mg Lozenge 1 vika mucous membrane Q2H PRN PRN (Reason: SORE THROAT) Qty: 0 0RF acetaminophen 650 mg/20.3 mL Solution 650 mg PO Q6H PRN PRN (Reason: PAIN 1-10) Qty: 0 0RF menthol-zinc oxide [Calmoseptine] 0.44-20.6 % Ointment 1 applic topical BID Qty: 0 0RF Protocol: *Topical Application Instructions APPLICATION INSTRUCTIONS: to buttocks and groin Ensure Plus High Protein 0.08 gram-1.5 kcal/mL Liquid 120 ml PO 4X/DAY Qty: 0 0RF meropenem 1 gram recon soln 1 g IV Q8H 7 Days Qty: 21 0RF Continued amlodipine 5 mg Tablet 5 mg PO DAILY ondansetron 4 mg tablet,disintegrating 4 mg PO Q8H PRN (Reason: nausea and vomiting) Qty: 10 0RF Discontinued metoprolol ta-hydrochlorothiaz 50-25 mg tablet 1 tab PO DAILY Label Comments: Take 1 tablet by mouth as directed Referrals / Follow Up: Francesca Lopez DO [Primary Care Provider] - Disposition Disposition (needs filled in before D/C Order can be placed): Care Home Facility
--- NOTE | 2022-07-21 12:38 | PCM.PN.ID ---
Physical Exam Narrative Feeling better, no abd pain, ate some breakfast and lunch, no fever Const alert and no apparent distress Resp normal air movement and clear to auscultation bilaterally Cardio regular rate and regular rhythm GI soft to palpation, non-tender and non-distended Extremity General Extremity: Negative for edema Skin no rashes or lesions noted ID ID: Route of nutrition/ use of supplements: [] Nutritional Intake: [] IV Site: [] Vazquez Catheter: [] Assessment & Plan Assessment/Plan (1) Anastomotic leak of intestine: PLAN: Taken to OR 07/06/22 for L sided colectomy, then 07/10/[address] Wesley for anastamotic leak. Drain placed 07/17/22. Drain cx is neg. On meropenem. Eating solid food, fever resolved, wbc nearly normalized. Cont meropenem for 7 more days, wrote rx. Will follow, d/w Dr. Wesley (2) Adenocarcinoma of transverse colon: (3) S/P left colectomy:
--- NOTE | 2022-07-21 12:56 | CASEMGMT ---
Social Work Per physician, pt is ready for discharge today. Phone call to Amanda in TCU who confirms pt can be admitted today. Orders faxed to TCU. Per RN, pt just left pt room but was informed of discharge today. Disposition: TCU, skilled level of care JUNI Gifford
[2022-07-21 15:05] VITALS: BP 154/78; PULSE 94; RESP 16; TEMP 37.1; O2SAT 96
== END 2022-07-21 15:51 | disposition skilled nursing facility (03) | DRG 329 ==
LOC: ED 20:08 → MS3 21:20 → ICU 07-09 01:06 → MS3 07-14 15:19
PROVIDERS: Family Medicine; Hospitalist; Internal Medicine; Student in an Organized Health Care Education/Training Program; Admitting Provider Surgery; Emergency Provider Student in an Organized Health Care Education/Training Program; PCP Internal Medicine; Visit Provider Surgery
PROC: 0DTG4ZZ Resection of Left Large Intestine, Percutaneous Endoscopic Approach (ICD-10-PCS; CPT 44204; principal; 2022-07-06 07:10)
PROC: 0D1 Gastrointestinal System, Bypass (ICD-10-PCS; CPT 49000; principal; 2022-07-10 16:15)
DX: C18.4 Malignant neoplasm of transverse colon (principal); G93.41 Metabolic encephalopathy; E43 Unspecified severe protein-calorie malnutrition; C77.2 Secondary and unspecified malignant neoplasm of intra-abdominal lymph nodes; I47.1 Supraventricular tachycardia; E87.1 Hypo-osmolality and hyponatremia; D62 Acute posthemorrhagic anemia; N17.9 Acute kidney failure, unspecified; K91.89 Other postprocedural complications and disorders of digestive system; K66.8 Other specified disorders of peritoneum; E86.0 Dehydration; E87.6 Hypokalemia; I10 Essential (primary) hypertension; E83.42 Hypomagnesemia; R33.8 Other retention of urine; R45.1 Restlessness and agitation; Z53.31 Laparoscopic surgical procedure converted to open procedure; Z68.21 Body mass index [BMI] 21.0-21.9, adult; Z79.01 Long term (current) use of anticoagulants; Z79.899 Other long term (current) drug therapy
CPT/HCPCS: 36415; 36569; 71275; 74018; 74176; 74177; 75989; 80048; 80053; 80076; 81001; 81002; 82140; 82378; 82962; 83605; 83690; 83735; 84100; 84132; 84134; 84443; 84478; 85014; 85018; 85025; 85610; 85730; 86850; 86900; 86901; 86920; 86922; 87040; 87070; 87075; 87086; 87205; 87426; 87449; 87493; 88307; 88309; 88341; 88342; 93005; 93306; 94762; 97110; 97116; 97162; 97166; 97530; 97535; 97802; 97803; 99252; 99284; J2185; J7030; J7040; J7050; J7120; P9016; Q9967; A4216; C1760; G0463; J0153; J2405; J3490; J7799

== ENCOUNTER → 2022-07-04 | Outpatient (CLI) | payer MEDICARE, SELFPAY ==
--- NOTE | 2022-07-04 15:48 | CT_ITS ---
We are attempting to reach an attending provider to discuss findings. An addendum with communication details will be sent when the communication is complete. STUDY: CT ABDOMEN AND PELVIS WITH CONTRAST REASON FOR EXAM: Male, 72 years old. ABD PAIN X 3 WEEKS WORSE RECENTLY RADIATION DOSAGE (If Supplied By Facility): CTDIvol = ( 7.51 ) mGy, DLP = ( 305.68 ) mGycm TECHNIQUE: Transaxial images were obtained from the dome of the diaphragm to the symphysis pubis with oral contrast. IV 75mL [id number]-[id number] was administered. Sagittal and coronal images were reconstructed. Individualized dose optimization techniques were used for this CT. COMPARISON: None. FINDINGS: The visualized lung bases are unremarkable. The visualized portions of the heart are within normal limits. Normal liver. Normal gallbladder and extrahepatic biliary system. Normal spleen. Normal pancreas. Normal bilateral adrenal glands. Normal right kidney. Normal left kidney. Normal visualized stomach. There is moderate distention of the small intestine. There is distention of the right colon and transverse colon. There is focal narrowing suspicious for mass at the splenic flexure. Normal caliber descending and rectosigmoid colon. There are surgical clips in the region of the appendix consistent with a prior appendectomy. There is diffuse atherosclerotic calcification of the abdominal aorta, without a demonstrated aneurysm. Normal inferior vena cava. Normal retroperitoneum. Normal urinary bladder. There is enlargement of the prostate gland. There is no free fluid in the abdomen or pelvis. Normal abdominal wall. There are diffuse degenerative changes of the visualized lumbar spine. CT/Abdomen/Pelvis WITH Contrast IMPRESSION: Large bowel obstruction at the splenic flexure with probable mass. Endoscopic and surgical correlation recommended. Electronically Signed: Poli Kay MD at 18:37 EST ,
== END | disposition home or self-care (01) ==
LOC: CT 15:47
PROVIDERS: PCP Internal Medicine; Referring Provider Nurse Practitioner Family; Visit Provider Nurse Practitioner Family
DX: R10.9 Unspecified abdominal pain (principal)
CPT/HCPCS: 74177; Q9967

== ENCOUNTER 2022-07-21 16:07 | Inpatient (IN) | payer MEDICARE, SELFPAY ==
[2022-07-21 16:25] VITALS: BP 136/65; PULSE 89; RESP 16; TEMP 37.3; O2SAT 96
[2022-07-21 16:33] VITALS: PULSE 89; RESP 16; O2SAT 96
--- NOTE | 2022-07-21 17:32 | NURSING ---
Dr. Wesley notified of patient's admission to TCU. Will follow while on unit. To notify her of any issues over the weekend.
[2022-07-21] MEDS: Tamsulosin HCl 0.4 MG Capsule PO (18:04)
[2022-07-21] MEDS: Ensure Plus High Protein 120 ML LIQUID PO (18:05)
[2022-07-21] MEDS: Senna/Docusate Sodium 1 Tablet PO (18:05)
--- NOTE | 2022-07-21 18:50 | RAD_ITS ---
STUDY: X-RAY - ABDOMEN/PELVIS REASON FOR EXAM: Male, 72 years old. Nausea TECHNIQUE: KUB COMPARISON: None. FINDINGS: Normal visualized lung bases. There is an unremarkable bowel gas pattern. There is no demonstrated free abdominal air. Percutaneous drain is noted within the left upper abdomen The visualized liver, spleen and kidneys are grossly normal in size and morphology. Normal soft tissue structures. Lumbar spine demonstrates degenerative change RAD/Abdomen Single View (Portable) IMPRESSION: No acute abnormality status post percutaneous drain placement in left upper quadrant. Electronically Signed: Felix Knox MD at 19:10 EST ,
[2022-07-21] MEDS: Ondansetron ODT 4 MG Tablet PO (19:13)
--- NOTE | 2022-07-21 19:18 | HP.PCM_ITS ---
HPI - General General Date of Admission: 07/21/22 Date of Service: 07/21/22 Chief Complaint: Here for rehab. HPI Narrative 07/04/2022 RIRI MARTIN, is a 72 Male who presents to [facility] Emergency Department with abdominal pain. Large bowel obstruction on CT scan, nausea/vomiting. Loose black stools, pain not very bad, pain persisted for [address] concerning for cancer. IV fluid given for creatinine 1.54. K 2.7, Mag 1.4 Potassium given, Magnesium given. Dr. Wesley recommended stent with Dr. Burk. 07/04/2022 Admit to Hospital. 07/06/2022 Dr. Wesley performed laparoscopic left colectomy converted to open. 07/08/2022 Left upper quadrant abdominal pain. 07/09/2022 Medicine consulted for SVT treated with adenosine, then cardizem drip. 07/09/2022 Tachycardia is sinus tachycardia, stop cardizem drip. Replace electrolytes. 07/10/2022 Echo LVSF normal. EF 60%. Stage 1 diastolic dysfunction. PASP 34mm HG. 07/10/2022 Tachycardia, pain better. 07/10/2022 Dr. Wesley performed exploratory laparotomy excision of anastomosis, reanastomosis of transverse colon to sigmoid colon, placement of DEBBIE drain, retention sutures. 07/11/2022 Abdominal contamination with necrotic anastomosis, patient pulled DEBBIE drain accidentally. IV fluids for dehydration. Pathology showed invasive adenocarcinoma. Zosyn IV for fever, elevated WBC. 07/12/2022 Sore throat from NG tube, feeling better. 07/14/2022 Agitated overnight, Seroquel started, Haldol given. 07/15/2022 Calmer today, Seroquel given earlier. Tachycardia resolved. TPN for low albumin. 07/16/2022 Mild agitation overnight, NG removed. Consider underlying dementia. 07/17/[address] for leukocytosis. 07/18/2022 More awake, interactive, elevated WBC, Hemoglobin 7.4. CT A/P Increased free fluid left paracolic gutter, persistent wall thickening terminal ileum, but improved. Transfuse if hemoglobin less than 7. 07/19/2022 WBC improved, cultures negative to date. 07/20/2022 Await Pre-CERT for TCU. 07/21/2022 Admit to TCU with debility, here for rehabilitation, strengthening, prior to discharge home with . [facility] Medical History Gout Hypertension Home Medications amlodipine 5 mg tablet 5 mg PO DAILY blood pressure 06/26/22 [History Last Taken Unknown] ondansetron 4 mg disintegrating tablet 4 mg PO Q8H PRN nausea and vomiting #10 tabs 06/26/22 [Rx Last Taken Unknown] oxycodone-acetaminophen 5 mg-325 mg tablet 1 - 2 tab PO Q6H PRN pain 3 days #16 tabs 07/08/22 [Rx Last Taken Unknown] acetaminophen 650 mg/20.3 mL oral solution 650 mg (20.3 mL) PO Q6H PRN PRN PAIN 1-10 #0 mL 07/21/22 [Rx Last Taken Unknown] benzocaine 6 mg-menthol 10 mg lozenges (Chloraseptic Sore Throat) 1 vika mucous membrane Q2H PRN PRN SORE THROAT #0 ea 07/21/22 [Rx Last Taken Unknown] enoxaparin 40 mg/0.4 mL subcutaneous syringe 40 mg subcut DAILY blood thinner 07/21/22 [History Last Taken Unknown] food supplemt, lactose-reduced 0.08 gram-1.5 kcal/mL oral liquid (Ensure Plus High Protein) 120 ml PO 4X/DAY supplement 07/21/22 [History Last Taken Unknown] menthol 0.44 %-zinc oxide 20.6 % topical ointment (Calmoseptine) 1 applic topical BID skin care 07/21/22 [History Last Taken Unknown] meropenem 1 gram intravenous solution 1 g IV Q8H antibiotic 07/21/22 [History Last Taken Unknown] metoprolol tartrate 25 mg tablet 25 mg PO DAILY blood pressure/heart rate 07/21/22 [History Last Taken Unknown] potassium, sodium phosphates 280 mg-160 mg-250 mg oral powder packet 1 packet PO BID electrolyte 07/21/22 [History Last Taken Unknown] quetiapine 25 mg tablet 50 mg PO DAILY@1700 mood 07/21/22 [History Last Taken Unknown] tamsulosin 0.4 mg capsule 0.4 mg PO DAILY@1730 prostate 07/21/22 [History Last Taken Unknown] Allergy/AdvReac Type Severity Reaction Status Date / Time No Known Allergies Allergy Verified 07/04/22 19:00 Surgical History S/P exploratory laparotomy S/P left colectomy Social History (Updated 07/21/22 @ 19:[address] Lyndon Dalton MD) household members: spouse Smoking Status: Never smoker alcohol intake: never substance use type: does not use ROS Constitutional Constitutional: Denies chills, fever(s) or weight gain ENT HEENT: Denies headache(s), nasal congestion or nasal discharge Cardiovascular Cardiovascular: Denies chest pain or palpitations Respiratory/Chest Respiratory/Chest: Denies cough, excessive phlegm production or shortness of breath with exertion Gastrointestinal Gastrointestinal: Denies abdominal pain, nausea or vomiting Genitourinary Genitourinary: Denies dysuria Musculoskeletal Musculoskeletal: Denies joint pain or joint swelling Integumentary Integumentary: Denies rash or wounds Neurologic Neurologic: Denies focal weakness, numbness or tingling Psychiatric Psychiatric: Denies anxiety, auditory hallucinations, depression, homicidal ideation or suicidal ideation Vital Signs Vital Signs Vital Signs: 07/21/22 16:25 Temperature 99.1 F Temperature Source Temporal Pulse Rate 89 Respiratory Rate 16 Blood Pressure 136/65 H Blood Pressure Mean 88 Blood Pressure Source Monitor Blood Pressure Position Sitting Blood Pressure Location Left Arm Pulse Ox 96 Oxygen Delivery Method Room Air Weight Weight: 65.4 kg Physical Exam Const alert General Appearance: cooperative HEENT normocephalic Eyes PERRL and EOMs intact bilaterally Neck supple, no JVD and no carotid bruits Resp normal respiratory effort, normal air movement and clear to auscultation bilaterally Cardio regular rate and regular rhythm GI normal to inspection, nondistended, normoactive bowel sounds, non-tender and non -distended GI Narrative: Midline abdominal incision, retention sutures, DEBBIE drain. Superior incision with packing. No sign of infection. Extremity normal capillary refill General Extremity: Negative for edema Skin no rashes or lesions noted General Skin Exam: no breakdown Psych affect normal Appearance: appropriate Results Radiology Impression KUB X-Ray 07/21/22 18:50 IMPRESSION: No acute abnormality status post percutaneous drain placement in left upper quadrant. Electronically Signed: Felix Knox MD at 19:10 EST , Assessment & Plan Assessment/Plan (1) Debility: (2) Large bowel obstruction: (3) Adenocarcinoma of transverse colon: (4) S/P exploratory laparotomy: (5) S/P left colectomy: (6) Anastomotic leak of intestine: (7) Sinus tachycardia by electrocardiogram: (8) Encephalopathy: (9) Gout: (10) Hypertension: (11) History of prostate cancer: PLAN: Plan 72 year old male with below past medical history hospitalized for large bowel obstruction secondary to transverse colon cancer, underwent left colectomy, than later resection of necrotic anastomosis with reanastomosis of large bowel, complicated by sinus tachycardia, peritonitis, encephalopathy, admitted to TCU with debility, here for rehabilitation, strengthening, prior to discharge home with . * Debility - PT/OT. * Aphasia - ST. * Pain - Tylenol 1000mg q6h prn pain (1-5), Oxycodone 5mg q4h prn pain (6-10). * Bowel - senna/colace 1 tablet bid, Dulcolax 10mg pr x 1 dose. * Adult immunization - Administer pneumonia vaccine, covid19 vaccine, flu vaccine as appropriate. * DVT prophylaxis - Lovenox 40mg sc daily. * Hypertension - Metoprolol 25mg daily, Amlodipine 5mg daily. * Sore throat - Cepacol 1 lozenge q2h prn. * Nutrition - Ensure 120ml 4x/day. * Skin irritation - Calmoseptine topical bid. * Large bowel obstruction 2/2 transverse colon cancer s/p resection - Consult Dr. Wesley, Meropenem 1gm iv q8h. * Hypophosphatemia - K-phos 1 packet bid. * Nausea - Zofran odt 4mg q6h prn. * Encephalopathy - Seroquel 50mg dinner, stable use, GDR not indicated. * BPH - Tamsulosin 0.4mg daily.
--- NOTE | 2022-07-21 21:13 | NURSING ---
Dr. Wesley notified of nausea/vomiting, order for stat KUB. Dr. Wesley called to unit after KUB completed and gave verbal orders for dulcolax suppository x1 now, per her Dr. Wheeler to see patient tomorrow.
[2022-07-21] MEDS: Bisacodyl 10 MG Suppository RC (22:18)
[2022-07-21] MEDS: Na Biphos/Potassium Phosphate PACKET 1 PACKET PO (22:28)
[2022-07-21] MEDS: QUEtiapine 25 MG Tablet 50 MG PO (22:28)
[2022-07-22] MEDS: amLODIPine 5 MG Tablet PO (06:27)
[2022-07-22] MEDS: Senna/Docusate Sodium 1 Tablet PO ×2 (06:27→17:11)
[2022-07-22] MEDS: Enoxaparin 40 MG/0.4 ML Syringe SC (06:27)
[2022-07-22 06:33] VITALS: BP 106/51; PULSE 79
[2022-07-22] MEDS: Metoprolol Tartrate 25 MG Tablet PO (06:33)
[2022-07-22] MEDS: Na Biphos/Potassium Phosphate PACKET 1 PACKET PO ×2 (06:34→17:11)
[2022-07-22] MEDS: Menthol/Lanolin/Calamine/Znox 113 GM Tube 1 APPLIC TOPICAL ×3 (06:46→21:31)
[2022-07-22] MEDS: Ensure Plus High Protein 120 ML LIQUID PO ×4 (06:46→21:31)
[2022-07-22 08:04] LABS: Absolute Lymphocyte Count 2.09 X10^3/uL (0.83-4.51); Absolute Neutrophil Count 9.2 X10^3/uL (2.0-7.7); Basophil# 0.05 X10^3/uL; Basophil% 0.4 % (0-1); Eosinophil# 0.05 X10^3/uL; Eosinophils% 0.4 % (0-5); Hematocrit 29.3 % (40-54); Hemoglobin 8.9 g/dL (13.0-16.5); Lymphocyte # 2.09 X10^3/ul (0.83-4.51); Lymphocyte % 16.7 % (19-41); Mean Corp Hgb Conc 30.4 g/dL (32-36); Mean Corpuscular Hgb 27.4 pg (27.0-32.0); Mean Corpuscular Volume 90.2 fL (80-94); Mean Platelet Vol. 9.6 fl (6.2-12.0); Monocyte# 1.05 X10^3/uL; Monocyte% 8.4 % (0-10); NRBC Flagged by Analyzer 0 % (0-5); Neutrophil # 9.19 X10^3/uL (2.7-7.7); Neutrophil % 73.6 % (47-70); Platelet Count 691 K/mm3 (150-450); RBC Distribution Width CV 17.6 % (11.6-14.6); RBC Distribution Width SD 58.2 fl (35.1-43.9); Red Blood Count 3.25 M/mm3 (4.6-6.2); White Blood Count 12.5 K/mm3 (4.4-11.0)
[2022-07-22 08:14] LABS: Anion Gap 6 (5-15); BUN 8 mg/dL (7-18); BUN/Creat Ratio 9.8 RATIO (10-20); Calcium,Total 7.7 mg/dL (8.5-10.1); Chloride 111 mmol/L (98-107); Creatinine, Serum 0.81 mg/dL (0.70-1.30); EST Glomerular Filtration Rate 99 mL/min (>60); Est Glom Filt Rate - Afr Amer 120 mL/min (>60); Estimated Creatinine Clearance 74.39 ml/min; Glucose 107 mg/dL (74-106); Potassium 3.7 mmol/L (3.5-5.1); Sodium Level 142 mmol/L (136-145)
--- NOTE | 2022-07-22 08:49 | PN_ITS ---
Progress Note The patient had some nausea and vomiting last night. KUB was ordered which was normal. This morning the patient has a soft nondistended abdomen and he tolerated more than half of his breakfast and he says he is passing flatus. Unsure as to the reason for the nausea and vomiting last night but I do not believe is obstructive. Continue to observe. Continue diet. Fermín Stroud MD Pager: [facility] [address] [place] [address], [address] [place] [address] Office:
[2022-07-22 10:00] VITALS: PULSE 79; RESP 18; O2SAT 97
[2022-07-22] MEDS: Tuberculin,Purif.prot.deriv. 50 TU/ML Vial 0.1 ML ID (10:40)
[2022-07-22] MEDS: 0.9% Saline Lock 10 ML Syringe IV ×2 (13:43→21:33)
[2022-07-22 15:33] VITALS: BP 144/70; PULSE 99; RESP 18; TEMP 36.6; O2SAT 97
[2022-07-22] MEDS: QUEtiapine 25 MG Tablet 50 MG PO (17:11)
[2022-07-22] MEDS: Tamsulosin HCl 0.4 MG Capsule PO (17:11)
[2022-07-23 06:20] VITALS: BP 128/63; PULSE 95
[2022-07-23] MEDS: Metoprolol Tartrate 25 MG Tablet PO (06:20)
[2022-07-23] MEDS: Enoxaparin 40 MG/0.4 ML Syringe SC (06:20)
[2022-07-23] MEDS: amLODIPine 5 MG Tablet PO (06:21)
[2022-07-23] MEDS: Na Biphos/Potassium Phosphate PACKET 1 PACKET PO ×2 (06:21→17:20)
[2022-07-23] MEDS: Senna/Docusate Sodium 1 Tablet PO ×2 (06:21→17:21)
[2022-07-23] MEDS: 0.9% Saline Lock 10 ML Syringe IV ×3 (06:22→23:11)
[2022-07-23] MEDS: Menthol/Lanolin/Calamine/Znox 113 GM Tube 1 APPLIC TOPICAL ×2 (08:35→21:38)
[2022-07-23] MEDS: Ensure Plus High Protein 120 ML LIQUID PO ×2 (12:08→17:20)
[2022-07-23] MEDS: Ondansetron ODT 4 MG Tablet PO (13:44)
[2022-07-23 13:49] VITALS: BP 125/56; PULSE 105; RESP 16; TEMP 37; O2SAT 91
[2022-07-23 13:58] LABS: Absolute Lymphocyte Count 1.98 X10^3/uL (0.83-4.51); Absolute Neutrophil Count 9.9 X10^3/uL (2.0-7.7); Basophil# 0.05 X10^3/uL; Basophil% 0.4 % (0-1); Eosinophil# 0.04 X10^3/uL; Eosinophils% 0.3 % (0-5); Hematocrit 32.8 % (40-54); Lymphocyte # 1.98 X10^3/ul (0.83-4.51); Lymphocyte % 15.4 % (19-41); Mean Corp Hgb Conc 30.5 g/dL (32-36); Mean Corpuscular Hgb 27.1 pg (27.0-32.0); Mean Corpuscular Volume 88.9 fL (80-94); Mean Platelet Vol. 9.3 fl (6.2-12.0); Monocyte# 0.85 X10^3/uL; Monocyte% 6.6 % (0-10); NRBC Flagged by Analyzer 0 % (0-5); Neutrophil # 9.87 X10^3/uL (2.7-7.7); Neutrophil % 76.7 % (47-70); POSITIVE COUNT YES; RBC Distribution Width CV 17.2 % (11.6-14.6); RBC Distribution Width SD 55.8 fl (35.1-43.9); Red Blood Count 3.69 M/mm3 (4.6-6.2); White Blood Count 12.9 K/mm3 (4.4-11.0)
[2022-07-23 14:02] LABS: Differential Indicated SCAN CRITERIA MET; Platelet Count 755 K/mm3 (150-450)
[2022-07-23 14:12] LABS: Anion Gap 10 (5-15); BUN 10 mg/dL (7-18); BUN/Creat Ratio 12.3 RATIO (10-20); Calcium,Total 7.9 mg/dL (8.5-10.1); Chloride 109 mmol/L (98-107); Creatinine, Serum 0.81 mg/dL (0.70-1.30); EST Glomerular Filtration Rate 100 mL/min (>60); Est Glom Filt Rate - Afr Amer 120 mL/min (>60); Estimated Creatinine Clearance 74.39 ml/min; Glucose 127 mg/dL (74-106); Magnesium 1.7 mg/dL (1.6-2.6); Phosphorus 1.8 mg/dL (2.5-4.9); Potassium 3.1 mmol/L (3.5-5.1); Sodium Level 145 mmol/L (136-145)
--- NOTE | 2022-07-23 14:12 | RAD_ITS ---
EXAM: XR CHEST, 1 VIEW CLINICAL INDICATION: Leukocytosis. TECHNIQUE: Frontal view of the chest. This report was created using [employer] report generation technology. COMPARISON: 06/26/2022. FINDINGS: LUNGS AND PLEURAL SPACES: Partial atelectasis in left base and left pleural fluid. No suspicious infiltrates. No pneumothorax. HEART: Unremarkable. Cardiac silhouette not enlarged. MEDIASTINUM: Central airways and mediastinal contour are unremarkable. BONES/JOINTS: Unremarkable. SOFT TISSUES: Unremarkable. TUBES, LINES AND DEVICES: Right PICC line catheter tip is in the distal SVC. RAD/Chest 1 View (Portable) IMPRESSION: Partial atelectasis of the left lung base and left pleural fluid, new when compared to 06/26/2022. Electronically Signed: Samuel Rosales MD at 14:44 EST ,
[2022-07-23 14:23] LABS: Differential Comment SCANNED
[2022-07-23 14:24] LABS: Platelet Estimate MKD INC (ADEQ)
[2022-07-23 15:20] LABS: Bacteria 0 SEEN /hpf (None Seen); Mucous, Urine 0 SEEN /hpf (<or=2+)
[2022-07-23 15:40] LABS: Color, Urine Yellow (Yellow); Glucose, Dipstick 50 mg/dl (Normal); Ketone-Dipstick 15 mg/dl (Negative); Leukocyte Esterase-Dipstick 25 /ul (Negative); Nitrite-Dipstick Negative (Negative); Occult Blood-Urine 150 /ul (Negative); Protein-Dipstick 100 mg/dl (Negative); Specific Gravity, Urine 1.025 (1.002-1.030); Urine Bilirubin Dipstick Negative (Negative); Urine Clarity Sl. Cloudy (Clear); Urine Urobilinogen Normal (Normal)
[2022-07-23 15:54] LABS: Hyaline Cast 0-5 SEEN /lpf (0-5); Red Blood Cells-Urine 0-5 SEEN /hpf (0-5); Squamous Epithelial Cells - UA 0-5 SEEN /hpf (0-5); Triple Phosphate Crystals Ur 2+ /hpf (<or=1+); White Blood Cells 0-5 SEEN /hpf (0-5)
[2022-07-23 16:00] VITALS: BP 132/79; PULSE 95; RESP 16; TEMP 37.6; O2SAT 93
[2022-07-23] MEDS: Tamsulosin HCl 0.4 MG Capsule PO (17:20)
[2022-07-23] MEDS: QUEtiapine 25 MG Tablet 50 MG PO (17:22)
--- NOTE | 2022-07-23 17:41 | NURSING ---
dr johnson notified of cxr results, wants pt to be sure he using I.S. 10x/hr while awake. educated pt and pt demonstrated use.
[2022-07-23 21:49] VITALS: PULSE 83; RESP 14; O2SAT 91
--- NOTE | 2022-07-23 22:56 | NURSING ---
Confirmed compatibility between Merrem and K-phos IV and the ok to be ran @ the same time w/ pharmacist.
[2022-07-24] MEDS: Enoxaparin 40 MG/0.4 ML Syringe SC (05:51)
[2022-07-24] MEDS: amLODIPine 5 MG Tablet PO (05:52)
[2022-07-24] MEDS: Senna/Docusate Sodium 1 Tablet PO (05:52)
[2022-07-24 05:53] VITALS: BP 139/70; PULSE 100
[2022-07-24] MEDS: Metoprolol Tartrate 25 MG Tablet PO (05:53)
--- NOTE | 2022-07-24 06:08 | NURSING ---
When this nurse has stripped DEBBIE drain tubing, no drainage noted in tubing. No drainage noted in bulb to empty either.
[2022-07-24 06:28] VITALS: O2SAT 93
[2022-07-24] MEDS: Na Biphos/Potassium Phosphate PACKET 1 PACKET PO ×2 (06:57→17:01)
[2022-07-24 07:57] LABS: Absolute Lymphocyte Count 1.38 X10^3/uL (0.83-4.51); Absolute Neutrophil Count 9.5 X10^3/uL (2.0-7.7); Basophil# 0.04 X10^3/uL; Basophil% 0.3 % (0-1); Eosinophil# 0.04 X10^3/uL; Eosinophils% 0.3 % (0-5); Hemoglobin 8.4 g/dL (13.0-16.5); Lymphocyte # 1.38 X10^3/ul (0.83-4.51); Lymphocyte % 11.6 % (19-41); Mean Corpuscular Hgb 26.8 pg (27.0-32.0); Mean Corpuscular Volume 89.5 fL (80-94); Mean Platelet Vol. 9.5 fl (6.2-12.0); Monocyte# 0.89 X10^3/uL; Monocyte% 7.5 % (0-10); NRBC Flagged by Analyzer 0 % (0-5); Neutrophil # 9.49 X10^3/uL (2.7-7.7); Neutrophil % 79.8 % (47-70); Platelet Count 680 K/mm3 (150-450); RBC Distribution Width CV 17.2 % (11.6-14.6); RBC Distribution Width SD 56.6 fl (35.1-43.9); Red Blood Count 3.13 M/mm3 (4.6-6.2); White Blood Count 11.9 K/mm3 (4.4-11.0)
[2022-07-24] MEDS: Acetaminophen 500 MG Tablet 1000 MG PO (08:03)
[2022-07-24] MEDS: 0.9% Saline Lock 10 ML Syringe IV ×2 (08:04→17:02)
[2022-07-24 08:11] LABS: Anion Gap 8 (5-15); BUN 10 mg/dL (7-18); BUN/Creat Ratio 13.7 RATIO (10-20); Calcium,Total 7.5 mg/dL (8.5-10.1); Chloride 110 mmol/L (98-107); Creatinine, Serum 0.73 mg/dL (0.70-1.30); EST Glomerular Filtration Rate 112 mL/min (>60); Est Glom Filt Rate - Afr Amer 136 mL/min (>60); Estimated Creatinine Clearance 60.26 ml/min; Glucose 98 mg/dL (74-106); Magnesium 1.6 mg/dL (1.6-2.6); Phosphorus 4.1 mg/dL (2.5-4.9); Potassium 3.8 mmol/L (3.5-5.1); Sodium Level 144 mmol/L (136-145)
[2022-07-24 10:00] VITALS: PULSE 74; RESP 18; O2SAT 96
[2022-07-24] MEDS: Ensure Plus High Protein 120 ML LIQUID PO ×2 (11:51→21:54)
[2022-07-24] MEDS: Menthol/Lanolin/Calamine/Znox 113 GM Tube 1 APPLIC TOPICAL ×2 (11:51→21:57)
[2022-07-24] MEDS: Magnesium Chloride 64 MG Delay Rel.Tablet 128 MG PO ×2 (11:51→17:01)
--- NOTE | 2022-07-24 12:04 | CASEMGMT ---
Addendum entered by Olga Briceno 07/24/22 12:06: Per chart review from acute, pt does not have advanced directives and requested to complete them. Pt does have ST order for confusion. SW to follow up with . Addendum entered by Olga Briceno 07/24/22 12:05: Pt agreed to have bring in copy of advanced directives Original Note: Social Work Met with patient to complete initial assessment. Introduced self and role. Verified contacts. Discussed code status and MOLST form. Pt confirms full code. MOLST placed in Dr folder. Educated to [facility] insurance with [employer] 07/24 and continued stay is not guaranteed with each review. Pt's goal is to return home with . SW to continue to follow. HIPOLITO Jara
[2022-07-24 13:55] LABS: Pathologist Review Reviewed
--- NOTE | 2022-07-24 15:11 | PCM.PN.DRR ---
TCU RX Drug Regimen Review Subjective: TCU Admission. 72 YOM presented to the ER with abdominal pain. 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 Admitted to TCU with debility for strengthening and rehabilitation. Objective: Allergies No Known Allergies Allergy (Verified 07/04/22 19:00) Current Medications Generic Name Dose Route Start Last Admin Trade Name Freq PRN Reason Stop Dose Admin Acetaminophen 1,000 mg 07/21/22 19:46 07/24/22 08:03 Acetaminophen 500 Mg Tablet PO 1,000 mg Q6H PRN PRN Administration Pain Score 1-5 Amlodipine Besylate 5 mg 07/22/22 06:00 07/24/22 05:52 Amlodipine 5 Mg Tablet PO 5 mg DAILY NOMI Administration Calamine/Phenol 1 applic 07/21/22 22:00 07/24/22 11:51 Menthol/Lanolin/Calamine/Znox 113 Gm Tube TOPICAL 1 applic 1000,2200 NOMI Administration Protocol Enoxaparin Sodium 40 mg 07/22/22 06:00 07/24/22 05:51 Enoxaparin 40 Mg/0.4 Ml Syringe SC 40 mg DAILY NOMI Administration Heparin Sodium (Beef Lung) 50 units 07/21/22 16:57 Heparin Pf Lock 10 Units/Ml 50 Units/5 Ml Syringe IV UD PRN PICC Line Heparin Flush Meropenem 1 gm/ Sodium 120 mls @ 33 mls/hr 07/21/22 22:00 07/24/22 13:51 Chloride IV 07/28/22 22:01 33 mls/hr Q8 NOMI Administration Sodium Chloride 250 mls @ 15 mls/hr 07/21/22 16:57 07/24/22 06:04 IV 15 mls/hr .[id number] PRN Administration Saline Flush Sodium Chloride 250 mls @ 15 mls/hr 07/21/22 16:57 07/24/22 02:25 IV 0 mls/hr .[id number] PRN Infusion Additional IVPB Infusion Magnesium Chloride 128 mg 07/24/22 11:00 07/24/22 11:51 Magnesium Chloride 64 Mg Delay Rel.Tablet PO 07/26/22 06:00 128 mg BID NOMI Administration Metoprolol Tartrate 25 mg 07/22/22 06:00 07/24/22 05:53 Metoprolol Tartrate 25 Mg Tablet PO 25 mg DAILY NOMI Administration Nutritional Formula (Lactose Free) 120 ml 07/21/22 17:00 07/24/22 11:51 Ensure Plus High Protein 120 Ml Liquid PO 120 ml 4X/DAY NOMI Administration Ondansetron HCl 4 mg 07/21/22 19:04 07/23/22 13:44 Ondansetron Odt 4 Mg Tablet PO 4 mg Q6H PRN PRN Administration NAUSEA/VOMITING Oxycodone HCl 5 mg 07/21/22 19:46 Oxycodone 5 Mg Tablet PO Q6H PRN PRN Pain Score 6-10 Potassium Phos/Sodium Phos 1 packet 07/21/22 18:00 07/24/22 06:57 Na Biphos/Potassium Phosphate Packet PO 1 packet BID NOMI Administration Quetiapine Fumarate 50 mg 07/21/22 17:00 07/23/22 17:22 Quetiapine 25 Mg Tablet PO 50 mg DINNER NOMI Administration Senna/Docusate Sodium 1 tablet 07/21/22 18:00 07/24/22 05:52 Senna/Docusate Sodium 1 Tablet PO 1 tablet BID NOMI Administration Sodium Chloride 10 - 40 ml 07/21/22 16:57 07/24/22 08:04 0.9% Saline Lock 10 Ml Syringe IV 30 ml UD PRN Administration Open End PICC Flush Sodium Chloride 10 - 40 ml 07/21/22 16:57 0.9 % Nacl (Sterile) Posiflush 10 Ml IV UD PRN Port access or dressing change Tamsulosin HCl 0.4 mg 07/21/22 17:30 07/23/22 17:20 Tamsulosin Hcl 0.4 Mg Capsule PO 0.4 mg DAILY@1730 [facility] Administration Throat Lozenges 1 lozenge 07/21/22 16:37 Benzocaine/Menthol 1 Lozenge MUCOUS MEM Q2H PRN PRN SORE THROAT Tuberculin PPD 0.1 ml 07/29/22 10:00 Tuberculin,Purif.Prot.Deriv. 50 Tu/Ml Vial ID 07/29/22 10:01 X1 ONE Problem List (Last Reviewed 07/21/22 @ 19:[address] Lyndon Dalton MD) History of prostate cancer (Acute) Hypertension (Chronic) Gout (Acute) Encephalopathy (Acute) Large bowel obstruction (Acute) Debility (Acute) S/P exploratory laparotomy (Acute) S/P left colectomy (Acute) Adenocarcinoma of transverse colon (Acute) Sinus tachycardia by electrocardiogram (Acute) Vital Signs Temp Pulse Resp BP Pulse Ox O2 Del Method 99.6 F H 100 14 139/70 H 93 Room Air 07/23/22 16:00 07/24/22 05:53 07/23/22 21:49 07/24/22 05:53 07/24/22 06:28 07/24/22 06:28 Oxygen Delivery Method Room Air Weight: 65.4 kg Sodium 144 mmol/L (136-145) 07/24/22 07:47 Potassium 3.8 mmol/L (3.5-5.1) 07/24/22 07:47 Chloride 110 mmol/L (98-107) H 07/24/22 07:47 Carbon Dioxide 26.0 mmol/L (21.0-32.0) 07/24/22 07:47 Anion Gap 8 (5-15) 07/24/22 07:47 BUN 10 mg/dL (7-18) 07/24/22 07:47 Creatinine 0.73 mg/dL (0.70-1.30) 07/24/22 07:47 Est GFR (MDRD) Af Amer 136 mL/min (>60) 07/24/22 07:47 Est GFR (MDRD) Non-Af 112 mL/min (>60) 07/24/22 07:47 BUN/Creatinine Ratio 13.7 RATIO (10-20) 07/24/22 07:47 Glucose 98 mg/dL (74-106) 07/24/22 07:47 Assessment/Plan: 1. Pain: acetaminophen 1000mg PO Q6H PRN pain 1-5 and oxycodone 5mg PO Q4H PRN pain 6-10. Resident has had 1 dose of acetaminophen for a generalized pain of 4 and no doses of oxycodone. Please continue to monitor for increased pain and PRN usage. 2. Bowel: senna/docusate 1T PO BID. Please continue to monitor for constipation. Last documented bowel movement was 07/23. 3. Hypertension: metoprolol tartrate 25mg PO daily and amlodipine 5mg PO daily. Please continue to monitor BP (last 139/70), HR (last 100) and swelling. 4. Large bowel obstruction 2/2 transverse colon cancer s/p resection: meropenem 1gm IV Q8 thru 07/28/22. Please continue to monitor for S/S of infection, renal function and diarrhea. 5. Hypophosphatemia: k-phos 1 pack PO BID. Please continue to monitor potassium (last 3.8mmol/L) and phosphorus (last 4.1mg/dL). 6. BPH: tamsulosin 0.4mg PO daily. Please continue to monitor for S/S of BPH and BP. 7. Nausea: ondansetron ODT 4mg PO Q6H PRN nausea/vomiting. Resident has had 1 dose. Please continue to monitor for S/S of nausea/vomiting and PRN usage. 8. Sore throat: Cepacol 1 lozenge MM Q2H PRN sore throat. Resident has not had a dose. Please continue to monitor for sore throat and PRN usage. 9. DVT prophylaxis: enoxaparin 40mg SC daily. Please continue to monitor for S/S of bleeding, hemoglobin (last 8.4g/dL), platelets (last 680,000) and renal function. Assessment/Plan for indications treated with psychotropic medications: 1. Encephalopathy: quetiapine 50mg PO dinner. Please see physician note regarding GDR. Please continue to monitor delirium/dementia/falls/fractures (BEERs criteria medication), sodium, and suicidal ideation (black box warning). Medical chart and medication regimen reviewed. The following medication irregularities or issues were identified: None Date of Note:: 07/24/22
--- NOTE | 2022-07-24 15:17 | WOUNDNOTE ---
wound photo: abdomen
--- NOTE | 2022-07-24 15:28 | NURSING ---
Poiser Note; Activity Asset Complete Wade is independent in his choice of daily activities, he stated he can not use his hands but can read and is fine w/the newspaper or daily chronicle. He will watch tv however needs asset: turning on and changing the channels. Wade is fine w/visit from the housing director as well as the therapy dog. Family will visit w/him daily.
[2022-07-24 15:53] VITALS: BP 130/58; PULSE 93; RESP 16; TEMP 37; O2SAT 92
--- NOTE | 2022-07-24 16:21 | NURSING ---
Dr. Carmona to unit to assess pt. Labs ordered for tomorrow and stool softners changed to PRN. Protonix IV added to start today.
[2022-07-24] MEDS: Tamsulosin HCl 0.4 MG Capsule PO (17:01)
[2022-07-24] MEDS: QUEtiapine 25 MG Tablet 50 MG PO (17:01)
--- NOTE | 2022-07-24 17:10 | PCM.PN.SRG ---
Subjective Subjective Pt has not been eating as well- didn't eat breakfast or lunch but did take the protein drinks today. Pt denies abd pain. DEBBIE output minimal-ss. Objective Data Objective Data Vital Signs: Vital Signs Temp Pulse Resp BP Pulse Ox O2 Del Method 98.6 F 93 16 130/58 H 92 Room Air 07/24/22 15:53 07/24/22 15:53 07/24/22 15:53 07/24/22 15:53 07/24/22 15:53 07/24/22 15:53 Oxygen Delivery Method Room Air Weight: 144 lb 2.917 oz Intake & Output: Intake and Output for Last 24 Hours 07/22/22 07/23/22 07/24/22 23:59 23:59 23:59 Intake Total 580 / 580 1401.7 / 1401.7 1587.1233 / 1587.1233 Output Total 1400 / 1400 950 / 950 1250 / 1250 Balance -820 / -820 451.7 / 451.7 337.1233 / 337.1233 Medical Nutrition Assessment Dietitian: Malnutrition Criteria Met Start: 07/24/22 16:03 Freq: Status: Active Protocol: Document 07/24/22 16:03 ISELA (Rec: 07/24/22 16:03 SLA [id number]) Nutrition Malnutrition Evidence of Malnutrition Exists Yes Malnutrition (severe): Acute Illness/Injury Evidenced By Suboptimal Energy Intake ( Severe),Weight Loss (Severe) Clinical Problem Acute Disease or Injury Related Malnutrition Etiology severe, acute malnutrition related to inadequate energy intake d/t GI dysfunction, decreased appetite/intake 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 Lab / Micro Data Result Diagrams: 07/24/22 07:47 07/24/22 07:47 Labs: Laboratory Results - last 24 hr 07/23/22 13:50: Diff Path Review Reviewed 07/24/22 07:47: WBC 11.9 H, RBC 3.13 L, Hgb 8.4 L, Hct 28.0 L, MCV 89.5, MCH 26.8 L, MCHC 30.0 L, RDW Std Deviation 56.6 H, RDW Coeff of [place] 17.2 H, Plt Count 680 H, MPV 9.5, Immature Gran % (Auto) 0.500, Neut % (Auto) 79.8 H, Lymph % (Auto) 11.6 L, [place] % (Auto) 7.5, Eos % (Auto) 0.3, Baso % (Auto) 0.3, Absolute Neuts (auto) 9.5 H, Absolute Lymphs (auto) 1.38, Nucleated RBC % 0 07/24/22 07:47: Sodium 144, Potassium 3.8, Chloride 110 H, Carbon Dioxide 26.0, Anion Gap 8, BUN 10, Creatinine 0.73, Estim Creat Clear Calc 60.26, Est GFR (MDRD) Af Amer 136, Est GFR (MDRD) Non-Af 112, BUN/Creatinine Ratio 13.7, Glucose 98, Calcium 7.5 L, Phosphorus 4.1, Magnesium 1.6 Micro: Microbiology 07/23/22 05:00 Nasal Secretion SARS-CoV-2 Antigen (Rapid) - Final Physical Exam Const oriented x3 and no apparent distress Resp normal respiratory effort Cardio regular rate GI GI Narrative: Soft, nondistended, incision dressed?wet-to-dry's and retention sutures x2 in place--healing well, LUQ DEBBIE serosang. Assessment & Plan Assessment/Plan (1) Adenocarcinoma of transverse colon: (2) S/P left colectomy: (3) Anastomotic leak of intestine: (4) S/P exploratory laparotomy: (5) Leukocytosis: (6) Severe malnutrition: PLAN: Plan On low fiber diet with high protein ensure 3 times daily due to malnutrition; will restart protonix IV as that maybe why he isn't eating as well. loose stools- hold senna hypomag/hypokalemia/hypophos--continue to monitor and replace as needed. continue wound care--may close the skin at beside when wbc is within normal limits Leukocytosis-- improving- DEBBIE placed in LUQ fluid collection-ss- cx negative- will d/c soon Continue out of bed to chair/PT/OT Continue IV meropenem, wbc 11.9-- think it is due to some atelectasis/pleural effusions--pt has some difficulty with IS instructions Anemia- chronic and acute blood loss with 2 surgeries--8.4 after 1 unit PRBC 07/19/22 Continue Lovenox SQ Urinary retention- on flomax--continue montgomery- pt has failed multiple attempts at removal--keep 1 week from last insertion. Yoli Wesley M.D. Pager: [phone] [facility] [address] [place] [address], [facility], [address] [place] [address] Office: [phone]
[2022-07-25] MEDS: 0.9% Saline Lock 10 ML Syringe IV ×2 (04:56→08:46)
[2022-07-25 05:02] VITALS: BP 141/65; PULSE 92
[2022-07-25] MEDS: Metoprolol Tartrate 25 MG Tablet PO (05:02)
[2022-07-25] MEDS: amLODIPine 5 MG Tablet PO (05:02)
[2022-07-25] MEDS: Magnesium Chloride 64 MG Delay Rel.Tablet 128 MG PO ×2 (05:02→17:47)
[2022-07-25] MEDS: Na Biphos/Potassium Phosphate PACKET 1 PACKET PO ×2 (05:02→17:47)
[2022-07-25] MEDS: Enoxaparin 40 MG/0.4 ML Syringe SC (05:03)
[2022-07-25] MEDS: Ensure Plus High Protein 120 ML LIQUID PO ×3 (05:13→21:51)
[2022-07-25 05:40] LABS: Absolute Lymphocyte Count 1.72 X10^3/uL (0.83-4.51); Absolute Neutrophil Count 8.3 X10^3/uL (2.0-7.7); Basophil# 0.04 X10^3/uL; Basophil% 0.4 % (0-1); Eosinophil# 0.03 X10^3/uL; Eosinophils% 0.3 % (0-5); Hematocrit 25.2 % (40-54); Hemoglobin 7.8 g/dL (13.0-16.5); Lymphocyte # 1.72 X10^3/ul (0.83-4.51); Lymphocyte % 15.5 % (19-41); Mean Corpuscular Volume 87.2 fL (80-94); Mean Platelet Vol. 9.2 fl (6.2-12.0); Monocyte# 0.93 X10^3/uL; Monocyte% 8.4 % (0-10); NRBC Flagged by Analyzer 0 % (0-5); Neutrophil # 8.34 X10^3/uL (2.7-7.7); Platelet Count 579 K/mm3 (150-450); RBC Distribution Width CV 17.1 % (11.6-14.6); RBC Distribution Width SD 54.6 fl (35.1-43.9); Red Blood Count 2.89 M/mm3 (4.6-6.2); White Blood Count 11.1 K/mm3 (4.4-11.0)
[2022-07-25 06:06] LABS: Anion Gap 6 (5-15); BUN 9 mg/dL (7-18); Calcium,Total 7.5 mg/dL (8.5-10.1); Chloride 108 mmol/L (98-107); Creatinine, Serum 0.75 mg/dL (0.70-1.30); EST Glomerular Filtration Rate 109 mL/min (>60); Est Glom Filt Rate - Afr Amer 132 mL/min (>60); Estimated Creatinine Clearance 60.26 ml/min; Glucose 104 mg/dL (74-106); Magnesium 1.5 mg/dL (1.6-2.6); Phosphorus 1.7 mg/dL (2.5-4.9); Potassium 3.2 mmol/L (3.5-5.1); Sodium Level 142 mmol/L (136-145)
[2022-07-25] MEDS: Magnesium Sulfate 4gm/100mL 4 GM/100 ML IV.SOLN. IV (08:46)
[2022-07-25] MEDS: Acetaminophen 500 MG Tablet 1000 MG PO ×2 (10:03→21:51)
[2022-07-25] MEDS: Menthol/Lanolin/Calamine/Znox 113 GM Tube 1 APPLIC TOPICAL ×2 (13:26→21:44)
[2022-07-25 14:53] VITALS: BP 101/49; PULSE 98; RESP 16; TEMP 36.8; O2SAT 93
--- NOTE | 2022-07-25 15:48 | CHAPLAIN ---
Type of Pastoral Visit _x__ Initial Visit ___ Follow-up Visit ___ On-call Visit ___ General Patient Visit ___ Spiritual Assessment ___ Family Conference ___ Bereavement ___ Rapid Response ___ Code Blue ___ Other (describe below) Pastoral Care Referral From _x__ Patient ___ Family ___ Nurse ___ Physician ___ Paediatrician ___ Pathology Collector ___ Other (describe below) Sacrament/Intervention _x__ Active listening ___ Anointing ___ Oriental Orthodox ___ Bereavement ___ Communion ___ Regine exploration ___ ___ Life review _x__ Prayer ___ Reconciliation ___ Sacrament of Sick _x__ Supportive presence ___ Wedding ___ Other (describe below) Pastoral Comments patient and are in room as RN has just finished with meds; pt is accepting of visit but denies any concerns or worries; pt states that he is better than before and is doing fine; spouse adds to the conversation and details; 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
[2022-07-25] MEDS: QUEtiapine 25 MG Tablet 50 MG PO (17:47)
[2022-07-25] MEDS: Tamsulosin HCl 0.4 MG Capsule PO (17:47)
[2022-07-25 20:00] VITALS: RESP 16
[2022-07-26 05:43] LABS: Absolute Lymphocyte Count 1.71 X10^3/uL (0.83-4.51); Absolute Neutrophil Count 6.9 X10^3/uL (2.0-7.7); Basophil# 0.04 X10^3/uL; Basophil% 0.4 % (0-1); Eosinophil# 0.05 X10^3/uL; Eosinophils% 0.5 % (0-5); Hematocrit 25.7 % (40-54); Hemoglobin 7.7 g/dL (13.0-16.5); Lymphocyte # 1.71 X10^3/ul (0.83-4.51); Lymphocyte % 17.8 % (19-41); Mean Corpuscular Hgb 26.6 pg (27.0-32.0); Mean Corpuscular Volume 88.9 fL (80-94); Mean Platelet Vol. 9.3 fl (6.2-12.0); Monocyte# 0.91 X10^3/uL; Monocyte% 9.5 % (0-10); NRBC Flagged by Analyzer 0 % (0-5); Neutrophil # 6.85 X10^3/uL (2.7-7.7); Neutrophil % 71.3 % (47-70); Platelet Count 545 K/mm3 (150-450); RBC Distribution Width CV 17.2 % (11.6-14.6); RBC Distribution Width SD 56.2 fl (35.1-43.9); Red Blood Count 2.89 M/mm3 (4.6-6.2); White Blood Count 9.6 K/mm3 (4.4-11.0)
[2022-07-26] MEDS: Ensure Plus High Protein 120 ML LIQUID PO ×3 (06:10→22:38)
[2022-07-26] MEDS: Na Biphos/Potassium Phosphate PACKET 1 PACKET PO ×2 (06:10→17:13)
[2022-07-26] MEDS: Enoxaparin 40 MG/0.4 ML Syringe SC (06:10)
[2022-07-26] MEDS: Magnesium Chloride 64 MG Delay Rel.Tablet 128 MG PO (06:11)
[2022-07-26] MEDS: amLODIPine 5 MG Tablet PO (06:11)
[2022-07-26 06:18] VITALS: BP 123/61; PULSE 85
[2022-07-26] MEDS: Metoprolol Tartrate 25 MG Tablet PO (06:18)
[2022-07-26 06:21] VITALS: BP 123/61; PULSE 85; RESP 16; TEMP 36.6; O2SAT 96
[2022-07-26 06:23] LABS: Anion Gap 7 (5-15); BUN 10 mg/dL (7-18); BUN/Creat Ratio 13.6 RATIO (10-20); Calcium,Total 7.3 mg/dL (8.5-10.1); Chloride 111 mmol/L (98-107); Creatinine, Serum 0.74 mg/dL (0.70-1.30); EST Glomerular Filtration Rate 111 mL/min (>60); Est Glom Filt Rate - Afr Amer 135 mL/min (>60); Estimated Creatinine Clearance 55.35 ml/min; Glucose 100 mg/dL (74-106); Magnesium 2.2 mg/dL (1.6-2.6); Potassium 4.3 mmol/L (3.5-5.1); Sodium Level 144 mmol/L (136-145)
--- NOTE | 2022-07-26 09:19 | CASEMGMT ---
Social Work Plan of care meeting held. Patient present as well as patient spouse, Karina. This psychiatric social worker communicating that next insurance update is due on 07/28/2022 with no guarantee of continued stay approval. Patient continues to be in I.V therapy with stop date projected to be 07/28/2022. Patient plans to discharge to home with Karina. Therapy reports that patient has been making progress with big safety concern being that patient moves quickly and this compromises patient safety as staff/therapy needing time to get patient set up for transfers and mobility due to I.V's and patient physical needs currently. Patient does have new confusion and continues to be seen by speech therapy to assist patient in improving patient cognition as patient was independent with all cognitive task prior to hospital stay and now assisted home admission. Patient spouse reports that there is 2 step for patient to be able to function in the home and 7 steps to get to the basement, therapy noting need to continue to work on steps. Patient to continue with further care and treatment on the Transitional Care Unit. Therapy recommending for patient to continue with therapy for another 2 weeks to be able to increase patient independant and returning to home safely with spouse to assist. Patient spouse also aware that able to meet with therapy to complete family training with patient. Social Work to continue to follow. Mandie Cano MSW, SAMANTHA
[2022-07-26 10:00] VITALS: PULSE 86; RESP 16; O2SAT 95
[2022-07-26] MEDS: Menthol/Lanolin/Calamine/Znox 113 GM Tube 1 APPLIC TOPICAL ×2 (10:07→22:37)
[2022-07-26] MEDS: 0.9% Saline Lock 10 ML Syringe IV ×2 (10:08→22:44)
--- NOTE | 2022-07-26 13:02 | PCM.PN.SRG ---
Subjective Subjective Patient stated that he did have lunch. Patient is on IV Protonix. Patient's DEBBIE is minimal output/kerns serous. Patient did have Vazquez removed however patient appears to have been straight cathed during the night likely need Vazquez replaced. Objective Data Objective Data Vital Signs: Vital Signs Temp Pulse Resp BP Pulse Ox O2 Del Method 98 F 86 16 123/61 H 95 Room Air 07/26/22 06:21 07/26/22 10:00 07/26/22 10:00 07/26/22 06:21 07/26/22 10:00 07/26/22 10:00 Oxygen Delivery Method Room Air Weight: 129 lb 3.2 oz Intake & Output: Intake and Output for Last 24 Hours 07/24/22 07/25/22 07/26/22 23:59 23:59 23:59 Intake Total 1937.1233 / 1937.1233 1568.3333 / 1568.3333 1357.5833 / 1357.5833 Output Total 1250 / 1250 1000 / 1000 750 / 750 Balance 687.1233 / 687.1976 905.2656 / 568.3333 607.5833 / 607.5833 Medical Nutrition Assessment Dietitian: Malnutrition Criteria Met Start: 07/24/22 16:03 Freq: Status: Active Protocol: Document 07/24/22 16:03 ISELA (Rec: 07/24/22 16:03 ISELA [id number]) Nutrition Malnutrition Evidence of Malnutrition Exists Yes Malnutrition (severe): Acute Illness/Injury Evidenced By Suboptimal Energy Intake ( Severe),Weight Loss (Severe) Clinical Problem Acute Disease or Injury Related Malnutrition Etiology severe, acute malnutrition related to inadequate energy intake d/t GI dysfunction, 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 Lab / Micro Data Result Diagrams: 07/26/22 05:36 07/26/22 05:36 Labs: Laboratory Results - last 24 hr 07/26/22 05:36: WBC 9.6, RBC 2.89 L, Hgb 7.7 L, Hct 25.7 L, MCV 88.9, MCH 26.6 L, MCHC 30.0 L, RDW Std Deviation 56.2 H, RDW Coeff of [place] 17.2 H, Plt Count 545 H, MPV 9.3, Immature Gran % (Auto) 0.500, Neut % (Auto) 71.3 H, Lymph % (Auto) 17.8 L, Door % (Auto) 9.5, Eos % (Auto) 0.5, Baso % (Auto) 0.4, Absolute Neuts (auto) 6.9, Absolute Lymphs (auto) 1.71, Nucleated RBC % 0 07/26/22 05:36: Sodium 144, Potassium 4.3, Chloride 111 H, Carbon Dioxide 26.0, Anion Gap 7, BUN 10, Creatinine 0.74, Estim Creat Clear Calc 55.35, Est GFR (MDRD) Af Amer 135, Est GFR (MDRD) Non-Af 111, BUN/Creatinine Ratio 13.6, Glucose 100, Calcium 7.3 L, Phosphorus 5.0 H, Magnesium 2.2 Micro: Microbiology 07/25/22 06:51 Nasal Secretion SARS-CoV-2 Antigen (Rapid) - Final 07/23/22 05:00 Nasal Secretion SARS-CoV-2 Antigen (Rapid) - Final Physical Exam Const oriented x3 and no apparent distress Resp normal respiratory effort Cardio regular rate GI GI Narrative: Soft, nondistended, incision dressed?wet-to-dry's and retention sutures x2 in place--healing well, LUQ DEBBIE kerns serous minimal and DEBBIE Assessment & Plan Assessment/Plan (1) Adenocarcinoma of transverse colon: (2) S/P left colectomy: (3) Anastomotic leak of intestine: (4) S/P exploratory laparotomy: (5) Leukocytosis: (6) Severe malnutrition: PLAN: Plan On low fiber diet with high protein ensure 3 times daily due to malnutrition; patient appears to be eating better than a couple days ago. hypomag/hypokalemia/hypophos--continue to monitor. continue wound care--may close the skin at beside when wbc is within normal limits Leukocytosis-- improving- DEBBIE placed in LUQ fluid collection-ss- cx negative- will d/c soon Continue out of bed to chair/PT/OT Continue IV meropenem, wbc 9.6 Anemia- chronic and acute blood loss with 2 surgeries--7.7 after 1 unit PRBC 07/19/22 Continue Lovenox SQ and IV Protonix Urinary retention- on flomax--patient did have his Vazquez catheter removed however patient has needed straight caths will likely have to put Vazquez back and and consult urology. He has failed multiple attempts of removing the Vazquez since after his initial surgery on 07/07. Yoli Wesley M.D. Pager: [phone] [facility] [address] [place] [address], [facility], [address] [place] [address] Office: [phone]
[2022-07-26 16:00] VITALS: BP 120/60; PULSE 95; RESP 16; TEMP 37.3; O2SAT 97
[2022-07-26] MEDS: QUEtiapine 25 MG Tablet 50 MG PO (17:12)
[2022-07-26] MEDS: Tamsulosin HCl 0.4 MG Capsule PO (17:12)
[2022-07-26] MEDS: Juven (unflavored) Packet 1 PACKET PO (17:23)
[2022-07-26] MEDS: Ondansetron ODT 4 MG Tablet PO (18:17)
[2022-07-26] MEDS: Mirtazapine 15 MG Tablet 7.5 MG PO (22:39)
--- NOTE | 2022-07-27 04:28 | NURSING ---
No drainage noted in DEBBIE drain bulb this shift.
[2022-07-27 05:37] LABS: Absolute Lymphocyte Count 2.35 X10^3/uL (0.83-4.51); Absolute Neutrophil Count 6.1 X10^3/uL (2.0-7.7); Basophil# 0.05 X10^3/uL; Basophil% 0.5 % (0-1); Eosinophil# 0.05 X10^3/uL; Eosinophils% 0.5 % (0-5); Hematocrit 25.8 % (40-54); Hemoglobin 7.5 g/dL (13.0-16.5); Lymphocyte # 2.35 X10^3/ul (0.83-4.51); Mean Corp Hgb Conc 29.1 g/dL (32-36); Mean Corpuscular Hgb 26.2 pg (27.0-32.0); Mean Corpuscular Volume 90.2 fL (80-94); Mean Platelet Vol. 9.5 fl (6.2-12.0); Monocyte# 0.85 X10^3/uL; NRBC Flagged by Analyzer 0 % (0-5); Neutrophil # 6.05 X10^3/uL (2.7-7.7); Neutrophil % 64.4 % (47-70); Platelet Count 528 K/mm3 (150-450); RBC Distribution Width CV 17.4 % (11.6-14.6); Red Blood Count 2.86 M/mm3 (4.6-6.2); White Blood Count 9.4 K/mm3 (4.4-11.0)
[2022-07-27 06:07] LABS: Phosphorus 2.5 mg/dL (2.5-4.9)
[2022-07-27 06:17] VITALS: BP 117/57; PULSE 85
[2022-07-27] MEDS: amLODIPine 5 MG Tablet PO (06:17)
[2022-07-27] MEDS: Metoprolol Tartrate 25 MG Tablet PO (06:17)
[2022-07-27] MEDS: Na Biphos/Potassium Phosphate PACKET 1 PACKET PO ×2 (06:17→17:43)
[2022-07-27] MEDS: 0.9% Saline Lock 10 ML Syringe IV ×2 (06:22→21:55)
--- NOTE | 2022-07-27 07:12 | NURSING ---
After montgomery catheter was placed, 450cc output noted in drainage bag.
[2022-07-27] MEDS: Juven (unflavored) Packet 1 PACKET PO ×2 (08:14→17:43)
[2022-07-27] MEDS: Menthol/Lanolin/Calamine/Znox 113 GM Tube 1 APPLIC TOPICAL ×2 (09:21→22:02)
--- NOTE | 2022-07-27 12:16 | PCM.PN.SRG ---
Subjective Subjective Pt ibrahima PO, DEBBIE minimal output, WBC wnl on meropenem Objective Data Objective Data Vital Signs: Vital Signs Temp Pulse Resp BP Pulse Ox O2 Del Method 99.1 F 85 16 117/57 L 97 Room Air 07/26/22 16:00 07/27/22 06:17 07/26/22 16:00 07/27/22 06:17 07/26/22 16:00 07/26/22 16:00 Oxygen Delivery Method Room Air Weight: 129 lb 3.2 oz Intake & Output: Intake and Output for Last 24 Hours 07/25/22 07/26/22 07/27/22 23:59 23:59 23:59 Intake Total 1568.3333 / 1568.3333 1920.8333 / 1920.8333 360 / 360 Output Total 1000 / 1000 750 / 750 500 / 500 Balance 568.3333 / 568.3333 1170.8333 / 1170.8333 -140 / -140 Medical Nutrition Assessment Dietitian: Malnutrition Criteria Met Start: 07/24/22 16:03 Freq: Status: Active Protocol: Document 07/26/22 16:21 SLA (Rec: 07/26/22 16:22 SLA [id number]) Nutrition Malnutrition Evidence of Malnutrition Exists Yes Malnutrition (severe): Acute Illness/Injury Evidenced By Suboptimal Energy Intake ( Severe),Weight Loss (Severe) Clinical Problem Acute Disease or Injury Related Malnutrition Etiology severe, acute malnutrition related to inadequate energy intake d/t GI dysfunction, decreased appetite/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 Lab / Micro Data Result Diagrams: 07/28/22 05:22 07/28/22 05:22 Labs: Laboratory Results - last 24 hr 07/27/22 05:29: Phosphorus 2.5 07/27/22 05:29: WBC 9.4, RBC 2.86 L, Hgb 7.5 L, Hct 25.8 L, MCV 90.2, MCH 26.2 L, MCHC 29.1 L, RDW Std Deviation 58.0 H, RDW Coeff of [place] 17.4 H, Plt Count 528 H, MPV 9.5, Immature Gran % (Auto) 0.600, Neut % (Auto) 64.4, Lymph % (Auto) 25.0, [place] % (Auto) 9.0, Eos % (Auto) 0.5, Baso % (Auto) 0.5, Absolute Neuts (auto) 6.1, Absolute Lymphs (auto) 2.35, Nucleated RBC % 0 Micro: Microbiology 07/25/22 06:51 Nasal Secretion SARS-CoV-2 Antigen (Rapid) - Final 07/23/22 05:00 Nasal Secretion SARS-CoV-2 Antigen (Rapid) - Final Physical Exam Const oriented x3 and no apparent distress Resp normal respiratory effort Cardio regular rate GI GI Narrative: Soft, nondistended, incision dressed?wet-to-dry's and retention sutures x2 in place--healing well, LUQ DEBBIE kerns serous minimal and DEBBIE Assessment & Plan Assessment/Plan (1) Adenocarcinoma of transverse colon: (2) S/P left colectomy: (3) Anastomotic leak of intestine: (4) S/P exploratory laparotomy: (5) Leukocytosis: (6) Severe malnutrition: PLAN: Plan On low fiber diet with high protein ensure 3 times daily due to malnutrition; patient still eating most if not all of his trays. Did remove patient's left upper quadrant DEBBIE as its been draining minimal and the culture was negative, also removed patient's retention sutures x2 at bedside. hypomag/hypokalemia/hypophos--continue to monitor replace as needed. continue wound care--wet-to-dry's daily Leukocytosis--within normal limit. Continue out of bed to chair/PT/OT Continue IV meropenem?tomorrow last day, wbc 9.4 Anemia- chronic and acute blood loss with 2 surgeries--7.5 after 1 unit PRBC 07/19/22 Continue Lovenox SQ and IV Protonix Urinary retention- on flomax--patient did have his Vazquez catheter removed however patient has needed straight caths?Vazquez replaced this morning and consult put in for urology.. He has failed multiple attempts of removing the Vazquez since after his initial surgery on 07/07. Yoli Wesley M.D. Pager: [phone] [facility] [address] [place] [address], [address] [place] [address] Office: [phone]
--- NOTE | 2022-07-27 12:41 | MDS.RN ---
Pain interview for VIELKA 07/28/22 completed.
--- NOTE | 2022-07-27 13:36 | NURSING ---
Consult for Dr. Pardo given via telephone. Conveyor System Dispatcher states that he will be given the information and may be stopping over here today.
[2022-07-27 13:48] LABS: Magnesium 2.2 mg/dL (1.6-2.6)
[2022-07-27] MEDS: Ensure Plus High Protein 120 ML LIQUID PO ×2 (13:48→22:02)
[2022-07-27 13:55] VITALS: BP 120/51; PULSE 84; RESP 17; TEMP 30; O2SAT 94
[2022-07-27] MEDS: Tamsulosin HCl 0.4 MG Capsule PO (17:43)
[2022-07-27] MEDS: QUEtiapine 25 MG Tablet 50 MG PO (17:43)
[2022-07-27 22:00] VITALS: PULSE 97; RESP 14; O2SAT 98
[2022-07-27] MEDS: Mirtazapine 15 MG Tablet 7.5 MG PO (22:02)
[2022-07-28] MEDS: 0.9% Saline Lock 10 ML Syringe IV ×4 (05:18→23:02)
[2022-07-28 05:24] VITALS: BP 124/54; PULSE 85
[2022-07-28] MEDS: Metoprolol Tartrate 25 MG Tablet PO (05:24)
[2022-07-28] MEDS: Na Biphos/Potassium Phosphate PACKET 1 PACKET PO ×2 (05:25→17:03)
[2022-07-28] MEDS: Enoxaparin 40 MG/0.4 ML Syringe SC (05:25)
[2022-07-28] MEDS: amLODIPine 5 MG Tablet PO (05:25)
[2022-07-28 05:28] LABS: Absolute Lymphocyte Count 2.34 X10^3/uL (0.83-4.51); Absolute Neutrophil Count 6.3 X10^3/uL (2.0-7.7); Basophil# 0.03 X10^3/uL; Basophil% 0.3 % (0-1); Eosinophil# 0.11 X10^3/uL; Eosinophils% 1.1 % (0-5); Hematocrit 25.4 % (40-54); Hemoglobin 7.6 g/dL (13.0-16.5); Lymphocyte # 2.34 X10^3/ul (0.83-4.51); Lymphocyte % 24.1 % (19-41); Mean Corp Hgb Conc 29.9 g/dL (32-36); Mean Corpuscular Hgb 26.6 pg (27.0-32.0); Mean Corpuscular Volume 88.8 fL (80-94); Mean Platelet Vol. 9.1 fl (6.2-12.0); Monocyte# 0.87 X10^3/uL; NRBC Flagged by Analyzer 0 % (0-5); Neutrophil # 6.32 X10^3/uL (2.7-7.7); Neutrophil % 65.1 % (47-70); Platelet Count 478 K/mm3 (150-450); RBC Distribution Width CV 17.2 % (11.6-14.6); RBC Distribution Width SD 55.7 fl (35.1-43.9); Red Blood Count 2.86 M/mm3 (4.6-6.2); White Blood Count 9.7 K/mm3 (4.4-11.0)
[2022-07-28] MEDS: Ensure Plus High Protein 120 ML LIQUID PO ×2 (05:31→21:36)
[2022-07-28 05:48] LABS: Anion Gap 6 (5-15); BUN 20 mg/dL (7-18); BUN/Creat Ratio 23.2 RATIO (10-20); Calcium,Total 7.7 mg/dL (8.5-10.1); Chloride 112 mmol/L (98-107); Creatinine, Serum 0.86 mg/dL (0.70-1.30); EST Glomerular Filtration Rate 93 mL/min (>60); Est Glom Filt Rate - Afr Amer 112 mL/min (>60); Estimated Creatinine Clearance 64.36 ml/min; Glucose 114 mg/dL (74-106); Potassium 3.6 mmol/L (3.5-5.1); Sodium Level 146 mmol/L (136-145)
[2022-07-28] MEDS: Juven (unflavored) Packet 1 PACKET PO ×2 (08:07→17:03)
[2022-07-28] MEDS: Menthol/Lanolin/Calamine/Znox 113 GM Tube 1 APPLIC TOPICAL ×2 (09:52→21:34)
--- NOTE | 2022-07-28 09:54 | NURSING ---
Line Fisher Note; MDS Complete
[2022-07-28 10:05] LABS: Magnesium 2.1 mg/dL (1.6-2.6); Phosphorus 2.2 mg/dL (2.5-4.9)
--- NOTE | 2022-07-28 10:21 | NURSING ---
pt hgb 7.6 today, pt to get 2 units blood. PCU aware.
--- NOTE | 2022-07-28 10:27 | NURSING ---
pt off unit via WC to PCU 108 for blood, report given.
[2022-07-28 16:00] VITALS: BP 135/64; PULSE 84; RESP 16; TEMP 36.6; O2SAT 95
--- NOTE | 2022-07-28 16:14 | CASEMGMT ---
Addendum entered by Olga Briceno 07/28/22 16:39: ELY contacted niece. Spoke with niece and explained insurance DC date, appeal rights and plan for DC. Niece would like to file an appeal, but will speak with Aunt (pt's ), and get an updated DC plan. ELY requested for niece to call this worker if an appeal is filed for medical records to be sent timely. Niece agreed. SW to continue to follow. Addendum entered by Olga Briceno 07/28/22 16:17: has landline and unable to send [facility] link. Original Note: Social Work Pt off unit for blood transfusion. Unable to complete MDS assessment. Insurance issued LCD 07/31, DC 08/01. SW left message with requesting call back for DC date. SW spoke with nursing and pt will DC home with new montgomery and daily dressing. Nursing to teach on dressing change. SW to coordinate skilled HHC PT/OT/ST/SN. [facility] to to review. Plan: DC home with 08/01, HHC PT/OT/ST/SN [facility] JaraW
[2022-07-28] MEDS: QUEtiapine 25 MG Tablet 50 MG PO (17:03)
[2022-07-28] MEDS: Tamsulosin HCl 0.4 MG Capsule PO (17:03)
[2022-07-28 19:35] VITALS: PULSE 88; RESP 16; O2SAT 94
--- NOTE | 2022-07-28 21:30 | NURSING ---
Dr. Dalton contacted via telephone at this time regarding positive occult stool, discussed current medications and staff report of patient ambulating during day with staff assist. New order received to [facility]/c Sonia, order repeated back.
[2022-07-28] MEDS: Mirtazapine 15 MG Tablet 7.5 MG PO (21:37)
--- NOTE | 2022-07-28 22:41 | PCM.PN.BLA ---
Progress Note I believe patient still requires and would benefit from continued stay in TCU. Pt has been tolerating diet since on the Protonix IV; however pt still requires daily or also daily labs due to hypokalemia, hypomagnesia, hypophosphatemia even with PO replacements scheduled due to patients severe malnutrition prior to hospitalization and then 2 surgeries. Pt also would need daily wound care as neither the patient or his would be able or capable to do this at home with C only coming a couple days a week. Pt would benefit from continued PT/OT as he has had a prolonged hospitalization due to obstructing colon cancer (pT3 N1 Mx) stage IIIB/ post operative anastomatic leak. Pt continues to have urinary retention and needs montgomery-- again, I'm not sure the patient or his are capable of properly caring for and maintaining the montgomery catheter. Pt just received 2 units PRBC due to Hb of 7.6 today; pt previously got 1 unit 07/19 for Hb of 7.1; likely now not due to acute blood loss but chronic disease/prolong illness/need to blood draws. Pt is unable to reliably tell if he has ate or if he is having pain, so if he is unable to stay in TCU currently until the above issue are resolved/stable--I do think it will be a detriment to his overall health as he would like need to be readmitted to the hospital in a very short time due to one of the above issues. 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
[2022-07-29] MEDS: amLODIPine 5 MG Tablet PO (05:04)
[2022-07-29] MEDS: Na Biphos/Potassium Phosphate PACKET 1 PACKET PO ×2 (05:04→16:38)
[2022-07-29 05:06] VITALS: BP 120/57; PULSE 79
[2022-07-29] MEDS: Metoprolol Tartrate 25 MG Tablet PO (05:06)
[2022-07-29] MEDS: 0.9% Saline Lock 10 ML Syringe IV (05:07)
[2022-07-29] MEDS: Ensure Plus High Protein 120 ML LIQUID PO ×2 (05:12→22:39)
[2022-07-29 07:28] LABS: Absolute Lymphocyte Count 2.33 X10^3/uL (0.83-4.51); Absolute Neutrophil Count 5.4 X10^3/uL (2.0-7.7); Basophil# 0.03 X10^3/uL; Basophil% 0.3 % (0-1); Eosinophil# 0.11 X10^3/uL; Eosinophils% 1.3 % (0-5); Hematocrit 32.5 % (40-54); Hemoglobin 10.3 g/dL (13.0-16.5); Lymphocyte # 2.33 X10^3/ul (0.83-4.51); Lymphocyte % 26.5 % (19-41); Mean Corp Hgb Conc 31.7 g/dL (32-36); Mean Corpuscular Hgb 27.3 pg (27.0-32.0); Mean Corpuscular Volume 86.2 fL (80-94); Mean Platelet Vol. 9.4 fl (6.2-12.0); Monocyte# 0.93 X10^3/uL; Monocyte% 10.6 % (0-10); NRBC Flagged by Analyzer 0 % (0-5); Neutrophil # 5.35 X10^3/uL (2.7-7.7); Neutrophil % 60.8 % (47-70); Platelet Count 425 K/mm3 (150-450); RBC Distribution Width CV 16.5 % (11.6-14.6); RBC Distribution Width SD 51.5 fl (35.1-43.9); Red Blood Count 3.77 M/mm3 (4.6-6.2); White Blood Count 8.8 K/mm3 (4.4-11.0)
[2022-07-29 07:49] LABS: Anion Gap 7 (5-15); BUN 20 mg/dL (7-18); BUN/Creat Ratio 25.2 RATIO (10-20); Calcium,Total 7.8 mg/dL (8.5-10.1); Chloride 109 mmol/L (98-107); Creatinine, Serum 0.79 mg/dL (0.70-1.30); EST Glomerular Filtration Rate 102 mL/min (>60); Est Glom Filt Rate - Afr Amer 123 mL/min (>60); Estimated Creatinine Clearance 55.35 ml/min; Glucose 93 mg/dL (74-106); Potassium 4.2 mmol/L (3.5-5.1); Sodium Level 143 mmol/L (136-145)
[2022-07-29] MEDS: Juven (unflavored) Packet 1 PACKET PO ×2 (08:15→16:37)
[2022-07-29] MEDS: Iron Polysaccharide Complex 150 MG CAPSULE PO (08:15)
[2022-07-29] MEDS: Ascorbic Acid 500 MG Tablet PO (08:15)
[2022-07-29] MEDS: Menthol/Lanolin/Calamine/Znox 113 GM Tube 1 APPLIC TOPICAL ×2 (08:15→22:40)
[2022-07-29] MEDS: Acetaminophen 500 MG Tablet 1000 MG PO (08:29)
[2022-07-29] MEDS: Tuberculin,Purif.prot.deriv. 50 TU/ML Vial 0.1 ML ID (09:40)
[2022-07-29 14:51] VITALS: BP 108/61; PULSE 86; RESP 14; TEMP 36.5; O2SAT 95
[2022-07-29] MEDS: Tamsulosin HCl 0.4 MG Capsule PO (16:38)
[2022-07-29] MEDS: QUEtiapine 25 MG Tablet 50 MG PO (16:38)
--- NOTE | 2022-07-29 17:49 | CASEMGMT ---
Social Work Note ELY informed by ELY Briceno patient was interested in an appeal and to follow up with patient's niece today. ELY contacted patient's niece and introduced herself and role as [facility] Parking Lot Signaler. ELY inquired about their interest in filing an appeal. Patient's niece reported they just completed the appeal and would be in later today to visit with patient. ELY received a fax regarding patient's appeal. [employer] fax was emailed to Cynthia to assist with patient's appeal. Appeal is #[id number] Plan: appeal pending or D/C home with with [facility] 08/01/22. Dia Cowart MSW, CHARLY
[2022-07-29 22:00] VITALS: PULSE 78; RESP 16; O2SAT 96
[2022-07-29] MEDS: Mirtazapine 15 MG Tablet 7.5 MG PO (22:39)
[2022-07-30] MEDS: 0.9% Saline Lock 10 ML Syringe IV ×2 (06:04→08:21)
[2022-07-30] MEDS: Ensure Plus High Protein 120 ML LIQUID PO ×3 (06:04→19:45)
[2022-07-30 06:05] VITALS: BP 140/71; PULSE 82
[2022-07-30] MEDS: Metoprolol Tartrate 25 MG Tablet PO (06:05)
[2022-07-30] MEDS: amLODIPine 5 MG Tablet PO (06:05)
[2022-07-30] MEDS: Na Biphos/Potassium Phosphate PACKET 1 PACKET PO ×2 (06:05→16:26)
[2022-07-30] MEDS: Iron Polysaccharide Complex 150 MG CAPSULE PO (08:19)
[2022-07-30] MEDS: Juven (unflavored) Packet 1 PACKET PO ×2 (08:19→16:26)
[2022-07-30] MEDS: Menthol/Lanolin/Calamine/Znox 113 GM Tube 1 APPLIC TOPICAL ×2 (08:20→20:00)
[2022-07-30] MEDS: Ascorbic Acid 500 MG Tablet PO (08:22)
[2022-07-30] MEDS: oxyCODONE 5 MG Tablet PO (12:08)
[2022-07-30 15:47] VITALS: BP 156/74; PULSE 90; RESP 16; TEMP 36.7; O2SAT 98
[2022-07-30] MEDS: QUEtiapine 25 MG Tablet 50 MG PO (16:26)
[2022-07-30] MEDS: Tamsulosin HCl 0.4 MG Capsule PO (16:26)
[2022-07-30] MEDS: Mirtazapine 15 MG Tablet 7.5 MG PO (19:44)
[2022-07-31] MEDS: Ensure Plus High Protein 120 ML LIQUID PO ×2 (05:36→21:17)
[2022-07-31] MEDS: amLODIPine 5 MG Tablet PO (05:37)
[2022-07-31] MEDS: Na Biphos/Potassium Phosphate PACKET 1 PACKET PO ×2 (05:37→17:19)
[2022-07-31 05:39] VITALS: BP 124/70; PULSE 94
[2022-07-31] MEDS: Metoprolol Tartrate 25 MG Tablet PO (05:39)
[2022-07-31] MEDS: 0.9% Saline Lock 10 ML Syringe IV ×2 (05:42→08:30)
--- NOTE | 2022-07-31 07:57 | DS.PCM_ITS ---
Providers Date of Admission: 07/21/22 Primary Care Physician: Dr. Francesca Lopez, Consultations 07/21/22 17:26 Consult: General Surgery Routine Consulting Provider: Yoli Wesley Reason for Consult: post-surgery EMERGENT Consult: No Notified: Yes Date Notified: 07/21/22 Time Notified: 17:26 Method of Notification: Text 07/27/22 07:50 Consult: Urology Routine Consulting Provider: Asael Pardo Reason for Consult: Urinary retention. EMERGENT Consult: No Notified: Yes Date Notified: 07/27/22 Time Notified: 07:51 Method of Notification: Verbal Reason For Visit: COLON OBSTRUCTION Diagnosis Discharge Diagnosis (1) Adenocarcinoma of transverse colon: Status: Acute Code(s): C18.4 - Malignant neoplasm of transverse colon (2) S/P left colectomy: Status: Acute Code(s): Z90.49 - Acquired absence of other specified parts of digestive tract (3) Anastomotic leak of intestine: Status: Resolved Code(s): K91.89 - Other postprocedural complications and disorders of digestive system (4) S/P exploratory laparotomy: Status: Acute Code(s): Z98.890 - Other specified postprocedural states (5) Leukocytosis: Status: Acute Code(s): D72.829 - Elevated white blood cell count, unspecified (6) Severe malnutrition: Status: Acute Code(s): E43 - Unspecified severe protein-calorie malnutrition (7) Hypokalemia: Status: Acute Code(s): E87.6 - Hypokalemia (8) Hypomagnesemia: Status: Acute Code(s): E83.42 - Hypomagnesemia (9) Hypophosphatemia: Status: Acute Code(s): E83.39 - Other disorders of phosphorus metabolism Plan 72 year old male with below past medical history hospitalized for large bowel obstruction secondary to transverse colon cancer, underwent left colectomy, than later resection of necrotic anastomosis with reanastomosis of large bowel, complicated by sinus tachycardia, peritonitis, encephalopathy, admitted to TCU with debility, here for rehabilitation, strengthening, prior to discharge home with . * Debility - PT/OT. * Aphasia - ST. * Pain - Tylenol 1000mg q6h prn pain (1-5), Oxycodone 5mg q4h prn pain (6-10). * Bowel - senna/colace 1 tablet bid, Dulcolax 10mg pr x 1 dose. * Adult immunization - Administer pneumonia vaccine, covid19 vaccine, flu vaccine as appropriate. * DVT prophylaxis - Lovenox 40mg sc daily. * Hypertension - Metoprolol 25mg daily, Amlodipine 5mg daily. * Sore throat - Cepacol 1 lozenge q2h prn. * Nutrition - Ensure 120ml 4x/day. * Skin irritation - Calmoseptine topical bid. * Large bowel obstruction 2/2 transverse colon cancer s/p resection - Consult Dr. Wesley, Meropenem 1gm iv q8h. * Hypophosphatemia - K-phos 1 packet bid. * Nausea - Zofran odt 4mg q6h prn. * Encephalopathy - Seroquel 50mg dinner, stable use, GDR not indicated. * BPH - Tamsulosin 0.4mg daily. Medications at Discharge Home Medications amlodipine 5 mg tablet 5 mg PO DAILY blood pressure 06/26/22 menthol 0.44 %-zinc oxide 20.6 % topical ointment (Calmoseptine) 1 applic topical BID skin care 07/21/22 acetaminophen 500 mg tablet 1,000 mg PO Q6H PRN PRN Pain Score 1-5 #0 tabs 07/31/22 arginine 7 gram-glutam 7 gram-CaHMB 1.5 [id number]-oh-min oral pwd pkt (Billy (with collagen)) 1 packet PO BIDCM 30 days #60 ea 07/31/22 ascorbic acid (vitamin C) 500 mg tablet 500 mg PO BREAKFAST 30 days #30 tabs 07/31/22 metoprolol tartrate 25 mg tablet 25 mg PO DAILY 30 days #30 tabs 07/31/22 mirtazapine 15 mg tablet 7.5 mg PO QHS 30 days #15 tabs 07/31/22 oxycodone 5 mg tablet 5 mg PO Q6H PRN PRN Pain Score 6-10 7 days #28 tabs 07/31/22 pantoprazole 40 mg tablet,delayed release 40 mg PO DAILY 30 days #30 tabs 07/31/22 polysaccharide iron complex 150 mg iron capsule (Ferrex) 150 mg PO DAILYCM 30 days #30 caps 07/31/22 potassium, sodium phosphates 280 mg-160 mg-250 mg oral powder packet 1 packet PO BID 30 days #60 ea 07/31/22 quetiapine 25 mg tablet 50 mg PO DINNER 30 days #60 tabs 07/31/22 tamsulosin 0.4 mg capsule 0.4 mg PO DAILY@1730 30 days #30 caps 07/31/22 Hospital Course Operations - (See below.) Procedures None Summary of Care Provided Minutes Spent on Discharge: 35 Hospital Course: 72 year old male with below past medical history hospitalized for large bowel obstruction secondary to transverse colon cancer, underwent left colectomy, than later resection of necrotic anastomosis with reanastomosis of large bowel, complicated by sinus tachycardia, peritonitis, encephalopathy, admitted to TCU with debility, here for rehabilitation, strengthening, prior to discharge home with . 07/28/2022 Transfused 2 units PRBC for hemoglobin 7.6, post transfusion hemoglobin 10.3. Stool guaiac positive, consider outpatient endoscopy. Discharge home with 08/01/2022, pending appeal, Home Health Care PT/OT/ST/ESCOBEDO. Physical Exam Const alert General Appearance: cooperative HEENT normocephalic Eyes PERRL and EOMs intact bilaterally Neck supple, no JVD and no carotid bruits Resp normal respiratory effort, normal air movement and clear to auscultation bilaterally Cardio regular rate and regular rhythm GI normal to inspection, nondistended, normoactive bowel sounds, non-tender and non-distended GI Narrative: Midline incision, open superiorly. Extremity normal capillary refill General Extremity: Negative for edema Skin no rashes or lesions noted General Skin Exam: no breakdown Psych affect normal Appearance: appropriate Medical Records Data Medical Nutrition Assessment Dietitian: Malnutrition Criteria Met Start: 07/24/22 16:03 Freq: Status: Active Protocol: Document 07/26/22 16:21 ISELA (Rec: 07/26/22 16:22 [facility] [id number]) Nutrition Malnutrition Evidence of Malnutrition Exists Yes Malnutrition (severe): Acute Illness/Injury Evidenced By Suboptimal Energy Intake ( Severe),Weight Loss (Severe) Clinical Problem Acute Disease or Injury Related Malnutrition Etiology severe, acute malnutrition related to inadequate energy intake d/t GI dysfunction, decreased appetite/intake ARTIST SUSPECT Signs/Symptoms as evidenced by unintentional wt loss of 14.1% wt loss x 6 wks; estimated PO intake meeting <50% of estimated energy needs > 5 days Status Active Problem Recommendation Dietitian Recommendations/Changes Will continue regular fiber restricted diet Will continue ONS to 3x/day w/ medpass Will continue variety of ONS at meals to better reflect res preferences Will order Billy bid to help w / surgical incision healing Rec appetite stimulant to help encourage improved appetite. Weight / BMI Weight Weight: 58.604 kg ABG / Lab / Microbiology Data Result Diagrams: 07/29/22 07:15 07/29/22 07:15 Microbiology: Microbiology 07/28/22 18:22 Stool Stool Occult Blood (VIDYA) - Final Occult Blood Positive 07/25/22 06:51 Nasal Secretion SARS-CoV-2 Antigen (Rapid) - Final 07/23/22 05:00 Nasal Secretion SARS-CoV-2 Antigen (Rapid) - Final D/C Instructions Discharge Diet: No restrictions Discharge Activity: Return to Normal Activity, May Shower and Use Walker Weight Bearing Status: Weight bearing as tolerated Call your doctor if you observe: Fever of 101 or Higher, Inability to urinate, Inability to have a bowel movement, Shortness of breath, Dizziness, Fainting spells, Swelling in the ankles, Chest pain and Uncontrolled pain Additional Instructions: Discharge home with 08/01/2022, pending [facility], Home Health Care PT/OT/ST/ESCOBEDO. Please Follow Up With: Yoli Wesley MD When: 1 week. Meaningful Use Info Meaningful Use Diagnoses (Choose all that apply): None applicable Discharge Plan Admission Admit Date/Time: 07/21/22 16:07 Primary Reason for Your Visit: Debiliy. Attending Provider: Lyndon Dalton Chi Primary Care Provider: Francesca Lopez Consulting Providers: Yoli Wesley ; Asael Pardo Instructions Additional Instructions / Restrictions: Discharge home with 08/01/2022, pending [facility], Home Health Care PT/OT/ST/ESCOBEDO. Discharge Orders/Prescriptions Prescriptions: New quetiapine 25 mg Tablet 50 mg PO DINNER 30 Days Qty: 60 0RF polysaccharide iron complex [Ferrex 150] 150 mg iron Capsule 150 mg PO DAILYCM 30 Days Qty: 30 0RF acetaminophen 500 mg Tablet 1,000 mg PO Q6H PRN PRN (Reason: Pain Score 1-5) Qty: 0 0RF ascorbic acid (vitamin C) 500 mg Tablet 500 mg PO BREAKFAST 30 Days Qty: 30 0RF tamsulosin 0.4 mg Capsule 0.4 mg PO DAILY@1730 30 Days Qty: 30 0RF pantoprazole 40 mg Tablet,Delayed Release (Dr/Ec) 40 mg PO DAILY 30 Days Qty: 30 0RF mirtazapine 15 mg Tablet 7.5 mg PO QHS 30 Days Qty: 15 0RF oxycodone 5 mg Tablet 5 mg PO Q6H PRN PRN (Reason: Pain Score 6-10) 7 Days Qty: 28 0RF metoprolol tartrate 25 mg Tablet 25 mg PO DAILY 30 Days Qty: 30 0RF potassium, sodium phosphates 280-160-250 mg Powder In Packet 1 packet PO BID 30 Days Qty: 60 0RF Billy (with collagen) 7-7-1.5 gram Powder In Packet 1 packet PO BIDCM 30 Days Qty: 60 0RF Continued amlodipine 5 mg Tablet 5 mg PO DAILY menthol-zinc oxide [Calmoseptine] 0.44-20.6 % ointment 1 applic topical BID Protocol: *Topical Application Instructions APPLICATION INSTRUCTIONS: to buttocks and groin Discontinued ondansetron 4 mg tablet,disintegrating 4 mg PO Q8H PRN (Reason: nausea and vomiting) Qty: 10 0RF oxycodone-acetaminophen 5-325 mg tablet 1 - 2 tab PO Q6H PRN (Reason: pain) 3 Days Qty: 16 0RF Chloraseptic Sore Throat 6-10 mg Lozenge 1 vika mucous membrane Q2H PRN PRN (Reason: SORE THROAT) Qty: 0 0RF acetaminophen 650 mg/20.3 mL Solution 650 mg PO Q6H PRN PRN (Reason: PAIN 1-10) Qty: 0 0RF quetiapine 25 mg tablet 50 mg PO DAILY@1700 tamsulosin 0.4 mg capsule 0.4 mg PO DAILY@1730 meropenem 1 gram recon soln 1 g IV Q8H enoxaparin 40 mg/0.4 mL syringe 40 mg subcut DAILY metoprolol tartrate 25 mg tablet 25 mg PO DAILY potassium, sodium phosphates 280-160-250 mg powder in packet 1 packet PO BID Ensure Plus High Protein 0.08 gram-1.5 kcal/mL liquid 120 ml PO 4X/DAY Referrals / Follow Up: Francesca Lopez DO [Primary Care Provider] - Disposition Disposition (needs filled in before D/C Order can be placed): Home Health Service
[2022-07-31] MEDS: Juven (unflavored) Packet 1 PACKET PO ×2 (08:07→17:19)
[2022-07-31] MEDS: Ascorbic Acid 500 MG Tablet PO (08:07)
[2022-07-31] MEDS: Iron Polysaccharide Complex 150 MG CAPSULE PO (08:07)
[2022-07-31] MEDS: oxyCODONE 5 MG Tablet PO (08:29)
--- NOTE | 2022-07-31 10:14 | CASEMGMT ---
Addendum entered by Olga Briceno 07/31/22 11:11: Received call from niece stating if pt loses appeal, family will transport pt to [facility] ER for evaluation, so no DC services needed. Original Note: Social Work Followed up with about DC plans. Per [facility], physician review is the next step and should receive an outcome today. SW inquired about DC plan if pt loses appeal. stated she will either take him home or take him to another hospital. Niece lives in [place] and will take pt to [facility], per . SW offered to coordinate HHC if pt goes home. agreed and requested HHC list be sent to sheyla. SW sent skilled HHC list with quality and resource data via [employer] to sheyla's cell phone. No DME needs. Family would transport. SW to continue to follow. Olga Briceno ,[employer] COMMANDING OFFICER
[2022-07-31] MEDS: Menthol/Lanolin/Calamine/Znox 113 GM Tube 1 APPLIC TOPICAL ×2 (10:42→21:17)
[2022-07-31] MEDS: Pantoprazole Sodium 40 MG Tablet PO (10:42)
--- NOTE | 2022-07-31 10:59 | CASEMGMT ---
Social Work BIMS (12/07) and PHQ-9 () completed for MDS assessment. HIPOL[facility] JaraW
--- NOTE | 2022-07-31 12:37 | NURSING ---
niece here and wanted pt to take ride in WC around unit. pt was hesitant, expressed to pt if he wasn't feeling up to it we can wait until later. pt assisted to WC and decided it would be good but he would feel better getting home and doing his usual activities soon. Niece asking about if pt appeal has been decided, stated that have not heard yet and social work administrator would update when something is decided.
--- NOTE | 2022-07-31 15:06 | NURSING ---
Addendum entered by Concepción Stone 07/31/22 15:47: Olga, notified that niece wants to speak with her about his other insurance. She will call her. Original Note: JUNI Espinoza notified staff pt lost appeal, will be discharged tomorrow.
[2022-07-31 15:20] VITALS: BP 117/66; PULSE 89; RESP 17; TEMP 36.8; O2SAT 93
--- NOTE | 2022-07-31 15:25 | NURSING ---
Dr Wesley requesting lidocaine, 4-0 monocryl, 3 piece kit and 1/2 steri strips to be available for tomorrow to close the surgical site.
--- NOTE | 2022-07-31 15:40 | WOUNDNOTE ---
wound photo: abdomen
--- NOTE | 2022-07-31 15:45 | NURSING ---
MONICA Lombardi called & will be in to close abdomen in AM before discharge.
[2022-07-31] MEDS: QUEtiapine 25 MG Tablet 50 MG PO (17:18)
[2022-07-31] MEDS: Tamsulosin HCl 0.4 MG Capsule PO (17:18)
--- NOTE | 2022-07-31 18:47 | CASEMGMT ---
Social Work Patient lost appeal. ELY spoke with nialvarez to confirm notification and confirmed DC plans for pt to admit to [facility]. Nialvarez stated she spoke with pt's and filed reconsideration. ELY educated that the recon may take up to 14 days and if lost, pt will have to pay OOP $660/day for the days he remains in TCU. ELY offered again to coordinate skilled HHC. Nialvarez inquired about using pt's secondary insurance. ELY educated to the primary insurance denying, so will secondary, and TCU only accepts primary insurance. Anil spoke with pt's and all parties agreed to not remain for reconsideration outcome. Pt is unable to pay privately. Nialvarez is requesting skilled HHC and selected preferences via [employer] Link. [facility] is first choice. ELY [facility]oned [facility]/ST/SN/[facility]COBEDO/SW. Family to transport. Dr. Wesley requesting pt have FWW and shower chair. SW to order through [employer]. Insurance does not cover a shower chair. ELY educated to nialvarez as well. FWW to be delivered to pt's room prior to DC. Nialvarez is aware. IDT updated. Plan: DC home with 08/01, [facility] PT/OT/ST/SN/ESCOBEDO/SW, FWW [place] Jara
[2022-07-31 20:00] VITALS: PULSE 86; RESP 14; O2SAT 97
[2022-07-31] MEDS: Mirtazapine 15 MG Tablet 7.5 MG PO (21:17)
[2022-08-01] MEDS: amLODIPine 5 MG Tablet PO (05:46)
[2022-08-01] MEDS: Ensure Plus High Protein 120 ML LIQUID PO (05:46)
[2022-08-01] MEDS: Pantoprazole Sodium 40 MG Tablet PO (05:47)
[2022-08-01] MEDS: Na Biphos/Potassium Phosphate PACKET 1 PACKET PO (05:47)
[2022-08-01 05:48] VITALS: BP 130/68; PULSE 100
[2022-08-01] MEDS: Metoprolol Tartrate 25 MG Tablet PO (05:48)
[2022-08-01 06:25] LABS: Anion Gap 8 (5-15); BUN 25 mg/dL (7-18); BUN/Creat Ratio 24.5 RATIO (10-20); Calcium,Total 8.6 mg/dL (8.5-10.1); Chloride 103 mmol/L (98-107); Creatinine, Serum 1.02 mg/dL (0.70-1.30); EST Glomerular Filtration Rate 76 mL/min (>60); Est Glom Filt Rate - Afr Amer 92 mL/min (>60); Estimated Creatinine Clearance 54.26 ml/min; Glucose 104 mg/dL (74-106); Magnesium 1.8 mg/dL (1.6-2.6); Phosphorus 2.7 mg/dL (2.5-4.9); Potassium 3.8 mmol/L (3.5-5.1); Sodium Level 138 mmol/L (136-145)
[2022-08-01] MEDS: Juven (unflavored) Packet 1 PACKET PO (08:39)
[2022-08-01] MEDS: Ascorbic Acid 500 MG Tablet PO (08:39)
[2022-08-01] MEDS: Iron Polysaccharide Complex 150 MG CAPSULE PO (08:39)
[2022-08-01] MEDS: Menthol/Lanolin/Calamine/Znox 113 GM Tube 1 APPLIC TOPICAL (08:40)
--- NOTE | 2022-08-01 08:47 | PN_ITS ---
Progress Note Patient was evaluated resting comfortably in bed. Patient denies any abdominal pain. Dr. Wesley is out of the office currently and has requested the remaining midline incision be closed at bedside. Patient was positioned supine in bed. Incision was prepped with ChloraPrep. Incision was injected with approximately 14 cc of 2% lidocaine. 4-0 Monocryl was used to place interrupted sutures. Patient's tissue was paper thin making it challenging to secure sutures, however this was accomplished. Incision was successfully closed. Surrounding skin was cleansed, skin prep was applied followed by 1/2 steri- strips along the entire incision. Patient tolerated the procedure well. Patient also had lab work completed. Potassium, phosphorous and magnesium are within normal range. Assessment & Plan Assessment/Plan (1) Adenocarcinoma of transverse colon: PLAN: Plan Sadly, patient's insurance has denied for patient to continue to need rehabilitation in TCU Patient is to be discharged to home today from TCU No further packing changes are needed Leave steri-strips in place for 1 week Patient to follow-up with Dr. Wesley in office 1 week from discharge. Patient to contact our office to schedule the appointment. Visit Charges Inpatient E&M: 62778 Subs Hosp L1 (Post-op; no charge)
--- NOTE | 2022-08-01 10:25 | CASEMGMT ---
Social Work Return call from Elda at [facility] and they are able to accept pt with a start of care on 08/03/22. Referral made to [facility] [place]. FWW to be delivered to pt room today prior to discharge. Phone call to pt sheyla Blackwell and updated on home health and walker. Rosalva will be here to transport pt home later today. JUNI Gifford
--- NOTE | 2022-08-01 11:09 | NURSING ---
Addendum entered by Odalis Dial 08/01/22 14:14: Dr. Dalton updated on elevated WBC, per Dr Dalton, continue with discharge, make sure patient follows up with PCP in 1-2 days. Original Note: Patient to DC today, low grade temp 100.1. Updated Dr. Dalton, order for CBC, BMP, covid swab.
[2022-08-01 11:44] LABS: Absolute Neutrophil Count 8.4 X10^3/uL (2.0-7.7); Basophil# 0.05 X10^3/uL; Basophil% 0.4 % (0-1); Eosinophil# 0.14 X10^3/uL; Hemoglobin 12.2 g/dL (13.0-16.5); Lymphocyte % 23.7 % (19-41); Mean Corp Hgb Conc 31.3 g/dL (32-36); Mean Corpuscular Hgb 27.5 pg (27.0-32.0); Mean Platelet Vol. 9.5 fl (6.2-12.0); Monocyte# 1.64 X10^3/uL; Monocyte% 12.2 % (0-10); NRBC Flagged by Analyzer 0 % (0-5); Neutrophil # 8.35 X10^3/uL (2.7-7.7); POSITIVE DIFFERENTIAL YES; Platelet Count 487 K/mm3 (150-450); RBC Distribution Width CV 15.9 % (11.6-14.6); Red Blood Count 4.43 M/mm3 (4.6-6.2); White Blood Count 13.5 K/mm3 (4.4-11.0)
[2022-08-01 11:48] LABS: Differential Indicated SCAN CRITERIA MET
[2022-08-01 12:01] LABS: Anion Gap 7 (5-15); BUN 22 mg/dL (7-18); BUN/Creat Ratio 19.6 RATIO (10-20); Calcium,Total 8.9 mg/dL (8.5-10.1); Chloride 104 mmol/L (98-107); Creatinine, Serum 1.12 mg/dL (0.70-1.30); EST Glomerular Filtration Rate 68 mL/min (>60); Est Glom Filt Rate - Afr Amer 83 mL/min (>60); Estimated Creatinine Clearance 49.42 ml/min; Glucose 115 mg/dL (74-106); Potassium 3.8 mmol/L (3.5-5.1); Sodium Level 138 mmol/L (136-145)
[2022-08-01 12:11] LABS: Differential Comment SCANNED
[2022-08-01 14:52] VITALS: BP 133/66; PULSE 94; RESP 14; TEMP 37.8; O2SAT 94
[2022-08-03 13:51] LABS: Pathologist Review Reviewed
--- NOTE | 2022-08-03 15:30 | MDS.RN ---
Information for the mds was obtained from review of the clinical record, interview of resident, staff, and direct observation of resident's care.
== END 2022-08-01 14:45 | disposition home health service (06) | DRG 949 ==
PROVIDERS: Physician Assistant; Surgery; Admitting Provider Family Medicine Geriatric Medicine; PCP Internal Medicine; Visit Provider Family Medicine Geriatric Medicine
DX: Z48.815 Encounter for surgical aftercare following surgery on the digestive system (principal); E43 Unspecified severe protein-calorie malnutrition; G93.40 Encephalopathy, unspecified; K56.609 Unspecified intestinal obstruction, unspecified as to partial versus complete obstruction; D62 Acute posthemorrhagic anemia; C18.4 Malignant neoplasm of transverse colon; K91.89 Other postprocedural complications and disorders of digestive system; I10 Essential (primary) hypertension; M10.9 Gout, unspecified; E83.42 Hypomagnesemia; E87.6 Hypokalemia; Z90.49 Acquired absence of other specified parts of digestive tract; Z79.899 Other long term (current) drug therapy; Z79.01 Long term (current) use of anticoagulants; N40.1 Benign prostatic hyperplasia with lower urinary tract symptoms; R33.8 Other retention of urine; Y83.2 Surgical operation with anastomosis, bypass or graft as the cause of abnormal reaction of the patient, or of later complication, without mention of misadventure at the time of the procedure; Z68.20 Body mass index [BMI] 20.0-20.9, adult
CPT/HCPCS: 36415; 71045; 74018; 80048; 81001; 82274; 83735; 84100; 85025; 86920; 86922; 87426; 87811; 92507; 92522; 92523; 94667; 94668; 97110; 97112; 97116; 97162; 97166; 97530; 97535; 97802; J2185; J7040; J7050; A4216

== ENCOUNTER 2022-07-28 10:45 | Outpatient (CLI) | payer MEDICARE, SELFPAY ==
[2022-07-28] VITALS (8 sets, daily range): BP systolic 120–153; BP diastolic 61–77; PULSE 76–90; RESP 18; TEMP 36.4–36.9; O2SAT 99–100
--- NOTE | 2022-07-28 13:52 | NURSING ---
1st unit blood completed. IV lasix 20 mg given as ordered.
--- NOTE | 2022-07-28 16:35 | NURSING ---
Pt received 2 units PRBC. Pt tolerated well. Pt w/ 2 BM and 1300cc urine output today. (Vazquez catheter)
== END 2022-07-28 16:50 | disposition home or self-care (01) ==
LOC: PCUOUT 10:46 → PCU 10:47
PROVIDERS: PCP Internal Medicine; Visit Provider Family Medicine Geriatric Medicine
DX: D64.89 Other specified anemias (principal)
CPT/HCPCS: 36415; 36430; 86850; 86900; 86901; 86920; 86922; J7040; P9016

== ENCOUNTER → 2022-08-09 | Outpatient (CLI) | payer MEDICARE, SELFPAY ==
[2022-08-09 10:23] LABS: Absolute Neutrophil Count 4.7 X10^3/uL (2.0-7.7); Basophil# 0.07 X10^3/uL; Basophil% 0.7 % (0-1); Eosinophil# 0.31 X10^3/uL; Eosinophils% 3.2 % (0-5); Hematocrit 46.4 % (40-54); Hemoglobin 13.3 g/dL (13.0-16.5); Lymphocyte % 34.9 % (19-41); Mean Corp Hgb Conc 28.7 g/dL (32-36); Mean Corpuscular Hgb 27.3 pg (27.0-32.0); Mean Corpuscular Volume 95.3 fL (80-94); Mean Platelet Vol. 9.4 fl (6.2-12.0); Monocyte# 1.26 X10^3/uL; Monocyte% 12.9 % (0-10); NRBC Flagged by Analyzer 0 % (0-5); Neutrophil # 4.65 X10^3/uL (2.7-7.7); Neutrophil % 47.9 % (47-70); Platelet Count 494 K/mm3 (150-450); RBC Distribution Width CV 17.2 % (11.6-14.6); RBC Distribution Width SD 58.2 fl (35.1-43.9); Red Blood Count 4.87 M/mm3 (4.6-6.2); White Blood Count 9.7 K/mm3 (4.4-11.0)
[2022-08-09 10:41] LABS: ALB/GLOB Ratio 0.5 RATIO (0.9-2.4); AST(SGOT) 42 U/L (15-37); Alanine Aminotransfer ALT/SGPT 72 U/L (16-61); Albumin, Serum 2.8 g/dL (3.2-5.0); Alkaline Phosphatase 147 U/L (45-117); Anion Gap 9 (5-15); BUN 15 mg/dL (7-18); Calcium,Total 9.3 mg/dL (8.5-10.1); Chloride 103 mmol/L (98-107); Creatinine, Serum 1.15 mg/dL (0.70-1.30); EST Glomerular Filtration Rate 66 mL/min (>60); Est Glom Filt Rate - Afr Amer 80 mL/min (>60); Globulin 6.2 g/dL (2.2-4.2); Glucose 131 mg/dL (74-106); Magnesium 1.9 mg/dL (1.6-2.6); Phosphorus 3.4 mg/dL (2.5-4.9); Potassium 3.9 mmol/L (3.5-5.1); Sodium Level 139 mmol/L (136-145)
== END | disposition home or self-care (01) ==
LOC: PAVLAB 10:08
PROVIDERS: PCP Internal Medicine; Referring Provider Surgery; Visit Provider Surgery
DX: C18.4 Malignant neoplasm of transverse colon (principal); E83.39 Other disorders of phosphorus metabolism; G93.40 Encephalopathy, unspecified; R53.81 Other malaise
CPT/HCPCS: 36415; 80053; 83735; 84100; 85025

== ENCOUNTER → 2022-08-15 | Outpatient (CLI) | payer MEDICARE, SELFPAY ==
--- NOTE | 2022-08-15 15:49 | CT_ITS ---
INDICATION: History of postop abscess with catheter drainage. History of colon cancer with resection. EXAMINATION: CT ABDOMEN AND PELVIS WITH CONTRAST - CT Abdomen And Pelvis W/ Contrast Injection TECHNIQUE: Helically acquired images were obtained of the abdomen and pelvis following IV contrast. A radiation dose optimization technique was used for this scan. IV Contrast dosage and agent: 100 mL of Isovue-300 Oral contrast: With COMPARISON: July 17, 2022 FINDINGS: LOWER CHEST: Lung bases are clear. There is resolution of the bilateral pleural effusions and atelectasis seen on the previous study. No cardiomegaly or pericardial effusion. LIVER: Homogeneous. No focal mass. GALLBLADDER AND BILIARY TREE: No calcified gallstones. No gallbladder distension or wall edema. No intra- or extrahepatic biliary ductal dilation. PANCREAS: Again seen is a stable cystic structure in the proximal tail of the pancreas. The pancreas is otherwise unremarkable. SPLEEN: Calcified granulomata within the otherwise normal spleen. ADRENAL GLANDS: No nodules. KIDNEYS AND URETERS: Normal renal size and position. No hydronephrosis. Normal bilateral ureters. PERITONEUM: Resolution of the free fluid noted on the prior CT scan. No free air. No other fluid collection. There is a pigtail catheter entering the left upper quadrant. The abdominal wall with its pigtail catheter lying just below the anterior peritoneal surface. There is no associated fluid collection. BOWEL: Normal stomach. Normal small intestine. Contrast is seen within the colon. No mass or obstruction. There is no evidence of stricture at the level of the anastomosis in the mid transverse colon. The appendix is not visualized. LYMPH NODES: No enlarged mesenteric or retroperitoneal lymph nodes. VESSELS: Atherosclerotic changes of the abdominal aorta without aneurysm or dissection. Normal IVC. URINARY BLADDER: Thick walled poorly distended urinary bladder without filling defect. REPRODUCTIVE ORGANS: Enlarged prostate with prominent seminal vesicles. ABDOMINAL WALL: Midline surgical scar from the xiphoid to the umbilicus. Resolution of the anasarca noted on the previous study. BONES: Stable degenerative changes of the lumbar spine. CT/Abdomen/Pelvis WITH Contrast IMPRESSION: 1. Resolution of the free fluid and free air seen within the abdominal cavity. 2. There is a pigtail catheter along the underside of the anterior peritoneal surface of the left upper quadrant. No associated fluid collection. 3. Resolution of the bilateral pleural effusions and atelectasis seen on the previous study. 4. Unremarkable colon. There is no stricture or other abnormality of the area of anastomosis. 5. Thick-walled urinary bladder thought to be secondary to outlet obstruction from the enlarged prostate. 6. Otherwise stable findings. Electronically Signed: Phoenix Joyce DO at 16:27 EST ,
== END | disposition home or self-care (01) ==
LOC: CT 15:49
PROVIDERS: PCP Internal Medicine; Referring Provider Surgery; Visit Provider Surgery
DX: T81.49XA Infection following a procedure, other surgical site, initial encounter (principal)
CPT/HCPCS: 74177; Q9967

== ENCOUNTER 2022-09-08 05:59 | Day surgery (SDC) | payer MEDICARE, SELFPAY ==
[2022-09-08] MEDS: Lactated Ringers 1,000 ML 15 ML IV (06:52)
[2022-09-08 06:53] VITALS: BP 141/63; PULSE 62; RESP 18; TEMP 36.7; O2SAT 100; BMI 19.4
--- NOTE | 2022-09-08 07:09 | PCM.HP.BLA ---
History and Physical Date of Admission: 09/08/22 Date of Service:? 08/30/22 MR#: [id number] Acct: [id number] Name:? RIRI MARTIN Jr. Rep #: [id number] : 1950 ? ? Provider: Dr. Yoli Wesley MD Age/Sex:? 72/M ? ? Location: [facility] Status: Signed Intake Vital Signs ? 08/30/2313:02 BP 132/66 H Blood Pressure Location Rt brachial Position Sitting Respiration 17 Pulse 84 Pulse Source Monitor Temp 97.2 F L Temp Source Temporal Pulse Oximetry (%) 98 Oxygen Delivery Method room air Intake Visit Reasons:?PORT PLACEMENT Chief Complaint: port placement Is patient in pain?: No Allergies No Known Allergies Allergy (Verified 08/30/22 14:02) Medications amlodipine 5 mg tablet 5 mg PO DAILY blood pressure 06/26/22 [History Confirmed 08/30/22] acetaminophen 500 mg tablet 1,000 mg PO Q6H PRN PRN Pain Score 1-5 #0 tabs 07/31/22 [Rx Confirmed 08/30/22] arginine 7 gram-glutam 7 gram-CaHMB 1.5 fhmf-encvn-xh-min oral pwd pkt (Billy (with collagen)) 1 packet PO BIDCM 30 days #60 ea 07/31/22 [Rx Confirmed 08/30/22] ascorbic acid (vitamin C) 500 mg tablet 500 mg PO BREAKFAST 30 days #30 tabs 07/31/22 [Rx Confirmed 08/30/22] metoprolol tartrate 25 mg tablet 25 mg PO DAILY 30 days #30 tabs 07/31/22 [Rx Confirmed 08/30/22] PFSH Medical History? Adenocarcinoma of transverse colon Anemia Bladder tumor Gout Hypertension Intra-abdominal abscess post-procedure Regional lymph node metastasis present Surgical History? History of bladder surgery Hx of cataract removal with insertion of prosthetic lens S/P exploratory laparotomy S/P left colectomy Family History? Brother Colon cancer,? Onset Age: 65Grandmother Brain tumor ?? ? maternalFather Myocardial infarctionMother Vision impairment Social History? household members:? spouse current occupational exposures/hazards:? No Smoking Status:? Never smoker alcohol intake:? never substance use type:? does not use HPI HPI HPI: 72-year-old male presents for discussion of port placement.? Patient did have obstructing colon cancer with 2 out of 17 nodes positive.? Patient was offered 3 of the 6 sessions of chemotherapy by oncology, which includes medication as given over 2 days-as part of the FOLFOX. ROS General General: No weight change, appetite, fatigue, colon cancer, breast cancer or weakness HEENT HEENT: Yes eye surgery; No difficulty swallowing, eye injury, swollen glands or hoarseness Endo Endocrine: No thyroid disease, diabetes mellitus, thyroid cancer, Hair loss, heat intolerance or cold intolerance Skin Skin: No rash or changing moles Musc Musculoskeletal: Yes gout; No back problems, arthritis, rheumatoid arthritis or joint pain Cardio Cardiovascular: Yes high blood pressure; No murmur, pacemaker, heart disease, atrial fibrillation, heart attack, heart stent, palpitations, shortness of breat with exertion or chest pain Psych Psychiatric: No depression, anxiety or hearing voices Resp Respiratory: No shortness of breath, No sleep apnea, No cough, No COPD, No asthma, No emphysema and No wheezing Gastro Gastrointestinal: No abdominal pain, No nausea or vomiting, No diarrhea, No constipation, No blood in stool, No acid reflux, No hemorrhoids, No ulcers, No gallbladder problem and No black,tarry stools Felipe Hematologic: No blood thinners, No blood disorders, No bleeding, Yes anemia and No blood clots Neuro Neurologic: No system reviewed and no additional complaints, except as documented, No as per HPI, No abnormal gait, No abnormal hearing, No abnormal movements, No abnormal speech, No behavioral changes, No burning sensations, No confusion, No convulsions, No disequilibrium, No dizziness, No localized weakness, No frequent falls, No headache(s), No lack of coordination, No loss of vision, No memory loss, No numbness, No other visual disturbances, No radicular pain, No restless legs, No sensory deficit, No syncope, No tingling, No tremor(s), No weakness and No other Exam Const General: cooperative, healthy appearing and comfortable Neck Neck: supple Chest Other: Palpation bilateral upper chest normal Resp Effort & Inspection: normal respiratory effort Cardio Rate: regular rate GI Inspection: incision (Well-healed) Palpation: soft and no hernias Assessment and Plan Assessment and Plan (1) Encounter for insertion of venous access port: ?Status:?Acute (2) Adenocarcinoma of transverse colon: ?Status:?Acute (3) Regional lymph node metastasis present: ?Status:?Acute Plan Details Additional Comments: I have discussed above with the patient- Port-a-Cath placement. Patient has been counseled as to the risks/benefits of the procedure. I have explained the risks of the surgery, including but not limited to: infection, bleeding, injury to any blood vessels/nerves, injury to lungs (such as pneumothorax or hemothorax and need for chest tube), not having any access, nonfunctioning of port due to thrombosis, infection of port, etc.? the patient understands and agrees to proceed. I have answered all the patient's questions to the patient?s satisfaction and the patient has no further questions. Yoli Wesley M.D. Pager: [phone] [facility] [address] [place] [address] [address] [place] [address] Office: [phone] Coding Level of Care Code Global Post Op Diagnoses Encounter for insertion of venous access port? Z45.2 Adenocarcinoma of transverse colon? C18.4 Regional lymph node metastasis present? C77.9 08/31/22 0739 <Electronically signed by Yoli Wesley MD> Date Yoli Wesley MD
[2022-09-08] MEDS: Cefazolin 2 GM in 0.9% Normal Saline 100 ML IV (07:23)
[2022-09-08] MEDS: Lidocaine 1% /Epi 1:100 (20ml) 20 ML Vial (07:38)
[2022-09-08] MEDS: Bupivacaine 0.25% 30 ML Vial (07:38)
--- NOTE | 2022-09-08 08:04 | PCM.OPRPT ---
Report of Operation Date of Procedure: 09/08/22 Pre-Operative Diagnosis: z45.2, colon cancer Post-Operative Diagnosis: Same Surgery/Procedure Performed:: 1. Insertion of right IJ Port-A-Cath 2. Use of ultrasound 3. Use of fluoroscopy Surgeon: Yoli Wesley Type of Anesthesia: General/Supplemental Anesthesiologist: Terrence Bauer Special Medications: Ancef 2 g IV x1 Specimen's removed: None Estimated Blood Loss (mL): < 10 cc Description of Procedure: After informed consent was given, the patient was brought to the operating room and placed in the supine position. Appropriate time out protocol was followed. Patient was then given IV conscious sedation for anesthesia. The patient's right upper chest and neck were then prepped with a surgical skin preparation and sterile surgical drapes were placed. After proper landmarks were ascertained, the skin at the upper right chest area was then infiltrated with 1:1 mixture of 1% lidocaine with epinephrine and 0.5% marcaine. A needle trocar was then inserted into the right internal jugular vein with ultrasound guidance-multiple vessels were viewed with u/s and the right IJ was chosen-- and there was good aspiration of venous blood. A wire was then threaded into the needle trocar and this was visualized under fluoroscopy to ensure that the wire was in the superior vena cava. Once this was done, then the needle trocar was removed. A small skin luz maria was made with an 11 blade knife at the wire entrance site. The dilator with the introducer sheath attached was then placed over the wire into the right internal jugular vein via the Seldinger technique and this was visualized under fluoroscopy. The dilator and sheath were in proper position as visualized by fluoroscopy. A subcutaneous pocket was then created caudad to the catheter insertion site. A transverse skin incision was made after the skin and subcutaneous tissues were infiltrated with local anesthetic. Blunt dissection was then used to create a space large enough for placement of the subcutaneous port. The catheter was then tunneled into the subcutaneous pocket. The wire and dilator were then removed. The catheter was then threaded into the introducer sheath and was positioned with its tip at the junction of the superior vena cava and the right atrium as visualized under fluoroscopy. The excess catheter was transected. The catheter was then attached to the subcutaneous port using manufacturers guidelines. The catheter was flushed with a heparin saline mixture prior to placement. Hemostasis was carefully controlled with electrocautery. The port was sutured to the subcutaneous fascia using 2-0 Vicryl suture at two sites. The port was then placed in the subcutaneous pocket. The incision were reapproximated with interrupted subdermal 3-0 vicryl sutures. The skin was reapproximated with 3-0 nylon suture in a interrupted fashion. Steristrips were used for reinforcement of the skin closure at IJ insertion site and a sterile opsite dressings were applied. The patient tolerated the procedure well. Grafts/Implants Used: Bard PowerPort isp M.R.I. 6Fr Lot [id number] Complications none
--- NOTE | 2022-09-08 08:06 | DCINST_ITS ---
Discharge Instructions Procedure Port-A-Cath Diet Discharge Diet: Light diet - advance as tolerated Activity May shower in (days): 5 (Keep port site clean and dry x5 days. Neck incision okay to get wet after 1 day. Okay to lower shower and upper sponge bath. OR okay to taper off port site with a Ziploc bag to shower) Lifting Restrictions: No lifting > 15 pounds for 3 days with the arm on the side of the port Dressing / Incision Call your doctor if your incision/area has: Continuous Slow Oozing, Sudden Increased Bleeding, Increased Pain/ Swelling, Increased Redness, Foul Smelling Discharge and Swelling at the incision site Call your doctor if you observe: Fever of 101 or Higher Change Dressing in: 2 days Follow Up Care Please Follow Up With: Yoli Wesley MD When: In 10 days for permanent suture removal?call office for appointment Test Results: Test results from this visit will be discussed in further detail at your follow- up appointment, if applicable. Discharge Plan Admission Attending Provider: Yoli Wesley Primary Care Provider: Francesca Lopez Discharge Orders/Prescriptions Prescriptions: Continued lidocaine-prilocaine 2.5-2.5 % cream 1 applic topical ONCE PRN (Reason: port access) 30 Days Qty: 30 2RF ondansetron 8 mg tablet,disintegrating 8 mg PO Q8H PRN (Reason: nausea and vomiting) Qty: 30 2RF amlodipine 5 mg Tablet 5 mg PO DAILY acetaminophen 500 mg Tablet 1,000 mg PO Q6H PRN PRN (Reason: Pain Score 1-5) Qty: 0 0RF ascorbic acid (vitamin C) 500 mg Tablet 500 mg PO BREAKFAST 30 Days Qty: 30 0RF metoprolol tartrate 25 mg Tablet 25 mg PO DAILY 30 Days Qty: 30 0RF chlorthalidone 25 mg Tablet 25 mg PO DAILY Referrals / Follow Up: Francesca Lopez DO [Primary Care Provider] - Disposition Disposition (needs filled in before D/C Order can be placed): Home, Self Care
[2022-09-08 08:07] VITALS: BP 120/63; BP 141/63; PULSE 69; RESP 18; TEMP 36.2; O2SAT 100
[2022-09-08 08:10] VITALS: BP 117/62; BP 141/63; PULSE 68; RESP 18; O2SAT 100
--- NOTE | 2022-09-08 08:10 | RAD_ITS ---
STUDY: X-RAY CHEST REASON FOR EXAM: Male, 72 years old. Port -- pacu TECHNIQUE: Single AP portable view of the chest. COMPARISON: July 23, 2022 FINDINGS: Port on the right extends to the superior vena cava. The lungs are clear and expanded. There is no demonstrated pleural abnormality. Normal size heart. Normal mediastinum and buck. Normal visualized pulmonary arteries. There is atherosclerotic tortuosity of the aortic arch and descending thoracic aorta. There are diffuse degenerative changes of the visualized thoracic spine. Normal visualized ribs, clavicles, and shoulders. There is no demonstrated abnormality of the visualized soft tissue structures of the upper abdomen. RAD/CXR for Line Placement IMPRESSION: Degenerative changes, as described above. No demonstrated acute cardiopulmonary process. Port placement. No pneumothorax. Electronically Signed: Poli Kay MD at 9:04 EDT ,
[2022-09-08 08:15] VITALS: BP 125/66; BP 141/63; PULSE 70; RESP 16; O2SAT 99
[2022-09-08 08:20] VITALS: BP 136/66; BP 141/63; PULSE 70; RESP 16; TEMP 36.3; O2SAT 100
[2022-09-08 08:50] VITALS: BP 141/63
== END 2022-09-08 09:00 | disposition home or self-care (01) ==
LOC: SDC 06:00 → AC 06:01
PROVIDERS: PCP Internal Medicine; Referring Provider Surgery; Visit Provider Surgery
PROC: (CPT 36561; principal; 2022-09-08 07:15)
DX: Z45.2 Encounter for adjustment and management of vascular access device (principal); C18.9 Malignant neoplasm of colon, unspecified; I10 Essential (primary) hypertension; Z79.899 Other long term (current) drug therapy
CPT/HCPCS: 36561; 00532; 71045; 77001; J7120; J2405

== ENCOUNTER 2023-04-09 06:19 | Day surgery (SDC) | payer MEDICARE, SELFPAY ==
[2023-04-09] VITALS (7 sets, daily range): BP systolic 117–151; BP diastolic 60–70; PULSE 59–72; RESP 16–60; TEMP 36.7–37.1; O2SAT 98–100; BMI 25.0
--- NOTE | 2023-04-09 | COLBX_PTH ---
PATIENT: RIRI MARTIN Jr. LOC: EN U#:[id number] AGE/SX: 72/M ROOM: RE04/09/[address]: Dr. Yoli Wesley MD : 1950 BED: DIS: 04/09/2023 SPEC #: [id number] RECD: 04/09/23 10:47 STATUS: SHARON ANIRUDH #: [id number] PATITO: 04/09/23 00:[address]: Yoli Wesley DEPT: SURGICAL PATHOLOGY RECD BY: Gautam Issa ENTERED: 04/09/23 11:19 SP TYPE: COLON BX OT DR: Dr. Francesca Lopez DO Tissues: A - Cecum, NOS B - Sigmoid colon biopsy Procedures: Surgery Specimen Level IV HEADER OPERATION: Colonoscopy, polypectomy, biopsy PRE-OP DIAGNOSIS: Adenocarcinoma of transverse colon, status post left colectomy, regional lymph node metastasis TISSUE SUBMITTED: A - Cecum polyp, B - Sigmoid polyp MICROSCOPIC DIAGNOSIS A. Cecum polyp, polypectomy: Fragments of tubular adenoma. Negative for carcinoma. B. Sigmoid polyp, polypectomy: Tubular adenoma. SJ:angélica 04/10/2023 COMMENT Please make reference to previous specimens ([id number]), left colon, colectomy with diagnosis of invasive adenocarcinoma and ([id number]) right prostate, base, and left prostate, base, core biopsies with diagnosis of prostatic adenocarcinoma. Case has been reviewed in consultation with Dr. Butt who concurs with the above diagnosis. IDC:AM MICROSCOPIC DESCRIPTION Slides are reviewed. GROSS DESCRIPTION A - Received in fixative is one container labeled with the patient's name and designated cecum polyp. The specimen consists of multiple irregular fragments of kerns-pink polyp that in aggregate measure 5.0 x 3.0 x 0.5 cm. The largest polyp measures 1.0 cm in greatest dimension. The larger polyps are bisected. The entire specimen is submitted in two cassettes. B - Received in fixative is one container labeled with the patient's name and designated sigmoid polyp. The specimen consists of a pink-red polyp measuring 0.8 x 0.6 x 0.5 cm. The presumed base is inked. The polyp is bisected and submitted entirely in one cassette. / LEE:angélica 04/09/2023 TC:1 CPT: 15355 x2
[2023-04-09] MEDS: Lactated Ringers 1,000 ML 15 ML IV (06:51)
--- NOTE | 2023-04-09 07:15 | PCM.HP.BLA ---
History and Physical Date of Admission: 04/09/23 Date of Service: 03/29/23 MR#: [id number] Acct: [id number] Name: RIRI MARTIN JrNatalie Rep #: [id number] : 1950 Provider: Dr. Yoli Wesley MD Age/Sex: 72/M Location: [facility] Status: Signed Intake Vital Signs 03/21/2309:52 03/29/2308:27 Height 5 ft 6 in 5 ft 6 in Weight: 148 lb 6 oz BMI 23.9 BP 170/74 H Blood Pressure Location Rt brachial Position Sitting Respiration 17 Pulse 58 L Pulse Source Monitor Temp 97.3 F L Temp Source Temporal Pulse Oximetry (%) 100 Oxygen Delivery Method room air Intake Visit Reasons: C-Scope Consult no previous Chief Complaint: c-scope consult Is patient in pain?: No Allergies No Known Allergies Allergy (Verified 03/29/23 08:28) Medications amlodipine 5 mg tablet 5 mg PO DAILY blood pressure 06/26/22 [History Confirmed 03/29/23] acetaminophen 500 mg tablet 1,000 mg (2 x 500 mg) PO Q6H PRN PRN Pain Score 1-5 #0 tabs 07/31/22 [Rx Confirmed 03/29/23] metoprolol tartrate 25 mg tablet 25 mg PO DAILY 30 days #30 tabs 07/31/22 [Rx Confirmed 03/29/23] lidocaine-prilocaine 2.5 %-2.5 % topical cream 1 applic topical ONCE PRN port access 30 days #30 grams 08/31/22 [Rx Confirmed 03/29/23] ondansetron 8 mg disintegrating tablet 8 mg PO Q8H PRN nausea and vomiting #30 tabs 08/31/22 [Rx Confirmed 03/29/23] loperamide 2 mg tablet (Imodium A-D) 2 mg PO Q6H PRN 01/01/23 [History Confirmed 03/29/23] PFSH Medical History Acute dermatitis Adenocarcinoma of transverse colon Anemia Anemia Anxiety Arthritis Bladder tumor Cancer Cardiology follow-up encounter CINV (chemotherapy-induced nausea and vomiting) Conjunctivitis Drug induced neutropenia Encounter for chemotherapy management Encounter for education Gout History of echocardiogram Hypertension Hypokalemia Intra-abdominal abscess post-procedure Non-smoker Prerenal azotemia Regional lymph node metastasis present Wears glasses Surgical History History of bladder surgery Hx of cataract removal with insertion of prosthetic lens S/P exploratory laparotomy S/P left colectomy Family History Brother Colon cancer, Onset Age: 65Grandmother Brain tumor maternalFather Myocardial infarctionMother Vision impairment Social History household members: spouse current occupational exposures/hazards: No Smoking Status: Never smoker alcohol intake: never substance use type: does not use HPI HPI HPI: 72-year-old male presents for colonoscopy. Patient never had previous colonoscopy patient came in in June 2022 with a colon obstruction had a left hemicolectomy and did have to go back 5 days later due to anastomotic leak. Patient states that his last chemotherapy was February 27-as 2 out of 17 lymph nodes were positive. Patient has been tolerating diet and having bowel function. Patient denies any abdominal pain. Patient states he has been able to gain some weight. Patient complains of some numbness in his fingers and toes from chemotherapy. ROS General General: Yes weight change and colon cancer; No appetite, fatigue, breast cancer or weakness HEENT HEENT: Yes eye surgery; No difficulty swallowing, eye injury, swollen glands or hoarseness Endo Endocrine: No thyroid disease, diabetes mellitus, thyroid cancer, Hair loss, heat intolerance or cold intolerance Skin Skin: No rash or changing moles Musc Musculoskeletal: Yes gout; No back problems, arthritis, rheumatoid arthritis or joint pain Cardio Cardiovascular: Yes high blood pressure; No murmur, pacemaker, heart disease, atrial fibrillation, heart attack, heart stent, palpitations, shortness of breat with exertion or chest pain Psych Psychiatric: No depression, anxiety or hearing voices Resp Respiratory: No shortness of breath, No sleep apnea, No cough, No COPD, No asthma, No emphysema and No wheezing Gastro Gastrointestinal: No abdominal pain, No nausea or vomiting, No diarrhea, No constipation, No blood in stool, No acid reflux, No hemorrhoids, No ulcers, No gallbladder problem and No black,tarry stools Felipe Hematologic: No blood thinners, No blood disorders, No bleeding, Yes anemia and No blood clots Neuro Neurologic: No system reviewed and no additional complaints, except as documented, No as per HPI, No abnormal gait, No abnormal hearing, No abnormal movements, No abnormal speech, No behavioral changes, No burning sensations, No confusion, No convulsions, No disequilibrium, No dizziness, No localized weakness, No frequent falls, No headache(s), No lack of coordination, No loss of vision, No memory loss, No numbness, No other visual disturbances, No radicular pain, No restless legs, No sensory deficit, No syncope, No tingling, No tremor(s), No weakness and No other Exam Const General: cooperative, healthy appearing and comfortable [facility] Head: normal to inspection Neck Neck: supple Chest Other: Palpation bilateral upper chest normal Resp Effort & Inspection: normal respiratory effort Cardio Rate: regular rate GI Inspection: incision (Well-healed) Palpation: soft and no hernias Rectal Exam: No tenderness Skin General: no rashes or lesions noted Neuro General: patient oriented x3 Psych Mood: anxious mood Assessment and Plan Assessment and Plan (1) Adenocarcinoma of transverse colon: Status: Chronic (2) S/P left colectomy: Status: Acute Comment: splenic flexure 07/06/22 (3) Regional lymph node metastasis present: Status: Chronic Plan I have discussed the above with the patient. I have offered the patient colonoscopy for evaluation. I have explained the risks/benefits of the procedure and described the procedure. I have discussed the risks with the patient, including but not limited to: infection, bleeding, perforation of the GI tract requiring emergency surgery, inability to complete the procedure, injury to any internal organs, complications of anesthesia, etc. - the patient understands and agrees to proceed. I have answered all the patient's questions to the patient's satisfaction and the patient has no further questions. The patient has been given instructions for the colon cleansing preparation. 1 day of clears, MiraLAX Dulcolax split prep. Yoli Wesley M.D. Pager: [phone] [facility] [address] [place] [address], [facility], [address] [place] [address] Office: [phone] Coding Level of Care Code Off vis,est,level 3 Diagnoses Adenocarcinoma of transverse colon C18.4 S/P left colectomy Z90.49 Regional lymph node metastasis present C77.9 03/29/23 0902 <Electronically signed by Yoli Wesley MD> Date Yoli Wesley MD
--- NOTE | 2023-04-09 08:18 | OP.COLON_ITS ---
Patient Name: [place] Procedure Date: 04/09/2023 7:21 AM Date of : 1950 Age: 72 Procedure: Colonoscopy Indications: High risk colon cancer surveillance: Personal history of colon cancer Providers: Yoli Wesley MD Referring MD: Francesca Lopez Medicines: Monitored Anesthesia Care Patient Profile: Last Colonoscopy: none. The patient's first colonoscopy is today. He is status post segmental resection of the descending colon within the past year. Complications: No immediate complications. Procedure: Pre-Anesthesia Assessment: - Prior to the procedure, a History and Physical was performed, and patient medications and allergies were reviewed. The patient's tolerance of previous anesthesia was also reviewed. The risks and benefits of the procedure and the sedation options and risks were discussed with the patient. All questions were answered, and informed consent was obtained. Prior Anticoagulants: The patient has taken no anticoagulant or antiplatelet agents. ASA Grade Assessment: Per anesthesia. After reviewing the risks and benefits, the patient was deemed in satisfactory condition to undergo the procedure. After I obtained informed consent, the scope was passed under direct vision. Throughout the procedure, the patient's blood pressure, pulse, and oxygen saturations were monitored continuously. The was introduced through the anus and advanced to the cecum, identified by the appendiceal orifice, ileocecal valve and palpation. The colonoscopy was technically difficult and complex. The patient tolerated the procedure well. The quality of the bowel preparation was good. Scope In: 7:30:02 AM Scope Withdrawal Time 0 hours 35 minutes 55 seconds Scope Out: 8:06:55 AM Total Procedure Duration Time 0 hours 36 minutes 53 seconds Findings: Hemorrhoids were found on perianal exam. Non-bleeding internal hemorrhoids were found. The hemorrhoids were Grade I (internal hemorrhoids that do not prolapse). Large carpet like along fold x 2 carpet-like and sessile polyps were found in the ascending colon and proximal ascending colon. The polyps were greater than 50 mm in size. Polyp resection was incomplete due to the polypectomy being technically difficult and complex. A 6 mm polyp was found in the sigmoid colon. The polyp was semi-pedunculated. The polyp was removed with a hot snare. Resection and retrieval were complete. Impression: - Hemorrhoids found on perianal exam. - Non-bleeding internal hemorrhoids. - Large carpet like along fold x 2 greater than 50 mm polyps in the ascending colon and in the proximal ascending colon. - One 6 mm polyp in the sigmoid colon, removed with a hot snare. Resected and retrieved. Recommendation: - Await pathology results. - Repeat colonoscopy within 3 months for surveillance after piecemeal polypectomy. - Continue present medications. Procedure Code(s): --- Professional --- 81367, PT, Colonoscopy, flexible; with removal of tumor(s), polyp(s), or other lesion(s) by snare technique Diagnosis Code(s): --- Professional --- Z85.038, Personal history of other malignant neoplasm of large intestine K64.0, First degree hemorrhoids D12.2, Benign neoplasm of ascending colon D12.5, Benign neoplasm of sigmoid colon CPT copyright 2021 [employer]. All rights reserved. The codes documented in this report are preliminary and upon professional fee coder review may be revised to meet current compliance requirements. MD Yoli Case MD 04/09/2023 8:17:39 AM This report has been signed electronically. Number of Addenda: 0 Note Initiated On: 04/09/2023 7:21 AM
--- NOTE | 2023-04-09 08:18 | OP.CCLET_ITS ---
04/09/2023 Francesca Lopez [address] [place] [address] Re : Colonoscopy procedure for [place] Dear Dr. Lopez This procedure was performed on Sunday, April 09, 2023. My impressions and recommendations are as follows: Impressions : - Hemorrhoids found on perianal exam. - Non-bleeding internal hemorrhoids. - Large carpet like along fold x 2 greater than 50 mm polyps in the ascending colon and in the proximal ascending colon. - One 6 mm polyp in the sigmoid colon, removed with a hot snare. Resected and retrieved. Recommendations : - Await pathology results. - Repeat colonoscopy within 3 months for surveillance after piecemeal polypectomy. - Continue present medications. My findings are described in the full procedure note, which is enclosed. If I can be of further assistance, please feel free to contact me at Doctor phone number(s): , Work: . Sincerely, MD Yoli Case MD 04/09/2023 8:17:39 AM This report has been signed electronically.
== END 2023-04-09 09:15 | disposition home or self-care (01) ==
LOC: EN 06:21 → AC 06:22
PROVIDERS: PCP Internal Medicine; Referring Provider Internal Medicine; Visit Provider Surgery
PROC: 0DJD8ZZ Inspection of Lower Intestinal Tract, Via Natural or Artificial Opening Endoscopic (ICD-10-PCS; CPT 45378; principal; 2023-04-09 07:25)
DX: Z12.11 Encounter for screening for malignant neoplasm of colon (principal); C77.9 Secondary and unspecified malignant neoplasm of lymph node, unspecified; C18.4 Malignant neoplasm of transverse colon; D12.2 Benign neoplasm of ascending colon; D12.5 Benign neoplasm of sigmoid colon; K64.0 First degree hemorrhoids; Z90.49 Acquired absence of other specified parts of digestive tract; Z79.899 Other long term (current) drug therapy; Z80.0 Family history of malignant neoplasm of digestive organs
CPT/HCPCS: 45385; 88305; J7120

== ENCOUNTER 2023-05-09 09:49 | Day surgery (SDC) | payer MEDICARE, SELFPAY ==
[2023-05-09 10:05] VITALS: BP 167/70; PULSE 69; RESP 18; TEMP 36.6; O2SAT 100; BMI 23.1
[2023-05-09] MEDS: Lactated Ringers 1,000 ML 15 ML IV (10:10)
--- NOTE | 2023-05-09 10:35 | HP.PCM_ITS ---
History and Physical Date of Admission: 05/09/23 72-year-old male presents for colonoscopy. Patient never had previous colonoscopy patient came in in June 2022 with a colon obstruction had a left hemicolectomy and did have to go back 5 days later due to anastomotic leak. Patient states that his last chemotherapy was February 27-as 2 out of 17 lymph nodes were positive. Patient has been tolerating diet and having bowel function. Patient denies any abdominal pain. Patient states he has been able to gain some weight. Patient complains of some numbness in his fingers and toes from chemotherapy. ROS General General: Yes weight change and colon cancer; No appetite, fatigue, breast cancer or weakness HEENT HEENT: Yes eye surgery; No difficulty swallowing, eye injury, swollen glands or hoarseness Endo Endocrine: No thyroid disease, diabetes mellitus, thyroid cancer, Hair loss, heat intolerance or cold intolerance Skin Skin: No rash or changing moles Musc Musculoskeletal: Yes gout; No back problems, arthritis, rheumatoid arthritis or joint pain Cardio Cardiovascular: Yes high blood pressure; No murmur, pacemaker, heart disease, atrial fibrillation, heart attack, heart stent, palpitations, shortness of breat with exertion or chest pain Psych Psychiatric: No depression, anxiety or hearing voices Resp Respiratory: No shortness of breath, No sleep apnea, No cough, No COPD, No asthma, No emphysema and No wheezing Gastro Gastrointestinal: No abdominal pain, No nausea or vomiting, No diarrhea, No constipation, No blood in stool, No acid reflux, No hemorrhoids, No ulcers, No gallbladder problem and No black,tarry stools Felipe Hematologic: No blood thinners, No blood disorders, No bleeding, Yes anemia and No blood clots Neuro Neurologic: No system reviewed and no additional complaints, except as documented, No as per HPI, No abnormal gait, No abnormal hearing, No abnormal movements, No abnormal speech, No behavioral changes, No burning sensations, No confusion, No convulsions, No disequilibrium, No dizziness, No localized weakness, No frequent falls, No headache(s), No lack of coordination, No loss of vision, No memory loss, No numbness, No other visual disturbances, No radicular pain, No restless legs, No sensory deficit, No syncope, No tingling, No tremor(s), No weakness and No other Exam Const General: cooperative, healthy appearing and comfortable [facility] Head: normal to inspection Neck Neck: supple Chest Other: Palpation bilateral upper chest normal Resp Effort & Inspection: normal respiratory effort Cardio Rate: regular rate GI Inspection: incision (Well-healed) Palpation: soft and no hernias Rectal Exam: No tenderness Skin General: no rashes or lesions noted Neuro General: patient oriented x3 Psych Mood: anxious mood Assessment and Plan Assessment and Plan (1) Adenocarcinoma of transverse colon: Status: Chronic (2) S/P left colectomy: Status: Acute Comment: splenic flexure 07/06/22 (3) 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 There are no clinical changes since date of exam.
--- NOTE | 2023-05-09 11:00 | COLBX_PTH ---
PATIENT: RIRI MARTIN Jr. LOC: EN U#:[id number] AGE/SX: 73/M ROOM: RE05/09/[address]: Dr. Fletcher Burk DO : 1950 BED: DIS: 05/09/2023 SPEC #: [id number] RECD: 05/10/23 07:46 STATUS: SHARON REEster #: [id number] PATITO: 05/09/23 11:[address]: Fletcher Burk DEPT: SURGICAL PATHOLOGY RECD BY: Gita Garcia ENTERED: 05/10/23 07:47 SP TYPE: COLON BX OTHR DR: Dr. Francesca Lopez DO Tissues: COLON BIOPSY Procedures: Surgery Specimen Level IV HEADER OPERATION: Colonoscopy with polypectomy with saline lift PRE-OP DIAGNOSIS: History adenocarcinoma transverse colon, S/P left colectomy, regional lymph node metastasis, polyps TISSUE SUBMITTED: Ascending colon polyp MICROSCOPIC DIAGNOSIS Ascending colon polyp, biopsy: Tubular adenoma. AM:angélica 05/11/2023 MICROSCOPIC DESCRIPTION Slides are reviewed. GROSS DESCRIPTION Received in fixative is one container labeled with the patient's name and designated ascending colon polyp. The specimen consists of multiple irregular fragments of light kerns soft tissue that in aggregate measure 1.7 x 1.2 x 0.1 cm. The specimen is totally submitted in one cassette. / AM:angélica 05/10/2023 TC:1 CPT: 84426
[2023-05-09] MEDS: 0.9% Saline Lock 10 ML Syringe IV (11:10)
[2023-05-09 11:25] VITALS: BP 103/56; BP 167/70; PULSE 69; RESP 16; TEMP 36.6; O2SAT 96
--- NOTE | 2023-05-09 11:28 | OP.COLON_ITS ---
Patient Name: [place] Procedure Date: 05/09/2023 10:56 AM Date of : 1950 Age: 73 Procedure: Colonoscopy Indications: High risk colon cancer surveillance: Personal history of sessile serrated colon polyp (10 mm or greater in size), High risk colon cancer surveillance: Personal history of colon cancer Providers: Fletcher Burk DO Referring MD: Fletcher Burk DO Medicines: Monitored Anesthesia Care Patient Profile: This is a 73 year old male. Refer to note in patient chart for documentation of history and physical. Last Colonoscopy: within the past 3 months. Complications: No immediate complications. Procedure: Pre-Anesthesia Assessment: - Prior to the procedure, a History and Physical was performed, and patient medications and allergies were reviewed. The patient is competent. The risks and benefits of the procedure and the sedation options and risks were discussed with the patient. All questions were answered and informed consent was obtained. Patient identification and proposed procedure were verified by the physician in the pre-procedure area. Mental Status Examination: alert and oriented. Airway Examination: normal oropharyngeal airway and neck mobility. Respiratory Examination: clear to auscultation. CV Examination: normal. Prophylactic Antibiotics: The patient does not require prophylactic antibiotics. Prior Anticoagulants: The patient has taken no anticoagulant or antiplatelet agents. ASA Grade Assessment: II - A patient with mild systemic disease. After reviewing the risks and benefits, the patient was deemed in satisfactory condition to undergo the procedure. The anesthesia plan was to use monitored anesthesia care (MAC). Immediately prior to administration of medications, the patient was re-assessed for adequacy to receive sedatives. The heart rate, respiratory rate, oxygen saturations, blood pressure, adequacy of pulmonary ventilation, and response to care were monitored throughout the procedure. The physical status of the patient was re-assessed after the procedure. After I obtained informed consent, the scope was passed under direct vision. Throughout the procedure, the patient's blood pressure, pulse, and oxygen saturations were monitored continuously. The Colonoscope was introduced through the anus and advanced to the terminal ileum. The colonoscopy was performed without difficulty. The patient tolerated the procedure well. The quality of the bowel preparation was good. The terminal ileum, ileocecal valve, appendiceal orifice, and rectum were photographed. Scope In: 11:02:09 AM Scope Out: 11:20:11 AM Total Procedure Duration Time 0 hours 18 minutes 2 seconds Findings: The perianal and digital rectal examinations were normal. There was evidence of a prior end-to-end colo-colonic anastomosis in the sigmoid colon. This was patent and was characterized by healthy appearing mucosa. The anastomosis was traversed. Four sessile polyps were found in the ascending colon and cecum. The polyps were 2 to 3 mm in size. These polyps were removed with a saline injection-lift technique using a hot snare. Resection and retrieval were complete. Area was successfully injected with 5 mL of a 0.1 mg/mL solution of epinephrine for drug delivery. Coagulation for destruction of remaining portion of lesion using argon plasma at 0.3 liters/minute and 20 johns was successful. Estimated blood loss was minimal. Impression: - Patent end-to-end colo-colonic anastomosis, characterized by healthy appearing mucosa. - Four 2 to 3 mm polyps in the ascending colon and in the cecum, removed using injection-lift and a hot snare. Resected and retrieved. Injected. Treated with argon plasma coagulation (APC). Recommendation: - Repeat colonoscopy in 1 year for surveillance. - Continue present medications. Procedure Code(s): --- Professional --- 18710, Colonoscopy, flexible; with removal of tumor(s), polyp(s), or other lesion(s) by snare technique 32766, Colonoscopy, flexible; with directed submucosal injection(s), any substance CPT copyright 2021 [employer]. All rights reserved. The codes documented in this report are preliminary and upon compliance engineer review may be revised to meet current compliance requirements. Fletcher Burk DO 05/09/2023 11:27:24 AM This report has been signed electronically. Number of Addenda: 0 Note Initiated On: 05/09/2023 10:56 AM
--- NOTE | 2023-05-09 11:28 | OP.CCLET_ITS ---
05/09/2023 Francesca Lopez [address] [place] [address] Re : Colonoscopy procedure for [place] Dear Dr. Lopez This procedure was performed on Tuesday, May 09, 2023. My impressions and recommendations are as follows: Impressions : - Patent end-to-end colo-colonic anastomosis, characterized by healthy appearing mucosa. - Four 2 to 3 mm polyps in the ascending colon and in the cecum, removed using injection-lift and a hot snare. Resected and retrieved. Injected. Treated with argon plasma coagulation (APC). Recommendations : - Repeat colonoscopy in 1 year for surveillance. - Continue present medications. My findings are described in the full procedure note, which is enclosed. If I can be of further assistance, please feel free to contact me at . Sincerely, Fletcher Burk, 05/09/2023 11:27:24 AM This report has been signed electronically.
[2023-05-09 11:30] VITALS: BP 104/59; BP 167/70; PULSE 63; PULSE 68; RESP 14; O2SAT 96
[2023-05-09 11:45] VITALS: BP 112/65; BP 167/70; PULSE 67; RESP 14; O2SAT 100
[2023-05-09 11:55] VITALS: BP 117/65; BP 167/70; PULSE 64; RESP 16; TEMP 37.5; O2SAT 100
[2023-05-09 12:13] VITALS: BP 167/70
== END 2023-05-09 12:29 | disposition home or self-care (01) ==
LOC: EN 09:50 → AC 09:51
PROVIDERS: PCP Internal Medicine; Referring Provider Internal Medicine; Visit Provider Internal Medicine Gastroenterology
PROC: 0DJD8ZZ Inspection of Lower Intestinal Tract, Via Natural or Artificial Opening Endoscopic (ICD-10-PCS; CPT 45378; principal; 2023-05-09 10:55)
DX: C18.9 Malignant neoplasm of colon, unspecified (principal); C77.9 Secondary and unspecified malignant neoplasm of lymph node, unspecified; D12.2 Benign neoplasm of ascending colon; I10 Essential (primary) hypertension; Z79.899 Other long term (current) drug therapy
CPT/HCPCS: 45385; 45381; 88305; J7120; A4216; J2405

== ENCOUNTER → 2023-05-29 | Outpatient (CLI) | payer MEDICARE, SELFPAY ==
--- NOTE | 2023-05-29 13:52 | CT_ITS ---
STUDY: CT CHEST, ABDOMEN T PELVIS WITH CONTRAST REASON FOR EXAM: Male, 73 years old. Colon cancer restaging RADIATION DOSAGE (If Supplied By Facility): CTDIvol = ( 9.30 ) mGy, DLP = ( 727.55 ) mGycm TECHNIQUE: Transaxial imaging was performed following intravenous administration of Oral and amp; IV Readi-CAT and amp; 100mL Isovue-300. Multiplanar coronal and sagittal images were reformatted. Oral contrast also administered Individualized dose optimization techniques were used for this CT. COMPARISON: 08/15/2022 FINDINGS: CHEST The lungs are normal. There is no demonstrated pleural abnormality. Normal heart and pericardium. No suspicious axillary, mediastinal, or perihilar mass or adenopathy. Normal unenhanced pulmonary arteries. Normal aorta arch and descending thoracic aorta. There are multi-level degenerative changes of the thoracic spine. ABDOMEN Normal liver. Normal gallbladder and extrahepatic biliary system. Normal spleen. Normal pancreas. Normal bilateral adrenal glands. Normal right kidney. Normal left kidney. Normal visualized stomach. Normal small intestine. Normal colon. There is non-visualization of the appendix. There is diffuse atherosclerotic calcification of the abdominal aorta, without a demonstrated aneurysm. Normal inferior vena cava. Normal retroperitoneum. Postsurgical changes noted to the ventral abdomen. There are diffuse degenerative changes of the visualized lumbar spine, and pelvis. PELVIS Normal urinary bladder. Stable enlargement of the prostate. There is no pelvic fluid. There is no pelvic lymphadenopathy or mass lesion. Normal visualized pelvic arteries. CT/CT Chest, Abd, Pel w/Contrast IMPRESSION: No acute pulmonary process, no suspicious noncalcified mass or nodule, no suspicious adenopathy No suspicious solid organ abnormality No free intraperitoneal fluid, air, or suspicious adenopathy No anastomotic leak in the colon. No suspicious abnormal submucosal thickening or inflammation Bony structures show degenerative change, no suspicious lytic or blastic lesion Electronically Signed: Clint Reich MD at 9:38 EST ,
[2023-05-29] MEDS: 0.9 % NaCl (Sterile) Posiflush 10 mL IV (14:12)
[2023-05-29 14:17] LABS: CREATININE FINGERSTICK < 1.0 mg/dL (0.70-1.30); EGFR FINGERSTICK > 60.0000 mL/min (>60)
== END | disposition home or self-care (01) ==
LOC: CT 13:51
PROVIDERS: PCP Internal Medicine; Referring Provider Internal Medicine Hematology & Oncology; Visit Provider Internal Medicine Hematology & Oncology
DX: C18.4 Malignant neoplasm of transverse colon (principal); I10 Essential (primary) hypertension
CPT/HCPCS: 71260; 74177; Q9967; A4216

== ENCOUNTER 2024-05-05 05:21 | Day surgery (SDC) | payer MEDICARE, SELFPAY ==
[2024-05-05] VITALS (7 sets, daily range): BP systolic 99–171; BP diastolic 56–67; PULSE 58–71; RESP 12–18; TEMP 35.7–36.3; O2SAT 95–100; BMI 24.4
[2024-05-05] MEDS: 0.9% Saline Lock 10 ML Syringe IV (07:00)
== END 2024-05-05 08:09 | disposition home or self-care (01) ==
LOC: EN 05:22 → AC 05:22
PROVIDERS: PCP Internal Medicine; Referring Provider Internal Medicine; Visit Provider Internal Medicine Gastroenterology
PROC: 0DJD8ZZ Inspection of Lower Intestinal Tract, Via Natural or Artificial Opening Endoscopic (ICD-10-PCS; CPT 45378; principal; 2024-05-05 06:25)
DX: Z12.11 Encounter for screening for malignant neoplasm of colon (principal); Z08 Encounter for follow-up examination after completed treatment for malignant neoplasm; D12.0 Benign neoplasm of cecum; I10 Essential (primary) hypertension; H91.90 Unspecified hearing loss, unspecified ear; Z90.49 Acquired absence of other specified parts of digestive tract; Z85.038 Personal history of other malignant neoplasm of large intestine; Z80.0 Family history of malignant neoplasm of digestive organs
CPT/HCPCS: 45385; 88305; A4216; J2405

== ENCOUNTER → 2024-07-01 | Outpatient (CLI) | payer MEDICARE, SELFPAY ==
--- NOTE | 2024-07-01 07:42 | CT_ITS ---
HISTORY: History of colon cancer with partial resection and chemotherapy. TECHNIQUE: Helically acquired images were obtained of the chest, abdomen, and pelvis after the intravenous administration of 100 mL Isovue 300. Oral contrast also administered. 2-D reformatted images provided. A radiation dose optimization technique was used for this scan. 1268 images. COMPARISON: 05/29/2023. 08/02/2022. FINDINGS: ----Chest: LARGE AIRWAYS: Patent. LUNGS: Chronic very mild right middle and lower lobe scarring. No new nodule, mass, or acute alveolar consolidation. Chronic calcified granuloma in the right lower lobe. PLEURA: No pneumothorax or significant pleural effusion. HEART AND PERICARDIUM: Heart within normal limits in size, with coronary artery disease. No significant pericardial effusion. VESSELS: Tortuous thoracic aorta without aneurysm or dissection flap. Mild atherosclerosis. No large central central pulmonary embolism although study not performed with the pulmonary embolism protocol. MEDIASTINUM AND AYDEN: No pathologically enlarged lymph nodes. Small calcified right hilar lymph nodes. BONES: Degenerative change without suspicious osteoblastic or osteolytic lesion. ----Abdomen/Pelvis: BOWEL: Bowel including appendix nondilated . Unchanged appearance of transverse colonic anastomosis. PERITONEUM: No significant ascites or pericolonic lymphadenopathy. LIVER: No enhancing mass. Stable 2 mm hypodensity laterally. GALLBLADDER/BILIARY TREE: Small calcified gallstones in the gallbladder neck without gallbladder wall thickening SPLEEN: Homogeneous and nonenlarged PANCREAS: Mild atrophy, parenchymal calcifications, and stable 1.1 cm cystic lesion in the distal body. KIDNEYS/ADRENAL GLANDS: Unremarkable. VESSELS: No abdominal aortic aneurysm. Mild atherosclerosis of the abdominal aorta and its major branches. PELVIC ORGANS: Chronic mild prostate gland enlargement. ABDOMINAL WALL: Small umbilical hernia containing small bowel again seen without small bowel wall thickening or dilatation. BONES: Degenerative change without suspicious osteoblastic or osteolytic lesion. CT/CT Chest, Abd, Pel w/Contrast IMPRESSION: No evidence for acute abnormality or metastatic disease in the chest. No significant interval change in appearance of colonic anastomosis. No evidence of tumor recurrence or metastatic disease progression. Small umbilical hernia containing small bowel without evidence of bowel obstruction or strangulation. Cholelithiasis. Stable small cystic lesions of the liver and pancreas. Chronic mild prostatomegaly. Electronically Signed: Hailee Paiz MD at 15:15 EST ,
== END | disposition home or self-care (01) ==
LOC: CT 07:42
PROVIDERS: PCP Internal Medicine; Referring Provider Nurse Practitioner Family; Visit Provider Nurse Practitioner Family
DX: C18.4 Malignant neoplasm of transverse colon (principal); C77.9 Secondary and unspecified malignant neoplasm of lymph node, unspecified
CPT/HCPCS: 71260; 74177; Q9967

== ENCOUNTER → 2024-11-14 | Outpatient (CLI) | payer MEDICARE, SELFPAY ==
--- NOTE | 2024-11-14 08:28 | CT_ITS ---
EXAM: CT Head Without Intravenous Contrast CLINICAL INDICATION: PERSISTENT HEADACHES TECHNIQUE: Axial computed tomography images of the head/brain without intravenous contrast. This CT exam was performed using one or more of the following dose reduction techniques: automated exposure control, adjustment of the mA and/or kV according to patient size, and/or use of iterative reconstruction technique. COMPARISON: No relevant prior studies available. FINDINGS: BRAIN AND EXTRA-AXIAL SPACES: Areas of decreased attenuation in the deep cerebral white matter are consistent with small vessel ischemic/degenerative changes. The cerebral and cerebellar sulci are mildly prominent consistent with mild brain atrophy. No acute intracranial hemorrhage, midline shift or mass effect. If symptoms persist, further evaluation with MRI is recommended. BONES/JOINTS: Unremarkable. No acute fracture. SOFT TISSUES: Unremarkable. SINUSES: Mucosal thickening of the left maxillary sinus, likely sinus disease. MASTOID AIR CELLS: Unremarkable as visualized. No mastoid effusion. CT/Brain/Head without Contrast IMPRESSION: 1. Small vessel ischemic/degenerative changes. 2. No acute intracranial hemorrhage, midline shift or mass effect. If symptoms persist, further evaluation with MRI is recommended. Reading [facility]
[2024-11-14 11:01] LABS: Erythrocyte Sedimentation Rate 4 mm/hr (0-20)
[2024-11-14 12:32] LABS: CRP < 3.00 mg/L (0.0-3.0)
== END | disposition home or self-care (01) ==
PROVIDERS: PCP Internal Medicine; Referring Provider Internal Medicine; Visit Provider Internal Medicine
DX: R51.9 Headache, unspecified (principal)
CPT/HCPCS: 70450; 85652; 86140

== ENCOUNTER → 2025-01-12 | Outpatient (CLI) | payer MEDICARE, SELFPAY ==
--- NOTE | 2025-01-12 07:41 | RDU_ITS ---
Reason For Study Reason For Study: HTN Right Renal Artery Left Renal Artery Right renal artery ostium 71.0/15.0 Left renal artery ostium 106.7/16.7 RSV/EDV. PSV/EDV. Right renal artery proximal 88.0/18.6 Left renal artery proximal PSV/EDV PSV/EDV. 125.6/16.7 . Right renal artery mid 122.0/14.5 Left renal artery mid 135.1/19.9 PSV/EDV. PSV/EDV . Right renal artery distal 128.6/23.3 Left renal artery distal 98.8/13.6 PSV/EDV. PSV/EDV. Right RAR 1.31. Left RAR 1.38. Right Renal Parenchyma Left Renal Parenchyma Upper Pole Medula 26.5/4.5 PSV/EDV. Left upper pole medulla 31.7/7.6 Right upper pole medulla EDR 0.20 . PSV/EDV . Right upper pole medulla R.I. 0.83 . Left upper pole medulla EDR 0.20 . Upper Ankit Cortx 23.7/5.6 PSV/EDV. Left upper pole medulla R.I. 0.76 . Right upper pole cortex EDR 0.20 . UP Cortex 20.8/6.0 PSV/EDV. Right upper pole cortex R.I. 0.76 . Left upper pole cortex EDR 0.30 . Right lower Pole medulla 30.9/5.6 Left upper pole cortex R.I. 0.71 . PSV/EDV . Left lower Pole medulla 34.0/7.6 Right lower pole medulla EDR 0.20 . PSV/EDV . Right lower pole medulla R.I. 0.82 . Left lower pole medulla EDR 0.20 . Lower Pole Cortex 16.6/2.9 PSV/EDV. Left lower pole medulla R.I. 0.78 . Right lower pole cortex EDR 0.20 . Lower Pole Cortx 20.8 PSV/EDV. Right lower pole cortex R.I. 0.83 . Left lower pole cortex EDR 0.20 . Right Renal Hilar Left lower pole cortex R.I. 0.77 . Right Hilar avg 130.0/15.8 PSV/EDV. Left Renal Hilar Right hilar acceleration time 30 m/sec. LT Hilar avg 78.5/11.1 PSV/EDV . Right Renal Dimensions Left hilar acceleration time 40 m/sec. Right kidney size 8.15 cm . Left Renal Dimensions Right cortical dimension 1.35 cm . Left kidney size 9.34 cm . Left cortical dimension 1.52 cm . Aorta Proximal abdominal aorta 1.72 x 1.72 cm . Proximal abdominal aorta peak systolic velocity is 64.6 cm/sec . Distal abdominal aorta 1.64 x 1.46 cm . Distal abdominal aorta peak systolic velocity is 97.8 cm/sec . VL/Renal Artery Duplex Ultrasound Interpretation Summary Right renal artery patent with normal velocities and no evidence of stenosis. Left renal artery patent with normal velocities and no evidence of stenosis. Right renal vein patent. Left renal vein patent. Right kidney diminshed in size. Left kidney normal in size. Ordering Physician: Francesca Lopez Referring Physician: Francesca Lopez Performed By: Hermelindo Segundo RVElvira
== END | disposition home or self-care (01) ==
LOC: CVS 07:40
PROVIDERS: PCP Internal Medicine; Referring Provider Internal Medicine; Visit Provider Internal Medicine
DX: I10 Essential (primary) hypertension (principal)
CPT/HCPCS: 93975

== ENCOUNTER → 2025-01-14 | Outpatient (CLI) | payer MEDICARE, SELFPAY | END | disposition home or self-care (01) | LOC: CVS 04-29 10:20 | PROVIDERS: PCP Internal Medicine; Referring Provider Internal Medicine; Visit Provider Internal Medicine | DX: I10 Essential (primary) hypertension (principal) | CPT/HCPCS: 93880 ==

== ENCOUNTER 2025-04-30 06:59 | Outpatient (CLI) | payer MEDICARE, SELFPAY ==
[2025-04-30 07:03] LABS: Mucous, Urine 0 SEEN /hpf (<or=2+); Red Blood Cells-Urine 0 SEEN /hpf (0-5); Squamous Epithelial Cells - UA 0 SEEN /hpf (0-5)
[2025-04-30 10:19] LABS: Hematocrit 40.3 % (40-54); Hemoglobin 13.1 g/dL (13.0-16.5); Immature Granulocytes Count 0.020 X10^3/uL (0.0-0.0); Mean Corp Hgb Conc 32.5 g/dL (32-36); Mean Corpuscular Volume 96.4 fL (80-94); Mean Platelet Vol. 10.1 fl (6.2-12.0); NRBC Flagged by Analyzer 0 % (0-5); Platelet Count 256 K/mm3 (150-450); RBC Distribution Width CV 12.2 % (11.6-14.6); RBC Distribution Width SD 43.1 fl (35.1-43.9); Red Blood Count 4.18 M/mm3 (4.6-6.2); White Blood Count 7.2 K/mm3 (4.4-11.0)
[2025-04-30 10:20] LABS: Color, Urine Yellow (Yellow); Glucose, Dipstick Normal (Normal); Ketone-Dipstick Negative (Negative); Leukocyte Esterase-Dipstick Negative /ul (Negative); Nitrite-Dipstick Negative (Negative); Occult Blood-Urine Negative /ul (Negative); Protein-Dipstick Negative (Negative); Specific Gravity, Urine 1.010 (1.002-1.030); Urine Bilirubin Dipstick Negative (Negative)
[2025-04-30 10:42] LABS: Creatinine, Urine (random) 96.30 mg/dL (39.00-259.00); Microalbumin,Random Urine 37.9 mg/L (<20 mg/L)
[2025-04-30 10:57] LABS: AST(SGOT) 22 U/L (<=37); Alanine Aminotransfer ALT/SGPT 21 U/L (<=46); Albumin, Serum 4.5 g/dL (3.4-4.8); Alkaline Phosphatase 56 U/L (40-129); Anion Gap 10 (5-15); BUN 23 mg/dL (4-19); BUN/Creat Ratio 15.7 RATIO (10-20); Calcium,Total 9.8 mg/dL (7.6-11.0); Carbon Dioxide 28.5 mmol/L (21.0-32.0); Chloride 97 mmol/L (98-108); Cholesterol 130 mg/dL (<=200); Globulin 2.8 g/dL (2.2-4.2); Glucose 113 mg/dL (70-99); Low Density Lipoprotein Calc. 62 mg/dL; Potassium 4.6 mmol/L (3.3-5.1); Triglycerides 68 mg/dL; Very Low Density Lipoprotein 14 mg/dL (5-40); cholesterol:hdl ratio screen 2.39
[2025-04-30 11:58] LABS: Vitamin B12 361 pg/mL (180-914); Vitamin D,25 Hydroxy 75.1 ng/mL (30-100)
== END 2025-04-30 23:59 | disposition home or self-care (01) ==
LOC: CIMLAB 07:00
PROVIDERS: PCP Internal Medicine; Referring Provider Internal Medicine; Visit Provider Internal Medicine
DX: I10 Essential (primary) hypertension (principal); E11.9 Type 2 diabetes mellitus without complications; E55.9 Vitamin D deficiency, unspecified; E53.8 Deficiency of other specified B group vitamins
CPT/HCPCS: 36415; 80053; 80061; 81001; 82043; 82306; 82570; 82607; 84443; 85025